=== PATIENT | male | born 1985 | race Two or more races ===

== ENCOUNTER 2017-02-12 18:26 | Inpatient (IN) | payer SELFPAY ==
[~2017-02-12] VITALS: Ht 175.3 cm; Wt 96.8 kg
[2017-02-12] MEDS ORDERED: IV NORMAL SALINE 1000ML BAG 1,000 ML IV ONE ×4 (19:00)
[2017-02-12 19:20] LABS: BASO % 0 % (0-3); EOS % 0 % (0-3); LYMPH # 1.6 x10^3/uL (1.0-4.8); LYMPH % 26 % (24-48); MEAN CORPUSCULAR HEMOGLOBIN 35 pg (25-35); MEAN CORPUSCULAR HGB CONC 35 g/dL (31-37); MEAN CORPUSCULAR VOLUME 100 fL (79-100); MONO % 5 % (0-9); NEUT % 69 % (31-73); PLATELET COUNT 168 x10^3/uL (140-400); RED BLOOD COUNT 1.25 x10^6/uL (4.30-5.70); RED CELL DISTRIBUTION WIDTH 15.3 % (11.5-14.5); WHITE BLOOD COUNT 6.3 x10^3/uL (4.0-11.0)
[2017-02-12 19:27] LABS: HEMATOCRIT 12.6 % (39.0-53.0); HEMOGLOBIN 4.4 g/dL (13.0-17.5)
[2017-02-12 19:28] LABS: BILIRUBIN,URINE SMALL (NEG); GLUCOSE,URINE NEGATIVE (NEG); NITRITE,URINE NEGATIVE (NEG); PH,URINE 5.5; PROTEIN,URINE NEGATIVE (NEG-TRACE)
[2017-02-12] MEDS ORDERED: ONDANSETRON PF 4 MG/2 ML VIAL. IV ONE (19:30)
[2017-02-12 19:33] LABS: CREATININE 1.3 mg/dL (0.7-1.3); GFR 64.8; POTASSIUM 3.7 mmol/L (3.5-5.1)
--- NOTE | 2017-02-12 19:36 | PHYS DOC ---
Past Medical History Past Medical History: No Pertinent History Past Surgical History: No Surgical History Alcohol Use: Rarely Drug Use: None Adult General Chief Complaint Chief Complaint: NAUSEA/VOMITING/DIARRHA HPI HPI 31-year-old male with no significant past medical history now presents complaining of 2 day history of nausea with vomiting and jaundice just been worsening. Patient has no abdominal pain or chest pain. He denies fevers chills sweats or shaking chills. No prior history of liver or biliary disease. Patient has never been told he had any medical problems. He does feel lightheaded and complains of nausea. Lightheadedness is worse when he tries to walk. No chest pain at any time Review of Systems Review of Systems Constitutional: Denies fever or chills [] Eyes: Denies change in visual acuity, redness, or eye pain [] HENT: Denies nasal congestion or sore throat [] Respiratory: Denies cough or shortness of breath [] Cardiovascular: No additional information not addressed in HPI [] GI: Denies abdominal pain, nausea, vomiting, bloody stools or diarrhea [] : Denies dysuria or hematuria [] Musculoskeletal: Denies back pain or joint pain [] Integument: Denies rash or skin lesions [] Neurologic: Denies headache, focal weakness or sensory changes [] Endocrine: Denies polyuria or polydipsia [] Current Medications Current Medications Current Medications Medications (Trade) Dose Ordered Sig/Yao Start Time Stop Time Status Last Admin Dose Admin Ondansetron HCl (Zofran) 4 mg 1X ONCE 02/12/17 19:30 02/12/17 19:31 DC 02/12/17 19:15 4 MG Sodium Chloride 1,000 ml @ 125 mls/hr 1X ONCE 02/12/17 19:00 02/13/17 02:59 Allergies Allergies Allergies Coded Allergies Type Severity Reaction Last Updated Verified No Known Drug Allergies 02/12/17 No Physical Exam Physical Exam Ill-appearing 31-year-old male with significant jaundice and scleral icterus dry mucous membranes supple neck alert communicative cooperative and appropriate with clear lungs regular rate and rhythm tachycardia benign abdomen with no epigastric or right upper quadrant tenderness no guarding or rebound no mass or megaly normal bowel sounds. Normal extremities. Constitutional: Well developed, well nourished, no acute distress, non-toxic appearance. [] HENT: Normocephalic, atraumatic, bilateral external ears normal, oropharynx mildly dry, no oral exudates, nose normal. [] Eyes: PERRLA, EOMI, scleral icterus, no discharge. [] Neck: Normal range of motion, no tenderness, supple, no stridor. [] Cardiovascular:Heart rate regular rhythm, no murmur [] Lungs & Thorax: Bilateral breath sounds clear to auscultation [] Abdomen: Bowel sounds normal, soft, no tenderness, no masses, no pulsatile masses. [] Skin: Warm, dry, no erythema, positive jaundice as above Back: No tenderness, no CVA tenderness. [] Extremities: No tenderness, no cyanosis, no clubbing, ROM intact, no edema. [] Neurologic: Alert and oriented X 3, normal motor function, normal sensory function, no focal deficits noted. [] Psychologic: Affect normal, judgement normal, mood normal. [] Current Patient Data Vital Signs Vital Signs Date Time Temp Pulse Resp B/P (MAP) Pulse Ox O2 Delivery O2 Flow Rate FiO2 02/12/17 18:35 98.6 125 14 152/85 (107) 100 Room Air 98.6 Lab Values Laboratory Tests Test 02/12/17 18:35 02/12/17 19:20 White Blood Count 6.3 x10^3/uL (4.0-11.0) Red Blood Count 1.25 x10^6/uL (4.30-5.70) L Hemoglobin 4.4 g/dL (13.0-17.5) *L Hematocrit 12.6 % (39.0-53.0) *L Mean Corpuscular Volume 100 fL (79-100) Mean Corpuscular Hemoglobin 35 pg (25-35) Mean Corpuscular Hemoglobin Concent 35 g/dL (31-37) Red Cell Distribution Width 15.3 % (11.5-14.5) H Platelet Count 168 x10^3/uL (140-400) Neutrophils (%) (Auto) 69 % (31-73) Lymphocytes (%) (Auto) 26 % (24-48) Monocytes (%) (Auto) 5 % (0-9) Eosinophils (%) (Auto) 0 % (0-3) Basophils (%) (Auto) 0 % (0-3) Neutrophils # (Auto) 4.3 x10^3uL (1.8-7.7) Lymphocytes # (Auto) 1.6 x10^3/uL (1.0-4.8) Monocytes # (Auto) 0.3 x10^3/uL (0.0-1.1) Eosinophils # (Auto) 0.0 x10^3/uL (0.0-0.7) Basophils # (Auto) 0.0 x10^3/uL (0.0-0.2) Sodium Level 141 mmol/L (136-145) Potassium Level 3.7 mmol/L (3.5-5.1) Chloride Level 102 mmol/L (98-107) Carbon Dioxide Level 24 mmol/L (21-32) Anion Gap 15 (6-14) H Blood Urea Nitrogen 28 mg/dL (8-26) H Creatinine 1.3 mg/dL (0.7-1.3) Estimated GFR (Cockcroft-Gault) 64.8 BUN/Creatinine Ratio 22 (6-20) H Glucose Level 191 mg/dL (70-99) H Calcium Level 9.0 mg/dL (8.5-10.1) Total Bilirubin 12.6 mg/dL (0.2-1.0) H Aspartate Amino Transferase (AST) 61 U/L (15-37) H Alanine Aminotransferase (ALT) 49 U/L (16-63) Alkaline Phosphatase 102 U/L (46-116) Total Protein 6.9 g/dL (6.4-8.2) Albumin 4.5 g/dL (3.4-5.0) Albumin/Globulin Ratio 1.9 (1.0-1.7) H Lipase 299 U/L (73-393) Urine Collection Type Unknown Urine Color [place] Urine Clarity Clear Urine pH 5.5 Urine Specific [place] 1.020 Urine Protein Negative mg/dL (NEG-TRACE) Urine Glucose (UA) Negative mg/dL (NEG) Urine Ketones (Stick) Trace mg/dL (NEG) Urine Blood Negative (NEG) Urine Nitrite Negative (NEG) Urine Bilirubin Small (NEG) Urine Urobilinogen Dipstick 4.0 mg/dL (0.2 mg/dL) Urine Leukocyte Esterase Small (NEG) Urine RBC 0 /HPF (0-2) Urine WBC 1-4 /HPF (0-4) Urine Squamous Epithelial Cells Occ /LPF Urine Bacteria Few /HPF (0-FEW) Urine Hyaline Casts Occasional /HPF Urine Mucus Mod /LPF Laboratory Tests 02/12/17 18:35 Laboratory Tests 02/12/17 18:35 EKG EKG [] Radiology/Procedures Radiology/Procedures Right Upper Quadrant with Gallstones but No Evidence of Cholecystitis or Biliary Dilatation.[] Course & Med Decision Making Course & Med Decision Making Pertinent Labs and Imaging studies reviewed. (See chart for details) Patient with severe jaundice and scleral icterus. Total bilirubin 12.6. Ultrasound gallstones but no evidence of cholecystitis or biliary dilatation. Patient is afebrile and has painless jaundice. He does have severe anemia with hemoglobin 4.4. As soon as the result was communicated to us patient was type and crossed for 2 units of PRBCs to be transfused as available. He is not Hinduism nor does he have any confucianist convictions which would preclude transfusion. Lipase is unremarkable. Case discussed with Dr. Mullins hospitalist on-call is aware of history and findings and agrees with inpatient admission and she requests [facility] bed to her service Critical care 73 minutes [] Dragon Disclaimer Dragon Disclaimer This electronic medical record was generated, in whole or in part, using a voice recognition dictation system. Departure Departure Impression: Primary Impression: Severe anemia Additional Impressions: Jaundice Hyperbilirubinemia Dehydration Gall stones Disposition: ADMITTED INPATIENT Admitting Physician: Usman Rahman Condition: CRITICAL Referrals: NO PCP (PCP) Problem Qualifiers DMITRIY TIAN MD Feb 12, 2017 19:36
[2017-02-12 19:38] LABS: ALBUMIN 4.5 g/dL (3.4-5.0); ALBUMIN/GLOBULIN RATIO 1.9 (1.0-1.7); TOTAL BILIRUBIN 12.6 mg/dL (0.2-1.0); TOTAL PROTEIN 6.9 g/dL (6.4-8.2)
[2017-02-12 19:43] LABS: RBC,URINE 0 /HPF (0-2)
[2017-02-12 19:44] LABS: BACTERIA,URINE FEW /HPF (0-FEW); SQUAMOUS EPITHELIAL CELL,UR OCC /LPF
--- NOTE | 2017-02-12 20:08 | RAD ---
ABDOMEN LTD History: Painless jaundice, nausea and vomiting for 3 days Comparison: None. Findings: Multiple sonographic images of the abdomen are submitted. No obvious abnormality of the visualized pancreas although not well visualized in some tiny due to bowel gas. Hepatic echotexture is within normal limits, no focal hepatic lesion demonstrated. There is segmental visualization of the inferior vena cava. There is demonstrable flow in the main portal vein, also demonstrable flow in hepatic veins. Right lobe of the liver measured 17.2 cm longitudinal. Right kidney measured 11.1 x 4.3 x 4.2 cm, no hydronephrosis. Gallstones fill the gallbladder lumen, no significant pericholecystic fluid or gallbladder wall thickening. Common bile duct is within normal limits up to 0.5 cm. Impression: 1. Gallstones fill the gallbladder, no significant gallbladder wall thickening or pericholecystic fluid. There is no significant biliary ductal dilatation. Electronically signed by: Micah Martinez MD (02/12/2017 8:05 PM) [facility]
[2017-02-12 21:29] VITALS: BP 137/60
[2017-02-12 21:34] VITALS: BP 138/61
[2017-02-12 21:50] VITALS: BP 137/61
[2017-02-12] MEDS ORDERED: IBUP200T58 PO (22:16)
[2017-02-12 22:34] VITALS: BP 131/63
[2017-02-12 23:00] VITALS: BP 128/60
[2017-02-12 23:34] VITALS: BP 120/60
[2017-02-13] VITALS (15 sets, daily range): BP systolic 116–157; BP diastolic 57–69
[2017-02-13 05:32] LABS: RED BLOOD COUNT 1.64 x10^6/uL (4.30-5.70); RED CELL DISTRIBUTION WIDTH 13.9 % (11.5-14.5); WHITE BLOOD COUNT 3.9 x10^3/uL (4.0-11.0)
[2017-02-13 05:44] LABS: ALBUMIN 3.6 g/dL (3.4-5.0); CALCIUM 7.9 mg/dL (8.5-10.1); CREATININE 1.1 mg/dL (0.7-1.3); DIRECT BILIRUBIN 0.8 mg/dL (0.0-0.2); GFR 78.6; HEMATOCRIT 15.6 % (39.0-53.0); HEMOGLOBIN 5.6 g/dL (13.0-17.5); POTASSIUM 3.9 mmol/L (3.5-5.1); TOTAL BILIRUBIN 9.3 mg/dL (0.2-1.0); TOTAL PROTEIN 5.7 g/dL (6.4-8.2)
[2017-02-13 09:44] LABS: BILIRUBIN,URINE SMALL (NEG); GLUCOSE,URINE NEGATIVE (NEG); NITRITE,URINE NEGATIVE (NEG); PH,URINE 6.5; PROTEIN,URINE NEGATIVE (NEG-TRACE)
[2017-02-13 10:03] LABS: % SAT IRON 96 % (15-34)
[2017-02-13 10:12] LABS: IRON,SERUM 243 ug/dL (65-175)
[2017-02-13 10:15] LABS: FOLATE 11.75 ng/ml (3.2-20.0)
[2017-02-13 10:17] LABS: FERRITIN 586 ng/mL (26-388); LACTATE DEHYDROGENASE 930 U/L (85-227)
--- NOTE | 2017-02-13 10:26 | RAD ---
Indication hemolytic anemia. Assess for splenic enlargement. Targeted ultrasound was performed. The examination was targeted to the spleen. There is splenomegaly. The spleen measures approximately 21 x 8 x 9 cm. IMPRESSION: Splenomegaly
[2017-02-13] MEDS ORDERED: IOHEXOL 240 MG/ML 50ML VIAL. PO ONE ×2 (10:45→11:30)
[2017-02-13] MEDS ORDERED: CONTRAST GIVEN MC PRN ×2 (10:45→11:30)
[2017-02-13] MEDS ORDERED: IOHEXOL 300 MG/ML 75 ML VIAL IV ONE ×2 (10:45→11:30)
--- NOTE | 2017-02-13 12:32 | CONS ---
DATE OF CONSULTATION: 02/13/2017 HEMATOLOGY ONCOLOGY CONSULTATION REPORT CONSULTATION REQUESTED BY: Dr. Servando Rahman. REASON FOR CONSULTATION: Severe anemia. HISTORY OF PRESENT ILLNESS: The patient is a 31-year-old gentleman who reports having felt lightheaded on 02/08/2017. He also noticed decreased appetite. On February 09, he started having nausea and vomiting. He reports that he was unable to keep any food down and whenever he tries to eat something, he tends to throw up. He denies any abdominal pain or chest pain. No fevers, chills or night sweats. He has also noticed that his urine has been dark since 02/06/2017 and he thought he was dehydrated and he was trying to drink more water. He was diagnosed with jaundice when he presented to the Emergency Room on 02/12/2017. He denies any prior history of jaundice. No history of liver or spleen problems. He has noticed increasing fatigue. He underwent ultrasound of the liver on 02/12/2017, which revealed gallstones. No evidence of biliary ductal dilatation. Hepatic echotexture was within normal limits. He was noted to have a hemoglobin of 4.4 on 02/12/2017 with an MCV of 100. After transfusion, his hemoglobin was 5.6. In addition, on 02/13/2017, his WBC was decreased to 3.9 and platelet count of 125. His reticulocyte count was elevated at 3.8. His total bilirubin was 9.3 with a direct bilirubin of only 0.8. PAST MEDICAL HISTORY: He denies any medical problems. PAST SURGICAL HISTORY: None. SOCIAL HISTORY: He drinks alcohol occasionally, but denies any heavy alcohol use. No smoking. FAMILY HISTORY: Positive for diabetes. REVIEW OF SYSTEMS: A 14-point review of system was performed. Pertinent positives are mentioned in the history of present illness. Rest of the system review is negative. PHYSICAL EXAMINATION: GENERAL APPEARANCE: The patient is a 31-year-old gentleman who is in no acute cardiorespiratory distress. VITAL SIGNS: Blood pressure 155/64, temperature 98.8. HEAD: Atraumatic, normocephalic. EYES: He has evidence of icterus. NECK: Supple. CHEST: Bilaterally symmetrical. No crepitations or rhonchi heard. HEART: S1, S2 normal. ABDOMEN: Soft, nontender. No hepatosplenomegaly. CENTRAL NERVOUS SYSTEM: No focal neurological deficits. LYMPHATICS: No lymphadenopathy. SKIN: No rashes. He has evidence of icterus. PSYCHOLOGIC: Mood and affect are appropriate. MUSCULOSKELETAL: No joint effusions. LABORATORY DATA: From 02/12/2017, WBC 6.3, hemoglobin 4.4, MCV 100, platelet count 168. Labs from 02/13/2017 reveals a WBC of 3.9, hemoglobin 5.6, platelet count 125. Reticulocyte count of 3.8. Total bilirubin 9.3, direct bilirubin 0.8, AST 45, ALT 42, total protein 5.7, alkaline phosphatase 8.3, albumin 3.6, calcium 7.9. Creatinine 1.1. IMPRESSION AND PLAN: 1. Severe anemia with a hemoglobin of 4.4 on 02/12/2017. In addition, he has evidence of leukopenia with a WBC of 3.9 and platelet count 125 on 02/13/2017. His reticulocyte count is elevated at 3.8 along with significant elevation of total bilirubin of 9.3 with direct bilirubin being only 0.8 suggestive of a hemolytic process. In addition, the patient reports having noticed dark urine since 02/06/2017. The nurse also noted that the urine was dark brown/tea-colored on the morning of 02/13/2017. The presence of pancytopenia and dark urine is concerning for paroxysmal nocturnal hemoglobinuria. I will check reticulocyte count, haptoglobin and LDH. I will also plan for flow cytometry to evaluate for PNH and to evaluate for CD55 and CD59 markers. I will also obtain a bone marrow biopsy to evaluate for any primary bone marrow failure. I will obtain ultrasound of the abdomen to evaluate for splenomegaly. I discussed in detail with the patient regarding the need for further above workup and he understands and agrees with the plan. 2. Nausea, which may also be nausea and vomiting. This may also be related to the same process. He also has gallstones and jaundice. I would continue to monitor. He does not have any abdominal pain. In view of significant jaundice, nausea and vomiting, I will obtain a CT scan for further evaluation. STEVEN GIL MD DR: TAMIA/yoon JOB#: [id number] / [id number] MTDD
--- NOTE | 2017-02-13 14:37 | RAD ---
Indication nausea vomiting. Jaundice. Axial images through the chest, abdomen and pelvis were obtained. Both oral and IV contrast were administered. Approximately 75 cc of Omnipaque 300 was administered intravenously. No prior CT imaging of the chest, abdomen or pelvis is available. CT chest: Findings. There is moderate adenopathy in both axilla. Adenopathy on the right is slightly greater than left. There is mild mediastinal adenopathy. There is no significant hilar adenopathy. A dominant soft tissue mass in either lung is not seen. There is minimal infiltrate in the lingula, particularly peripherally and in the right middle lobe. The etiology is not clear. Pneumonia is not excluded. There is no significant pleural fluid in either lung. The thoracic aorta is unremarkable. CT abdomen and pelvis: Findings. There is splenomegaly. There are a few minimally enlarged retrocrural lymph nodes. There is mild periaortic adenopathy. There are enlarged lymph nodes in the pelvis particularly along the iliac chain. Mildly enlarged lymph nodes are noted in both groins. The liver appears unremarkable. There is no significant intrahepatic biliary ductal dilatation. The gallbladder is largely contracted but grossly normal. No adrenal or renal pathology is seen. The pancreas appears unremarkable. No additional finding is seen in the pelvis apart from the adenopathy already referenced. IMPRESSION: Splenomegaly. This in conjunction with bilateral axillary adenopathy, periaortic and pelvic adenopathy with some associated mild mediastinal adenopathy suggests possible lymphoma. Minimal patchy infiltrates in the lingula and right middle lobe. The etiology is unclear. Pneumonia is not excluded PQRS Compliance Statement: One or more of the following individualized dose reduction techniques were utilized for this examination: 1. Automated exposure control 2. Adjustment of the mA and/or kV according to patient size 3. Use of iterative reconstruction technique
[2017-02-13 19:42] LABS: INR 1.2 (0.8-1.1); PROTHROMBIN TIME PATIENT 14.5 SEC (11.7-14.0)
[2017-02-14] VITALS (14 sets, daily range): BP systolic 111–140; BP diastolic 57–83
[2017-02-14 05:17] LABS: BASO % 0 % (0-3); EOS % 2 % (0-3); LYMPH # 0.7 x10^3/uL (1.0-4.8); LYMPH % 24 % (24-48); MEAN CORPUSCULAR HEMOGLOBIN 35 pg (25-35); MEAN CORPUSCULAR HGB CONC 37 g/dL (31-37); MEAN CORPUSCULAR VOLUME 95 fL (79-100); MONO % 6 % (0-9); NEUT % 68 % (31-73); PLATELET COUNT 124 x10^3/uL (140-400); RED BLOOD COUNT 1.81 x10^6/uL (4.30-5.70)
[2017-02-14 05:29] LABS: CALCIUM 8.1 mg/dL (8.5-10.1); GFR 87.7; POTASSIUM 3.3 mmol/L (3.5-5.1)
[2017-02-14 05:41] LABS: INR 1.2 (0.8-1.1); PROTHROMBIN TIME PATIENT 14.2 SEC (11.7-14.0)
[2017-02-14 05:45] LABS: HEMOGLOBIN 6.4 g/dL (13.0-17.5)
[2017-02-14 05:46] LABS: HEMATOCRIT 17.2 % (39.0-53.0)
[2017-02-14] MEDS ORDERED: LIDOCAINE 1% / SOD BICARB 8.4% 20 ML VIAL. IJ ONE ×2 (08:05→08:45)
[2017-02-14] MEDS ORDERED: MIDAZOLAM HCL/PF 5 MG/5 ML VIAL. ONE (08:23)
[2017-02-14] MEDS ORDERED: fentaNYL PF VIAL 250 MCG/5 ML VIAL ONE (08:24)
[2017-02-14] MEDS ORDERED: fentaNYL PF VIAL 250 MCG/5 ML VIAL IV ONE (08:45)
[2017-02-14] MEDS ORDERED: MIDAZOLAM HCL/PF 5 MG/5 ML VIAL. IV ONE (08:45)
--- NOTE | 2017-02-14 09:08 | HP ---
ADMIT DATE: 02/12/2017 CHIEF COMPLAINT: Severe anemia and jaundice. HISTORY OF PRESENT ILLNESS: The patient is a pleasant 31-year-old male who has been developing weakness and headaches and anemia. He is also jaundiced. He really did not notice he was jaundiced. He actually came to the hospital for the headache. While in the ER, he was noted to have a severe hemolytic anemia with a hemoglobin of 4 and a indirect bilirubin of greater than 10. The patient has hemolytic anemia. He has been admitted. We have consulted Dr. Richards. PAST MEDICAL HISTORY: Benign. ALLERGIES: None. FAMILY HISTORY: Hypertension. SOCIAL HISTORY: He does not drink, smoke or take drugs. MEDICATIONS: Reviewed. REVIEW OF SYSTEMS: GENERAL: No history of weight change, weakness or fevers. SKIN: He complains of jaundice. EYES: No blurred, double or loss of vision. NOSE AND THROAT: No history of nosebleeds, hoarseness or sore throat. HEART: No history of palpitations, chest pain or shortness of breath on exertion. LUNGS: Denies cough, hemoptysis, wheezing or shortness of breath. GASTROINTESTINAL: Denies changes in appetite, nausea, vomiting, diarrhea or constipation. GENITOURINARY: No history of frequency, urgency, hesitancy or nocturia. NEUROLOGIC: He complains of headache. PSYCHIATRIC: No history of panic, anxiety or depression. ENDOCRINE: No history of heat or cold intolerance, polyuria or polydipsia. EXTREMITIES: Denies muscle weakness, joint pain, pain on walking or stiffness. PHYSICAL EXAMINATION: VITAL SIGNS: Temperature afebrile, pulse 100, respirations 18, blood pressure 155/64. GENERAL: He is alert, cooperative, little concerned. HEART: Normal S1, S2. LUNGS: Clear. ABDOMEN: Soft. EXTREMITIES: No edema. SKIN: Very jaundiced. HEENT: He has scleral icterus. ENDOCRINE: No thyromegaly. LYMPHATICS: No cervical nodes. HEMATOPOIETIC: No bruising. LABORATORY DATA: White count is 6, hemoglobin 4.4, platelets 168. Electrolytes: Sodium 141, potassium 3.7, chloride 103, bicarb 24, BUN 28, creatinine 1.3, glucose 191. ____ 566, iron saturation 96, TIBC 254. Iron level 243. AST a little high at 61, ALT normal at 49, alkaline phosphatase is normal at 102. Lactate dehydrogenase is 930. Total protein low at 5.4. Albumin to globulin ratio high at 1.9. Folic acid is 11.75 and vitamins B12 is 403. ASSESSMENT AND PLAN: Probable hemolytic anemia. The patient has been admitted. We will consult Dr. Richards. Serial hemoglobin levels, we will transfuse if Dr. Richards agrees. Cardiac monitoring, PT, OT. Resume home medicines. PROGNOSIS: Guarded. ISREAL SQUIRES DO DR: DWAINE/yoon JOB#: [id number] / [id number]
--- NOTE | 2017-02-14 09:54 | PDOC ---
MODERATE SEDATION ASSESSMENT RISKS/ALTERNATIVES Risks/Alternatives Risks and alternatives of this type of sedation and procedure discussed with: RISK/ALTERNATIVES: Patient H & P ON CHART H & P H & P on chart and reviewed for co-morbid conditions and appropriate labs. H&P ON CHART: Yes STATUS PREG STATUS ASSESSED: Yes MEDS/ALLERGIES REVIEWED Meds/Allergies Reviewed Medications and Allergies including time and route of recently administered narcotics and sedatives. MEDS/ALLERGIES REVIEWED: Yes ASA RATING ASA RATING: II AIRWAY ASSESSMENT Airway Assessment Airway patency, oral function limitations, presence of caps, crowns, dentures, partials, and ability to extend neck assessed. AIRWAY ASSESSMENT: Yes MALLAMPATI SCORE MALLAMPATI SCORE: II PRE-SEDATION ASSESSMENT PRE-SEDATION ASSESSMENT: Yes CLIFF QUIGLEY MD Feb 14, 2017 09:54
--- NOTE | 2017-02-14 09:55 | PDOC ---
BRIEF OPERATIVE NOTE Pre-Op Diagnosis Anemia and splenomegaly Post-Op Diagnosis same Procedure Performed CT Bone Marrow Biopsy Surgeon Pravin Anesthesia Type: Conscious Sedation Specimens Obtained 2 x 2cc aspirates and 1 x 10g core Complications No immediate CLIFF QUIGLEY MD Feb 14, 2017 09:55
--- NOTE | 2017-02-14 09:58 | PDOC1 ---
History and Physical Date of Procedure Date of Admission Feb 12, 2017 at 19:45 History of Present Illness Reason for Visit Anemia and splenomegaly Past Medical History Past Medical History see nursing pre-op assessment Current Medications Current Medications Current Medications Sodium Chloride 1,000 ml @ 1,000 mls/hr 1X ONCE IV Last administered on 18:55; Start 02/12/17 at 19:00; Stop 02/12/17 at 19:59; Status DC Sodium Chloride 1,000 ml @ 1,000 mls/hr 1X ONCE IV Last administered on 19:03; Start 02/12/17 at 19:00; Stop 02/12/17 at 19:59; Status DC Sodium Chloride 1,000 ml @ 125 mls/hr 1X ONCE IV ; Start 02/12/17 at 19:00; Stop 02/13/17 at 02:59; Status DC Sodium Chloride 1,000 ml @ 125 mls/hr 1X ONCE IV ; Start 02/12/17 at 19:00; Stop 02/13/17 at 02:59; Status DC Ondansetron HCl (Zofran) 4 mg 1X ONCE IV Last administered on 02/12/17 19:15 ; Start 02/12/17 at 19:30; Stop 02/12/17 at 19:31; Status DC Iohexol (Omnipaque 240 Mg/ml) 30 ml 1X ONCE PO Last administered on 02/13/17 10:45; Start 02/13/17 at 10:45; Stop 02/13/17 at 10:46; Status DC Iohexol (Omnipaque 300 Mg/ml) 75 ml 1X ONCE IV Last administered on 02/13/17 10:45; Start 02/13/17 at 10:45; Stop 02/13/17 at 10:46; Status DC Info (Do NOT chart on this entry -- for MONITORING) 1 each PRN DAILY PRN MC SEE COMMENTS; Start 02/13/17 at 10:45; Stop 02/15/17 at 10:44 Iohexol (Omnipaque 240 Mg/ml) 30 ml 1X ONCE PO ; Start 02/13/17 at 11:30; Stop 02/13/17 at 11:31; Status DC Iohexol (Omnipaque 300 Mg/ml) 75 ml 1X ONCE IV ; Start 02/13/17 at 11:30; Stop 02/13/17 at 11:31; Status DC Info (Do NOT chart on this entry -- for MONITORING) 1 each PRN DAILY PRN MC SEE COMMENTS; Start 02/13/17 at 11:30; Stop 02/15/17 at 11:29 Lidocaine/Sodium Bicarbonate (Buffered Lidocaine 1%) 20 ml STK-MED ONCE IJ ; Start 02/14/17 at 08:05; Stop 02/14/17 at 08:06; Status DC Midazolam HCl (Versed) 5 mg STK-MED ONCE .ROUTE ; Start 02/14/17 at 08:23; Stop 02/14/17 at 08:24; Status DC Fentanyl Citrate (Fentanyl 5ml Vial) 250 mcg STK-MED ONCE .ROUTE ; Start at 08:24; Stop 02/14/17 at 08:25; Status DC Lidocaine/Sodium Bicarbonate (Buffered Lidocaine 1%) 20 ml 1X ONCE IJ Last administered on 02/14/17 08:50; Start 02/14/17 at 08:45; Stop 02/14/17 at 08:46 ; Status DC Midazolam HCl (Versed) 5 mg 1X ONCE IV Last administered on 02/14/17 08:50; Start 02/14/17 at 08:45; Stop 02/14/17 at 08:46; Status DC Fentanyl Citrate (Fentanyl 5ml Vial) 150 mcg 1X ONCE IV Last administered on 08:50; Start 02/14/17 at 08:45; Stop 02/14/17 at 08:46; Status DC Active Scripts Active Reported Advil (Ibuprofen) 200 Mg Tablet 200 Mg PO PRN Q6-8HRS PRN Allergies Allergies: Coded Allergies: No Known Drug Allergies (Unverified , 02/12/17) Physical Exam Vital Signs Vital Signs Date Time Temp Pulse Resp B/P (MAP) Pulse Ox O2 Delivery O2 Flow Rate FiO2 02/14/17 08:52 100 12 97 Room Air 02/14/17 08:50 2.0 02/14/17 07:00 99.0 123/65 (84) 99.0 Other see nursing pre-op assessment Assessment Assessment Anemia and splenomegaly Problems: Plan Plan CT Bone Marrow Biopsy CLIFF QUIGLEY MD Feb 14, 2017 09:58
--- NOTE | 2017-02-14 11:24 | PDOC ---
PROGRESS NOTES Chief Complaint Chief Complaint Severe anemia Leukopenia thrombocytopenia jaundice Splenomegaly lymphadenopathy History of Present Illness History of Present Illness The patient is a 31 y/o male who presented to the ED with nausea, vomiting, PRO, and Jaundice. Pt reports that these Sx have had been slowly worsening for the past week. In the ED he was also noted to have a TBili of 9.3 and indirect of 8.5, as well as, a Hgb of 4.4. The patient was admitted to the hospital. Dr. Richards ([facility]) has been consulted and is following the patient. Dr. Richards plans to undergo further testing, including CT chest/abd/pelvis, flow cytometry, splenic US, and BM biopsy. Patient seen at bedside. He is resting comfortably and in no acute distress. BM biopsy done today, which he tolerated well and has no pain. Patient currently denies any nausea, vomiting, fever or chills. He is sitting up in bed eating breakfast, tolerating well. CT Chest and CT abd/pelvis: IMPRESSION: Splenomegaly. This in conjunction with bilateral axillary adenopathy, periaortic and pelvic adenopathy with some associated mild mediastinal adenopathy suggests possible lymphoma. Minimal patchy infiltrates in the lingula and right middle lobe. The etiology is unclear. Pneumonia is not excluded Splenic US: Impression: Splenomegaly RUQ abd US: Impression: 1. Gallstones fill the gallbladder, no significant gallbladder wall thickening or pericholecystic fluid. There is no significant biliary ductal dilatation. Vitals Vitals Vital Signs Date Time Temp Pulse Resp B/P (MAP) Pulse Ox O2 Delivery O2 Flow Rate FiO2 02/14/17 08:52 100 12 97 Room Air 02/14/17 08:50 2.0 02/14/17 07:00 99.0 123/65 (84) 99.0 Physical Exam Physical Exam There is scleral icterus present General: Alert, Oriented X3, Cooperative, No acute distress Heart: Regular rate, Normal S1, Normal S2, No murmurs Lungs: Clear Abdomen: Normal bowel sounds, Soft, No tenderness Extremities: No clubbing, No cyanosis, No edema, Normal pulses Skin: No rashes, Other (jaundiced) Labs LABS Laboratory Tests Test 02/13/17 19:20 02/14/17 04:00 Prothrombin Time 14.5 SEC (11.7-14.0) 14.2 SEC (11.7-14.0) Prothromb Time International Ratio 1.2 (0.8-1.1) 1.2 (0.8-1.1) Activated Partial Thromboplast Time 21 SEC (24-38) White Blood Count 3.0 x10^3/uL (4.0-11.0) Red Blood Count 1.81 x10^6/uL (4.30-5.70) Hemoglobin 6.4 g/dL (13.0-17.5) Hematocrit 17.2 % (39.0-53.0) Mean Corpuscular Volume 95 fL (79-100) Mean Corpuscular Hemoglobin 35 pg (25-35) Mean Corpuscular Hemoglobin Concent 37 g/dL (31-37) Red Cell Distribution Width 14.0 % (11.5-14.5) Platelet Count 124 x10^3/uL (140-400) Neutrophils (%) (Auto) 68 % (31-73) Lymphocytes (%) (Auto) 24 % (24-48) Monocytes (%) (Auto) 6 % (0-9) Eosinophils (%) (Auto) 2 % (0-3) Basophils (%) (Auto) 0 % (0-3) Neutrophils # (Auto) 2.1 x10^3uL (1.8-7.7) Lymphocytes # (Auto) 0.7 x10^3/uL (1.0-4.8) Monocytes # (Auto) 0.2 x10^3/uL (0.0-1.1) Eosinophils # (Auto) 0.0 x10^3/uL (0.0-0.7) Basophils # (Auto) 0.0 x10^3/uL (0.0-0.2) Sodium Level 140 mmol/L (136-145) Potassium Level 3.3 mmol/L (3.5-5.1) Chloride Level 105 mmol/L (98-107) Carbon Dioxide Level 26 mmol/L (21-32) Anion Gap 9 (6-14) Blood Urea Nitrogen 22 mg/dL (8-26) Creatinine 1.0 mg/dL (0.7-1.3) Estimated GFR (Cockcroft-Gault) 87.7 Glucose Level 121 mg/dL (70-99) Calcium Level 8.1 mg/dL (8.5-10.1) Review of Systems Review of Systems General: + fatigue, Denies fever and chills CV: denies CP Resp: Denies SOB and wheezing abd: denies abd pain, nausea and vomiting Assessment and Plan Assessmemt and Plan Problems Medical Problems: (1) Dehydration Status: Acute (2) Gall stones Status: Acute (3) Severe anemia Status: Acute Assessment: Severe anemia Leukopenia thrombocytopenia jaundice Splenomegaly lymphadenopathy Plan: -PO potassium (K of 3.3) -CBC -CMP -recheck labs -Continue monitoring -continued following by heme/onc (Dr. Richards) -heme/onc workup per Dr. Richards -PT/OT Problems: Comment Review of Relevant I have reviewed the following items sharron (where applicable) has been applied. Labs Laboratory Tests Test 02/12/17 18:35 02/12/17 19:20 02/13/17 04:00 02/13/17 09:20 White Blood Count 6.3 x10^3/uL (4.0-11.0) 3.9 x10^3/uL (4.0-11.0) Red Blood Count 1.25 x10^6/uL (4.30-5.70) 1.64 x10^6/uL (4.30-5.70) Hemoglobin 4.4 g/dL (13.0-17.5) 5.6 g/dL (13.0-17.5) Hematocrit 12.6 % (39.0-53.0) 15.6 % (39.0-53.0) Mean Corpuscular Volume 100 fL (79-100) 95 fL (79-100) Mean Corpuscular Hemoglobin 35 pg (25-35) 34 pg (25-35) Mean Corpuscular Hemoglobin Concent 35 g/dL (31-37) 36 g/dL (31-37) Red Cell Distribution Width 15.3 % (11.5-14.5) 13.9 % (11.5-14.5) Platelet Count 168 x10^3/uL (140-400) 125 x10^3/uL (140-400) Neutrophils (%) (Auto) 69 % (31-73) Lymphocytes (%) (Auto) 26 % (24-48) Monocytes (%) (Auto) 5 % (0-9) Eosinophils (%) (Auto) 0 % (0-3) Basophils (%) (Auto) 0 % (0-3) Neutrophils # (Auto) 4.3 x10^3uL (1.8-7.7) Lymphocytes # (Auto) 1.6 x10^3/uL (1.0-4.8) Monocytes # (Auto) 0.3 x10^3/uL (0.0-1.1) Eosinophils # (Auto) 0.0 x10^3/uL (0.0-0.7) Basophils # (Auto) 0.0 x10^3/uL (0.0-0.2) Sodium Level 141 mmol/L (136-145) 142 mmol/L (136-145) Potassium Level 3.7 mmol/L (3.5-5.1) 3.9 mmol/L (3.5-5.1) Chloride Level 102 mmol/L (98-107) 107 mmol/L (98-107) Carbon Dioxide Level 24 mmol/L (21-32) 27 mmol/L (21-32) Anion Gap 15 (6-14) 8 (6-14) Blood Urea Nitrogen 28 mg/dL (8-26) 21 mg/dL (8-26) Creatinine 1.3 mg/dL (0.7-1.3) 1.1 mg/dL (0.7-1.3) Estimated GFR (Cockcroft-Gault) 64.8 78.6 BUN/Creatinine Ratio 22 (6-20) Glucose Level 191 mg/dL (70-99) 106 mg/dL (70-99) Calcium Level 9.0 mg/dL (8.5-10.1) 7.9 mg/dL (8.5-10.1) Total Bilirubin 12.6 mg/dL (0.2-1.0) 9.3 mg/dL (0.2-1.0) Aspartate Amino Transf (AST/SGOT) 61 U/L (15-37) 45 U/L (15-37) Alanine Aminotransferase (ALT/SGPT) 49 U/L (16-63) 42 U/L (16-63) Alkaline Phosphatase 102 U/L (46-116) 83 U/L (46-116) Total Protein 6.9 g/dL (6.4-8.2) 5.7 g/dL (6.4-8.2) Albumin 4.5 g/dL (3.4-5.0) 3.6 g/dL (3.4-5.0) Albumin/Globulin Ratio 1.9 (1.0-1.7) Lipase 299 U/L (73-393) Urine Collection Type Unknown Urine Color [place] Urine Clarity Clear Urine pH 5.5 Urine Specific [place] 1.020 Urine Protein Negative mg/dL (NEG-TRACE) Urine Glucose (UA) Negative mg/dL (NEG) Urine Ketones (Stick) Trace mg/dL (NEG) Urine Blood Negative (NEG) Urine Nitrite Negative (NEG) Urine Bilirubin Small (NEG) Urine Urobilinogen Dipstick 4.0 mg/dL (0.2 mg/dL) Urine Leukocyte Esterase Small (NEG) Urine RBC 0 /HPF (0-2) Urine WBC 1-4 /HPF (0-4) Urine Squamous Epithelial Cells Occ /LPF Urine Bacteria Few /HPF (0-FEW) Urine Hyaline Casts Occasional /HPF Urine Mucus Mod /LPF Direct Bilirubin 0.8 mg/dL (0.0-0.2) Reticulocyte Count (auto) 3.8 % (0.5-2.5) Iron Level 243 ug/dL (65-175) Total Iron Binding Capacity 254 ug/dL (250-450) Iron Saturation 96 % (15-34) Ferritin 586 ng/mL (26-388) Lactate Dehydrogenase 930 U/L (85-227) Vitamin B12 Level 403 pg/mL (247-911) Serum Folate 11.75 ng/ml (3.2-20.0) Test 02/13/17 09:30 02/13/17 19:20 02/14/17 04:00 Urine Collection Type Unknown Urine Color [place] Urine Clarity Clear Urine pH 6.5 Urine Specific [place] 1.015 Urine Protein Negative mg/dL (NEG-TRACE) Urine Glucose (UA) Negative mg/dL (NEG) Urine Ketones (Stick) Negative mg/dL (NEG) Urine Blood Negative (NEG) Urine Nitrite Negative (NEG) Urine Bilirubin Small (NEG) Urine Urobilinogen Dipstick 4.0 mg/dL (0.2 mg/dL) Urine Leukocyte Esterase Negative (NEG) Prothrombin Time 14.5 SEC (11.7-14.0) 14.2 SEC (11.7-14.0) Prothromb Time International Ratio 1.2 (0.8-1.1) 1.2 (0.8-1.1) Activated Partial Thromboplast Time 21 SEC (24-38) White Blood Count 3.0 x10^3/uL (4.0-11.0) Red Blood Count 1.81 x10^6/uL (4.30-5.70) Hemoglobin 6.4 g/dL (13.0-17.5) Hematocrit 17.2 % (39.0-53.0) Mean Corpuscular Volume 95 fL (79-100) Mean Corpuscular Hemoglobin 35 pg (25-35) Mean Corpuscular Hemoglobin Concent 37 g/dL (31-37) Red Cell Distribution Width 14.0 % (11.5-14.5) Platelet Count 124 x10^3/uL (140-400) Neutrophils (%) (Auto) 68 % (31-73) Lymphocytes (%) (Auto) 24 % (24-48) Monocytes (%) (Auto) 6 % (0-9) Eosinophils (%) (Auto) 2 % (0-3) Basophils (%) (Auto) 0 % (0-3) Neutrophils # (Auto) 2.1 x10^3uL (1.8-7.7) Lymphocytes # (Auto) 0.7 x10^3/uL (1.0-4.8) Monocytes # (Auto) 0.2 x10^3/uL (0.0-1.1) Eosinophils # (Auto) 0.0 x10^3/uL (0.0-0.7) Basophils # (Auto) 0.0 x10^3/uL (0.0-0.2) Sodium Level 140 mmol/L (136-145) Potassium Level 3.3 mmol/L (3.5-5.1) Chloride Level 105 mmol/L (98-107) Carbon Dioxide Level 26 mmol/L (21-32) Anion Gap 9 (6-14) Blood Urea Nitrogen 22 mg/dL (8-26) Creatinine 1.0 mg/dL (0.7-1.3) Estimated GFR (Cockcroft-Gault) 87.7 Glucose Level 121 mg/dL (70-99) Calcium Level 8.1 mg/dL (8.5-10.1) Laboratory Tests Test 02/13/17 19:20 02/14/17 04:00 Prothrombin Time 14.5 SEC (11.7-14.0) 14.2 SEC (11.7-14.0) Prothromb Time International Ratio 1.2 (0.8-1.1) 1.2 (0.8-1.1) Activated Partial Thromboplast Time 21 SEC (24-38) White Blood Count 3.0 x10^3/uL (4.0-11.0) Red Blood Count 1.81 x10^6/uL (4.30-5.70) Hemoglobin 6.4 g/dL (13.0-17.5) Hematocrit 17.2 % (39.0-53.0) Mean Corpuscular Volume 95 fL (79-100) Mean Corpuscular Hemoglobin 35 pg (25-35) Mean Corpuscular Hemoglobin Concent 37 g/dL (31-37) Red Cell Distribution Width 14.0 % (11.5-14.5) Platelet Count 124 x10^3/uL (140-400) Neutrophils (%) (Auto) 68 % (31-73) Lymphocytes (%) (Auto) 24 % (24-48) Monocytes (%) (Auto) 6 % (0-9) Eosinophils (%) (Auto) 2 % (0-3) Basophils (%) (Auto) 0 % (0-3) Neutrophils # (Auto) 2.1 x10^3uL (1.8-7.7) Lymphocytes # (Auto) 0.7 x10^3/uL (1.0-4.8) Monocytes # (Auto) 0.2 x10^3/uL (0.0-1.1) Eosinophils # (Auto) 0.0 x10^3/uL (0.0-0.7) Basophils # (Auto) 0.0 x10^3/uL (0.0-0.2) Sodium Level 140 mmol/L (136-145) Potassium Level 3.3 mmol/L (3.5-5.1) Chloride Level 105 mmol/L (98-107) Carbon Dioxide Level 26 mmol/L (21-32) Anion Gap 9 (6-14) Blood Urea Nitrogen 22 mg/dL (8-26) Creatinine 1.0 mg/dL (0.7-1.3) Estimated GFR (Cockcroft-Gault) 87.7 Glucose Level 121 mg/dL (70-99) Calcium Level 8.1 mg/dL (8.5-10.1) Medications Current Medications Sodium Chloride 1,000 ml @ 1,000 mls/hr 1X ONCE IV Last administered on 18:55; Start 02/12/17 at 19:00; Stop 02/12/17 at 19:59; Status DC Sodium Chloride 1,000 ml @ 1,000 mls/hr 1X ONCE IV Last administered on 19:03; Start 02/12/17 at 19:00; Stop 02/12/17 at 19:59; Status DC Sodium Chloride 1,000 ml @ 125 mls/hr 1X ONCE IV ; Start 02/12/17 at 19:00; Stop 02/13/17 at 02:59; Status DC Sodium Chloride 1,000 ml @ 125 mls/hr 1X ONCE IV ; Start 02/12/17 at 19:00; Stop 02/13/17 at 02:59; Status DC Ondansetron HCl (Zofran) 4 mg 1X ONCE IV Last administered on 02/12/17 19:15 ; Start 02/12/17 at 19:30; Stop 02/12/17 at 19:31; Status DC Iohexol (Omnipaque 240 Mg/ml) 30 ml 1X ONCE PO Last administered on 02/13/17 10:45; Start 02/13/17 at 10:45; Stop 02/13/17 at 10:46; Status DC Iohexol (Omnipaque 300 Mg/ml) 75 ml 1X ONCE IV Last administered on 02/13/17 10:45; Start 02/13/17 at 10:45; Stop 02/13/17 at 10:46; Status DC Info (Do NOT chart on this entry -- for MONITORING) 1 each PRN DAILY PRN MC SEE COMMENTS; Start 02/13/17 at 10:45; Stop 02/15/17 at 10:44 Iohexol (Omnipaque 240 Mg/ml) 30 ml 1X ONCE PO ; Start 02/13/17 at 11:30; Stop 02/13/17 at 11:31; Status DC Iohexol (Omnipaque 300 Mg/ml) 75 ml 1X ONCE IV ; Start 02/13/17 at 11:30; Stop 02/13/17 at 11:31; Status DC Info (Do NOT chart on this entry -- for MONITORING) 1 each PRN DAILY PRN MC SEE COMMENTS; Start 02/13/17 at 11:30; Stop 02/15/17 at 11:29 Lidocaine/Sodium Bicarbonate (Buffered Lidocaine 1%) 20 ml STK-MED ONCE IJ ; Start 02/14/17 at 08:05; Stop 02/14/17 at 08:06; Status DC Midazolam HCl (Versed) 5 mg STK-MED ONCE .ROUTE ; Start 02/14/17 at 08:23; Stop 02/14/17 at 08:24; Status DC Fentanyl Citrate (Fentanyl 5ml Vial) 250 mcg STK-MED ONCE .ROUTE ; Start at 08:24; Stop 02/14/17 at 08:25; Status DC Lidocaine/Sodium Bicarbonate (Buffered Lidocaine 1%) 20 ml 1X ONCE IJ Last administered on 02/14/17 08:50; Start 02/14/17 at 08:45; Stop 02/14/17 at 08:46 ; Status DC Midazolam HCl (Versed) 5 mg 1X ONCE IV Last administered on 02/14/17 08:50; Start 02/14/17 at 08:45; Stop 02/14/17 at 08:46; Status DC Fentanyl Citrate (Fentanyl 5ml Vial) 150 mcg 1X ONCE IV Last administered on 08:50; Start 02/14/17 at 08:45; Stop 02/14/17 at 08:46; Status DC Active Scripts Active Reported Advil (Ibuprofen) 200 Mg Tablet 200 Mg PO PRN Q6-8HRS PRN Vitals/I & O Vital Sign - Last 24 Hours 02/13/17 02/13/17 02/13/17 02/13/17 11:44 12:12 15:00 19:00 Temp 99.1 99.1 99.2 99.9 99.1 99.1 99.2 99.9 Pulse 101 100 107 104 Resp 20 18 18 18 B/P (MAP) 120/63 116/58 147/65 (92) 147/63 (91) Pulse Ox 96 98 O2 Delivery Room Air Room Air 02/13/17 02/13/17 02/14/17 02/14/17 20:00 23:00 03:25 07:00 Temp 99.2 99.2 99.0 99.2 99.2 99.0 Pulse 110 97 106 Resp 18 16 20 B/P (MAP) 131/61 (84) 126/57 (80) 123/65 (84) Pulse Ox 96 98 97 O2 Delivery Room Air Room Air Room Air Room Air 02/14/17 02/14/17 02/14/17 02/14/17 08:39 08:43 08:48 08:50 Pulse 98 102 106 Resp 18 Pulse Ox 98 98 98 98 O2 Delivery Nasal Cannula Nasal Cannula Nasal Cannula Nasal Cannula O2 Flow Rate 2.0 2.0 2.0 2.0 02/14/17 08:52 Pulse 100 Resp 12 Pulse Ox 97 O2 Delivery Room Air ISREAL SQUIRES III, DO Feb 14, 2017 11:24
--- NOTE | 2017-02-14 12:03 | RAD ---
Procedure: CT-guided bone marrow aspiration and biopsy Clinical Indication: 31-year-old with anemia and splenomegaly, and jaundice Sedation: Conscious sedation was administered for 16 minutes. The patient was monitored by a qualified independent observer throughout the time of sedation. Please refer to the medical record for exact doses of medications utilized to achieve moderate sedation. Antibiotics: None Fluoro Time: Not applicable Contrast: None Sterility: The procedure was performed in its entirety using appropriate elements of sterile technique. Consent: The procedure was explained in its entirety to the patient or the patients designated member services representative by a member of the treatment team, including a discussion of the risks, benefits and commonly accepted alternatives to the procedure, as well as the expected consequences of no therapy whatsoever. Discussion of the risks included, but was not limited to, those that are most frequent and those that are rare but possibly severe or life-threatening, as well as the possibility of unforeseen complications. Technique and Findings: Following informed consent, the patient was prepped and draped in usual sterile fashion. Preliminary CT scan of the area of interest was performed. 1% Lidocaine was used to achieve local anesthesia. Under periodic CT surveillance, an 11-gauge needle was advanced through the cortex of the posterior superior iliac spine and 2 separate 2 mL marrow aspirates were obtained and preserved on site by the conference assistant. A single 11-gauge core biopsy specimen was then obtained and preserved in formalin. The needle was then removed and hemostasis was achieved with manual compression. Complications: No immediate Impression: 1. CT-guided bone marrow aspiration and biopsy as described PQRS Compliance Statement: One or more of the following individualized dose reduction techniques were utilized for this examination: 1. Automated exposure control 2. Adjustment of the mA and/or kV according to patient size 3. Use of iterative reconstruction technique
[2017-02-14] MEDS ORDERED: POTASSIUM CHLORIDE 20 MEQ TABLET.ER. PO ONE (12:15)
[2017-02-14 12:45] LABS: ALBUMIN 3.6 g/dL (3.4-5.0); ALBUMIN/GLOBULIN RATIO 1.9 (1.0-1.7); CALCIUM 8.2 mg/dL (8.5-10.1); GFR 87.7; POTASSIUM 4.1 mmol/L (3.5-5.1); TOTAL BILIRUBIN 12.5 mg/dL (0.2-1.0); TOTAL PROTEIN 5.5 g/dL (6.4-8.2)
--- NOTE | 2017-02-14 14:15 | PDOC ---
PROGRESS NOTES Subjective Subjective c/c - f/u of anemia Objective Objective Vital Signs Date Time Temp Pulse Resp B/P (MAP) Pulse Ox O2 Delivery O2 Flow Rate FiO2 02/14/17 11:00 99.0 105 20 131/72 (91) 98 Room Air 99.0 02/14/17 08:50 2.0 Physical Exam Heart: Normal S1, Normal S2 General: Alert, Oriented X3 Lungs: Clear to auscultation Neuro: Normal speech Psych/Mental Status: Mental status NL Assessment Assessment Problems Medical Problems: (1) Dehydration Status: Acute (2) Gall stones Status: Acute (3) Severe anemia Status: Acute IMPRESSION AND PLAN: 1. Severe anemia with a hemoglobin of 4.4 on 02/12/2017. In addition, he has evidence of leukopenia with a WBC of 3.9 and platelet count 125 on 02/13/2017. His reticulocyte count is elevated at 3.8 along with significant elevation of total bilirubin of 9.3 with direct bilirubin being only 0.8 suggestive of a hemolytic process. In addition, the patient reports having noticed dark urine since 02/06/2017. The nurse also noted that the urine was dark brown/tea-colored on the morning of 02/13/2017. The presence of pancytopenia and dark urine is concerning for paroxysmal nocturnal hemoglobinuria. Reticulocyte count is 3.8, haptoglobin <10, and LDH 930, but Brittani test is negative. Flow cytometry to evaluate for PNH and to evaluate for CD55 and CD59 markers is pending. s/p bone marrow biopsy 02/14/17 to evaluate for any primary bone marrow failure. CT C/A/P on 02/13/17: Splenomegaly. This in conjunction with bilateral axillary adenopathy, periaortic and pelvic adenopathy with some associated mild mediastinal adenopathy suggests possible lymphoma. Await bx results. Plan 1 unit PRBC 02/14/17 as Hb still 6.4. 2. Nausea, which may also be nausea and vomiting. This may also be related to the same process. He also has gallstones and jaundice. I would continue to monitor. He does not have any abdominal pain. I Comment Review of Relevant I have reviewed the following items sharron (where applicable) has been applied. Labs Laboratory Tests Test 02/12/17 18:35 02/12/17 19:20 02/13/17 04:00 02/13/17 09:20 White Blood Count 6.3 x10^3/uL (4.0-11.0) 3.9 x10^3/uL (4.0-11.0) Red Blood Count 1.25 x10^6/uL (4.30-5.70) 1.64 x10^6/uL (4.30-5.70) Hemoglobin 4.4 g/dL (13.0-17.5) 5.6 g/dL (13.0-17.5) Hematocrit 12.6 % (39.0-53.0) 15.6 % (39.0-53.0) Mean Corpuscular Volume 100 fL (79-100) 95 fL (79-100) Mean Corpuscular Hemoglobin 35 pg (25-35) 34 pg (25-35) Mean Corpuscular Hemoglobin Concent 35 g/dL (31-37) 36 g/dL (31-37) Red Cell Distribution Width 15.3 % (11.5-14.5) 13.9 % (11.5-14.5) Platelet Count 168 x10^3/uL (140-400) 125 x10^3/uL (140-400) Neutrophils (%) (Auto) 69 % (31-73) Lymphocytes (%) (Auto) 26 % (24-48) Monocytes (%) (Auto) 5 % (0-9) Eosinophils (%) (Auto) 0 % (0-3) Basophils (%) (Auto) 0 % (0-3) Neutrophils # (Auto) 4.3 x10^3uL (1.8-7.7) Lymphocytes # (Auto) 1.6 x10^3/uL (1.0-4.8) Monocytes # (Auto) 0.3 x10^3/uL (0.0-1.1) Eosinophils # (Auto) 0.0 x10^3/uL (0.0-0.7) Basophils # (Auto) 0.0 x10^3/uL (0.0-0.2) Sodium Level 141 mmol/L (136-145) 142 mmol/L (136-145) Potassium Level 3.7 mmol/L (3.5-5.1) 3.9 mmol/L (3.5-5.1) Chloride Level 102 mmol/L (98-107) 107 mmol/L (98-107) Carbon Dioxide Level 24 mmol/L (21-32) 27 mmol/L (21-32) Anion Gap 15 (6-14) 8 (6-14) Blood Urea Nitrogen 28 mg/dL (8-26) 21 mg/dL (8-26) Creatinine 1.3 mg/dL (0.7-1.3) 1.1 mg/dL (0.7-1.3) Estimated GFR (Cockcroft-Gault) 64.8 78.6 BUN/Creatinine Ratio 22 (6-20) Glucose Level 191 mg/dL (70-99) 106 mg/dL (70-99) Calcium Level 9.0 mg/dL (8.5-10.1) 7.9 mg/dL (8.5-10.1) Total Bilirubin 12.6 mg/dL (0.2-1.0) 9.3 mg/dL (0.2-1.0) Aspartate Amino Transf (AST/SGOT) 61 U/L (15-37) 45 U/L (15-37) Alanine Aminotransferase (ALT/SGPT) 49 U/L (16-63) 42 U/L (16-63) Alkaline Phosphatase 102 U/L (46-116) 83 U/L (46-116) Total Protein 6.9 g/dL (6.4-8.2) 5.7 g/dL (6.4-8.2) Albumin 4.5 g/dL (3.4-5.0) 3.6 g/dL (3.4-5.0) Albumin/Globulin Ratio 1.9 (1.0-1.7) Lipase 299 U/L (73-393) Urine Collection Type Unknown Urine Color [place] Urine Clarity Clear Urine pH 5.5 Urine Specific [place] 1.020 Urine Protein Negative mg/dL (NEG-TRACE) Urine Glucose (UA) Negative mg/dL (NEG) Urine Ketones (Stick) Trace mg/dL (NEG) Urine Blood Negative (NEG) Urine Nitrite Negative (NEG) Urine Bilirubin Small (NEG) Urine Urobilinogen Dipstick 4.0 mg/dL (0.2 mg/dL) Urine Leukocyte Esterase Small (NEG) Urine RBC 0 /HPF (0-2) Urine WBC 1-4 /HPF (0-4) Urine Squamous Epithelial Cells Occ /LPF Urine Bacteria Few /HPF (0-FEW) Urine Hyaline Casts Occasional /HPF Urine Mucus Mod /LPF Direct Bilirubin 0.8 mg/dL (0.0-0.2) Reticulocyte Count (auto) 3.8 % (0.5-2.5) Haptoglobin <10 mg/dL (34-200) Iron Level 243 ug/dL (65-175) Total Iron Binding Capacity 254 ug/dL (250-450) Iron Saturation 96 % (15-34) Ferritin 586 ng/mL (26-388) Lactate Dehydrogenase 930 U/L (85-227) Vitamin B12 Level 403 pg/mL (247-911) Serum Folate 11.75 ng/ml (3.2-20.0) Test 02/13/17 09:30 02/13/17 19:20 02/14/17 04:00 02/14/17 12:25 Urine Collection Type Unknown Urine Color Rocío Urine Clarity Clear Urine pH 6.5 Urine Specific [place] 1.015 Urine Protein Negative mg/dL (NEG-TRACE) Urine Glucose (UA) Negative mg/dL (NEG) Urine Ketones (Stick) Negative mg/dL (NEG) Urine Blood Negative (NEG) Urine Nitrite Negative (NEG) Urine Bilirubin Small (NEG) Urine Urobilinogen Dipstick 4.0 mg/dL (0.2 mg/dL) Urine Leukocyte Esterase Negative (NEG) Prothrombin Time 14.5 SEC (11.7-14.0) 14.2 SEC (11.7-14.0) Prothromb Time International Ratio 1.2 (0.8-1.1) 1.2 (0.8-1.1) Activated Partial Thromboplast Time 21 SEC (24-38) White Blood Count 3.0 x10^3/uL (4.0-11.0) Red Blood Count 1.81 x10^6/uL (4.30-5.70) Hemoglobin 6.4 g/dL (13.0-17.5) Hematocrit 17.2 % (39.0-53.0) Mean Corpuscular Volume 95 fL (79-100) Mean Corpuscular Hemoglobin 35 pg (25-35) Mean Corpuscular Hemoglobin Concent 37 g/dL (31-37) Red Cell Distribution Width 14.0 % (11.5-14.5) Platelet Count 124 x10^3/uL (140-400) Neutrophils (%) (Auto) 68 % (31-73) Lymphocytes (%) (Auto) 24 % (24-48) Monocytes (%) (Auto) 6 % (0-9) Eosinophils (%) (Auto) 2 % (0-3) Basophils (%) (Auto) 0 % (0-3) Neutrophils # (Auto) 2.1 x10^3uL (1.8-7.7) Lymphocytes # (Auto) 0.7 x10^3/uL (1.0-4.8) Monocytes # (Auto) 0.2 x10^3/uL (0.0-1.1) Eosinophils # (Auto) 0.0 x10^3/uL (0.0-0.7) Basophils # (Auto) 0.0 x10^3/uL (0.0-0.2) Reticulocyte Count (auto) 4.1 % (0.5-2.5) Sodium Level 140 mmol/L (136-145) 140 mmol/L (136-145) Potassium Level 3.3 mmol/L (3.5-5.1) 4.1 mmol/L (3.5-5.1) Chloride Level 105 mmol/L (98-107) 106 mmol/L (98-107) Carbon Dioxide Level 26 mmol/L (21-32) 27 mmol/L (21-32) Anion Gap 9 (6-14) 7 (6-14) Blood Urea Nitrogen 22 mg/dL (8-26) 21 mg/dL (8-26) Creatinine 1.0 mg/dL (0.7-1.3) 1.0 mg/dL (0.7-1.3) Estimated GFR (Cockcroft-Gault) 87.7 87.7 Glucose Level 121 mg/dL (70-99) 108 mg/dL (70-99) Calcium Level 8.1 mg/dL (8.5-10.1) 8.2 mg/dL (8.5-10.1) BUN/Creatinine Ratio 21 (6-20) Total Bilirubin 12.5 mg/dL (0.2-1.0) Aspartate Amino Transf (AST/SGOT) 47 U/L (15-37) Alanine Aminotransferase (ALT/SGPT) 43 U/L (16-63) Alkaline Phosphatase 87 U/L (46-116) Total Protein 5.5 g/dL (6.4-8.2) Albumin 3.6 g/dL (3.4-5.0) Albumin/Globulin Ratio 1.9 (1.0-1.7) Laboratory Tests Test 02/13/17 19:20 02/14/17 04:00 02/14/17 12:25 Prothrombin Time 14.5 SEC (11.7-14.0) 14.2 SEC (11.7-14.0) Prothromb Time International Ratio 1.2 (0.8-1.1) 1.2 (0.8-1.1) Activated Partial Thromboplast Time 21 SEC (24-38) White Blood Count 3.0 x10^3/uL (4.0-11.0) Red Blood Count 1.81 x10^6/uL (4.30-5.70) Hemoglobin 6.4 g/dL (13.0-17.5) Hematocrit 17.2 % (39.0-53.0) Mean Corpuscular Volume 95 fL (79-100) Mean Corpuscular Hemoglobin 35 pg (25-35) Mean Corpuscular Hemoglobin Concent 37 g/dL (31-37) Red Cell Distribution Width 14.0 % (11.5-14.5) Platelet Count 124 x10^3/uL (140-400) Neutrophils (%) (Auto) 68 % (31-73) Lymphocytes (%) (Auto) 24 % (24-48) Monocytes (%) (Auto) 6 % (0-9) Eosinophils (%) (Auto) 2 % (0-3) Basophils (%) (Auto) 0 % (0-3) Neutrophils # (Auto) 2.1 x10^3uL (1.8-7.7) Lymphocytes # (Auto) 0.7 x10^3/uL (1.0-4.8) Monocytes # (Auto) 0.2 x10^3/uL (0.0-1.1) Eosinophils # (Auto) 0.0 x10^3/uL (0.0-0.7) Basophils # (Auto) 0.0 x10^3/uL (0.0-0.2) Reticulocyte Count (auto) 4.1 % (0.5-2.5) Sodium Level 140 mmol/L (136-145) 140 mmol/L (136-145) Potassium Level 3.3 mmol/L (3.5-5.1) 4.1 mmol/L (3.5-5.1) Chloride Level 105 mmol/L (98-107) 106 mmol/L (98-107) Carbon Dioxide Level 26 mmol/L (21-32) 27 mmol/L (21-32) Anion Gap 9 (6-14) 7 (6-14) Blood Urea Nitrogen 22 mg/dL (8-26) 21 mg/dL (8-26) Creatinine 1.0 mg/dL (0.7-1.3) 1.0 mg/dL (0.7-1.3) Estimated GFR (Cockcroft-Gault) 87.7 87.7 Glucose Level 121 mg/dL (70-99) 108 mg/dL (70-99) Calcium Level 8.1 mg/dL (8.5-10.1) 8.2 mg/dL (8.5-10.1) BUN/Creatinine Ratio 21 (6-20) Total Bilirubin 12.5 mg/dL (0.2-1.0) Aspartate Amino Transf (AST/SGOT) 47 U/L (15-37) Alanine Aminotransferase (ALT/SGPT) 43 U/L (16-63) Alkaline Phosphatase 87 U/L (46-116) Total Protein 5.5 g/dL (6.4-8.2) Albumin 3.6 g/dL (3.4-5.0) Albumin/Globulin Ratio 1.9 (1.0-1.7) Medications Current Medications Sodium Chloride 1,000 ml @ 1,000 mls/hr 1X ONCE IV Last administered on 18:55; Start 02/12/17 at 19:00; Stop 02/12/17 at 19:59; Status DC Sodium Chloride 1,000 ml @ 1,000 mls/hr 1X ONCE IV Last administered on t 19:03; Start 02/12/17 at 19:00; Stop 02/12/17 at 19:59; Status DC Sodium Chloride 1,000 ml @ 125 mls/hr 1X ONCE IV ; Start 02/12/17 at 19:00; Stop 02/13/17 at 02:59; Status DC Sodium Chloride 1,000 ml @ 125 mls/hr 1X ONCE IV ; Start 02/12/17 at 19:00; Stop 02/13/17 at 02:59; Status DC Ondansetron HCl (Zofran) 4 mg 1X ONCE IV Last administered on 02/12/17t 19:15 ; Start 02/12/17 at 19:30; Stop 02/12/17 at 19:31; Status DC Iohexol (Omnipaque 240 Mg/ml) 30 ml 1X ONCE PO Last administered on 02/13/17t 10:45; Start 02/13/17 at 10:45; Stop 02/13/17 at 10:46; Status DC Iohexol (Omnipaque 300 Mg/ml) 75 ml 1X ONCE IV Last administered on 02/13/17t 10:45; Start 02/13/17 at 10:45; Stop 02/13/17 at 10:46; Status DC Info (Do NOT chart on this entry -- for MONITORING) 1 each PRN DAILY PRN MC SEE COMMENTS; Start 02/13/17 at 10:45; Stop 02/14/17 at 11:29; Status DC Iohexol (Omnipaque 240 Mg/ml) 30 ml 1X ONCE PO ; Start 02/13/17 at 11:30; Stop 02/13/17 at 11:31; Status DC Iohexol (Omnipaque 300 Mg/ml) 75 ml 1X ONCE IV ; Start 02/13/17 at 11:30; Stop 02/13/17 at 11:31; Status DC Info (Do NOT chart on this entry -- for MONITORING) 1 each PRN DAILY PRN MC SEE COMMENTS; Start 02/13/17 at 11:30; Stop 02/15/17 at 11:29 Lidocaine/Sodium Bicarbonate (Buffered Lidocaine 1%) 20 ml STK-MED ONCE IJ ; Start 02/14/17 at 08:05; Stop 02/14/17 at 08:06; Status DC Midazolam HCl (Versed) 5 mg STK-MED ONCE .ROUTE ; Start 02/14/17 at 08:23; Stop 02/14/17 at 08:24; Status DC Fentanyl Citrate (Fentanyl 5ml Vial) 250 mcg STK-MED ONCE .ROUTE ; Start at 08:24; Stop 02/14/17 at 08:25; Status DC Lidocaine/Sodium Bicarbonate (Buffered Lidocaine 1%) 20 ml 1X ONCE IJ Last administered on 02/14/17 08:50; Start 02/14/17 at 08:45; Stop 02/14/17 at 08:46 ; Status DC Midazolam HCl (Versed) 5 mg 1X ONCE IV Last administered on 02/14/17 08:50; Start 02/14/17 at 08:45; Stop 02/14/17 at 08:46; Status DC Fentanyl Citrate (Fentanyl 5ml Vial) 150 mcg 1X ONCE IV Last administered on 08:50; Start 02/14/17 at 08:45; Stop 02/14/17 at 08:46; Status DC Potassium Chloride (Klor-Con) 40 meq 1X ONCE PO Last administered on 12:36; Start 02/14/17 at 12:15; Stop 02/14/17 at 12:16; Status DC Active Scripts Active Reported Advil (Ibuprofen) 200 Mg Tablet 200 Mg PO PRN Q6-8HRS PRN Vitals/I & O Vital Sign - Last 24 Hours 02/13/17 02/13/17 02/13/17 02/13/17 15:00 19:00 20:00 23:00 Temp 99.2 99.9 99.2 99.2 99.9 99.2 Pulse 107 104 110 Resp 18 18 18 B/P (MAP) 147/65 (92) 147/63 (91) 131/61 (84) Pulse Ox 96 98 96 O2 Delivery Room Air Room Air Room Air Room Air 02/14/17 02/14/17 02/14/17 02/14/17 03:25 07:00 08:39 08:43 Temp 99.2 99.0 99.2 99.0 Pulse 97 106 98 102 Resp 16 20 18 19 B/P (MAP) 126/57 (80) 123/65 (84) Pulse Ox 98 97 98 98 O2 Delivery Room Air Room Air Nasal Cannula Nasal Cannula O2 Flow Rate 2.0 2.0 02/14/17 02/14/17 02/14/17 02/14/17 08:48 08:50 08:52 11:00 Temp 99.0 99.0 Pulse 106 100 105 Resp 17 17 12 20 B/P (MAP) 131/72 (91) Pulse Ox 98 98 97 98 O2 Delivery Nasal Cannula Nasal Cannula Room Air Room Air O2 Flow Rate 2.0 2.0 STEVEN GIL MD Feb 14, 2017 14:15
[2017-02-14] MEDS ORDERED: ACETAMINOPHEN 325 MG TABLET. PO PRN (17:45)
[2017-02-15 03:43] VITALS: BP 119/60
[2017-02-15 05:34] LABS: CALCIUM 8.7 mg/dL (8.5-10.1); CREATININE 0.9 mg/dL (0.7-1.3); GFR 99.1
[2017-02-15 05:38] LABS: BASO % 0 % (0-3); EOS % 2 % (0-3); LYMPH # 0.7 x10^3/uL (1.0-4.8); LYMPH % 23 % (24-48); MEAN CORPUSCULAR HEMOGLOBIN 34 pg (25-35); MEAN CORPUSCULAR HGB CONC 36 g/dL (31-37); MEAN CORPUSCULAR VOLUME 95 fL (79-100); MONO % 7 % (0-9); NEUT % 68 % (31-73); PLATELET COUNT 108 x10^3/uL (140-400); RED BLOOD COUNT 2.05 x10^6/uL (4.30-5.70); RED CELL DISTRIBUTION WIDTH 13.8 % (11.5-14.5); RETIC COUNT 9.2 % (0.5-2.5)
[2017-02-15 05:43] LABS: ALBUMIN 3.7 g/dL (3.4-5.0); ALBUMIN/GLOBULIN RATIO 1.5 (1.0-1.7); CALCIUM 8.7 mg/dL (8.5-10.1); CREATININE 0.9 mg/dL (0.7-1.3); GFR 99.1; TOTAL BILIRUBIN 10.8 mg/dL (0.2-1.0); TOTAL PROTEIN 6.2 g/dL (6.4-8.2)
[2017-02-15 05:50] LABS: HEMATOCRIT 19.5 % (39.0-53.0)
[2017-02-15 07:13] VITALS: BP 123/57
--- NOTE | 2017-02-15 08:26 | PDOC ---
PROGRESS NOTES Subjective Subjective c/c - f/u of anemia Objective Objective Vital Signs Date Time Temp Pulse Resp B/P (MAP) Pulse Ox O2 Delivery O2 Flow Rate FiO2 02/15/17 07:13 98.7 96 18 123/57 (79) 98 Room Air 98.7 02/14/17 08:50 2.0 Physical Exam Heart: Normal S1, Normal S2 General: Alert, Oriented X3 Lungs: Clear to auscultation Neuro: Normal speech Psych/Mental Status: Mental status NL Assessment Assessment Problems Medical Problems: (1) Dehydration Status: Acute (2) Gall stones Status: Acute (3) Severe anemia Status: Acute IMPRESSION AND PLAN: 1. Severe anemia with a hemoglobin of 4.4 on 02/12/2017. In addition, he has evidence of leukopenia with a WBC of 3.9 and platelet count 125 on 02/13/2017. His reticulocyte count is elevated at 3.8 along with significant elevation of total bilirubin of 9.3 with direct bilirubin being only 0.8 suggestive of a hemolytic process. In addition, the patient reports having noticed dark urine since 02/06/2017. The nurse also noted that the urine was dark brown/tea-colored on the morning of 02/13/2017. The presence of pancytopenia and dark urine is concerning for paroxysmal nocturnal hemoglobinuria. On 02/13/17 Reticulocyte count is 3.8, haptoglobin <10, and LDH 930, but Brittani test is negative. Flow cytometry to evaluate for PNH and to evaluate for CD55 and CD59 markers is pending. s/p bone marrow biopsy 02/14/17 to evaluate for any primary bone marrow failure. CT C/A/P on 02/13/17: Splenomegaly. This in conjunction with bilateral axillary adenopathy, periaortic and pelvic adenopathy with some associated mild mediastinal adenopathy suggests possible lymphoma. Await bone marrow bx results. I d/w pathologist. We felt that LN bx will be useful for diagnosis. Ordered. s/p 1 unit PRBC 02/14/17 as Hb was 6.4 and it improved to 7.0 on 02/15/17. Ok to d/c home after LN bx as his symptoms have improved. f/u with me 02/18/17. I d/w pt and also his godmother Cecile via a conference call with pt. I d/w RN 2. Nausea, which may also be nausea and vomiting. This may also be related to the same process. He also has gallstones and jaundice. I would continue to monitor. He does not have any abdominal pain. I Comment Review of Relevant I have reviewed the following items sharron (where applicable) has been applied. Labs Laboratory Tests Test 02/13/17 09:20 02/13/17 09:30 02/13/17 19:20 02/14/17 04:00 Reticulocyte Count (auto) 3.8 % (0.5-2.5) 4.1 % (0.5-2.5) Haptoglobin <10 mg/dL (34-200) Iron Level 243 ug/dL (65-175) Total Iron Binding Capacity 254 ug/dL (250-450) Iron Saturation 96 % (15-34) Ferritin 586 ng/mL (26-388) Lactate Dehydrogenase 930 U/L (85-227) Vitamin B12 Level 403 pg/mL (247-911) Serum Folate 11.75 ng/ml (3.2-20.0) Urine Collection Type Unknown Urine Color [place] Urine Clarity Clear Urine pH 6.5 Urine Specific [place] 1.015 Urine Protein Negative mg/dL (NEG-TRACE) Urine Glucose (UA) Negative mg/dL (NEG) Urine Ketones (Stick) Negative mg/dL (NEG) Urine Blood Negative (NEG) Urine Nitrite Negative (NEG) Urine Bilirubin Small (NEG) Urine Urobilinogen Dipstick 4.0 mg/dL (0.2 mg/dL) Urine Leukocyte Esterase Negative (NEG) Prothrombin Time 14.5 SEC (11.7-14.0) 14.2 SEC (11.7-14.0) Prothromb Time International Ratio 1.2 (0.8-1.1) 1.2 (0.8-1.1) Activated Partial Thromboplast Time 21 SEC (24-38) White Blood Count 3.0 x10^3/uL (4.0-11.0) Red Blood Count 1.81 x10^6/uL (4.30-5.70) Hemoglobin 6.4 g/dL (13.0-17.5) Hematocrit 17.2 % (39.0-53.0) Mean Corpuscular Volume 95 fL (79-100) Mean Corpuscular Hemoglobin 35 pg (25-35) Mean Corpuscular Hemoglobin Concent 37 g/dL (31-37) Red Cell Distribution Width 14.0 % (11.5-14.5) Platelet Count 124 x10^3/uL (140-400) Neutrophils (%) (Auto) 68 % (31-73) Lymphocytes (%) (Auto) 24 % (24-48) Monocytes (%) (Auto) 6 % (0-9) Eosinophils (%) (Auto) 2 % (0-3) Basophils (%) (Auto) 0 % (0-3) Neutrophils # (Auto) 2.1 x10^3uL (1.8-7.7) Lymphocytes # (Auto) 0.7 x10^3/uL (1.0-4.8) Monocytes # (Auto) 0.2 x10^3/uL (0.0-1.1) Eosinophils # (Auto) 0.0 x10^3/uL (0.0-0.7) Basophils # (Auto) 0.0 x10^3/uL (0.0-0.2) Sodium Level 140 mmol/L (136-145) Potassium Level 3.3 mmol/L (3.5-5.1) Chloride Level 105 mmol/L (98-107) Carbon Dioxide Level 26 mmol/L (21-32) Anion Gap 9 (6-14) Blood Urea Nitrogen 22 mg/dL (8-26) Creatinine 1.0 mg/dL (0.7-1.3) Estimated GFR (Cockcroft-Gault) 87.7 Glucose Level 121 mg/dL (70-99) Calcium Level 8.1 mg/dL (8.5-10.1) Test 02/14/17 12:25 02/15/17 04:30 Sodium Level 140 mmol/L (136-145) 141 mmol/L (136-145) Potassium Level 4.1 mmol/L (3.5-5.1) 4.0 mmol/L (3.5-5.1) Chloride Level 106 mmol/L (98-107) 107 mmol/L (98-107) Carbon Dioxide Level 27 mmol/L (21-32) 25 mmol/L (21-32) Anion Gap 7 (6-14) 9 (6-14) Blood Urea Nitrogen 21 mg/dL (8-26) 20 mg/dL (8-26) Creatinine 1.0 mg/dL (0.7-1.3) 0.9 mg/dL (0.7-1.3) Estimated GFR (Cockcroft-Gault) 87.7 99.1 BUN/Creatinine Ratio 21 (6-20) 22 (6-20) Glucose Level 108 mg/dL (70-99) 107 mg/dL (70-99) Calcium Level 8.2 mg/dL (8.5-10.1) 8.7 mg/dL (8.5-10.1) Total Bilirubin 12.5 mg/dL (0.2-1.0) 10.8 mg/dL (0.2-1.0) Aspartate Amino Transf (AST/SGOT) 47 U/L (15-37) 46 U/L (15-37) Alanine Aminotransferase (ALT/SGPT) 43 U/L (16-63) 38 U/L (16-63) Alkaline Phosphatase 87 U/L (46-116) 82 U/L (46-116) Total Protein 5.5 g/dL (6.4-8.2) 6.2 g/dL (6.4-8.2) Albumin 3.6 g/dL (3.4-5.0) 3.7 g/dL (3.4-5.0) Albumin/Globulin Ratio 1.9 (1.0-1.7) 1.5 (1.0-1.7) White Blood Count 3.0 x10^3/uL (4.0-11.0) Red Blood Count 2.05 x10^6/uL (4.30-5.70) Hemoglobin 7.0 g/dL (13.0-17.5) Hematocrit 19.5 % (39.0-53.0) Mean Corpuscular Volume 95 fL (79-100) Mean Corpuscular Hemoglobin 34 pg (25-35) Mean Corpuscular Hemoglobin Concent 36 g/dL (31-37) Red Cell Distribution Width 13.8 % (11.5-14.5) Platelet Count 108 x10^3/uL (140-400) Neutrophils (%) (Auto) 68 % (31-73) Lymphocytes (%) (Auto) 23 % (24-48) Monocytes (%) (Auto) 7 % (0-9) Eosinophils (%) (Auto) 2 % (0-3) Basophils (%) (Auto) 0 % (0-3) Neutrophils # (Auto) 2.0 x10^3uL (1.8-7.7) Lymphocytes # (Auto) 0.7 x10^3/uL (1.0-4.8) Monocytes # (Auto) 0.2 x10^3/uL (0.0-1.1) Eosinophils # (Auto) 0.1 x10^3/uL (0.0-0.7) Basophils # (Auto) 0.0 x10^3/uL (0.0-0.2) Reticulocyte Count (auto) 9.2 % (0.5-2.5) Lactate Dehydrogenase 939 U/L (85-227) Laboratory Tests Test 02/14/17 12:25 02/15/17 04:30 Sodium Level 140 mmol/L (136-145) 141 mmol/L (136-145) Potassium Level 4.1 mmol/L (3.5-5.1) 4.0 mmol/L (3.5-5.1) Chloride Level 106 mmol/L (98-107) 107 mmol/L (98-107) Carbon Dioxide Level 27 mmol/L (21-32) 25 mmol/L (21-32) Anion Gap 7 (6-14) 9 (6-14) Blood Urea Nitrogen 21 mg/dL (8-26) 20 mg/dL (8-26) Creatinine 1.0 mg/dL (0.7-1.3) 0.9 mg/dL (0.7-1.3) Estimated GFR (Cockcroft-Gault) 87.7 99.1 BUN/Creatinine Ratio 21 (6-20) 22 (6-20) Glucose Level 108 mg/dL (70-99) 107 mg/dL (70-99) Calcium Level 8.2 mg/dL (8.5-10.1) 8.7 mg/dL (8.5-10.1) Total Bilirubin 12.5 mg/dL (0.2-1.0) 10.8 mg/dL (0.2-1.0) Aspartate Amino Transf (AST/SGOT) 47 U/L (15-37) 46 U/L (15-37) Alanine Aminotransferase (ALT/SGPT) 43 U/L (16-63) 38 U/L (16-63) Alkaline Phosphatase 87 U/L (46-116) 82 U/L (46-116) Total Protein 5.5 g/dL (6.4-8.2) 6.2 g/dL (6.4-8.2) Albumin 3.6 g/dL (3.4-5.0) 3.7 g/dL (3.4-5.0) Albumin/Globulin Ratio 1.9 (1.0-1.7) 1.5 (1.0-1.7) White Blood Count 3.0 x10^3/uL (4.0-11.0) Red Blood Count 2.05 x10^6/uL (4.30-5.70) Hemoglobin 7.0 g/dL (13.0-17.5) Hematocrit 19.5 % (39.0-53.0) Mean Corpuscular Volume 95 fL (79-100) Mean Corpuscular Hemoglobin 34 pg (25-35) Mean Corpuscular Hemoglobin Concent 36 g/dL (31-37) Red Cell Distribution Width 13.8 % (11.5-14.5) Platelet Count 108 x10^3/uL (140-400) Neutrophils (%) (Auto) 68 % (31-73) Lymphocytes (%) (Auto) 23 % (24-48) Monocytes (%) (Auto) 7 % (0-9) Eosinophils (%) (Auto) 2 % (0-3) Basophils (%) (Auto) 0 % (0-3) Neutrophils # (Auto) 2.0 x10^3uL (1.8-7.7) Lymphocytes # (Auto) 0.7 x10^3/uL (1.0-4.8) Monocytes # (Auto) 0.2 x10^3/uL (0.0-1.1) Eosinophils # (Auto) 0.1 x10^3/uL (0.0-0.7) Basophils # (Auto) 0.0 x10^3/uL (0.0-0.2) Reticulocyte Count (auto) 9.2 % (0.5-2.5) Lactate Dehydrogenase 939 U/L (85-227) Medications Current Medications Sodium Chloride 1,000 ml @ 1,000 mls/hr 1X ONCE IV Last administered on 18:55; Start 02/12/17 at 19:00; Stop 02/12/17 at 19:59; Status DC Sodium Chloride 1,000 ml @ 1,000 mls/hr 1X ONCE IV Last administered on 19:03; Start 02/12/17 at 19:00; Stop 02/12/17 at 19:59; Status DC Sodium Chloride 1,000 ml @ 125 mls/hr 1X ONCE IV ; Start 02/12/17 at 19:00; Stop 02/13/17 at 02:59; Status DC Sodium Chloride 1,000 ml @ 125 mls/hr 1X ONCE IV ; Start 02/12/17 at 19:00; Stop 02/13/17 at 02:59; Status DC Ondansetron HCl (Zofran) 4 mg 1X ONCE IV Last administered on 02/12/17 19:15 ; Start 02/12/17 at 19:30; Stop 02/12/17 at 19:31; Status DC Iohexol (Omnipaque 240 Mg/ml) 30 ml 1X ONCE PO Last administered on 02/13/17 10:45; Start 02/13/17 at 10:45; Stop 02/13/17 at 10:46; Status DC Iohexol (Omnipaque 300 Mg/ml) 75 ml 1X ONCE IV Last administered on 02/13/17 10:45; Start 02/13/17 at 10:45; Stop 02/13/17 at 10:46; Status DC Info (Do NOT chart on this entry -- for MONITORING) 1 each PRN DAILY PRN MC SEE COMMENTS; Start 02/13/17 at 10:45; Stop 02/14/17 at 11:29; Status DC Iohexol (Omnipaque 240 Mg/ml) 30 ml 1X ONCE PO ; Start 02/13/17 at 11:30; Stop 02/13/17 at 11:31; Status DC Iohexol (Omnipaque 300 Mg/ml) 75 ml 1X ONCE IV ; Start 02/13/17 at 11:30; Stop 02/13/17 at 11:31; Status DC Info (Do NOT chart on this entry -- for MONITORING) 1 each PRN DAILY PRN MC SEE COMMENTS; Start 02/13/17 at 11:30; Stop 02/15/17 at 11:29 Lidocaine/Sodium Bicarbonate (Buffered Lidocaine 1%) 20 ml STK-MED ONCE IJ ; Start 02/14/17 at 08:05; Stop 02/14/17 at 08:06; Status DC Midazolam HCl (Versed) 5 mg STK-MED ONCE .ROUTE ; Start 02/14/17 at 08:23; Stop 02/14/17 at 08:24; Status DC Fentanyl Citrate (Fentanyl 5ml Vial) 250 mcg STK-MED ONCE .ROUTE ; Start at 08:24; Stop 02/14/17 at 08:25; Status DC Lidocaine/Sodium Bicarbonate (Buffered Lidocaine 1%) 20 ml 1X ONCE IJ Last administered on 02/14/17 08:50; Start 02/14/17 at 08:45; Stop 02/14/17 at 08:46 ; Status DC Midazolam HCl (Versed) 5 mg 1X ONCE IV Last administered on 02/14/17 08:50; Start 02/14/17 at 08:45; Stop 02/14/17 at 08:46; Status DC Fentanyl Citrate (Fentanyl 5ml Vial) 150 mcg 1X ONCE IV Last administered on 08:50; Start 02/14/17 at 08:45; Stop 02/14/17 at 08:46; Status DC Potassium Chloride (Klor-Con) 40 meq 1X ONCE PO Last administered on 12:36; Start 02/14/17 at 12:15; Stop 02/14/17 at 12:16; Status DC Acetaminophen (Tylenol) 650 mg PRN Q6HRS PRN PO PAIN Last administered on 18:31; Start 02/14/17 at 17:45 Active Scripts Active Reported Advil (Ibuprofen) 200 Mg Tablet 200 Mg PO PRN Q6-8HRS PRN Vitals/I & O Vital Sign - Last 24 Hours 02/14/17 02/14/17 02/14/17 02/14/17 08:39 08:43 08:48 08:50 Pulse 98 102 106 Resp 17 Pulse Ox 98 98 98 98 O2 Delivery Nasal Cannula Nasal Cannula Nasal Cannula Nasal Cannula O2 Flow Rate 2.0 2.0 2.0 2.0 02/14/17 02/14/17 02/14/17 02/14/17 08:52 11:00 15:00 16:14 Temp 99.0 99.4 99.0 99.0 99.4 99.0 Pulse 100 105 109 101 Resp 12 20 18 18 B/P (MAP) 131/72 (91) 134/70 (91) 134/70 Pulse Ox 97 98 99 O2 Delivery Room Air Room Air Room Air 02/14/17 02/14/17 02/14/17 02/14/17 16:25 17:25 17:25 18:27 Temp 99.0 99.1 99.1 98.8 99.0 99.1 99.1 98.8 Pulse 105 102 101 106 Resp 20 18 18 18 B/P (MAP) 128/60 129/60 129/60 126/57 02/14/17 02/14/17 02/14/17 02/15/17 19:00 20:00 23:00 03:43 Temp 99.5 98.5 98.4 99.5 98.5 98.4 Pulse 105 90 95 Resp 18 16 18 B/P (MAP) 126/58 (80) 111/58 (75) 119/60 (79) Pulse Ox 98 96 97 O2 Delivery Room Air Room Air Room Air Room Air 02/15/17 07:13 Temp 98.7 98.7 Pulse 96 Resp 18 B/P (MAP) 123/57 (79) Pulse Ox 98 O2 Delivery Room Air STEVEN GIL MD Feb 15, 2017 08:26
[2017-02-15] MEDS ORDERED: LIDOCAINE 1% / SOD BICARB 8.4% 20 ML VIAL. IJ ONE ×2 (08:50→09:15)
[2017-02-15 09:00] VITALS: BP 147/81
[2017-02-15 09:27] VITALS: BP 145/74
--- NOTE | 2017-02-15 09:47 | PDOC ---
BRIEF OPERATIVE NOTE Pre-Op Diagnosis jaundice and splenomegaly Post-Op Diagnosis same Procedure Performed right axillary lymph node biopsy Surgeon Pravin Anesthesia Type: Local Specimens Obtained 4 x 18 g cores divided between rpmi and formalin Complications right axillary hematoma. following 10 minutes of manual compression this was stable. CLIFF QUIGLEY MD Feb 15, 2017 09:47
[2017-02-15 10:10] VITALS: BP 132/61
--- NOTE | 2017-02-15 10:55 | PDOC ---
PROGRESS NOTES Chief Complaint Chief Complaint Severe anemia Leukopenia thrombocytopenia jaundice Hyperbilirubinemia Splenomegaly lymphadenopathy History of Present Illness History of Present Illness The patient is a 31 y/o male who presented to the ED with nausea, vomiting, PRO, and Jaundice. Pt reports that these Sx have had been slowly worsening for the past week. In the ED he was also noted to have a TBili of 9.3 and indirect of 8.5, as well as, a Hgb of 4.4. The patient was admitted to the hospital. Dr. Richards (heme/rajesh) has been consulted and is following the patient. Per Dr. Richards's orders, the patient has received diagnostic CT chest/abd/pelvis, flow cytometry , splenic US, and BM biopsy. He also went for a R axillary lymph node biopsy which he reports that he tolerated well. No pain or swelling at the cath site. Patient seen at bedside. He is accompanied by his mother. He is resting comfortably and in no acute distress. The patient was transfused 1 unit of PRBCs per Dr. Richards's orders last night due to hgb of 6.4. His hgb as of this AM went up to 7. He tolerated the transfusion well. Today his Tbili is 10.8. Patient currently denies any nausea, vomiting, fever or chills. He is feeling well and would like to go home. Discussed with Dr. Richards and IR who state the patient can go home and follow up for diagnostic results as an outpatient. Patient agrees with this. CT Chest and CT abd/pelvis: IMPRESSION: Splenomegaly. This in conjunction with bilateral axillary adenopathy, periaortic and pelvic adenopathy with some associated mild mediastinal adenopathy suggests possible lymphoma. Minimal patchy infiltrates in the lingula and right middle lobe. The etiology is unclear. Pneumonia is not excluded Splenic US: Impression: Splenomegaly RUQ abd US: Impression: 1. Gallstones fill the gallbladder, no significant gallbladder wall thickening or pericholecystic fluid. There is no significant biliary ductal dilatation. Vitals Vitals Vital Signs Date Time Temp Pulse Resp B/P (MAP) Pulse Ox O2 Delivery O2 Flow Rate FiO2 02/15/17 10:10 98.5 102 18 132/61 (84) 96 Room Air 98.5 02/14/17 08:50 2.0 Physical Exam Physical Exam There is scleral icterus present. Bandage on R upper chest cath site. No pain or swelling. No signs of expanding hematoma. General: Alert, Oriented X3 Heart: Normal S1, Normal S2 Lungs: Clear Abdomen: Normal bowel sounds, Soft, No tenderness Extremities: No clubbing, No cyanosis, No edema, Normal pulses Skin: No rashes, Other Labs LABS Laboratory Tests Test 02/14/17 12:25 02/15/17 04:30 Sodium Level 140 mmol/L (136-145) 141 mmol/L (136-145) Potassium Level 4.1 mmol/L (3.5-5.1) 4.0 mmol/L (3.5-5.1) Chloride Level 106 mmol/L (98-107) 107 mmol/L (98-107) Carbon Dioxide Level 27 mmol/L (21-32) 25 mmol/L (21-32) Anion Gap 7 (6-14) 9 (6-14) Blood Urea Nitrogen 21 mg/dL (8-26) 20 mg/dL (8-26) Creatinine 1.0 mg/dL (0.7-1.3) 0.9 mg/dL (0.7-1.3) Estimated GFR (Cockcroft-Gault) 87.7 99.1 BUN/Creatinine Ratio 21 (6-20) 22 (6-20) Glucose Level 108 mg/dL (70-99) 107 mg/dL (70-99) Calcium Level 8.2 mg/dL (8.5-10.1) 8.7 mg/dL (8.5-10.1) Total Bilirubin 12.5 mg/dL (0.2-1.0) 10.8 mg/dL (0.2-1.0) Aspartate Amino Transf (AST/SGOT) 47 U/L (15-37) 46 U/L (15-37) Alanine Aminotransferase (ALT/SGPT) 43 U/L (16-63) 38 U/L (16-63) Alkaline Phosphatase 87 U/L (46-116) 82 U/L (46-116) Total Protein 5.5 g/dL (6.4-8.2) 6.2 g/dL (6.4-8.2) Albumin 3.6 g/dL (3.4-5.0) 3.7 g/dL (3.4-5.0) Albumin/Globulin Ratio 1.9 (1.0-1.7) 1.5 (1.0-1.7) White Blood Count 3.0 x10^3/uL (4.0-11.0) Red Blood Count 2.05 x10^6/uL (4.30-5.70) Hemoglobin 7.0 g/dL (13.0-17.5) Hematocrit 19.5 % (39.0-53.0) Mean Corpuscular Volume 95 fL (79-100) Mean Corpuscular Hemoglobin 34 pg (25-35) Mean Corpuscular Hemoglobin Concent 36 g/dL (31-37) Red Cell Distribution Width 13.8 % (11.5-14.5) Platelet Count 108 x10^3/uL (140-400) Neutrophils (%) (Auto) 68 % (31-73) Lymphocytes (%) (Auto) 23 % (24-48) Monocytes (%) (Auto) 7 % (0-9) Eosinophils (%) (Auto) 2 % (0-3) Basophils (%) (Auto) 0 % (0-3) Neutrophils # (Auto) 2.0 x10^3uL (1.8-7.7) Lymphocytes # (Auto) 0.7 x10^3/uL (1.0-4.8) Monocytes # (Auto) 0.2 x10^3/uL (0.0-1.1) Eosinophils # (Auto) 0.1 x10^3/uL (0.0-0.7) Basophils # (Auto) 0.0 x10^3/uL (0.0-0.2) Reticulocyte Count (auto) 9.2 % (0.5-2.5) Lactate Dehydrogenase 939 U/L (85-227) Review of Systems Review of Systems General: + fatigue CV: denies CP and palpitations Resp: denies SOB and wheezing skin: + jaundice eyes: + scleral icterus GI: denies nausea, vomiting and abd pain Assessment and Plan Assessmemt and Plan Problems Medical Problems: (1) Dehydration Status: Acute (2) Gall stones Status: Acute (3) Severe anemia Status: Acute Assessment: Severe anemia Leukopenia thrombocytopenia jaundice Hyperbilirubinemia Splenomegaly lymphadenopathy Plan: -Heme/onc diagnostic testing still pending -Awaiting BM biopsy and lymph node biopsy results - D/w Dr. Richards and IR who state that if the patient tolerates the lymph node biopsy well that he may be discharged to home and follow up as an outpatient - Discussed the plan with the patient who agrees and would like to go home. He agrees to follow up as an outpatient. - Probable d/c to home with follow up with Dr. Richards as an outpatient in 1 weeks time Problems: Comment Review of Relevant I have reviewed the following items sharron (where applicable) has been applied. Labs Laboratory Tests Test 02/13/17 19:20 02/14/17 04:00 02/14/17 12:25 02/15/17 04:30 Prothrombin Time 14.5 SEC (11.7-14.0) 14.2 SEC (11.7-14.0) Prothromb Time International Ratio 1.2 (0.8-1.1) 1.2 (0.8-1.1) Activated Partial Thromboplast Time 21 SEC (24-38) White Blood Count 3.0 x10^3/uL (4.0-11.0) 3.0 x10^3/uL (4.0-11.0) Red Blood Count 1.81 x10^6/uL (4.30-5.70) 2.05 x10^6/uL (4.30-5.70) Hemoglobin 6.4 g/dL (13.0-17.5) 7.0 g/dL (13.0-17.5) Hematocrit 17.2 % (39.0-53.0) 19.5 % (39.0-53.0) Mean Corpuscular Volume 95 fL (79-100) 95 fL (79-100) Mean Corpuscular Hemoglobin 35 pg (25-35) 34 pg (25-35) Mean Corpuscular Hemoglobin Concent 37 g/dL (31-37) 36 g/dL (31-37) Red Cell Distribution Width 14.0 % (11.5-14.5) 13.8 % (11.5-14.5) Platelet Count 124 x10^3/uL (140-400) 108 x10^3/uL (140-400) Neutrophils (%) (Auto) 68 % (31-73) 68 % (31-73) Lymphocytes (%) (Auto) 24 % (24-48) 23 % (24-48) Monocytes (%) (Auto) 6 % (0-9) 7 % (0-9) Eosinophils (%) (Auto) 2 % (0-3) 2 % (0-3) Basophils (%) (Auto) 0 % (0-3) 0 % (0-3) Neutrophils # (Auto) 2.1 x10^3uL (1.8-7.7) 2.0 x10^3uL (1.8-7.7) Lymphocytes # (Auto) 0.7 x10^3/uL (1.0-4.8) 0.7 x10^3/uL (1.0-4.8) Monocytes # (Auto) 0.2 x10^3/uL (0.0-1.1) 0.2 x10^3/uL (0.0-1.1) Eosinophils # (Auto) 0.0 x10^3/uL (0.0-0.7) 0.1 x10^3/uL (0.0-0.7) Basophils # (Auto) 0.0 x10^3/uL (0.0-0.2) 0.0 x10^3/uL (0.0-0.2) Reticulocyte Count (auto) 4.1 % (0.5-2.5) 9.2 % (0.5-2.5) Sodium Level 140 mmol/L (136-145) 140 mmol/L (136-145) 141 mmol/L (136-145) Potassium Level 3.3 mmol/L (3.5-5.1) 4.1 mmol/L (3.5-5.1) 4.0 mmol/L (3.5-5.1) Chloride Level 105 mmol/L (98-107) 106 mmol/L (98-107) 107 mmol/L (98-107) Carbon Dioxide Level 26 mmol/L (21-32) 27 mmol/L (21-32) 25 mmol/L (21-32) Anion Gap 9 (6-14) 7 (6-14) 9 (6-14) Blood Urea Nitrogen 22 mg/dL (8-26) 21 mg/dL (8-26) 20 mg/dL (8-26) Creatinine 1.0 mg/dL (0.7-1.3) 1.0 mg/dL (0.7-1.3) 0.9 mg/dL (0.7-1.3) Estimated GFR (Cockcroft-Gault) 87.7 87.7 99.1 Glucose Level 121 mg/dL (70-99) 108 mg/dL (70-99) 107 mg/dL (70-99) Calcium Level 8.1 mg/dL (8.5-10.1) 8.2 mg/dL (8.5-10.1) 8.7 mg/dL (8.5-10.1) BUN/Creatinine Ratio 21 (6-20) 22 (6-20) Total Bilirubin 12.5 mg/dL (0.2-1.0) 10.8 mg/dL (0.2-1.0) Aspartate Amino Transf (AST/SGOT) 47 U/L (15-37) 46 U/L (15-37) Alanine Aminotransferase (ALT/SGPT) 43 U/L (16-63) 38 U/L (16-63) Alkaline Phosphatase 87 U/L (46-116) 82 U/L (46-116) Total Protein 5.5 g/dL (6.4-8.2) 6.2 g/dL (6.4-8.2) Albumin 3.6 g/dL (3.4-5.0) 3.7 g/dL (3.4-5.0) Albumin/Globulin Ratio 1.9 (1.0-1.7) 1.5 (1.0-1.7) Lactate Dehydrogenase 939 U/L (85-227) Laboratory Tests Test 02/14/17 12:25 02/15/17 04:30 Sodium Level 140 mmol/L (136-145) 141 mmol/L (136-145) Potassium Level 4.1 mmol/L (3.5-5.1) 4.0 mmol/L (3.5-5.1) Chloride Level 106 mmol/L (98-107) 107 mmol/L (98-107) Carbon Dioxide Level 27 mmol/L (21-32) 25 mmol/L (21-32) Anion Gap 7 (6-14) 9 (6-14) Blood Urea Nitrogen 21 mg/dL (8-26) 20 mg/dL (8-26) Creatinine 1.0 mg/dL (0.7-1.3) 0.9 mg/dL (0.7-1.3) Estimated GFR (Cockcroft-Gault) 87.7 99.1 BUN/Creatinine Ratio 21 (6-20) 22 (6-20) Glucose Level 108 mg/dL (70-99) 107 mg/dL (70-99) Calcium Level 8.2 mg/dL (8.5-10.1) 8.7 mg/dL (8.5-10.1) Total Bilirubin 12.5 mg/dL (0.2-1.0) 10.8 mg/dL (0.2-1.0) Aspartate Amino Transf (AST/SGOT) 47 U/L (15-37) 46 U/L (15-37) Alanine Aminotransferase (ALT/SGPT) 43 U/L (16-63) 38 U/L (16-63) Alkaline Phosphatase 87 U/L (46-116) 82 U/L (46-116) Total Protein 5.5 g/dL (6.4-8.2) 6.2 g/dL (6.4-8.2) Albumin 3.6 g/dL (3.4-5.0) 3.7 g/dL (3.4-5.0) Albumin/Globulin Ratio 1.9 (1.0-1.7) 1.5 (1.0-1.7) White Blood Count 3.0 x10^3/uL (4.0-11.0) Red Blood Count 2.05 x10^6/uL (4.30-5.70) Hemoglobin 7.0 g/dL (13.0-17.5) Hematocrit 19.5 % (39.0-53.0) Mean Corpuscular Volume 95 fL (79-100) Mean Corpuscular Hemoglobin 34 pg (25-35) Mean Corpuscular Hemoglobin Concent 36 g/dL (31-37) Red Cell Distribution Width 13.8 % (11.5-14.5) Platelet Count 108 x10^3/uL (140-400) Neutrophils (%) (Auto) 68 % (31-73) Lymphocytes (%) (Auto) 23 % (24-48) Monocytes (%) (Auto) 7 % (0-9) Eosinophils (%) (Auto) 2 % (0-3) Basophils (%) (Auto) 0 % (0-3) Neutrophils # (Auto) 2.0 x10^3uL (1.8-7.7) Lymphocytes # (Auto) 0.7 x10^3/uL (1.0-4.8) Monocytes # (Auto) 0.2 x10^3/uL (0.0-1.1) Eosinophils # (Auto) 0.1 x10^3/uL (0.0-0.7) Basophils # (Auto) 0.0 x10^3/uL (0.0-0.2) Reticulocyte Count (auto) 9.2 % (0.5-2.5) Lactate Dehydrogenase 939 U/L (85-227) Medications Current Medications Sodium Chloride 1,000 ml @ 1,000 mls/hr 1X ONCE IV Last administered on 18:55; Start 02/12/17 at 19:00; Stop 02/12/17 at 19:59; Status DC Sodium Chloride 1,000 ml @ 1,000 mls/hr 1X ONCE IV Last administered on 19:03; Start 02/12/17 at 19:00; Stop 02/12/17 at 19:59; Status DC Sodium Chloride 1,000 ml @ 125 mls/hr 1X ONCE IV ; Start 02/12/17 at 19:00; Stop 02/13/17 at 02:59; Status DC Sodium Chloride 1,000 ml @ 125 mls/hr 1X ONCE IV ; Start 02/12/17 at 19:00; Stop 02/13/17 at 02:59; Status DC Ondansetron HCl (Zofran) 4 mg 1X ONCE IV Last administered on 02/12/17 19:15 ; Start 02/12/17 at 19:30; Stop 02/12/17 at 19:31; Status DC Iohexol (Omnipaque 240 Mg/ml) 30 ml 1X ONCE PO Last administered on 02/13/17 10:45; Start 02/13/17 at 10:45; Stop 02/13/17 at 10:46; Status DC Iohexol (Omnipaque 300 Mg/ml) 75 ml 1X ONCE IV Last administered on 02/13/17 10:45; Start 02/13/17 at 10:45; Stop 02/13/17 at 10:46; Status DC Info (Do NOT chart on this entry -- for MONITORING) 1 each PRN DAILY PRN MC SEE COMMENTS; Start 02/13/17 at 10:45; Stop 02/14/17 at 11:29; Status DC Iohexol (Omnipaque 240 Mg/ml) 30 ml 1X ONCE PO ; Start 02/13/17 at 11:30; Stop 02/13/17 at 11:31; Status DC Iohexol (Omnipaque 300 Mg/ml) 75 ml 1X ONCE IV ; Start 02/13/17 at 11:30; Stop 02/13/17 at 11:31; Status DC Info (Do NOT chart on this entry -- for MONITORING) 1 each PRN DAILY PRN MC SEE COMMENTS; Start 02/13/17 at 11:30; Stop 02/15/17 at 11:29 Lidocaine/Sodium Bicarbonate (Buffered Lidocaine 1%) 20 ml STK-MED ONCE IJ ; Start 02/14/17 at 08:05; Stop 02/14/17 at 08:06; Status DC Midazolam HCl (Versed) 5 mg STK-MED ONCE .ROUTE ; Start 02/14/17 at 08:23; Stop 02/14/17 at 08:24; Status DC Fentanyl Citrate (Fentanyl 5ml Vial) 250 mcg STK-MED ONCE .ROUTE ; Start at 08:24; Stop 02/14/17 at 08:25; Status DC Lidocaine/Sodium Bicarbonate (Buffered Lidocaine 1%) 20 ml 1X ONCE IJ Last administered on 02/14/17 08:50; Start 02/14/17 at 08:45; Stop 02/14/17 at 08:46 ; Status DC Midazolam HCl (Versed) 5 mg 1X ONCE IV Last administered on 02/14/17 08:50; Start 02/14/17 at 08:45; Stop 02/14/17 at 08:46; Status DC Fentanyl Citrate (Fentanyl 5ml Vial) 150 mcg 1X ONCE IV Last administered on 08:50; Start 02/14/17 at 08:45; Stop 02/14/17 at 08:46; Status DC Potassium Chloride (Klor-Con) 40 meq 1X ONCE PO Last administered on 12:36; Start 02/14/17 at 12:15; Stop 02/14/17 at 12:16; Status DC Acetaminophen (Tylenol) 650 mg PRN Q6HRS PRN PO PAIN Last administered on 18:31; Start 02/14/17 at 17:45 Lidocaine/Sodium Bicarbonate (Buffered Lidocaine 1%) 20 ml STK-MED ONCE IJ ; Start 02/15/17 at 08:50; Stop 02/15/17 at 08:51; Status DC Lidocaine/Sodium Bicarbonate (Buffered Lidocaine 1%) 20 ml 1X ONCE IJ Last administered on 02/15/17 09:32; Start 02/15/17 at 09:15; Stop 02/15/17 at 09:17 ; Status DC Active Scripts Active Reported Advil (Ibuprofen) 200 Mg Tablet 200 Mg PO PRN Q6-8HRS PRN Vitals/I & O Vital Sign - Last 24 Hours 02/14/17 02/14/17 02/14/17 02/14/17 11:00 15:00 16:14 16:25 Temp 99.0 99.4 99.0 99.0 99.0 99.4 99.0 99.0 Pulse 105 109 101 105 Resp 20 18 18 20 B/P (MAP) 131/72 (91) 134/70 (91) 134/70 128/60 Pulse Ox 98 99 O2 Delivery Room Air Room Air 02/14/17 02/14/17 02/14/17 02/14/17 17:25 17:25 18:27 19:00 Temp 99.1 99.1 98.8 99.5 99.1 99.1 98.8 99.5 Pulse 102 101 106 105 Resp 18 18 18 18 B/P (MAP) 129/60 129/60 126/57 126/58 (80) Pulse Ox 98 O2 Delivery Room Air 02/14/17 02/14/17 02/15/17 02/15/17 20:00 23:00 03:43 07:13 Temp 98.5 98.4 98.7 98.5 98.4 98.7 Pulse 90 95 96 Resp 16 18 18 B/P (MAP) 111/58 (75) 119/60 (79) 123/57 (79) Pulse Ox 96 97 98 O2 Delivery Room Air Room Air Room Air Room Air 02/15/17 02/15/17 02/15/17 02/15/17 08:00 09:00 09:27 10:10 Temp 98.5 98.5 Pulse 102 110 102 Resp 18 18 18 B/P (MAP) 147/81 (103) 145/74 (97) 132/61 (84) Pulse Ox 95 96 96 O2 Delivery Room Air Room Air Room Air Room Air ISREAL SQUIRES III DO Feb 15, 2017 10:55
--- NOTE | 2017-02-15 11:33 | RAD ---
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 Consent: The procedure was explained in its entirety to the patient or the patients designated advertising account representative by a member of the treatment team, including a discussion of the risks, benefits and commonly accepted alternatives to the procedure, as well as the expected consequences of no therapy whatsoever. Discussion of the risks included, but was not limited to, those that are most frequent and those that are rare but possibly severe or life-threatening, as well as the possibility of unforeseen complications. Technique and Findings: Following informed consent, the patient was prepped and draped in usual sterile fashion. Preliminary CT scan of the area of interest was performed. 1% lidocaine was used to achieve local anesthesia over the area of interest. A small dermatotomy was made. Under periodic CT surveillance, a 17-gauge needle guide was advanced to a cluster of suspicious right axillary lymph nodes and 4 x 18-gauge core biopsy specimens were obtained and divided between RPMI and formalin. The needle guide was then removed and hemostasis was achieved with manual compression. Post biopsy CT scan reveals development of a moderate axillary hematoma. Following 10 minutes of manual compression, repeat CT scan demonstrated stability of this hematoma with no interval enlargement. Complications: Right axillary hematoma, stable status post 10 minutes of manual compression Impression: 1. CT-guided right axillary lymph node biopsy as described PQRS Compliance Statement: One or more of the following individualized dose reduction techniques were utilized for this examination: 1. Automated exposure control 2. Adjustment of the mA and/or kV according to patient size 3. Use of iterative reconstruction technique
[2017-02-15] MEDS ORDERED: FLU VACC QS2017-18 (36MOS+)/PF 0.5 ML SYRINGE. VAX IM ONE (13:00)
[2017-02-17 17:09] LABS: KAPPA LAMBDA RATIO 0.36 (0.26-1.65)
[2017-02-19 08:27] LABS: ALPHA 1 0.2 g/dL (0.0-0.4); ALPHA 2 0.4 g/dL (0.4-1.0); BETA 0.5 g/dL (0.7-1.3); GAMMA 0.2 g/dL (0.4-1.8); M-SPIKE Not Observed g/dL (Not Observed); PROTEIN TOTAL 5.2 g/dL (6.0-8.5)
[2017-02-19 09:23] LABS: IMMUNOGLOBULIN A 11 mg/dL (90-386); IMMUNOGLOBULIN G 327 mg/dL (700-1600); IMMUNOGLOBULIN M 31 mg/dL (20-172)
--- NOTE | 2017-02-19 10:22 | PATHOLOGY ---
PATHOLOGY REPORT * * * * * * * * FINAL DIAGNOSIS: "Right axillary lymph node biopsy", image-guided needle biopsy: - Lymph node with hyperplasia. (See comment). (CLW:gonzalo; 02/19/2017) COMMENT: Sections show needle core biopsy fragments of lymph node with overall retained mary architecture. Approximately 30% of the tissue is vascularized fibroadipose connective tissue. The lymph node has a thin fibrous capsule and subcapsular sinus. Sinus histiocytes are noted. The lymphocytes have patchy areas of crush artifact. In the areas that are able to be evaluated, the lymphocytes are small with round nuclear contours, condensed chromatin and scant cytoplasm. A rare vague probable germinal center is noted. No markedly atypical lymphoid cells, including Danny-Lauren cells, are identified. No granulomas or other infiltrative processes are seen. To confirm the flow cytometry findings and to identify cells in a tissue architectural context, properly controlled immunohistochemical stains are performed. Block A1 PAX-5 - Stains small collections of B-cells CD3 - Highlights admixed T-cells CD10 - Highlights a rare germinal center BCL-6 - Highlights a rare germinal center BCL-2 - The rare germinal center appears nonreactive CD23 - Stains follicular dendritic cell meshwork MUM-1 - Stains only rare scattered small cells (likely plasma cells) CD30 - Essentially nonreactive Flow cytometric immunophenotypic analysis was performed at [facility]. The diagnosis is "no immunophenotypic evidence for non-Hodgkin lymphoma detected". There are 81.5% lymphocytes. Of the lymphocytes, there are 83% T-cells with a CD4/CD8 ratio of 1.5 and no aberrant T-cell antigen expression and 17% polyclonal B-cells (kappa/lambda ratio of 1.5). No immunophenotypic evidence for B-cell or T-cell non-Hodgkin lymphoma is detected in this specimen. Please see separate flow cytometry report from [facility] ([id number]). Overall, the diagnosis is lymph node with hyperplasia. There is no evidence for a lymphoproliferative process within the material submitted. Of note, this is a small portion of a larger lesion and may not be entirely quality control representative. If there is a strong clinical suspicion for a lymphoproliferative process, complete morphologic evaluation of an involved lymph node or lymphoid organ with tissue submitted for flow cytometry is recommended, if clinically indicated. Clinical and radiographic correlation is required. (CLW:gonzalo; 02/19/2017) REPORT ELECTRONICALLY SIGNED BY: Moni Naik M.D. DATE/TIME: 02/19/2017 10:21 * * * * * * * * GROSS PATHOLOGY: Received in formalin labeled "Russel Leon, right axillary lymph node," are several fragmented needle cores of garcia soft tissue ranging from 0.1 to 0.4 cm in length, which are submitted entirely in cassette A1. Also received are several fragmented needle cores of garcia soft tissue ranging from 0.1 to 0.4 cm in length, which are submitted in RPMI. These are forwarded to [facility] for marker studies by flow cytometry. (JPM; 02/15/17) INITIAL CPT CODE(S): A; 26187, 98279, 77273, 26632, 54117, 18960, 83720, 52462, 31323 Professional services performed by [facility] at [facility] [address], [place] [address] Technical services performed by [facility] at [address] [place] [address], [facility] [address], [place] [address]. SPECIMEN(S) RECEIVED: A.Right axillary lymph node biopsy CLINICAL HISTORY: Lymphadenopathy PATIENT: RUSSEL LEON /AGE: 11 1985 (Age: 31) PATIENT #: [id number] ALT CASE #: SPECIMEN COLLECTION DATE: 02/15/2017 SPECIMEN RECEIVED DATE: 02/15/2017 [facility] - [address] [place] [address] - PHONE: [phone] * * * END OF REPORT * * *
--- NOTE | 2017-02-19 10:57 | PATHOLOGY ---
PATHOLOGY REPORT * * * * * * * * FINAL DIAGNOSIS: Bone marrow aspirate, biopsy, cell clot, and peripheral blood: - Peripheral blood with pancytopenia including severe normocytic anemia, mild leukopenia and mild thrombocytopenia. - Hypercellular bone marrow with trilineage hematopoiesis, marked erythroid hyperplasia, mild dyserythropoiesis and no evidence of lymphoma or acute leukemia (see comment). - Only trace stainable iron. (CLW:pit; 02/19/2017) COMMENT: Overall the bone marrow is hypercellular for the patient's age with trilineage hematopoiesis, marked erythroid hyperplasia, mild dyserythropoiesis and no evidence if lymphoma or acute leukemia. The marked erythroid hyperplasia is likely a response to the patient's severe hemolytic anemia. The dyserythropoiesis is mild and does not meet the morphologic criteria for myelodysplasia. Of note, there is only trace stainable iron. Correlation with clinical history, additional laboratory data and cytogenetics is required. (CLW:pit; 02/19/2017) REPORT ELECTRONICALLY SIGNED BY: Moni Naik M.D. DATE/TIME: 02/19/2017 10:56 * * * * * * * * MICROSCOPIC DESCRIPTION: CBC Data (02/14/17): WBC 3,000 /uL, RBC 1.81, hemoglobin 6.4 g/dL, hematocrit 17.2%, MCV 95 fL, MCH 35 pg, MCHC 37 g/dL, RDW 14.0%, and platelet count 124,000 /uL. White blood cell differential: segs 68%, lymphs 24%, monos 6%, eos 2%. Peripheral Blood Smear: Cytomorphological examination of the Ahn's stained peripheral blood smear confirms the provided data. Red blood cells show severe normocytic anemia with mild anisocytosis. Minimal poikilocytosis is noted with rare dacryocytes (pointed RBCs, tear drop cells) noted. No significant schistocytes or microspherocytes are seen. White blood cells are mildly decreased in number. They are predominantly segmented neutrophils and are without significant dyspoiesis or significant left shift. Lymphocytes are predominantly small, round, and mature appearing with condensed chromatin and scant cytoplasm with admixed large granular lymphocytes. On scanning, no markedly atypical lymphoid cells are seen. Monocytes are mature. Platelets are mildly decreased in number and mainly normal in morphology with rare larger platelets noted. Circulating nucleated red blood cells are seen. Aspirate Smears: Cytomorphological examination of the Ahn's stained aspirate smears show hypercellular spicules present. The overall cellularity is 80 to 90%. The myeloid to erythroid ratio is approximately 1:2. Full myeloid maturation is identified and is without significant dyspoiesis. Erythroid maturation is mildly dyserythropoietic with irregular nuclear contours, basophilic stippling, binucleate forms and a rare nuclear bud. In a 500 cell differential, there are less than 1% blasts (no Astrid rods are seen), 28% more differentiated myeloids, 66% erythroid precursors, and 6% lymphocytes. Megakaryocytes are proportional in number and mainly normal in morphology. No lymphoid aggregates or markedly atypical lymphoid cells are seen. Rare plasma cells are without atypia. Iron stain of the aspirate smear shows only trace stainable iron with spicules present. No ringed sideroblasts are identified. Core Biopsy and Cell Clot: The decalcified bone marrow core biopsy is adequate. The bone marrow is hypercellular with an overall cellularity of 80-90%. The myeloid to erythroid ratio is 1:2-3. Myeloid maturation is without significant dyspoiesis. A mild eosinophilia is noted. Erythroid maturation is mildly dyserythropoietic. Megakaryocytes are normal in number and both normal and abnormal in morphology. No lymphoid aggregates or markedly atypical lymphoid cells are seen. Bony trabeculae and blood vessels are unremarkable. The cell clot has spicules present that are similar in cellularity and differential morphology as previously described. Iron stain of the cell clot (Block B1) shows only trace stainable iron with numerous spicules present. To confirm the flow cytometry findings and to identify cells in a tissue architectural context, properly controlled immunohistochemical stains are performed. Block A1: CD34 - No increased or abnormally localized blasts CD117 - No increased or abnormally localized blasts MPO - Confirms the decreased M/E ratio / erythroid hyperplasia Glycophorin A - Confirms the decreased M/E ratio / erythroid hyperplasia Block B1: CD34 - No increased blasts CD117 - No increased blasts MPO - Confirms the decreased M/E ratio / erythroid hyperplasia. Glycophorin A - Confirms the decreased M/E ratio / erythroid hyperplasia. Flow Cytometry: Flow cytometric immunophenotypic analysis was performed at [facility]. The diagnosis is "no diagnostic immunophenotypic abnormalities detected." There are 5.2% lymphocytes. Of the lymphocytes, there are 88% T-cells with a CD4/CD8 ratio of 0.7 and no aberrant T-cell antigen expression and 5% polyclonal B-cells (kappa lambda ratio of 1.0). There are 1.3% CD34 positive cells (blasts) and 0.6% precursor B cells. There are 22% CD45 negative cells that include erythroids and cell debris that are immunophenotypically unremarkable. No immunophenotypic evidence of a lymphoproliferative disorder, acute leukemia, increase in blasts, or plasma cell neoplasm is identified. Please see separate flow cytometry report from [facility] ([id number]). Cytogenetics Analysis: Cytogenetic chromosomal analysis is pending at [facility] ([id number]). (CLW:[facility]; 02/19/2017) GROSS PATHOLOGY: A. Received in formalin labeled "Russel Leon," is a single needle core of garcia bone, measuring 1.3 cm in length and 0.2 cm in diameter. The specimen is submitted entirely in cassette A1, following decalcification. B. Received in formalin labeled "Russel Leon," is blood coagulum, measuring 2.8 x 2.5 x 0.4 cm in aggregate dimensions. The specimen is submitted entirely in cassette B1. (JPM; 02/14/17) INITIAL CPT CODE(S): A; 88510, 66268, 44100, 13115, 14062, 46233 B; 82593, 29722, 78888, 90949, 23285, 19287 C; 10376, 74550 D; 34242 Professional services performed by [facility] at [place] [address], [place] [address] Technical services performed by [facility] at [address] [place] [address], [address], [place] [address]. SPECIMEN(S) RECEIVED: A.Bone marrow, biopsy B.Bone marrow, clot and/or particle prep C.Bone marrow, aspirate smears D.Peripheral smear CLINICAL HISTORY: Anemia, suspect PNH 31-year-old man with pancytopenia including severe anemia, laboratory values consistent with hemolytic anemia. PATIENT: RUSSEL LEON /AGE: 11 1985 (Age: 31) PATIENT #: [id number] ALT CASE #: SPECIMEN COLLECTION DATE: 02/14/2017 SPECIMEN RECEIVED DATE: 02/14/2017 [facility] - [address] [address] - PHONE: [phone] * * * END OF REPORT * * *
[2017-02-19 15:31] LABS: HGB A 97.4 % (94.0-98.0); HGB A2 2.6 % (0.7-3.1); HGB ELECROPHORESIS COMMENT Note: (.)
--- NOTE | 2017-02-21 16:48 | DS ---
DATE OF DISCHARGE: 02/15/2017 ADMISSION DIAGNOSES: Severe painless jaundice with hyperbilirubinemia and probable hemolytic anemia. DISCHARGE DIAGNOSIS: Persistent hemolytic anemia, suspect lymphoma versus paroxysmal nocturnal hemoglobinuria. CONSULTS: Dr. Richards. PROCEDURES: Bone marrow biopsy and lymph node biopsy. HOSPITAL COURSE: The patient is a pleasant 31-year-old male who presented with severe jaundice that was painless. He had an elevated indirect bilirubin suspicious for hemolysis. His hemoglobin was around 5. We did transfuse him. We consulted Dr. Richards. He was sent for bone marrow biopsy and lymph node biopsy. He does have a lot of lymph nodes in the mediastinum and axillary region. We suspect this might be a lymphoma, but they are awaiting the biopsy. Clinically, the patient is doing well. We want to discharge with outpatient followup. DISPOSITION: Home. ACTIVITY: As tolerated. DIET: Low sodium. MEDICATIONS: Please see the MRAD. TOTAL TIME: 34 minutes. ISREAL SQUIRES DO DR: DWAINE/yoon JOB#: [id number] / [id number]
== END 2017-02-15 14:17 | disposition home or self-care (01) | DRG 824 ==
LOC: ER 18:26 → 2 SOUTH 19:45
PROVIDERS: ADMIT Internal Medicine; ATTEND Internal Medicine
PROC: 30233N1 Transfusion of Nonautologous Red Blood Cells into Peripheral Vein, Percutaneous Approach (ICD-10-PCS; principal; 2017-02-12)
PROC: 30233N1 Transfusion of Nonautologous Red Blood Cells into Peripheral Vein, Percutaneous Approach (ICD-10-PCS; 2017-02-13)
PROC: 07DR3ZX Extraction of Iliac Bone Marrow, Percutaneous Approach, Diagnostic (ICD-10-PCS; 2017-02-14)
PROC: 079T3ZX Drainage of Bone Marrow, Percutaneous Approach, Diagnostic (ICD-10-PCS; 2017-02-14)
PROC: 30233N1 Transfusion of Nonautologous Red Blood Cells into Peripheral Vein, Percutaneous Approach (ICD-10-PCS; 2017-02-14)
PROC: 07B53ZX Excision of Right Axillary Lymphatic, Percutaneous Approach, Diagnostic (ICD-10-PCS; 2017-02-15)
DX: C85.90 Non-Hodgkin lymphoma, unspecified, unspecified site (principal); D58.9 Hereditary hemolytic anemia, unspecified; D61.818 Other pancytopenia; D69.6 Thrombocytopenia, unspecified; R17 Unspecified jaundice; R16.1 Splenomegaly, not elsewhere classified; K80.20 Calculus of gallbladder without cholecystitis without obstruction; D64.9 Anemia, unspecified; E86.0 Dehydration; R63.0 Anorexia; D72.819 Decreased white blood cell count, unspecified; R59.1 Generalized enlarged lymph nodes; R59.0 Localized enlarged lymph nodes; E80.6 Other disorders of bilirubin metabolism; Z82.49 Family history of ischemic heart disease and other diseases of the circulatory system; Z83.3 Family history of diabetes mellitus
CPT/HCPCS: 36415; 38221; 38505; 71260; 74177; 76705; 77012; 80048; 80053; 80076; 81001; 81003; 82607; 82728; 82746; 83010; 83020; 83520; 83540; 83550; 83615; 83690; 84165; 85025; 85027; 85045; 85610; 85730; 86334; 86850; 86880; 86900; 86901; 86920; 88184; 88185; 88237; 88305; 88307; 88311; 88313; 88341; 88342; 90686; 96361; 96374; 99152; C1892; G0364; J2250; J2405; J3010; J7030; P9016; Q9966; Q9967; 99285-25

== ENCOUNTER 2017-02-18 12:07 | Inpatient (IN) | payer SELFPAY ==
[~2017-02-18] VITALS: Ht 172.7 cm; Wt 95.3 kg
[2017-02-18] VITALS (13 sets, daily range): BP systolic 103–133; BP diastolic 47–63
[~2017-02-18 12:07] MED LIST: IBUP200T58 PO
[2017-02-18] MEDS ORDERED: traMADol 50 MG TABLET PO PRN ×2 (13:30)
[2017-02-18] MEDS ORDERED: ZOLPIDEM 5 MG TABLET. PO PRN (13:30)
[2017-02-18] MEDS ORDERED: ACETAMINOPHEN 325 MG TABLET. PO PRN (13:30)
[2017-02-18] MEDS ORDERED: diphenhydrAMINE HCL 25 MG CAPSULE PO PRN (13:30)
--- NOTE | 2017-02-18 13:48 | PDOC1 ---
History and Physical Date of Admission Date of Admission DATE: 02/18/17 TIME: 13:41 Identification/Chief Complaint Chief Complaint tired, headache Problems: Source Source: Chart review, Patient History of Present Illness History of Present Illness Admit 02/12 to 02/15 for Severe anemia with a hemoglobin of 4.4 w. leukopenia and elevated total bilirubin of 9.3 with direct bilirubin being only 0.8 suggestive of a hemolytic process. DC when hgb 7.0 and thought to be stable he was in f/u in Dr. Richards clinic today, Hgb again down < 5, I was called for admit pt still jaundiced, lethargic, weak and has a headache, which he attributes to not eating. s/p bone marrow and LN biopsy last admit Past Medical History Cardiovascular: No pertinent hx Pulmonary: No pertinent hx GI: No pertinent hx Heme/Onc: Anemia NOS, Other Hepatobiliary: Other Psych: No pertinent hx Rheumatologic: No pertinent hx Family History Family History: No Significant Social History Smoke: No ALCOHOL: none Drugs: None Current Medications Current Medications Current Medications Prednisone (Prednisone) 100 mg DAILY PO ; Start 02/18/17 at 13:15 Zolpidem Tartrate (Ambien) 5 mg PRN QHS PRN PO INSOMNIA; Start 02/18/17 at 13: 30 Tramadol HCl (Ultram) 50 mg PRN Q6HRS PRN PO PAIN; Start 02/18/17 at 13:30; Stop 02/18/17 at 13:30; Status DC Tramadol HCl (Ultram) 50 mg PRN Q6HRS PRN PO PAIN; Start 02/18/17 at 13:30 Docusate Sodium (Colace) 100 mg DAILY PO ; Start 02/19/17 at 09:00 Acetaminophen (Tylenol) 650 mg PRN Q6HRS PRN PO PAIN; Start 02/18/17 at 13:30 Diphenhydramine HCl (Benadryl) 25 mg PRN Q6HRS PRN PO ITCHING; Start 02/18/17 at 13:30 Active Scripts Active Reported Advil (Ibuprofen) 200 Mg Tablet 200 Mg PO PRN Q6-8HRS PRN Allergies Allergies: Coded Allergies: No Known Drug Allergies (Unverified , 02/12/17) ROS General: YES: Fatigue, Malaise, Appetite, No: Chills, Night Sweats, Other PSYCHOLOGICAL ROS: No: Anxiety, Behavioral Disorder, Concentration difficultie , Decreased libido, Depression, Disorientation, Hallucinations, Hostility, Irritablity, Memory difficulties, Mood Swings, Obsessive thoughts, Other Eyes: No Blurry vision, No Decreased vision, No Double vision, No Dry eyes, No Excessive tearing, No Eye Pain, No Itchy Eyes, No Loss of vision, No Photophobia , No Scotomata, No Uses contacts, No Uses glasses, No Other HEENT: YES: Heacaches, No: Visual Changes, Hearing change, Nasal congestion, Nasal discharge, Oral lesions, Sinus pain, Sore Throat, Epistaxis, Sneezing, Snoring, Tinnitus, Vertigo, Vocal changes, Other Respiratory: No: Cough, Hemoptysis, Orthopnea, Pleuritic Pain, Shortness of breath, SOB with excertion, Sputum Changes, Stridor, Tachypnea, Wheezing, Other Cardiovascular: No Chest Pain, No Palpitations, No Orthopnea, No Paroxysmal Noc. Dyspnea, No Edema, No Lt Headedness, No Other Gastrointestinal: Yes Nausea, No Vomiting, No Abdominal Pain, No Diarrhea, No Constipation, No Melena, No Hematochezia, No Other Genitourinary: No Dysuria, No Frequency, No Incontinence, No Hematuria, No Retention, No Discharge, No Urgency, No Pain, No Flank Pain, No Other, No , No , No , No , No , No , No Musculoskeletal: No Gait Disturbance, No Joint Pain, No Joint Stiffness, No Joint Swelling, No Muscle Pain, No Muscular Weakness, No Pain In:, No Swelling In:, No Other Neurological: No Behavorial Changes, No Bowel/Bladder ControlChng, No Confusion , No Dizziness, No Gait Disturbance, No Headaches, No Impaired Coord/balance, No Memory Loss, No Numbness/Tingling, No Seizures, No Speech Problems, No Tremors, No Visual Changes, No Weakness, No Other Skin: No Dry Skin, No Eczema, No Hair Changes, No Lumps, No Mole Changes, No Mottling, No Nail Changes, No Pruritus, No Rash, No Skin Lesion Changes, No Other, No Acne Physical Exam General: Alert, Oriented X3, Cooperative, No acute distress HEENT: EOMI, Mucous membr. moist/pink, Other (scleral icterus) Lungs: Clear to auscultation, Normal air movement Heart: S1S2, no gallops, no murmurs Abdomen: Normal bowel sounds, Soft Rectal Exam: not examined, deferred Extremities: No clubbing, No edema, Normal pulses Skin: No rashes, No significant lesion Neuro: Normal speech, Normal tone, Sensation intact Psych/Mental Status: Mood NL Vitals Vitals Vital Signs Date Time Temp Pulse Resp B/P (MAP) Pulse Ox O2 Delivery O2 Flow Rate FiO2 02/18/17 12:47 98.6 124 18 133/63 (86) 100 Room Air 98.6 VTE Prophylaxis Ordered VTE Prophylaxis Devices: No VTE Pharmacological Prophylaxi: Yes Assessment/Plan Assessment/Plan symptomatic anemia hyperbilirubinemia 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
[2017-02-18 15:16] LABS: HEMOGLOBIN 4.1 g/dL (13.0-17.5)
[2017-02-18 15:17] LABS: HEMATOCRIT 11.7 % (39.0-53.0)
[2017-02-18] MEDS: predniSONE 20 MG TABLET PO SCH (16:43)
[2017-02-19 03:10] VITALS: BP 116/69
[2017-02-19 06:40] VITALS: BP 111/63
[2017-02-19 07:56] LABS: BASO % 1 % (0-3); EOS % 0 % (0-3); HEMATOCRIT 18.1 % (39.0-53.0); HEMOGLOBIN 6.3 g/dL (13.0-17.5); LYMPH # 0.7 x10^3/uL (1.0-4.8); LYMPH % 17 % (24-48); MEAN CORPUSCULAR HEMOGLOBIN 35 pg (25-35); MEAN CORPUSCULAR HGB CONC 35 g/dL (31-37); MEAN CORPUSCULAR VOLUME 101 fL (79-100); MONO % 4 % (0-9); NEUT % 78 % (31-73); PLATELET COUNT 110 x10^3/uL (140-400); RED BLOOD COUNT 1.79 x10^6/uL (4.30-5.70); RED CELL DISTRIBUTION WIDTH 14.2 % (11.5-14.5); WHITE BLOOD COUNT 4.4 x10^3/uL (4.0-11.0)
[2017-02-19 08:03] LABS: ALBUMIN 3.9 g/dL (3.4-5.0); ALBUMIN/GLOBULIN RATIO 1.6 (1.0-1.7); CALCIUM 8.7 mg/dL (8.5-10.1); CREATININE 0.9 mg/dL (0.7-1.3); GFR 99.1; POTASSIUM 4.6 mmol/L (3.5-5.1); TOTAL BILIRUBIN 4.8 mg/dL (0.2-1.0); TOTAL PROTEIN 6.4 g/dL (6.4-8.2)
[2017-02-19] MEDS: DOCUSATE SODIUM 100 MG CAPSULE. PO SCH (09:00)
--- NOTE | 2017-02-19 09:58 | PDOC2 ---
CONSULT Date of Consult Date of Consult DATE: 02/19/17 TIME: 09:53 Past Medical History Cardiovascular: No pertinent hx Pulmonary: No pertinent hx GI: No pertinent hx Heme/Onc: Anemia NOS, Other Hepatobiliary: Other Psych: No pertinent hx Rheumatologic: No pertinent hx Family History Family History: No Significant Social History No ALCOHOL: none Drugs: None Current Medications Current Medications Current Medications Prednisone (Prednisone) 100 mg DAILY PO Last administered on 02/18/17 16:43; Start 02/18/17 at 13:15 Zolpidem Tartrate (Ambien) 5 mg PRN QHS PRN PO INSOMNIA; Start 02/18/17 at 13: 30 Tramadol HCl (Ultram) 50 mg PRN Q6HRS PRN PO PAIN; Start 02/18/17 at 13:30; Stop 02/18/17 at 13:30; Status DC Tramadol HCl (Ultram) 50 mg PRN Q6HRS PRN PO PAIN Last administered on 20:28; Start 02/18/17 at 13:30 Docusate Sodium (Colace) 100 mg DAILY PO ; Start 02/19/17 at 09:00 Acetaminophen (Tylenol) 650 mg PRN Q6HRS PRN PO PAIN; Start 02/18/17 at 13:30 Diphenhydramine HCl (Benadryl) 25 mg PRN Q6HRS PRN PO ITCHING; Start 02/18/17 at 13:30 Active Scripts Active Reported Advil (Ibuprofen) 200 Mg Tablet 200 Mg PO PRN Q6-8HRS PRN Allergies Allergies: Coded Allergies: No Known Drug Allergies (Unverified , 02/12/17) Vitals VITALS Vital Signs Date Time Temp Pulse Resp B/P (MAP) Pulse Ox O2 Delivery O2 Flow Rate FiO2 02/19/17 08:00 Room Air 02/19/17 06:40 97.9 84 18 111/63 (79) 98 97.9 Labs Labs Laboratory Tests Test 02/18/17 13:30 02/19/17 06:50 Hemoglobin 4.1 g/dL (13.0-17.5) 6.3 g/dL (13.0-17.5) Hematocrit 11.7 % (39.0-53.0) 18.1 % (39.0-53.0) Mean Corpuscular Hemoglobin Concent 35 g/dL (31-37) 35 g/dL (31-37) White Blood Count 4.4 x10^3/uL (4.0-11.0) Red Blood Count 1.79 x10^6/uL (4.30-5.70) Mean Corpuscular Volume 101 fL (79-100) Mean Corpuscular Hemoglobin 35 pg (25-35) Red Cell Distribution Width 14.2 % (11.5-14.5) Platelet Count 110 x10^3/uL (140-400) Neutrophils (%) (Auto) 78 % (31-73) Lymphocytes (%) (Auto) 17 % (24-48) Monocytes (%) (Auto) 4 % (0-9) Eosinophils (%) (Auto) 0 % (0-3) Basophils (%) (Auto) 1 % (0-3) Neutrophils # (Auto) 3.5 x10^3uL (1.8-7.7) Lymphocytes # (Auto) 0.7 x10^3/uL (1.0-4.8) Monocytes # (Auto) 0.2 x10^3/uL (0.0-1.1) Eosinophils # (Auto) 0.0 x10^3/uL (0.0-0.7) Basophils # (Auto) 0.0 x10^3/uL (0.0-0.2) Reticulocyte Count (auto) 7.9 % (0.5-2.5) Sodium Level 137 mmol/L (136-145) Potassium Level 4.6 mmol/L (3.5-5.1) Chloride Level 103 mmol/L (98-107) Carbon Dioxide Level 23 mmol/L (21-32) Anion Gap 11 (6-14) Blood Urea Nitrogen 25 mg/dL (8-26) Creatinine 0.9 mg/dL (0.7-1.3) Estimated GFR (Cockcroft-Gault) 99.1 BUN/Creatinine Ratio 28 (6-20) Glucose Level 132 mg/dL (70-99) Calcium Level 8.7 mg/dL (8.5-10.1) Total Bilirubin 4.8 mg/dL (0.2-1.0) Aspartate Amino Transf (AST/SGOT) 34 U/L (15-37) Alanine Aminotransferase (ALT/SGPT) 42 U/L (16-63) Alkaline Phosphatase 82 U/L (46-116) Lactate Dehydrogenase 973 U/L (85-227) Total Protein 6.4 g/dL (6.4-8.2) Albumin 3.9 g/dL (3.4-5.0) Albumin/Globulin Ratio 1.6 (1.0-1.7) Laboratory Tests Test 02/18/17 13:30 02/19/17 06:50 Hemoglobin 4.1 g/dL (13.0-17.5) 6.3 g/dL (13.0-17.5) Hematocrit 11.7 % (39.0-53.0) 18.1 % (39.0-53.0) Mean Corpuscular Hemoglobin Concent 35 g/dL (31-37) 35 g/dL (31-37) White Blood Count 4.4 x10^3/uL (4.0-11.0) Red Blood Count 1.79 x10^6/uL (4.30-5.70) Mean Corpuscular Volume 101 fL (79-100) Mean Corpuscular Hemoglobin 35 pg (25-35) Red Cell Distribution Width 14.2 % (11.5-14.5) Platelet Count 110 x10^3/uL (140-400) Neutrophils (%) (Auto) 78 % (31-73) Lymphocytes (%) (Auto) 17 % (24-48) Monocytes (%) (Auto) 4 % (0-9) Eosinophils (%) (Auto) 0 % (0-3) Basophils (%) (Auto) 1 % (0-3) Neutrophils # (Auto) 3.5 x10^3uL (1.8-7.7) Lymphocytes # (Auto) 0.7 x10^3/uL (1.0-4.8) Monocytes # (Auto) 0.2 x10^3/uL (0.0-1.1) Eosinophils # (Auto) 0.0 x10^3/uL (0.0-0.7) Basophils # (Auto) 0.0 x10^3/uL (0.0-0.2) Reticulocyte Count (auto) 7.9 % (0.5-2.5) Sodium Level 137 mmol/L (136-145) Potassium Level 4.6 mmol/L (3.5-5.1) Chloride Level 103 mmol/L (98-107) Carbon Dioxide Level 23 mmol/L (21-32) Anion Gap 11 (6-14) Blood Urea Nitrogen 25 mg/dL (8-26) Creatinine 0.9 mg/dL (0.7-1.3) Estimated GFR (Cockcroft-Gault) 99.1 BUN/Creatinine Ratio 28 (6-20) Glucose Level 132 mg/dL (70-99) Calcium Level 8.7 mg/dL (8.5-10.1) Total Bilirubin 4.8 mg/dL (0.2-1.0) Aspartate Amino Transf (AST/SGOT) 34 U/L (15-37) Alanine Aminotransferase (ALT/SGPT) 42 U/L (16-63) Alkaline Phosphatase 82 U/L (46-116) Lactate Dehydrogenase 973 U/L (85-227) Total Protein 6.4 g/dL (6.4-8.2) Albumin 3.9 g/dL (3.4-5.0) Albumin/Globulin Ratio 1.6 (1.0-1.7) Assessment/Plan Assessment/Plan DATE OF CONSULTATION: 02/19/2017 HEMATOLOGY ONCOLOGY CONSULTATION REPORT CONSULTATION REQUESTED BY: Dr. Phelps. REASON FOR CONSULTATION: Severe hemolytic anemia. HISTORY OF PRESENT ILLNESS: The patient is a 31-year-old gentleman who reports having felt lightheaded on 02/08/2017. He also noticed decreased appetite. On February 09, he started having nausea and vomiting. He reports that he was unable to keep any food down and whenever he tries to eat something, he tends to throw up. He denies any abdominal pain or chest pain. No fevers, chills or night sweats. He has also noticed that his urine has been dark since 02/06/2017 and he thought he was dehydrated and he was trying to drink more water. He was diagnosed with jaundice when he presented to the Emergency Room on 02/12/2017. He denies any prior history of jaundice. No history of liver or spleen problems. He has noticed increasing fatigue. He underwent ultrasound of the liver on 02/12/2017, which revealed gallstones. No evidence of biliary ductal dilatation. Hepatic echotexture was within normal limits. He was noted to have a hemoglobin of 4.4 on 02/12/2017 with an MCV of 100. After transfusion, his hemoglobin was 5.6. In addition, on 02/13/2017, his WBC was decreased to 3.9 and platelet count of 125. His reticulocyte count was elevated at 3.8. His total bilirubin was 9.3 with a direct bilirubin of only 0.8. Flow cytometry to evaluate for PNH 02/13/17 came back as negative. On 02/13/17 Reticulocyte count is 3.8, haptoglobin <10, and LDH 930, but Brittani test is negative. ~ s/p bone marrow biopsy 02/14/17 to evaluate for any primary bone marrow failure. ~Results are pending CT C/A/P on 02/13/17: Splenomegaly. This in conjunction with bilateral axillary adenopathy, periaortic and pelvic adenopathy with some associated mild mediastinal adenopathy suggests possible lymphoma. s/p axillary~LN bx 02/15/17. He received blood transfusion at [facility] and he was discharged on 02/15/2017 and his hemoglobin was 7.0. Follow-up hemoglobin on 02/18/2017 reveals that his hemoglobin has got worse at 4.8 indicating ongoing hemolysis and he was admitted again 02/18/17 and received PRBC, Hb improved to 6.3. Prednisone 100 mg daily started on 02/18/17. PAST MEDICAL HISTORY: He denies any medical problems. PAST SURGICAL HISTORY: None. SOCIAL HISTORY: He drinks alcohol occasionally, but denies any heavy alcohol use. No smoking. FAMILY HISTORY: Positive for diabetes. REVIEW OF SYSTEMS: A 14-point review of system was performed. Pertinent positives are mentioned in the history of present illness. Rest of the system review is negative. PHYSICAL EXAMINATION: GENERAL APPEARANCE: The patient is a 31-year-old gentleman who is in no acute cardiorespiratory distress. VITAL SIGNS: Blood pressure 155/64, temperature 98.8. HEAD: Atraumatic, normocephalic. EYES: He has evidence of icterus. NECK: Supple. CHEST: Bilaterally symmetrical. No crepitations or rhonchi heard. HEART: S1, S2 normal. ABDOMEN: Soft, nontender. No hepatosplenomegaly. CENTRAL NERVOUS SYSTEM: No focal neurological deficits. LYMPHATICS: No lymphadenopathy. SKIN: No rashes. He has evidence of icterus. PSYCHOLOGIC: Mood and affect are appropriate. MUSCULOSKELETAL: No joint effusions. LABORATORY DATA: From 02/12/2017, WBC 6.3, hemoglobin 4.4, MCV 100, platelet count 168. Labs from 02/13/2017 reveals a WBC of 3.9, hemoglobin 5.6, platelet count 125. Reticulocyte count of 3.8. Total bilirubin 9.3, direct bilirubin 0.8, AST 45, ALT 42, total protein 5.7, alkaline phosphatase 8.3, albumin 3.6, calcium 7.9. Creatinine 1.1. IMPRESSION AND PLAN: 1. 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 Pt presented with severe anemia with a hemoglobin of 4.4 on 02/12/2017. ~In addition, he has evidence of leukopenia with a WBC of 3.9 and platelet count 125 on 02/13/2017. His reticulocyte count is elevated at 3.8 along with significant elevation of total bilirubin of 9.3 with direct bilirubin being only 0.8 suggestive of a hemolytic process. ~In addition, the patient reports having noticed dark urine since 02/06/2017. ~The nurse also noted that the urine was dark brown/tea-colored on the morning of 02/13/2017. ~The presence of pancytopenia and dark urine is concerning for paroxysmal nocturnal hemoglobinuria but ~Flow cytometry to evaluate for PNH 02/13/17 came back as negative. On 02/13/17 Reticulocyte count is 3.8, haptoglobin <10, and LDH 930, but Brittani test is negative. ~ s/p bone marrow biopsy 02/14/17 to evaluate for any primary bone marrow failure. ~Results are pending CT C/A/P on 02/13/17: Splenomegaly. This in conjunction with bilateral axillary adenopathy, periaortic and pelvic adenopathy with some associated mild mediastinal adenopathy suggests possible lymphoma. s/p axillary~LN bx 02/15/17. He received blood transfusion at [facility] and he was discharged on 02/15/2017 and his hemoglobin was 7.0. Follow-up hemoglobin on 02/18/2017 reveals that his hemoglobin has got worse at 4.8 indicating ongoing hemolysis. Hence I admited him to [facility] in view of severe anemia and started him on prednisone 100 mg p.o. daily 02/18/17. Hb now 6.3, monitor. If he does not respond, plan rituxan. I d/w RN. I d/w pathologist, bx results pending. I d/w Dr Phelps. 2. Headache. Monitor. STEVEN GIL MD Feb 19, 2017 09:58
[2017-02-19] MEDS: predniSONE 20 MG TABLET PO SCH (10:20)
[2017-02-19 11:19] VITALS: BP 122/62
[2017-02-19 13:49] LABS: NEGATIVE OBC MONO NEG; POSITIVE OBC MONO POS
[2017-02-19 15:00] VITALS: BP 134/62
--- NOTE | 2017-02-19 16:42 | PDOC ---
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 Richards has consulted for surg LN biopsy, cont current no PRBC today, repeat labs tomorrow Vitals Vitals Vital Signs Date Time Temp Pulse Resp B/P (MAP) Pulse Ox O2 Delivery O2 Flow Rate FiO2 02/19/17 15:00 98.5 91 16 134/62 (86) 98 Room Air 98.5 Physical Exam General: Alert, Oriented X3, Cooperative, No acute distress Heart: Regular rate Lungs: Clear Abdomen: Normal bowel sounds, Soft Extremities: No clubbing, No edema, Normal pulses Skin: No rashes, No significant lesion Labs LABS Laboratory Tests Test 02/19/17 06:50 02/19/17 13:25 White Blood Count 4.4 x10^3/uL (4.0-11.0) Red Blood Count 1.79 x10^6/uL (4.30-5.70) Hemoglobin 6.3 g/dL (13.0-17.5) Hematocrit 18.1 % (39.0-53.0) Mean Corpuscular Volume 101 fL (79-100) Mean Corpuscular Hemoglobin 35 pg (25-35) Mean Corpuscular Hemoglobin Concent 35 g/dL (31-37) Red Cell Distribution Width 14.2 % (11.5-14.5) Platelet Count 110 x10^3/uL (140-400) Neutrophils (%) (Auto) 78 % (31-73) Lymphocytes (%) (Auto) 17 % (24-48) Monocytes (%) (Auto) 4 % (0-9) Eosinophils (%) (Auto) 0 % (0-3) Basophils (%) (Auto) 1 % (0-3) Neutrophils # (Auto) 3.5 x10^3uL (1.8-7.7) Lymphocytes # (Auto) 0.7 x10^3/uL (1.0-4.8) Monocytes # (Auto) 0.2 x10^3/uL (0.0-1.1) Eosinophils # (Auto) 0.0 x10^3/uL (0.0-0.7) Basophils # (Auto) 0.0 x10^3/uL (0.0-0.2) Reticulocyte Count (auto) 7.9 % (0.5-2.5) Sodium Level 137 mmol/L (136-145) Potassium Level 4.6 mmol/L (3.5-5.1) Chloride Level 103 mmol/L (98-107) Carbon Dioxide Level 23 mmol/L (21-32) Anion Gap 11 (6-14) Blood Urea Nitrogen 25 mg/dL (8-26) Creatinine 0.9 mg/dL (0.7-1.3) Estimated GFR (Cockcroft-Gault) 99.1 BUN/Creatinine Ratio 28 (6-20) Glucose Level 132 mg/dL (70-99) Calcium Level 8.7 mg/dL (8.5-10.1) Total Bilirubin 4.8 mg/dL (0.2-1.0) Aspartate Amino Transf (AST/SGOT) 34 U/L (15-37) Alanine Aminotransferase (ALT/SGPT) 42 U/L (16-63) Alkaline Phosphatase 82 U/L (46-116) Lactate Dehydrogenase 973 U/L (85-227) Total Protein 6.4 g/dL (6.4-8.2) Albumin 3.9 g/dL (3.4-5.0) Albumin/Globulin Ratio 1.6 (1.0-1.7) Heterophil Agglutinins Negative (NEGATIVE) Review of Systems Review of Systems no n.v.d' Assessment and Plan Assessmemt and Plan cont Problems: Comment Review of Relevant I have reviewed the following items sharron (where applicable) has been applied. Labs Laboratory Tests Test 02/18/17 13:30 02/19/17 06:50 02/19/17 13:25 Hemoglobin 4.1 g/dL (13.0-17.5) 6.3 g/dL (13.0-17.5) Hematocrit 11.7 % (39.0-53.0) 18.1 % (39.0-53.0) Mean Corpuscular Hemoglobin Concent 35 g/dL (31-37) 35 g/dL (31-37) White Blood Count 4.4 x10^3/uL (4.0-11.0) Red Blood Count 1.79 x10^6/uL (4.30-5.70) Mean Corpuscular Volume 101 fL (79-100) Mean Corpuscular Hemoglobin 35 pg (25-35) Red Cell Distribution Width 14.2 % (11.5-14.5) Platelet Count 110 x10^3/uL (140-400) Neutrophils (%) (Auto) 78 % (31-73) Lymphocytes (%) (Auto) 17 % (24-48) Monocytes (%) (Auto) 4 % (0-9) Eosinophils (%) (Auto) 0 % (0-3) Basophils (%) (Auto) 1 % (0-3) Neutrophils # (Auto) 3.5 x10^3uL (1.8-7.7) Lymphocytes # (Auto) 0.7 x10^3/uL (1.0-4.8) Monocytes # (Auto) 0.2 x10^3/uL (0.0-1.1) Eosinophils # (Auto) 0.0 x10^3/uL (0.0-0.7) Basophils # (Auto) 0.0 x10^3/uL (0.0-0.2) Reticulocyte Count (auto) 7.9 % (0.5-2.5) Sodium Level 137 mmol/L (136-145) Potassium Level 4.6 mmol/L (3.5-5.1) Chloride Level 103 mmol/L (98-107) Carbon Dioxide Level 23 mmol/L (21-32) Anion Gap 11 (6-14) Blood Urea Nitrogen 25 mg/dL (8-26) Creatinine 0.9 mg/dL (0.7-1.3) Estimated GFR (Cockcroft-Gault) 99.1 BUN/Creatinine Ratio 28 (6-20) Glucose Level 132 mg/dL (70-99) Calcium Level 8.7 mg/dL (8.5-10.1) Total Bilirubin 4.8 mg/dL (0.2-1.0) Aspartate Amino Transf (AST/SGOT) 34 U/L (15-37) Alanine Aminotransferase (ALT/SGPT) 42 U/L (16-63) Alkaline Phosphatase 82 U/L (46-116) Lactate Dehydrogenase 973 U/L (85-227) Total Protein 6.4 g/dL (6.4-8.2) Albumin 3.9 g/dL (3.4-5.0) Albumin/Globulin Ratio 1.6 (1.0-1.7) Heterophil Agglutinins Negative (NEGATIVE) Laboratory Tests Test 02/19/17 06:50 02/19/17 13:25 White Blood Count 4.4 x10^3/uL (4.0-11.0) Red Blood Count 1.79 x10^6/uL (4.30-5.70) Hemoglobin 6.3 g/dL (13.0-17.5) Hematocrit 18.1 % (39.0-53.0) Mean Corpuscular Volume 101 fL (79-100) Mean Corpuscular Hemoglobin 35 pg (25-35) Mean Corpuscular Hemoglobin Concent 35 g/dL (31-37) Red Cell Distribution Width 14.2 % (11.5-14.5) Platelet Count 110 x10^3/uL (140-400) Neutrophils (%) (Auto) 78 % (31-73) Lymphocytes (%) (Auto) 17 % (24-48) Monocytes (%) (Auto) 4 % (0-9) Eosinophils (%) (Auto) 0 % (0-3) Basophils (%) (Auto) 1 % (0-3) Neutrophils # (Auto) 3.5 x10^3uL (1.8-7.7) Lymphocytes # (Auto) 0.7 x10^3/uL (1.0-4.8) Monocytes # (Auto) 0.2 x10^3/uL (0.0-1.1) Eosinophils # (Auto) 0.0 x10^3/uL (0.0-0.7) Basophils # (Auto) 0.0 x10^3/uL (0.0-0.2) Reticulocyte Count (auto) 7.9 % (0.5-2.5) Sodium Level 137 mmol/L (136-145) Potassium Level 4.6 mmol/L (3.5-5.1) Chloride Level 103 mmol/L (98-107) Carbon Dioxide Level 23 mmol/L (21-32) Anion Gap 11 (6-14) Blood Urea Nitrogen 25 mg/dL (8-26) Creatinine 0.9 mg/dL (0.7-1.3) Estimated GFR (Cockcroft-Gault) 99.1 BUN/Creatinine Ratio 28 (6-20) Glucose Level 132 mg/dL (70-99) Calcium Level 8.7 mg/dL (8.5-10.1) Total Bilirubin 4.8 mg/dL (0.2-1.0) Aspartate Amino Transf (AST/SGOT) 34 U/L (15-37) Alanine Aminotransferase (ALT/SGPT) 42 U/L (16-63) Alkaline Phosphatase 82 U/L (46-116) Lactate Dehydrogenase 973 U/L (85-227) Total Protein 6.4 g/dL (6.4-8.2) Albumin 3.9 g/dL (3.4-5.0) Albumin/Globulin Ratio 1.6 (1.0-1.7) Heterophil Agglutinins Negative (NEGATIVE) Medications Current Medications Prednisone (Prednisone) 100 mg DAILY PO Last administered on 02/19/17 10:20; Start 02/18/17 at 13:15 Zolpidem Tartrate (Ambien) 5 mg PRN QHS PRN PO INSOMNIA; Start 02/18/17 at 13: 30 Tramadol HCl (Ultram) 50 mg PRN Q6HRS PRN PO PAIN; Start 02/18/17 at 13:30; Stop 02/18/17 at 13:30; Status DC Tramadol HCl (Ultram) 50 mg PRN Q6HRS PRN PO PAIN Last administered on 20:28; Start 02/18/17 at 13:30 Docusate Sodium (Colace) 100 mg DAILY PO ; Start 02/19/17 at 09:00 Acetaminophen (Tylenol) 650 mg PRN Q6HRS PRN PO PAIN; Start 02/18/17 at 13:30 Diphenhydramine HCl (Benadryl) 25 mg PRN Q6HRS PRN PO ITCHING; Start 02/18/17 at 13:30 Active Scripts Active Reported Advil (Ibuprofen) 200 Mg Tablet 200 Mg PO PRN Q6-8HRS PRN Vitals/I & O Vital Sign - Last 24 Hours 02/18/17 02/18/17 02/18/17 02/18/17 16:57 17:15 18:15 19:15 Temp 98.5 98.6 99.9 98.4 98.5 98.6 99.9 98.4 Pulse 120 114 106 109 Resp 16 20 18 20 B/P (MAP) 114/53 108/49 103/47 112/55 02/18/17 02/18/17 02/18/17 02/18/17 19:15 19:27 20:00 20:18 Temp 98.4 98.4 98.4 98.4 98.4 98.4 Pulse 109 109 109 Resp 20 24 20 B/P (MAP) 112/55 112/55 (74) 112/55 Pulse Ox 98 O2 Delivery Room Air Room Air 02/18/17 02/18/17 02/18/17 02/18/17 20:21 20:28 20:43 21:28 Temp 98.1 98.2 98.1 98.2 Pulse 109 98 Resp 18 18 18 B/P (MAP) 112/55 110/57 Pulse Ox 97 98 O2 Delivery Room Air Room Air 02/18/17 02/18/17 02/18/17 02/19/17 21:43 22:43 23:09 03:10 Temp 98.6 98.8 98.8 98.0 98.6 98.8 98.8 98.0 Pulse 100 101 101 89 Resp 18 18 20 20 B/P (MAP) 116/60 120/55 120/55 (76) 116/69 (85) Pulse Ox 96 96 O2 Delivery Room Air Room Air 02/19/17 02/19/17 02/19/17 02/19/17 06:40 08:00 11:19 15:00 Temp 97.9 98.1 98.5 97.9 98.1 98.5 Pulse 84 94 91 Resp 18 20 16 B/P (MAP) 111/63 (79) 122/62 (82) 134/62 (86) Pulse Ox 98 97 98 O2 Delivery Room Air Room Air Room Air Room Air Intake and Output 02/19/17 02/19/17 02/20/17 15:00 23:00 07:00 Intake Total 200 ml Balance 200 ml SALOMON CAAL MD Feb 19, 2017 16:42
[2017-02-19 19:31] VITALS: BP 142/62
[2017-02-19 22:42] VITALS: BP 131/66
[2017-02-20 00:10] LABS: HEP A IGM ABDY Negative (Negative)
[2017-02-20 02:39] VITALS: BP 115/55
[2017-02-20 06:44] LABS: BASO % 0 % (0-3); EOS % 0 % (0-3); LYMPH # 0.8 x10^3/uL (1.0-4.8); LYMPH % 17 % (24-48); MEAN CORPUSCULAR HEMOGLOBIN 35 pg (25-35); MEAN CORPUSCULAR HGB CONC 35 g/dL (31-37); MEAN CORPUSCULAR VOLUME 100 fL (79-100); MONO % 8 % (0-9); NEUT % 75 % (31-73); PLATELET COUNT 126 x10^3/uL (140-400); RED BLOOD COUNT 1.74 x10^6/uL (4.30-5.70); RED CELL DISTRIBUTION WIDTH 15.4 % (11.5-14.5); WHITE BLOOD COUNT 4.9 x10^3/uL (4.0-11.0)
[2017-02-20 06:55] LABS: HEMATOCRIT 17.4 % (39.0-53.0); HEMOGLOBIN 6.1 g/dL (13.0-17.5)
[2017-02-20 06:57] LABS: ALBUMIN 3.7 g/dL (3.4-5.0); ALBUMIN/GLOBULIN RATIO 1.6 (1.0-1.7); CALCIUM 8.7 mg/dL (8.5-10.1); GFR 87.7; POTASSIUM 4.5 mmol/L (3.5-5.1); TOTAL BILIRUBIN 3.4 mg/dL (0.2-1.0)
[2017-02-20 07:00] VITALS: BP 111/65
[2017-02-20 07:05] LABS: INR 1.2 (0.8-1.1); PROTHROMBIN TIME PATIENT 14.5 SEC (11.7-14.0)
[2017-02-20] MEDS: DOCUSATE SODIUM 100 MG CAPSULE. PO SCH (08:54)
[2017-02-20] MEDS: predniSONE 20 MG TABLET PO SCH (08:55)
--- NOTE | 2017-02-20 09:15 | PDOC ---
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 ROS - no PRO Objective Objective Vital Signs Date Time Temp Pulse Resp B/P (MAP) Pulse Ox O2 Delivery O2 Flow Rate FiO2 02/20/17 07:00 98.0 93 16 111/65 (80) 99 Room Air 98.0 Physical Exam Heart: Normal S1, Normal S2 General: Alert, Oriented X3 Lungs: Clear to auscultation Neuro: Normal speech Psych/Mental Status: Mental status NL Assessment Assessment IMPRESSION AND PLAN: 1. 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 Pt presented with severe anemia with a hemoglobin of 4.4 on 02/12/2017. ~In addition, he has evidence of leukopenia with a WBC of 3.9 and platelet count 125 on 02/13/2017. His reticulocyte count is elevated at 3.8 along with significant elevation of total bilirubin of 9.3 with direct bilirubin being only 0.8 suggestive of a hemolytic process. ~In addition, the patient reports having noticed dark urine since 02/06/2017. ~The nurse also noted that the urine was dark brown/tea-colored on the morning of 02/13/2017. ~The presence of pancytopenia and dark urine is concerning for paroxysmal nocturnal hemoglobinuria but ~Flow cytometry to evaluate for PNH 02/13/17 came back as negative. On 02/13/17 Reticulocyte count is 3.8, haptoglobin <10, and LDH 930, but Brittani test is negative. s/p bone marrow biopsy 02/14/17 is negative for any primary bone marrow disorders. CT C/A/P on 02/13/17: Splenomegaly. This in conjunction with bilateral axillary adenopathy, periaortic and pelvic adenopathy with some associated mild mediastinal adenopathy suggests possible lymphoma. s/p axillary LN bx 02/15/17, neg. He received blood transfusion at [facility] and he was discharged on 02/15/2017 and his hemoglobin was 7.0. Follow-up hemoglobin on 02/18/2017 reveals that his hemoglobin has got worse at 4.8 indicating ongoing hemolysis. Hence I admited him to [facility] in view of severe anemia and started him on prednisone 100 mg p.o. daily 02/18/17. Hb now 6.1, monitor. No need to transfuse. Bilirubin and retic better. If he does not respond, plan rituxan. I d/w D5r Josh. I d/w pathologist, recommended excisional bx. I d/w Dr Phelps. 2. Lymphadenopathy - consult surgery for excisional bx.. Consult ID. Comment Review of Relevant I have reviewed the following items sharron (where applicable) has been applied. Labs Laboratory Tests Test 02/18/17 13:30 02/19/17 06:50 02/19/17 13:25 02/20/17 06:15 Hemoglobin 4.1 g/dL (13.0-17.5) 6.3 g/dL (13.0-17.5) 6.1 g/dL (13.0-17.5) Hematocrit 11.7 % (39.0-53.0) 18.1 % (39.0-53.0) 17.4 % (39.0-53.0) Mean Corpuscular Hemoglobin Concent 35 g/dL (31-37) 35 g/dL (31-37) 35 g/dL (31-37) White Blood Count 4.4 x10^3/uL (4.0-11.0) 4.9 x10^3/uL (4.0-11.0) Red Blood Count 1.79 x10^6/uL (4.30-5.70) 1.74 x10^6/uL (4.30-5.70) Mean Corpuscular Volume 101 fL (79-100) 100 fL (79-100) Mean Corpuscular Hemoglobin 35 pg (25-35) 35 pg (25-35) Red Cell Distribution Width 14.2 % (11.5-14.5) 15.4 % (11.5-14.5) Platelet Count 110 x10^3/uL (140-400) 126 x10^3/uL (140-400) Neutrophils (%) (Auto) 78 % (31-73) 75 % (31-73) Lymphocytes (%) (Auto) 17 % (24-48) 17 % (24-48) Monocytes (%) (Auto) 4 % (0-9) 8 % (0-9) Eosinophils (%) (Auto) 0 % (0-3) 0 % (0-3) Basophils (%) (Auto) 1 % (0-3) 0 % (0-3) Neutrophils # (Auto) 3.5 x10^3uL (1.8-7.7) 3.7 x10^3uL (1.8-7.7) Lymphocytes # (Auto) 0.7 x10^3/uL (1.0-4.8) 0.8 x10^3/uL (1.0-4.8) Monocytes # (Auto) 0.2 x10^3/uL (0.0-1.1) 0.4 x10^3/uL (0.0-1.1) Eosinophils # (Auto) 0.0 x10^3/uL (0.0-0.7) 0.0 x10^3/uL (0.0-0.7) Basophils # (Auto) 0.0 x10^3/uL (0.0-0.2) 0.0 x10^3/uL (0.0-0.2) Reticulocyte Count (auto) 7.9 % (0.5-2.5) 7.0 % (0.5-2.5) Sodium Level 137 mmol/L (136-145) 140 mmol/L (136-145) Potassium Level 4.6 mmol/L (3.5-5.1) 4.5 mmol/L (3.5-5.1) Chloride Level 103 mmol/L (98-107) 106 mmol/L (98-107) Carbon Dioxide Level 23 mmol/L (21-32) 25 mmol/L (21-32) Anion Gap 11 (6-14) 9 (6-14) Blood Urea Nitrogen 25 mg/dL (8-26) 25 mg/dL (8-26) Creatinine 0.9 mg/dL (0.7-1.3) 1.0 mg/dL (0.7-1.3) Estimated GFR (Cockcroft-Gault) 99.1 87.7 BUN/Creatinine Ratio 28 (6-20) 25 (6-20) Glucose Level 132 mg/dL (70-99) 144 mg/dL (70-99) Calcium Level 8.7 mg/dL (8.5-10.1) 8.7 mg/dL (8.5-10.1) Total Bilirubin 4.8 mg/dL (0.2-1.0) 3.4 mg/dL (0.2-1.0) Aspartate Amino Transf (AST/SGOT) 34 U/L (15-37) 22 U/L (15-37) Alanine Aminotransferase (ALT/SGPT) 42 U/L (16-63) 35 U/L (16-63) Alkaline Phosphatase 82 U/L (46-116) 82 U/L (46-116) Lactate Dehydrogenase 973 U/L (85-227) 766 U/L (85-227) Total Protein 6.4 g/dL (6.4-8.2) 6.0 g/dL (6.4-8.2) Albumin 3.9 g/dL (3.4-5.0) 3.7 g/dL (3.4-5.0) Albumin/Globulin Ratio 1.6 (1.0-1.7) 1.6 (1.0-1.7) Hepatitis A IgM Antibody Negative (Negative) Hepatitis B Surface Antigen Negative (Negative) Hepatitis B Core IgM Antibody Negative (Negative) Hepatitis C Antibody <0.1 s/co ratio Heterophil Agglutinins Negative (NEGATIVE) Prothrombin Time 14.5 SEC (11.7-14.0) Prothromb Time International Ratio 1.2 (0.8-1.1) Laboratory Tests Test 02/19/17 13:25 02/20/17 06:15 Hepatitis A IgM Antibody Negative (Negative) Hepatitis B Surface Antigen Negative (Negative) Hepatitis B Core IgM Antibody Negative (Negative) Hepatitis C Antibody <0.1 s/co ratio Heterophil Agglutinins Negative (NEGATIVE) White Blood Count 4.9 x10^3/uL (4.0-11.0) Red Blood Count 1.74 x10^6/uL (4.30-5.70) Hemoglobin 6.1 g/dL (13.0-17.5) Hematocrit 17.4 % (39.0-53.0) Mean Corpuscular Volume 100 fL (79-100) Mean Corpuscular Hemoglobin 35 pg (25-35) Mean Corpuscular Hemoglobin Concent 35 g/dL (31-37) Red Cell Distribution Width 15.4 % (11.5-14.5) Platelet Count 126 x10^3/uL (140-400) Neutrophils (%) (Auto) 75 % (31-73) Lymphocytes (%) (Auto) 17 % (24-48) Monocytes (%) (Auto) 8 % (0-9) Eosinophils (%) (Auto) 0 % (0-3) Basophils (%) (Auto) 0 % (0-3) Neutrophils # (Auto) 3.7 x10^3uL (1.8-7.7) Lymphocytes # (Auto) 0.8 x10^3/uL (1.0-4.8) Monocytes # (Auto) 0.4 x10^3/uL (0.0-1.1) Eosinophils # (Auto) 0.0 x10^3/uL (0.0-0.7) Basophils # (Auto) 0.0 x10^3/uL (0.0-0.2) Reticulocyte Count (auto) 7.0 % (0.5-2.5) Prothrombin Time 14.5 SEC (11.7-14.0) Prothromb Time International Ratio 1.2 (0.8-1.1) Sodium Level 140 mmol/L (136-145) Potassium Level 4.5 mmol/L (3.5-5.1) Chloride Level 106 mmol/L (98-107) Carbon Dioxide Level 25 mmol/L (21-32) Anion Gap 9 (6-14) Blood Urea Nitrogen 25 mg/dL (8-26) Creatinine 1.0 mg/dL (0.7-1.3) Estimated GFR (Cockcroft-Gault) 87.7 BUN/Creatinine Ratio 25 (6-20) Glucose Level 144 mg/dL (70-99) Calcium Level 8.7 mg/dL (8.5-10.1) Total Bilirubin 3.4 mg/dL (0.2-1.0) Aspartate Amino Transf (AST/SGOT) 22 U/L (15-37) Alanine Aminotransferase (ALT/SGPT) 35 U/L (16-63) Alkaline Phosphatase 82 U/L (46-116) Lactate Dehydrogenase 766 U/L (85-227) Total Protein 6.0 g/dL (6.4-8.2) Albumin 3.7 g/dL (3.4-5.0) Albumin/Globulin Ratio 1.6 (1.0-1.7) Medications Current Medications Prednisone (Prednisone) 100 mg DAILY PO Last administered on 02/20/17 08:55; Start 02/18/17 at 13:15 Zolpidem Tartrate (Ambien) 5 mg PRN QHS PRN PO INSOMNIA; Start 02/18/17 at 13: 30 Tramadol HCl (Ultram) 50 mg PRN Q6HRS PRN PO PAIN; Start 02/18/17 at 13:30; Stop 02/18/17 at 13:30; Status DC Tramadol HCl (Ultram) 50 mg PRN Q6HRS PRN PO PAIN Last administered on 20:28; Start 02/18/17 at 13:30 Docusate Sodium (Colace) 100 mg DAILY PO ; Start 02/19/17 at 09:00 Acetaminophen (Tylenol) 650 mg PRN Q6HRS PRN PO PAIN; Start 02/18/17 at 13:30 Diphenhydramine HCl (Benadryl) 25 mg PRN Q6HRS PRN PO ITCHING; Start 02/18/17 at 13:30 Active Scripts Active Reported Advil (Ibuprofen) 200 Mg Tablet 200 Mg PO PRN Q6-8HRS PRN Vitals/I & O Vital Sign - Last 24 Hours 02/19/17 02/19/17 02/19/17 02/19/17 11:19 15:00 19:31 20:00 Temp 98.1 98.5 99.1 98.1 98.5 99.1 Pulse 94 91 98 Resp 20 16 16 B/P (MAP) 122/62 (82) 134/62 (86) 142/62 (88) Pulse Ox 97 98 96 O2 Delivery Room Air Room Air Room Air Room Air 02/19/17 02/20/17 02/20/17 22:42 02:39 07:00 Temp 98.9 98.1 98.0 98.9 98.1 98.0 Pulse 110 99 93 Resp 16 16 16 B/P (MAP) 131/66 (87) 115/55 (75) 111/65 (80) Pulse Ox 97 95 99 O2 Delivery Room Air Room Air Room Air STEVEN GIL MD Feb 20, 2017 09:15
--- NOTE | 2017-02-20 09:17 | PDOC ---
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 Richards discussed, hold PRBC for now, above 6 is OK, young prev. healthy male surg LN biopsy pending cont current Vitals Vitals Vital Signs Date Time Temp Pulse Resp B/P (MAP) Pulse Ox O2 Delivery O2 Flow Rate FiO2 02/20/17 07:00 98.0 93 16 111/65 (80) 99 Room Air 98.0 Physical Exam General: Alert, Oriented X3 Heart: Normal S1, Normal S2 Lungs: Clear Abdomen: Normal bowel sounds, Soft Extremities: No clubbing, No edema, Normal pulses Skin: No rashes, No significant lesion Labs LABS Laboratory Tests Test 02/19/17 13:25 02/20/17 06:15 Hepatitis A IgM Antibody Negative (Negative) Hepatitis B Surface Antigen Negative (Negative) Hepatitis B Core IgM Antibody Negative (Negative) Hepatitis C Antibody <0.1 s/co ratio Heterophil Agglutinins Negative (NEGATIVE) White Blood Count 4.9 x10^3/uL (4.0-11.0) Red Blood Count 1.74 x10^6/uL (4.30-5.70) Hemoglobin 6.1 g/dL (13.0-17.5) Hematocrit 17.4 % (39.0-53.0) Mean Corpuscular Volume 100 fL (79-100) Mean Corpuscular Hemoglobin 35 pg (25-35) Mean Corpuscular Hemoglobin Concent 35 g/dL (31-37) Red Cell Distribution Width 15.4 % (11.5-14.5) Platelet Count 126 x10^3/uL (140-400) Neutrophils (%) (Auto) 75 % (31-73) Lymphocytes (%) (Auto) 17 % (24-48) Monocytes (%) (Auto) 8 % (0-9) Eosinophils (%) (Auto) 0 % (0-3) Basophils (%) (Auto) 0 % (0-3) Neutrophils # (Auto) 3.7 x10^3uL (1.8-7.7) Lymphocytes # (Auto) 0.8 x10^3/uL (1.0-4.8) Monocytes # (Auto) 0.4 x10^3/uL (0.0-1.1) Eosinophils # (Auto) 0.0 x10^3/uL (0.0-0.7) Basophils # (Auto) 0.0 x10^3/uL (0.0-0.2) Reticulocyte Count (auto) 7.0 % (0.5-2.5) Prothrombin Time 14.5 SEC (11.7-14.0) Prothromb Time International Ratio 1.2 (0.8-1.1) Sodium Level 140 mmol/L (136-145) Potassium Level 4.5 mmol/L (3.5-5.1) Chloride Level 106 mmol/L (98-107) Carbon Dioxide Level 25 mmol/L (21-32) Anion Gap 9 (6-14) Blood Urea Nitrogen 25 mg/dL (8-26) Creatinine 1.0 mg/dL (0.7-1.3) Estimated GFR (Cockcroft-Gault) 87.7 BUN/Creatinine Ratio 25 (6-20) Glucose Level 144 mg/dL (70-99) Calcium Level 8.7 mg/dL (8.5-10.1) Total Bilirubin 3.4 mg/dL (0.2-1.0) Aspartate Amino Transf (AST/SGOT) 22 U/L (15-37) Alanine Aminotransferase (ALT/SGPT) 35 U/L (16-63) Alkaline Phosphatase 82 U/L (46-116) Lactate Dehydrogenase 766 U/L (85-227) Total Protein 6.0 g/dL (6.4-8.2) Albumin 3.7 g/dL (3.4-5.0) Albumin/Globulin Ratio 1.6 (1.0-1.7) Review of Systems Review of Systems no n.v/d feels better Assessment and Plan Assessmemt and Plan need LN biopsy, recheck labs in AM if hgb starts to improve, may be able to DC Problems: Comment Review of Relevant I have reviewed the following items sharron (where applicable) has been applied. Labs Laboratory Tests Test 02/18/17 13:30 02/19/17 06:50 02/19/17 13:25 02/20/17 06:15 Hemoglobin 4.1 g/dL (13.0-17.5) 6.3 g/dL (13.0-17.5) 6.1 g/dL (13.0-17.5) Hematocrit 11.7 % (39.0-53.0) 18.1 % (39.0-53.0) 17.4 % (39.0-53.0) Mean Corpuscular Hemoglobin Concent 35 g/dL (31-37) 35 g/dL (31-37) 35 g/dL (31-37) White Blood Count 4.4 x10^3/uL (4.0-11.0) 4.9 x10^3/uL (4.0-11.0) Red Blood Count 1.79 x10^6/uL (4.30-5.70) 1.74 x10^6/uL (4.30-5.70) Mean Corpuscular Volume 101 fL (79-100) 100 fL (79-100) Mean Corpuscular Hemoglobin 35 pg (25-35) 35 pg (25-35) Red Cell Distribution Width 14.2 % (11.5-14.5) 15.4 % (11.5-14.5) Platelet Count 110 x10^3/uL (140-400) 126 x10^3/uL (140-400) Neutrophils (%) (Auto) 78 % (31-73) 75 % (31-73) Lymphocytes (%) (Auto) 17 % (24-48) 17 % (24-48) Monocytes (%) (Auto) 4 % (0-9) 8 % (0-9) Eosinophils (%) (Auto) 0 % (0-3) 0 % (0-3) Basophils (%) (Auto) 1 % (0-3) 0 % (0-3) Neutrophils # (Auto) 3.5 x10^3uL (1.8-7.7) 3.7 x10^3uL (1.8-7.7) Lymphocytes # (Auto) 0.7 x10^3/uL (1.0-4.8) 0.8 x10^3/uL (1.0-4.8) Monocytes # (Auto) 0.2 x10^3/uL (0.0-1.1) 0.4 x10^3/uL (0.0-1.1) Eosinophils # (Auto) 0.0 x10^3/uL (0.0-0.7) 0.0 x10^3/uL (0.0-0.7) Basophils # (Auto) 0.0 x10^3/uL (0.0-0.2) 0.0 x10^3/uL (0.0-0.2) Reticulocyte Count (auto) 7.9 % (0.5-2.5) 7.0 % (0.5-2.5) Sodium Level 137 mmol/L (136-145) 140 mmol/L (136-145) Potassium Level 4.6 mmol/L (3.5-5.1) 4.5 mmol/L (3.5-5.1) Chloride Level 103 mmol/L (98-107) 106 mmol/L (98-107) Carbon Dioxide Level 23 mmol/L (21-32) 25 mmol/L (21-32) Anion Gap 11 (6-14) 9 (6-14) Blood Urea Nitrogen 25 mg/dL (8-26) 25 mg/dL (8-26) Creatinine 0.9 mg/dL (0.7-1.3) 1.0 mg/dL (0.7-1.3) Estimated GFR (Cockcroft-Gault) 99.1 87.7 BUN/Creatinine Ratio 28 (6-20) 25 (6-20) Glucose Level 132 mg/dL (70-99) 144 mg/dL (70-99) Calcium Level 8.7 mg/dL (8.5-10.1) 8.7 mg/dL (8.5-10.1) Total Bilirubin 4.8 mg/dL (0.2-1.0) 3.4 mg/dL (0.2-1.0) Aspartate Amino Transf (AST/SGOT) 34 U/L (15-37) 22 U/L (15-37) Alanine Aminotransferase (ALT/SGPT) 42 U/L (16-63) 35 U/L (16-63) Alkaline Phosphatase 82 U/L (46-116) 82 U/L (46-116) Lactate Dehydrogenase 973 U/L (85-227) 766 U/L (85-227) Total Protein 6.4 g/dL (6.4-8.2) 6.0 g/dL (6.4-8.2) Albumin 3.9 g/dL (3.4-5.0) 3.7 g/dL (3.4-5.0) Albumin/Globulin Ratio 1.6 (1.0-1.7) 1.6 (1.0-1.7) Hepatitis A IgM Antibody Negative (Negative) Hepatitis B Surface Antigen Negative (Negative) Hepatitis B Core IgM Antibody Negative (Negative) Hepatitis C Antibody <0.1 s/co ratio Heterophil Agglutinins Negative (NEGATIVE) Prothrombin Time 14.5 SEC (11.7-14.0) Prothromb Time International Ratio 1.2 (0.8-1.1) Laboratory Tests Test 02/19/17 13:25 02/20/17 06:15 Hepatitis A IgM Antibody Negative (Negative) Hepatitis B Surface Antigen Negative (Negative) Hepatitis B Core IgM Antibody Negative (Negative) Hepatitis C Antibody <0.1 s/co ratio Heterophil Agglutinins Negative (NEGATIVE) White Blood Count 4.9 x10^3/uL (4.0-11.0) Red Blood Count 1.74 x10^6/uL (4.30-5.70) Hemoglobin 6.1 g/dL (13.0-17.5) Hematocrit 17.4 % (39.0-53.0) Mean Corpuscular Volume 100 fL (79-100) Mean Corpuscular Hemoglobin 35 pg (25-35) Mean Corpuscular Hemoglobin Concent 35 g/dL (31-37) Red Cell Distribution Width 15.4 % (11.5-14.5) Platelet Count 126 x10^3/uL (140-400) Neutrophils (%) (Auto) 75 % (31-73) Lymphocytes (%) (Auto) 17 % (24-48) Monocytes (%) (Auto) 8 % (0-9) Eosinophils (%) (Auto) 0 % (0-3) Basophils (%) (Auto) 0 % (0-3) Neutrophils # (Auto) 3.7 x10^3uL (1.8-7.7) Lymphocytes # (Auto) 0.8 x10^3/uL (1.0-4.8) Monocytes # (Auto) 0.4 x10^3/uL (0.0-1.1) Eosinophils # (Auto) 0.0 x10^3/uL (0.0-0.7) Basophils # (Auto) 0.0 x10^3/uL (0.0-0.2) Reticulocyte Count (auto) 7.0 % (0.5-2.5) Prothrombin Time 14.5 SEC (11.7-14.0) Prothromb Time International Ratio 1.2 (0.8-1.1) Sodium Level 140 mmol/L (136-145) Potassium Level 4.5 mmol/L (3.5-5.1) Chloride Level 106 mmol/L (98-107) Carbon Dioxide Level 25 mmol/L (21-32) Anion Gap 9 (6-14) Blood Urea Nitrogen 25 mg/dL (8-26) Creatinine 1.0 mg/dL (0.7-1.3) Estimated GFR (Cockcroft-Gault) 87.7 BUN/Creatinine Ratio 25 (6-20) Glucose Level 144 mg/dL (70-99) Calcium Level 8.7 mg/dL (8.5-10.1) Total Bilirubin 3.4 mg/dL (0.2-1.0) Aspartate Amino Transf (AST/SGOT) 22 U/L (15-37) Alanine Aminotransferase (ALT/SGPT) 35 U/L (16-63) Alkaline Phosphatase 82 U/L (46-116) Lactate Dehydrogenase 766 U/L (85-227) Total Protein 6.0 g/dL (6.4-8.2) Albumin 3.7 g/dL (3.4-5.0) Albumin/Globulin Ratio 1.6 (1.0-1.7) Medications Current Medications Prednisone (Prednisone) 100 mg DAILY PO Last administered on 02/20/17t 08:55; Start 02/18/17 at 13:15 Zolpidem Tartrate (Ambien) 5 mg PRN QHS PRN PO INSOMNIA; Start 02/18/17 at 13: 30 Tramadol HCl (Ultram) 50 mg PRN Q6HRS PRN PO PAIN; Start 02/18/17 at 13:30; Stop 02/18/17 at 13:30; Status DC Tramadol HCl (Ultram) 50 mg PRN Q6HRS PRN PO PAIN Last administered on t 20:28; Start 02/18/17 at 13:30 Docusate Sodium (Colace) 100 mg DAILY PO ; Start 02/19/17 at 09:00 Acetaminophen (Tylenol) 650 mg PRN Q6HRS PRN PO PAIN; Start 02/18/17 at 13:30 Diphenhydramine HCl (Benadryl) 25 mg PRN Q6HRS PRN PO ITCHING; Start 02/18/17 at 13:30 Active Scripts Active Reported Advil (Ibuprofen) 200 Mg Tablet 200 Mg PO PRN Q6-8HRS PRN Vitals/I & O Vital Sign - Last 24 Hours 02/19/17 02/19/17 02/19/17 02/19/17 11:19 15:00 19:31 20:00 Temp 98.1 98.5 99.1 98.1 98.5 99.1 Pulse 94 91 98 Resp 20 16 16 B/P (MAP) 122/62 (82) 134/62 (86) 142/62 (88) Pulse Ox 97 98 96 O2 Delivery Room Air Room Air Room Air Room Air 02/19/17 02/20/17 02/20/17 22:42 02:39 07:00 Temp 98.9 98.1 98.0 98.9 98.1 98.0 Pulse 110 99 93 Resp 16 16 16 B/P (MAP) 131/66 (87) 115/55 (75) 111/65 (80) Pulse Ox 97 95 99 O2 Delivery Room Air Room Air Room Air SALOMON CAAL MD Feb 20, 2017 09:17
[2017-02-20] MEDS ORDERED: ONDANSETRON PF 4 MG/2 ML VIAL. IV PRN (09:30)
[2017-02-20 10:44] VITALS: BP 112/60
--- NOTE | 2017-02-20 10:54 | PDOC2 ---
CONSULT Date of Consult Date of Consult DATE: 02/20/17 TIME: 10:52 History of Present Illness Reason for Visit: The patient is a 31 year old male who was admitted for evaluation of anemia. He was found to have splenomegaly and lymphadenopathy. A request was made for a surgical excisional lymph node biopsy as a prior core needle biopsy has not been diagnostic. Past Medical History Cardiovascular: No pertinent hx Pulmonary: No pertinent hx GI: No pertinent hx Heme/Onc: Anemia NOS, Other Hepatobiliary: Other Psych: No pertinent hx Rheumatologic: No pertinent hx Family History Family History: No Significant Social History No ALCOHOL: none Drugs: None Current Medications Current Medications Current Medications Prednisone (Prednisone) 100 mg DAILY PO Last administered on 02/20/17t 08:55; Start 02/18/17 at 13:15 Zolpidem Tartrate (Ambien) 5 mg PRN QHS PRN PO INSOMNIA; Start 02/18/17 at 13: 30 Tramadol HCl (Ultram) 50 mg PRN Q6HRS PRN PO PAIN; Start 02/18/17 at 13:30; Stop 02/18/17 at 13:30; Status DC Tramadol HCl (Ultram) 50 mg PRN Q6HRS PRN PO PAIN Last administered on t 20:28; Start 02/18/17 at 13:30 Docusate Sodium (Colace) 100 mg DAILY PO ; Start 02/19/17 at 09:00 Acetaminophen (Tylenol) 650 mg PRN Q6HRS PRN PO PAIN; Start 02/18/17 at 13:30 Diphenhydramine HCl (Benadryl) 25 mg PRN Q6HRS PRN PO ITCHING; Start 02/18/17 at 13:30 Folic Acid (Folic Acid) 1 mg DAILY PO ; Start 02/20/17 at 09:15 Ondansetron HCl (Zofran) 4 mg PRN Q8HRS PRN IV NAUSEA/VOMITING; Start 02/20/17 at 09:30 Active Scripts Active Reported Advil (Ibuprofen) 200 Mg Tablet 200 Mg PO PRN Q6-8HRS PRN Allergies Allergies: Coded Allergies: No Known Drug Allergies (Unverified , 02/12/17) Physical Exam General: Alert, Oriented X3, Cooperative HEENT: Atraumatic Lungs: Clear to auscultation Heart: Regular rate, Normal S1 Abdomen: Normal bowel sounds, Soft Extremities: No clubbing, No cyanosis Skin: No rashes, No breakdown Neuro: Normal gait, Normal speech Psych/Mental Status: Mental status NL MUSCULOSKELETAL: No joint tenderness, No deformity Vitals VITALS Vital Signs Date Time Temp Pulse Resp B/P (MAP) Pulse Ox O2 Delivery O2 Flow Rate FiO2 02/20/17 07:00 98.0 93 16 111/65 (80) 99 Room Air 98.0 Labs Labs Laboratory Tests Test 02/18/17 13:30 02/19/17 06:50 02/19/17 13:25 02/20/17 06:15 Hemoglobin 4.1 g/dL (13.0-17.5) 6.3 g/dL (13.0-17.5) 6.1 g/dL (13.0-17.5) Hematocrit 11.7 % (39.0-53.0) 18.1 % (39.0-53.0) 17.4 % (39.0-53.0) Mean Corpuscular Hemoglobin Concent 35 g/dL (31-37) 35 g/dL (31-37) 35 g/dL (31-37) White Blood Count 4.4 x10^3/uL (4.0-11.0) 4.9 x10^3/uL (4.0-11.0) Red Blood Count 1.79 x10^6/uL (4.30-5.70) 1.74 x10^6/uL (4.30-5.70) Mean Corpuscular Volume 101 fL (79-100) 100 fL (79-100) Mean Corpuscular Hemoglobin 35 pg (25-35) 35 pg (25-35) Red Cell Distribution Width 14.2 % (11.5-14.5) 15.4 % (11.5-14.5) Platelet Count 110 x10^3/uL (140-400) 126 x10^3/uL (140-400) Neutrophils (%) (Auto) 78 % (31-73) 75 % (31-73) Lymphocytes (%) (Auto) 17 % (24-48) 17 % (24-48) Monocytes (%) (Auto) 4 % (0-9) 8 % (0-9) Eosinophils (%) (Auto) 0 % (0-3) 0 % (0-3) Basophils (%) (Auto) 1 % (0-3) 0 % (0-3) Neutrophils # (Auto) 3.5 x10^3uL (1.8-7.7) 3.7 x10^3uL (1.8-7.7) Lymphocytes # (Auto) 0.7 x10^3/uL (1.0-4.8) 0.8 x10^3/uL (1.0-4.8) Monocytes # (Auto) 0.2 x10^3/uL (0.0-1.1) 0.4 x10^3/uL (0.0-1.1) Eosinophils # (Auto) 0.0 x10^3/uL (0.0-0.7) 0.0 x10^3/uL (0.0-0.7) Basophils # (Auto) 0.0 x10^3/uL (0.0-0.2) 0.0 x10^3/uL (0.0-0.2) Reticulocyte Count (auto) 7.9 % (0.5-2.5) 7.0 % (0.5-2.5) Sodium Level 137 mmol/L (136-145) 140 mmol/L (136-145) Potassium Level 4.6 mmol/L (3.5-5.1) 4.5 mmol/L (3.5-5.1) Chloride Level 103 mmol/L (98-107) 106 mmol/L (98-107) Carbon Dioxide Level 23 mmol/L (21-32) 25 mmol/L (21-32) Anion Gap 11 (6-14) 9 (6-14) Blood Urea Nitrogen 25 mg/dL (8-26) 25 mg/dL (8-26) Creatinine 0.9 mg/dL (0.7-1.3) 1.0 mg/dL (0.7-1.3) Estimated GFR (Cockcroft-Gault) 99.1 87.7 BUN/Creatinine Ratio 28 (6-20) 25 (6-20) Glucose Level 132 mg/dL (70-99) 144 mg/dL (70-99) Calcium Level 8.7 mg/dL (8.5-10.1) 8.7 mg/dL (8.5-10.1) Total Bilirubin 4.8 mg/dL (0.2-1.0) 3.4 mg/dL (0.2-1.0) Aspartate Amino Transf (AST/SGOT) 34 U/L (15-37) 22 U/L (15-37) Alanine Aminotransferase (ALT/SGPT) 42 U/L (16-63) 35 U/L (16-63) Alkaline Phosphatase 82 U/L (46-116) 82 U/L (46-116) Lactate Dehydrogenase 973 U/L (85-227) 766 U/L (85-227) Total Protein 6.4 g/dL (6.4-8.2) 6.0 g/dL (6.4-8.2) Albumin 3.9 g/dL (3.4-5.0) 3.7 g/dL (3.4-5.0) Albumin/Globulin Ratio 1.6 (1.0-1.7) 1.6 (1.0-1.7) Hepatitis A IgM Antibody Negative (Negative) Hepatitis B Surface Antigen Negative (Negative) Hepatitis B Core IgM Antibody Negative (Negative) Hepatitis C Antibody <0.1 s/co ratio Heterophil Agglutinins Negative (NEGATIVE) Prothrombin Time 14.5 SEC (11.7-14.0) Prothromb Time International Ratio 1.2 (0.8-1.1) Laboratory Tests Test 02/19/17 13:25 02/20/17 06:15 Hepatitis A IgM Antibody Negative (Negative) Hepatitis B Surface Antigen Negative (Negative) Hepatitis B Core IgM Antibody Negative (Negative) Hepatitis C Antibody <0.1 s/co ratio Heterophil Agglutinins Negative (NEGATIVE) White Blood Count 4.9 x10^3/uL (4.0-11.0) Red Blood Count 1.74 x10^6/uL (4.30-5.70) Hemoglobin 6.1 g/dL (13.0-17.5) Hematocrit 17.4 % (39.0-53.0) Mean Corpuscular Volume 100 fL (79-100) Mean Corpuscular Hemoglobin 35 pg (25-35) Mean Corpuscular Hemoglobin Concent 35 g/dL (31-37) Red Cell Distribution Width 15.4 % (11.5-14.5) Platelet Count 126 x10^3/uL (140-400) Neutrophils (%) (Auto) 75 % (31-73) Lymphocytes (%) (Auto) 17 % (24-48) Monocytes (%) (Auto) 8 % (0-9) Eosinophils (%) (Auto) 0 % (0-3) Basophils (%) (Auto) 0 % (0-3) Neutrophils # (Auto) 3.7 x10^3uL (1.8-7.7) Lymphocytes # (Auto) 0.8 x10^3/uL (1.0-4.8) Monocytes # (Auto) 0.4 x10^3/uL (0.0-1.1) Eosinophils # (Auto) 0.0 x10^3/uL (0.0-0.7) Basophils # (Auto) 0.0 x10^3/uL (0.0-0.2) Reticulocyte Count (auto) 7.0 % (0.5-2.5) Prothrombin Time 14.5 SEC (11.7-14.0) Prothromb Time International Ratio 1.2 (0.8-1.1) Sodium Level 140 mmol/L (136-145) Potassium Level 4.5 mmol/L (3.5-5.1) Chloride Level 106 mmol/L (98-107) Carbon Dioxide Level 25 mmol/L (21-32) Anion Gap 9 (6-14) Blood Urea Nitrogen 25 mg/dL (8-26) Creatinine 1.0 mg/dL (0.7-1.3) Estimated GFR (Cockcroft-Gault) 87.7 BUN/Creatinine Ratio 25 (6-20) Glucose Level 144 mg/dL (70-99) Calcium Level 8.7 mg/dL (8.5-10.1) Total Bilirubin 3.4 mg/dL (0.2-1.0) Aspartate Amino Transf (AST/SGOT) 22 U/L (15-37) Alanine Aminotransferase (ALT/SGPT) 35 U/L (16-63) Alkaline Phosphatase 82 U/L (46-116) Lactate Dehydrogenase 766 U/L (85-227) Total Protein 6.0 g/dL (6.4-8.2) Albumin 3.7 g/dL (3.4-5.0) Albumin/Globulin Ratio 1.6 (1.0-1.7) Assessment/Plan Assessment/Plan Lymphadenopathy, anemia; plan for surgical excisional right axillary lymph node biopsy; I reviewed the details and risks of the surgery with the patient. He understands and would like to proceed. LOUIS MAYORGA MD Feb 20, 2017 10:54
[2017-02-20] MEDS: FOLIC ACID 1 MG TABLET. PO SCH (12:42)
[2017-02-20 14:46] VITALS: BP 120/62
[2017-02-20 19:51] VITALS: BP 130/67
[2017-02-20 20:55] LABS: RED BLOOD COUNT 1.8 x10^6/uL (4.30-5.70); RED CELL DISTRIBUTION WIDTH 16.3 % (11.5-14.5); WHITE BLOOD COUNT 5.5 x10^3/uL (4.0-11.0)
[2017-02-20 20:59] LABS: HEMATOCRIT 18.8 % (39.0-53.0); HEMOGLOBIN 6.4 g/dL (13.0-17.5)
[2017-02-21] VITALS (11 sets, daily range): BP systolic 99–126; BP diastolic 53–75
[2017-02-21 00:10] LABS: EBNA IGG <18.0 U/mL (0.0-17.9)
[2017-02-21] MEDS ORDERED: BUPIVACAINE-EPI 0.5%-1:200000 50 ML VIAL. ONE (06:12)
[2017-02-21] MEDS ORDERED: LIDOCAINE 1%/EPI 1:100,000 20 ML VIAL. ONE (06:12)
[2017-02-21] MEDS ORDERED: PROPOFOL 20 ML IV ONE (06:28)
[2017-02-21] MEDS ORDERED: LIDOCAINE 2% PF Vial for OR 5 ML VIAL. ONE (06:28)
[2017-02-21] MEDS ORDERED: ONDANSETRON PF 4 MG/2 ML VIAL. IV PRN (07:00)
[2017-02-21] MEDS ORDERED: LIDOCAINE 1% PF 2 ML VIAL. ID PRN (07:00)
[2017-02-21] MEDS ORDERED: HYDROmorphone 2 MG/ML VIAL IV PRN (07:00)
[2017-02-21] MEDS ORDERED: MORPHINE SULFATE 2 MG/ML DISP.SYRIN. IV PRN (07:00)
[2017-02-21] MEDS ORDERED: PROCHLORPERAZINE 10 MG/2 ML VIAL. IV PRN (07:00)
[2017-02-21] MEDS ORDERED: IV RINGERS,LACTATED 1000ML 1,000 ML IV SCH (07:00)
[2017-02-21] MEDS ORDERED: fentaNYL PF VIAL 100 MCG/2 ML VIAL IV PRN ×2 (07:00)
[2017-02-21 07:15] LABS: ALBUMIN 3.5 g/dL (3.4-5.0); ALBUMIN/GLOBULIN RATIO 1.8 (1.0-1.7); CALCIUM 8.2 mg/dL (8.5-10.1); GFR 87.7; POTASSIUM 3.9 mmol/L (3.5-5.1); TOTAL BILIRUBIN 3.3 mg/dL (0.2-1.0); TOTAL PROTEIN 5.5 g/dL (6.4-8.2)
[2017-02-21 07:18] LABS: BASO % 0 % (0-3); EOS % 0 % (0-3); LYMPH % 21 % (24-48); MEAN CORPUSCULAR HEMOGLOBIN 36 pg (25-35); MEAN CORPUSCULAR HGB CONC 34 g/dL (31-37); MEAN CORPUSCULAR VOLUME 103 fL (79-100); MONO % 8 % (0-9); NEUT % 71 % (31-73); PLATELET COUNT 127 x10^3/uL (140-400); RED BLOOD COUNT 1.75 x10^6/uL (4.30-5.70); RED CELL DISTRIBUTION WIDTH 16.5 % (11.5-14.5); WHITE BLOOD COUNT 4.8 x10^3/uL (4.0-11.0)
[2017-02-21 07:31] LABS: HEMOGLOBIN 6.2 g/dL (13.0-17.5)
[2017-02-21] MEDS ORDERED: fentaNYL PF VIAL 250 MCG/5 ML VIAL ONE (07:35)
[2017-02-21] MEDS ORDERED: ONDANSETRON PF 4 MG/2 ML VIAL. ONE (07:56)
[2017-02-21] MEDS ORDERED: DEXAMETHASONE SOD PHOS 20 MG/5 ML VIAL. ONE (07:56)
--- NOTE | 2017-02-21 08:29 | PDOC4 ---
Operative Note Operative Note Operative Note: Preoperative Diagnosis: Adenopathy Postoperative Diagnosis: Same Procedure: Right axillary lymph node biopsy Surgeon: Josh Anesthesia: Gen. EBL: 10 mL Specimen: Right axillary lymph node to pathology Drains: None Complications: None Indication: The patient is a 31-year-old male who was admitted due to anemia. His evaluation has shown some widespread areas of lymphadenopathy which include the bilateral axilla. A request is made for a surgical excisional lymph node biopsy. I discussed the procedure with the patient including the risks. The risks include bleeding, infection, pain, potential need for additional surgery or procedure. He understands and would like to proceed. Description: The patient was taken to the operating room and placed supine on the operating table. Gen. anesthesia was performed. The right axilla was prepped with ChloraPrep and draped in a standard surgical manner. An incision was made in the skin lines of the right axilla with a scalpel. Cautery dissection was carried to subcutaneous tissue. The deeper axillary contents were palpated and no significantly enlarged lymph nodes were identified. We then proceeded with dissection of some of the axillary tissue. A guest relations representative lymph node was identified grossly. This was mobilized from the surrounding tissues using cautery. One area of vasculature was ligated with 2-0 Vicryl. The lymph node was then fully excised and sent off to pathology for evaluation. Hemostasis appeared good and no other gross abnormalities were seen. The subcutaneous tissue was approximated with 3-0 Vicryl. The skin was then closed with a 4-0 Monocryl suture. Incision was infiltrated with half percent Marcaine with epinephrine. Steri-Strips and a sterile dressing were applied. The patient tolerated the procedure well and was sent to the recovery room in stable condition. At the end of the case all counts were correct. LOUIS MAYORGA MD Feb 21, 2017 08:29
[2017-02-21] MEDS ORDERED: SEVOFLURANE 61 TO 120 MINUTES. IH ONE (08:31)
[2017-02-21] MEDS ORDERED: SEVOFLURANE 16 TO 30 MINUTES. IH ONE (08:31)
[2017-02-21] MEDS ORDERED: oxyCODONE/APAP 5/325 1 TAB TABLET PO PRN ×2 (09:00)
[2017-02-21] MEDS: predniSONE 20 MG TABLET PO SCH (10:08)
[2017-02-21] MEDS: FOLIC ACID 1 MG TABLET. PO SCH (10:09)
[2017-02-21] MEDS: DOCUSATE SODIUM 100 MG CAPSULE. PO SCH (10:09)
[2017-02-21 11:22] LABS: HIV-1 RNA BY PCR <20 copies/mL (.)
--- NOTE | 2017-02-21 12:48 | PDOC ---
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 Richards to follow surg LN biopsy this AM cont current Vitals Vitals Vital Signs Date Time Temp Pulse Resp B/P (MAP) Pulse Ox O2 Delivery O2 Flow Rate FiO2 02/21/17 12:30 98.4 92 18 106/60 (75) 97 Room Air 98.4 02/21/17 08:50 10 Physical Exam General: Alert, Oriented X3, Cooperative Heart: Regular rate, Normal S1 Lungs: Clear Abdomen: Normal bowel sounds, Soft Extremities: No clubbing, No cyanosis Skin: No rashes, No breakdown Labs LABS Laboratory Tests Test 02/20/17 20:45 02/21/17 05:30 White Blood Count 5.5 x10^3/uL (4.0-11.0) 4.8 x10^3/uL (4.0-11.0) Red Blood Count 1.80 x10^6/uL (4.30-5.70) 1.75 x10^6/uL (4.30-5.70) Hemoglobin 6.4 g/dL (13.0-17.5) 6.2 g/dL (13.0-17.5) Hematocrit 18.8 % (39.0-53.0) 18.0 % (39.0-53.0) Mean Corpuscular Volume 104 fL (79-100) 103 fL (79-100) Mean Corpuscular Hemoglobin 35 pg (25-35) 36 pg (25-35) Mean Corpuscular Hemoglobin Concent 34 g/dL (31-37) 34 g/dL (31-37) Red Cell Distribution Width 16.3 % (11.5-14.5) 16.5 % (11.5-14.5) Platelet Count 137 x10^3/uL (140-400) 127 x10^3/uL (140-400) Neutrophils (%) (Auto) 71 % (31-73) Lymphocytes (%) (Auto) 21 % (24-48) Monocytes (%) (Auto) 8 % (0-9) Eosinophils (%) (Auto) 0 % (0-3) Basophils (%) (Auto) 0 % (0-3) Neutrophils # (Auto) 3.4 x10^3uL (1.8-7.7) Lymphocytes # (Auto) 1.0 x10^3/uL (1.0-4.8) Monocytes # (Auto) 0.4 x10^3/uL (0.0-1.1) Eosinophils # (Auto) 0.0 x10^3/uL (0.0-0.7) Basophils # (Auto) 0.0 x10^3/uL (0.0-0.2) Reticulocyte Count (auto) 6.7 % (0.5-2.5) Sodium Level 142 mmol/L (136-145) Potassium Level 3.9 mmol/L (3.5-5.1) Chloride Level 107 mmol/L (98-107) Carbon Dioxide Level 28 mmol/L (21-32) Anion Gap 7 (6-14) Blood Urea Nitrogen 23 mg/dL (8-26) Creatinine 1.0 mg/dL (0.7-1.3) Estimated GFR (Cockcroft-Gault) 87.7 BUN/Creatinine Ratio 23 (6-20) Glucose Level 114 mg/dL (70-99) Calcium Level 8.2 mg/dL (8.5-10.1) Total Bilirubin 3.3 mg/dL (0.2-1.0) Aspartate Amino Transf (AST/SGOT) 19 U/L (15-37) Alanine Aminotransferase (ALT/SGPT) 34 U/L (16-63) Alkaline Phosphatase 76 U/L (46-116) Lactate Dehydrogenase 705 U/L (85-227) Total Protein 5.5 g/dL (6.4-8.2) Albumin 3.5 g/dL (3.4-5.0) Albumin/Globulin Ratio 1.8 (1.0-1.7) Review of Systems Review of Systems no n.vd.' Comment Review of Relevant I have reviewed the following items sharron (where applicable) has been applied. Labs Laboratory Tests Test 02/19/17 13:25 02/20/17 06:15 02/20/17 20:45 02/21/17 05:30 Last-[facility] Virus Capsid Ag IgG Ab <18.0 U/mL (0.0-17.9) Last-[facility] Virus Capsid Ag IgM Ab <36.0 U/mL (0.0-35.9) [facility] Early Antigen IgG Ab <9.0 U/mL (0.0-8.9) Last-[facility] Nuc Assoc Ag IgG Index <18.0 U/mL (0.0-17.9) Last-[facility] Virus Interpretation Comment (.) Hepatitis A IgM Antibody Negative (Negative) Hepatitis B Surface Antigen Negative (Negative) Hepatitis B Core IgM Antibody Negative (Negative) Hepatitis C Antibody <0.1 s/co ratio Heterophil Agglutinins Negative (NEGATIVE) HIV-1 RNA (PCR) copies/ml <20 copies/mL (.) HIV-1 RNA (PCR) log10 Value (.) White Blood Count 4.9 x10^3/uL (4.0-11.0) 5.5 x10^3/uL (4.0-11.0) 4.8 x10^3/uL (4.0-11.0) Red Blood Count 1.74 x10^6/uL (4.30-5.70) 1.80 x10^6/uL (4.30-5.70) 1.75 x10^6/uL (4.30-5.70) Hemoglobin 6.1 g/dL (13.0-17.5) 6.4 g/dL (13.0-17.5) 6.2 g/dL (13.0-17.5) Hematocrit 17.4 % (39.0-53.0) 18.8 % (39.0-53.0) 18.0 % (39.0-53.0) Mean Corpuscular Volume 100 fL (79-100) 104 fL (79-100) 103 fL (79-100) Mean Corpuscular Hemoglobin 35 pg (25-35) 35 pg (25-35) 36 pg (25-35) Mean Corpuscular Hemoglobin Concent 35 g/dL (31-37) 34 g/dL (31-37) 34 g/dL (31-37) Red Cell Distribution Width 15.4 % (11.5-14.5) 16.3 % (11.5-14.5) 16.5 % (11.5-14.5) Platelet Count 126 x10^3/uL (140-400) 137 x10^3/uL (140-400) 127 x10^3/uL (140-400) Neutrophils (%) (Auto) 75 % (31-73) 71 % (31-73) Lymphocytes (%) (Auto) 17 % (24-48) 21 % (24-48) Monocytes (%) (Auto) 8 % (0-9) 8 % (0-9) Eosinophils (%) (Auto) 0 % (0-3) 0 % (0-3) Basophils (%) (Auto) 0 % (0-3) 0 % (0-3) Neutrophils # (Auto) 3.7 x10^3uL (1.8-7.7) 3.4 x10^3uL (1.8-7.7) Lymphocytes # (Auto) 0.8 x10^3/uL (1.0-4.8) 1.0 x10^3/uL (1.0-4.8) Monocytes # (Auto) 0.4 x10^3/uL (0.0-1.1) 0.4 x10^3/uL (0.0-1.1) Eosinophils # (Auto) 0.0 x10^3/uL (0.0-0.7) 0.0 x10^3/uL (0.0-0.7) Basophils # (Auto) 0.0 x10^3/uL (0.0-0.2) 0.0 x10^3/uL (0.0-0.2) Reticulocyte Count (auto) 7.0 % (0.5-2.5) 6.7 % (0.5-2.5) Prothrombin Time 14.5 SEC (11.7-14.0) Prothromb Time International Ratio 1.2 (0.8-1.1) Sodium Level 140 mmol/L (136-145) 142 mmol/L (136-145) Potassium Level 4.5 mmol/L (3.5-5.1) 3.9 mmol/L (3.5-5.1) Chloride Level 106 mmol/L (98-107) 107 mmol/L (98-107) Carbon Dioxide Level 25 mmol/L (21-32) 28 mmol/L (21-32) Anion Gap 9 (6-14) 7 (6-14) Blood Urea Nitrogen 25 mg/dL (8-26) 23 mg/dL (8-26) Creatinine 1.0 mg/dL (0.7-1.3) 1.0 mg/dL (0.7-1.3) Estimated GFR (Cockcroft-Gault) 87.7 87.7 BUN/Creatinine Ratio 25 (6-20) 23 (6-20) Glucose Level 144 mg/dL (70-99) 114 mg/dL (70-99) Calcium Level 8.7 mg/dL (8.5-10.1) 8.2 mg/dL (8.5-10.1) Total Bilirubin 3.4 mg/dL (0.2-1.0) 3.3 mg/dL (0.2-1.0) Aspartate Amino Transf (AST/SGOT) 22 U/L (15-37) 19 U/L (15-37) Alanine Aminotransferase (ALT/SGPT) 35 U/L (16-63) 34 U/L (16-63) Alkaline Phosphatase 82 U/L (46-116) 76 U/L (46-116) Lactate Dehydrogenase 766 U/L (85-227) 705 U/L (85-227) Total Protein 6.0 g/dL (6.4-8.2) 5.5 g/dL (6.4-8.2) Albumin 3.7 g/dL (3.4-5.0) 3.5 g/dL (3.4-5.0) Albumin/Globulin Ratio 1.6 (1.0-1.7) 1.8 (1.0-1.7) Laboratory Tests Test 02/20/17 20:45 02/21/17 05:30 White Blood Count 5.5 x10^3/uL (4.0-11.0) 4.8 x10^3/uL (4.0-11.0) Red Blood Count 1.80 x10^6/uL (4.30-5.70) 1.75 x10^6/uL (4.30-5.70) Hemoglobin 6.4 g/dL (13.0-17.5) 6.2 g/dL (13.0-17.5) Hematocrit 18.8 % (39.0-53.0) 18.0 % (39.0-53.0) Mean Corpuscular Volume 104 fL (79-100) 103 fL (79-100) Mean Corpuscular Hemoglobin 35 pg (25-35) 36 pg (25-35) Mean Corpuscular Hemoglobin Concent 34 g/dL (31-37) 34 g/dL (31-37) Red Cell Distribution Width 16.3 % (11.5-14.5) 16.5 % (11.5-14.5) Platelet Count 137 x10^3/uL (140-400) 127 x10^3/uL (140-400) Neutrophils (%) (Auto) 71 % (31-73) Lymphocytes (%) (Auto) 21 % (24-48) Monocytes (%) (Auto) 8 % (0-9) Eosinophils (%) (Auto) 0 % (0-3) Basophils (%) (Auto) 0 % (0-3) Neutrophils # (Auto) 3.4 x10^3uL (1.8-7.7) Lymphocytes # (Auto) 1.0 x10^3/uL (1.0-4.8) Monocytes # (Auto) 0.4 x10^3/uL (0.0-1.1) Eosinophils # (Auto) 0.0 x10^3/uL (0.0-0.7) Basophils # (Auto) 0.0 x10^3/uL (0.0-0.2) Reticulocyte Count (auto) 6.7 % (0.5-2.5) Sodium Level 142 mmol/L (136-145) Potassium Level 3.9 mmol/L (3.5-5.1) Chloride Level 107 mmol/L (98-107) Carbon Dioxide Level 28 mmol/L (21-32) Anion Gap 7 (6-14) Blood Urea Nitrogen 23 mg/dL (8-26) Creatinine 1.0 mg/dL (0.7-1.3) Estimated GFR (Cockcroft-Gault) 87.7 BUN/Creatinine Ratio 23 (6-20) Glucose Level 114 mg/dL (70-99) Calcium Level 8.2 mg/dL (8.5-10.1) Total Bilirubin 3.3 mg/dL (0.2-1.0) Aspartate Amino Transf (AST/SGOT) 19 U/L (15-37) Alanine Aminotransferase (ALT/SGPT) 34 U/L (16-63) Alkaline Phosphatase 76 U/L (46-116) Lactate Dehydrogenase 705 U/L (85-227) Total Protein 5.5 g/dL (6.4-8.2) Albumin 3.5 g/dL (3.4-5.0) Albumin/Globulin Ratio 1.8 (1.0-1.7) Medications Current Medications Prednisone (Prednisone) 100 mg DAILY PO Last administered on 02/21/17 10:08; Start 02/18/17 at 13:15 Zolpidem Tartrate (Ambien) 5 mg PRN QHS PRN PO INSOMNIA; Start 02/18/17 at 13: 30 Tramadol HCl (Ultram) 50 mg PRN Q6HRS PRN PO PAIN; Start 02/18/17 at 13:30; Stop 02/18/17 at 13:30; Status DC Tramadol HCl (Ultram) 50 mg PRN Q6HRS PRN PO PAIN Last administered on 20:28; Start 02/18/17 at 13:30 Docusate Sodium (Colace) 100 mg DAILY PO Last administered on 02/21/17 10:09; Start 02/19/17 at 09:00 Acetaminophen (Tylenol) 650 mg PRN Q6HRS PRN PO PAIN; Start 02/18/17 at 13:30 Diphenhydramine HCl (Benadryl) 25 mg PRN Q6HRS PRN PO ITCHING; Start 02/18/17 at 13:30 Folic Acid (Folic Acid) 1 mg DAILY PO Last administered on 02/21/17 10:09; Start 02/20/17 at 09:15 Ondansetron HCl (Zofran) 4 mg PRN Q8HRS PRN IV NAUSEA/VOMITING; Start 02/20/17 at 09:30 Ondansetron HCl (Zofran) 4 mg PRN Q6HRS PRN IV NAUSEA/VOMITING; Start 02/21/17 at 07:00; Stop 02/21/17 at 18:00 Fentanyl Citrate (Fentanyl 2ml Vial) 25 mcg PRN Q5MIN PRN IV MILD PAIN; Start 02/21/17 at 07:00; Stop 02/21/17 at 18:00 Fentanyl Citrate (Fentanyl 2ml Vial) 50 mcg PRN Q5MIN PRN IV MODERATE PAIN; Start 02/21/17 at 07:00; Stop 02/21/17 at 18:00 Morphine Sulfate 1 mg PRN Q10MIN PRN IV SEVERE PAIN; Start 02/21/17 at 07:00; Stop 02/21/17 at 18:00 Ringer's Solution 1,000 ml @ 30 mls/hr Q24H IV Last administered on 02/21/17t 07:13; Start 02/21/17 at 07:00; Stop 02/21/17 at 18:59 Lidocaine HCl (Xylocaine-Mpf 1% Vial) 2 ml PRN 1X PRN ID PRIOR TO IV START; Start 02/21/17 at 07:00; Stop 02/21/17 at 18:00 Hydromorphone HCl (Dilaudid) 0.5 mg PRN Q10MIN PRN IV SEV PAIN, Second choice; Start 02/21/17 at 07:00; Stop 02/21/17 at 18:00 Prochlorperazine Edisylate (Compazine) 5 mg PACU PRN PRN IV NAUSEA, MRX1; Start 02/21/17 at 07:00; Stop 02/21/17 at 18:00 Propofol 20 ml @ As Directed STK-MED ONCE IV ; Start 02/21/17 at 06:28; Stop at 06:29; Status DC Lidocaine HCl (Lidocaine Pf 2% Vial) 5 ml STK-MED ONCE .ROUTE ; Start 02/21/17 at 06:28; Stop 02/21/17 at 06:29; Status DC Bupivacaine HCl/ Epinephrine Bitart (Marcaine-Epi 0.5%-[id number]) 50 ml STK-MED ONCE .ROUTE Last administered on 02/21/17t 08:18; Start 02/21/17 at 06:12; Stop 02/21/17 at 07:12; Status DC Lidocaine/ Epinephrine (Xylocaine 1%-Epi 1:100,000) 20 ml STK-MED ONCE .ROUTE ; Start 02/21/17 at 06:12; Stop 02/21/17 at 07:12; Status DC Cefazolin Sodium/ Dextrose 50 ml @ As Directed STK-MED ONCE IV ; Start 02/21/17 at 07:22; Stop 02/21/17 at 07:23; Status DC Fentanyl Citrate (Fentanyl 5ml Vial) 250 mcg STK-MED ONCE .ROUTE ; Start at 07:35; Stop 02/21/17 at 07:36; Status DC Dexamethasone Sodium Phosphate (Decadron) 20 mg STK-MED ONCE .ROUTE ; Start at 07:56; Stop 02/21/17 at 07:57; Status DC Ondansetron HCl (Zofran) 4 mg STK-MED ONCE .ROUTE ; Start 02/21/17 at 07:56; Stop 02/21/17 at 07:57; Status DC Sevoflurane (Ultane) 15 ml STK-MED ONCE IH ; Start 02/21/17 at 08:31; Stop 02/21 at 08:32; Status DC Sevoflurane (Ultane) 60 ml STK-MED ONCE IH ; Start 02/21/17 at 08:31; Stop 02/21 at 08:32; Status DC Oxycodone/ Acetaminophen (Percocet 5/325) 1 tab PRN Q4HRS PRN PO PAIN; Start at 09:00 Oxycodone/ Acetaminophen (Percocet 5/325) 2 tab PRN Q4HRS PRN PO PAIN; Start at 09:00 Folic Acid (Folic Acid) 1 mg DAILY PO ; Start 02/22/17 at 09:00; Status UNV Active Scripts Active Reported Advil (Ibuprofen) 200 Mg Tablet 200 Mg PO PRN Q6-8HRS PRN Vitals/I & O Vital Sign - Last 24 Hours 02/20/17 02/20/17 02/20/17 02/21/17 14:46 19:51 20:00 00:00 Temp 98.6 98.9 98.8 98.6 98.9 98.8 Pulse 93 103 102 Resp 18 18 18 B/P (MAP) 120/62 (81) 130/67 (88) 126/63 (84) Pulse Ox 98 98 97 O2 Delivery Room Air Room Air Room Air Room Air 02/21/17 02/21/17 02/21/17 02/21/17 03:51 07:08 08:50 08:50 Temp 98.1 97.8 98.8 98.1 97.8 98.8 Pulse 97 89 92 Resp 18 18 16 B/P (MAP) 115/75 (88) 114/58 144/73 Pulse Ox 98 97 100 O2 Delivery Room Air Room Air Simple Mask Mask O2 Flow Rate 10 10 02/21/17 02/21/17 02/21/17 02/21/17 09:05 09:20 09:35 10:40 Temp 98.8 98.8 98.8 98.9 98.8 98.8 98.8 98.9 Pulse 90 90 88 83 Resp 17 B/P (MAP) 129/65 137/62 132/66 108/55 (72) Pulse Ox 100 95 98 97 O2 Delivery Room Air Room Air Room Air Room Air 02/21/17 02/21/17 02/21/17 02/21/17 10:55 11:15 12:00 12:30 Temp 98.6 98.4 98.4 98.4 98.6 98.4 98.4 98.4 Pulse 85 85 94 92 Resp 18 B/P (MAP) 107/55 (72) 99/54 (69) 102/53 (69) 106/60 (75) Pulse Ox 97 98 97 97 O2 Delivery Room Air Room Air Room Air Room Air Intake and Output 02/21/17 02/21/17 02/22/17 15:00 23:00 07:00 Intake Total 900 ml Output Total 10 ml Balance 890 ml SALOMON CAAL MD Feb 21, 2017 12:48
--- NOTE | 2017-02-21 15:42 | PDOC ---
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 ROS - no headache Objective Objective Vital Signs Date Time Temp Pulse Resp B/P (MAP) Pulse Ox O2 Delivery O2 Flow Rate FiO2 02/21/17 14:30 97.9 83 18 109/56 (73) 97 Room Air 97.9 02/21/17 08:50 10 Intake and Output 02/22/17 07:00 Intake Total 900 ml Output Total 10 ml Balance 890 ml Intake Oral 300 ml IV Total 600 ml Estimated Blood Loss 10 ml Physical Exam Heart: Normal S1, Normal S2 General: Alert, Oriented X3 Lungs: Clear to auscultation Neuro: Normal speech Psych/Mental Status: Mental status NL Assessment Assessment IMPRESSION AND PLAN: 1. 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 Pt presented with severe anemia with a hemoglobin of 4.4 on 02/12/2017. ~In addition, he has evidence of leukopenia with a WBC of 3.9 and platelet count 125 on 02/13/2017. His reticulocyte count is elevated at 3.8 along with significant elevation of total bilirubin of 9.3 with direct bilirubin being only 0.8 suggestive of a hemolytic process. ~In addition, the patient reports having noticed dark urine since 02/06/2017. ~The nurse also noted that the urine was dark brown/tea-colored on the morning of 02/13/2017. ~The presence of pancytopenia and dark urine is concerning for paroxysmal nocturnal hemoglobinuria but ~Flow cytometry to evaluate for PNH 02/13/17 came back as negative. On 02/13/17 Reticulocyte count is 3.8, haptoglobin <10, and LDH 930, but Brittani test is negative. s/p bone marrow biopsy 02/14/17 is negative for any primary bone marrow disorders. CT C/A/P on 02/13/17: Splenomegaly. This in conjunction with bilateral axillary adenopathy, periaortic and pelvic adenopathy with some associated mild mediastinal adenopathy suggests possible lymphoma. s/p axillary LN bx 02/15/17, neg. He received blood transfusion at [facility] and he was discharged on 02/15/2017 and his hemoglobin was 7.0. Follow-up hemoglobin on 02/18/2017 reveals that his hemoglobin has got worse at 4.8 indicating ongoing hemolysis. Hence I admited him to [facility] in view of severe anemia and started him on prednisone 100 mg p.o. daily 02/18/17. Hb now 6.2, monitor. No need to transfuse. Bilirubin and retic better. Check labs again tomorrow. If worse plan rituxan. I d/w Dr Moreno. I d/w pathologist, s/p excisional bx rt axillary LN 02/21/17. 2. Lymphadenopathy - s/p excisional bx rt axillary LN 02/21/17. Comment Review of Relevant I have reviewed the following items sharron (where applicable) has been applied. Labs Laboratory Tests Test 02/20/17 06:15 02/20/17 20:45 02/21/17 05:30 White Blood Count 4.9 x10^3/uL (4.0-11.0) 5.5 x10^3/uL (4.0-11.0) 4.8 x10^3/uL (4.0-11.0) Red Blood Count 1.74 x10^6/uL (4.30-5.70) 1.80 x10^6/uL (4.30-5.70) 1.75 x10^6/uL (4.30-5.70) Hemoglobin 6.1 g/dL (13.0-17.5) 6.4 g/dL (13.0-17.5) 6.2 g/dL (13.0-17.5) Hematocrit 17.4 % (39.0-53.0) 18.8 % (39.0-53.0) 18.0 % (39.0-53.0) Mean Corpuscular Volume 100 fL (79-100) 104 fL (79-100) 103 fL (79-100) Mean Corpuscular Hemoglobin 35 pg (25-35) 35 pg (25-35) 36 pg (25-35) Mean Corpuscular Hemoglobin Concent 35 g/dL (31-37) 34 g/dL (31-37) 34 g/dL (31-37) Red Cell Distribution Width 15.4 % (11.5-14.5) 16.3 % (11.5-14.5) 16.5 % (11.5-14.5) Platelet Count 126 x10^3/uL (140-400) 137 x10^3/uL (140-400) 127 x10^3/uL (140-400) Neutrophils (%) (Auto) 75 % (31-73) 71 % (31-73) Lymphocytes (%) (Auto) 17 % (24-48) 21 % (24-48) Monocytes (%) (Auto) 8 % (0-9) 8 % (0-9) Eosinophils (%) (Auto) 0 % (0-3) 0 % (0-3) Basophils (%) (Auto) 0 % (0-3) 0 % (0-3) Neutrophils # (Auto) 3.7 x10^3uL (1.8-7.7) 3.4 x10^3uL (1.8-7.7) Lymphocytes # (Auto) 0.8 x10^3/uL (1.0-4.8) 1.0 x10^3/uL (1.0-4.8) Monocytes # (Auto) 0.4 x10^3/uL (0.0-1.1) 0.4 x10^3/uL (0.0-1.1) Eosinophils # (Auto) 0.0 x10^3/uL (0.0-0.7) 0.0 x10^3/uL (0.0-0.7) Basophils # (Auto) 0.0 x10^3/uL (0.0-0.2) 0.0 x10^3/uL (0.0-0.2) Reticulocyte Count (auto) 7.0 % (0.5-2.5) 6.7 % (0.5-2.5) Prothrombin Time 14.5 SEC (11.7-14.0) Prothromb Time International Ratio 1.2 (0.8-1.1) Sodium Level 140 mmol/L (136-145) 142 mmol/L (136-145) Potassium Level 4.5 mmol/L (3.5-5.1) 3.9 mmol/L (3.5-5.1) Chloride Level 106 mmol/L (98-107) 107 mmol/L (98-107) Carbon Dioxide Level 25 mmol/L (21-32) 28 mmol/L (21-32) Anion Gap 9 (6-14) 7 (6-14) Blood Urea Nitrogen 25 mg/dL (8-26) 23 mg/dL (8-26) Creatinine 1.0 mg/dL (0.7-1.3) 1.0 mg/dL (0.7-1.3) Estimated GFR (Cockcroft-Gault) 87.7 87.7 BUN/Creatinine Ratio 25 (6-20) 23 (6-20) Glucose Level 144 mg/dL (70-99) 114 mg/dL (70-99) Calcium Level 8.7 mg/dL (8.5-10.1) 8.2 mg/dL (8.5-10.1) Total Bilirubin 3.4 mg/dL (0.2-1.0) 3.3 mg/dL (0.2-1.0) Aspartate Amino Transf (AST/SGOT) 22 U/L (15-37) 19 U/L (15-37) Alanine Aminotransferase (ALT/SGPT) 35 U/L (16-63) 34 U/L (16-63) Alkaline Phosphatase 82 U/L (46-116) 76 U/L (46-116) Lactate Dehydrogenase 766 U/L (85-227) 705 U/L (85-227) Total Protein 6.0 g/dL (6.4-8.2) 5.5 g/dL (6.4-8.2) Albumin 3.7 g/dL (3.4-5.0) 3.5 g/dL (3.4-5.0) Albumin/Globulin Ratio 1.6 (1.0-1.7) 1.8 (1.0-1.7) Laboratory Tests Test 02/20/17 20:45 02/21/17 05:30 White Blood Count 5.5 x10^3/uL (4.0-11.0) 4.8 x10^3/uL (4.0-11.0) Red Blood Count 1.80 x10^6/uL (4.30-5.70) 1.75 x10^6/uL (4.30-5.70) Hemoglobin 6.4 g/dL (13.0-17.5) 6.2 g/dL (13.0-17.5) Hematocrit 18.8 % (39.0-53.0) 18.0 % (39.0-53.0) Mean Corpuscular Volume 104 fL (79-100) 103 fL (79-100) Mean Corpuscular Hemoglobin 35 pg (25-35) 36 pg (25-35) Mean Corpuscular Hemoglobin Concent 34 g/dL (31-37) 34 g/dL (31-37) Red Cell Distribution Width 16.3 % (11.5-14.5) 16.5 % (11.5-14.5) Platelet Count 137 x10^3/uL (140-400) 127 x10^3/uL (140-400) Neutrophils (%) (Auto) 71 % (31-73) Lymphocytes (%) (Auto) 21 % (24-48) Monocytes (%) (Auto) 8 % (0-9) Eosinophils (%) (Auto) 0 % (0-3) Basophils (%) (Auto) 0 % (0-3) Neutrophils # (Auto) 3.4 x10^3uL (1.8-7.7) Lymphocytes # (Auto) 1.0 x10^3/uL (1.0-4.8) Monocytes # (Auto) 0.4 x10^3/uL (0.0-1.1) Eosinophils # (Auto) 0.0 x10^3/uL (0.0-0.7) Basophils # (Auto) 0.0 x10^3/uL (0.0-0.2) Reticulocyte Count (auto) 6.7 % (0.5-2.5) Sodium Level 142 mmol/L (136-145) Potassium Level 3.9 mmol/L (3.5-5.1) Chloride Level 107 mmol/L (98-107) Carbon Dioxide Level 28 mmol/L (21-32) Anion Gap 7 (6-14) Blood Urea Nitrogen 23 mg/dL (8-26) Creatinine 1.0 mg/dL (0.7-1.3) Estimated GFR (Cockcroft-Gault) 87.7 BUN/Creatinine Ratio 23 (6-20) Glucose Level 114 mg/dL (70-99) Calcium Level 8.2 mg/dL (8.5-10.1) Total Bilirubin 3.3 mg/dL (0.2-1.0) Aspartate Amino Transf (AST/SGOT) 19 U/L (15-37) Alanine Aminotransferase (ALT/SGPT) 34 U/L (16-63) Alkaline Phosphatase 76 U/L (46-116) Lactate Dehydrogenase 705 U/L (85-227) Total Protein 5.5 g/dL (6.4-8.2) Albumin 3.5 g/dL (3.4-5.0) Albumin/Globulin Ratio 1.8 (1.0-1.7) Medications Current Medications Prednisone (Prednisone) 100 mg DAILY PO Last administered on 02/21/17 10:08; Start 02/18/17 at 13:15 Zolpidem Tartrate (Ambien) 5 mg PRN QHS PRN PO INSOMNIA; Start 02/18/17 at 13: 30 Tramadol HCl (Ultram) 50 mg PRN Q6HRS PRN PO PAIN; Start 02/18/17 at 13:30; Stop 02/18/17 at 13:30; Status DC Tramadol HCl (Ultram) 50 mg PRN Q6HRS PRN PO PAIN Last administered on 20:28; Start 02/18/17 at 13:30 Docusate Sodium (Colace) 100 mg DAILY PO Last administered on 02/21/17 10:09; Start 02/19/17 at 09:00 Acetaminophen (Tylenol) 650 mg PRN Q6HRS PRN PO MILD PAIN; Start 02/18/17 at 13 :30 Diphenhydramine HCl (Benadryl) 25 mg PRN Q6HRS PRN PO ITCHING; Start 02/18/17 at 13:30 Folic Acid (Folic Acid) 1 mg DAILY PO Last administered on 02/21/17 10:09; Start 02/20/17 at 09:15 Ondansetron HCl (Zofran) 4 mg PRN Q8HRS PRN IV NAUSEA/VOMITING; Start 02/20/17 at 09:30 Ondansetron HCl (Zofran) 4 mg PRN Q6HRS PRN IV NAUSEA/VOMITING; Start 02/21/17 at 07:00; Stop 02/21/17 at 18:00 Fentanyl Citrate (Fentanyl 2ml Vial) 25 mcg PRN Q5MIN PRN IV MILD PAIN; Start 02/21/17 at 07:00; Stop 02/21/17 at 18:00 Fentanyl Citrate (Fentanyl 2ml Vial) 50 mcg PRN Q5MIN PRN IV MODERATE PAIN; Start 02/21/17 at 07:00; Stop 02/21/17 at 18:00 Morphine Sulfate 1 mg PRN Q10MIN PRN IV SEVERE PAIN; Start 02/21/17 at 07:00; Stop 02/21/17 at 18:00 Ringer's Solution 1,000 ml @ 30 mls/hr Q24H IV Last administered on 02/21/17 07:13; Start 02/21/17 at 07:00; Stop 02/21/17 at 18:59 Lidocaine HCl (Xylocaine-Mpf 1% Vial) 2 ml PRN 1X PRN ID PRIOR TO IV START; Start 02/21/17 at 07:00; Stop 02/21/17 at 18:00 Hydromorphone HCl (Dilaudid) 0.5 mg PRN Q10MIN PRN IV SEV PAIN, Second choice; Start 02/21/17 at 07:00; Stop 02/21/17 at 18:00 Prochlorperazine Edisylate (Compazine) 5 mg PACU PRN PRN IV NAUSEA, MRX1; Start 02/21/17 at 07:00; Stop 02/21/17 at 18:00 Propofol 20 ml @ As Directed STK-MED ONCE IV ; Start 02/21/17 at 06:28; Stop at 06:29; Status DC Lidocaine HCl (Lidocaine Pf 2% Vial) 5 ml STK-MED ONCE .ROUTE ; Start 02/21/17 at 06:28; Stop 02/21/17 at 06:29; Status DC Bupivacaine HCl/ Epinephrine Bitart (Marcaine-Epi 0.5%-[id number]) 50 ml STK-MED ONCE .ROUTE Last administered on 02/21/17 08:18; Start 02/21/17 at 06:12; Stop 02/21/17 at 07:12; Status DC Lidocaine/ Epinephrine (Xylocaine 1%-Epi 1:100,000) 20 ml STK-MED ONCE .ROUTE ; Start 02/21/17 at 06:12; Stop 02/21/17 at 07:12; Status DC Cefazolin Sodium/ Dextrose 50 ml @ As Directed STK-MED ONCE IV ; Start 02/21/17 at 07:22; Stop 02/21/17 at 07:23; Status DC Fentanyl Citrate (Fentanyl 5ml Vial) 250 mcg STK-MED ONCE .ROUTE ; Start at 07:35; Stop 02/21/17 at 07:36; Status DC Dexamethasone Sodium Phosphate (Decadron) 20 mg STK-MED ONCE .ROUTE ; Start at 07:56; Stop 02/21/17 at 07:57; Status DC Ondansetron HCl (Zofran) 4 mg STK-MED ONCE .ROUTE ; Start 02/21/17 at 07:56; Stop 02/21/17 at 07:57; Status DC Sevoflurane (Ultane) 15 ml STK-MED ONCE IH ; Start 02/21/17 at 08:31; Stop 02/21 at 08:32; Status DC Sevoflurane (Ultane) 60 ml STK-MED ONCE IH ; Start 02/21/17 at 08:31; Stop 02/21 at 08:32; Status DC Oxycodone/ Acetaminophen (Percocet 5/325) 1 tab PRN Q4HRS PRN PO MODERATE PAIN ; Start 02/21/17 at 09:00 Oxycodone/ Acetaminophen (Percocet 5/325) 2 tab PRN Q4HRS PRN PO SEVERE PAIN; Start 02/21/17 at 09:00 Folic Acid (Folic Acid) 1 mg DAILY PO ; Start 02/22/17 at 09:00; Status UNV Active Scripts Active Reported Advil (Ibuprofen) 200 Mg Tablet 200 Mg PO PRN Q6-8HRS PRN Vitals/I & O Vital Sign - Last 24 Hours 02/20/17 02/20/17 02/21/17 02/21/17 19:51 20:00 00:00 03:51 Temp 98.9 98.8 98.1 98.9 98.8 98.1 Pulse 103 102 97 Resp 18 18 18 B/P (MAP) 130/67 (88) 126/63 (84) 115/75 (88) Pulse Ox 98 97 98 O2 Delivery Room Air Room Air Room Air Room Air 02/21/17 02/21/17 02/21/17 02/21/17 07:08 08:50 08:50 09:05 Temp 97.8 98.8 98.8 97.8 98.8 98.8 Pulse 89 92 90 Resp 18 16 18 B/P (MAP) 114/58 144/73 129/65 Pulse Ox 97 100 100 O2 Delivery Room Air Simple Mask Mask Room Air O2 Flow Rate 10 10 02/21/17 02/21/17 02/21/17 02/21/17 09:20 09:35 10:40 10:55 Temp 98.8 98.8 98.9 98.6 98.8 98.8 98.9 98.6 Pulse 90 88 83 85 Resp 18 19 B/P (MAP) 137/62 132/66 108/55 (72) 107/55 (72) Pulse Ox 95 98 97 97 O2 Delivery Room Air Room Air Room Air Room Air 02/21/17 02/21/17 02/21/17 02/21/17 11:15 12:00 12:30 13:30 Temp 98.4 98.4 98.4 98.5 98.4 98.4 98.4 98.5 Pulse 85 94 92 87 Resp 18 19 B/P (MAP) 99/54 (69) 102/53 (69) 106/60 (75) 117/64 (81) Pulse Ox 98 97 97 97 O2 Delivery Room Air Room Air Room Air Room Air 02/21/17 14:30 Temp 97.9 97.9 Pulse 83 Resp 18 B/P (MAP) 109/56 (73) Pulse Ox 97 O2 Delivery Room Air Intake and Output 02/21/17 02/21/17 02/22/17 15:00 23:00 07:00 Intake Total 900 ml Output Total 10 ml Balance 890 ml STEVEN GIL MD Feb 21, 2017 15:42
[2017-02-22 03:27] VITALS: BP 113/57
[2017-02-22 04:48] LABS: BASO % 0 % (0-3); EOS % 0 % (0-3); LYMPH # 0.9 x10^3/uL (1.0-4.8); LYMPH % 19 % (24-48); MEAN CORPUSCULAR HEMOGLOBIN 36 pg (25-35); MEAN CORPUSCULAR HGB CONC 34 g/dL (31-37); MEAN CORPUSCULAR VOLUME 105 fL (79-100); MONO % 9 % (0-9); NEUT % 72 % (31-73); PLATELET COUNT 129 x10^3/uL (140-400); RED BLOOD COUNT 1.77 x10^6/uL (4.30-5.70); RED CELL DISTRIBUTION WIDTH 17.8 % (11.5-14.5); WHITE BLOOD COUNT 4.9 x10^3/uL (4.0-11.0)
[2017-02-22 05:10] LABS: ALBUMIN 3.5 g/dL (3.4-5.0); ALBUMIN/GLOBULIN RATIO 1.9 (1.0-1.7); CALCIUM 8.5 mg/dL (8.5-10.1); CREATININE 1.1 mg/dL (0.7-1.3); GFR 78.6; POTASSIUM 4.5 mmol/L (3.5-5.1); TOTAL BILIRUBIN 3.8 mg/dL (0.2-1.0); TOTAL PROTEIN 5.3 g/dL (6.4-8.2)
[2017-02-22 05:22] LABS: HEMATOCRIT 18.7 % (39.0-53.0); HEMOGLOBIN 6.3 g/dL (13.0-17.5)
[2017-02-22 07:00] VITALS: BP 114/60
[2017-02-22] MEDS ORDERED: FOLIC ACID 1 MG TABLET. PO SCH (09:00)
[2017-02-22] MEDS: predniSONE 20 MG TABLET PO SCH (09:31)
[2017-02-22] MEDS: DOCUSATE SODIUM 100 MG CAPSULE. PO SCH (09:31)
[2017-02-22] MEDS: FOLIC ACID 1 MG TABLET. PO SCH (09:31)
--- NOTE | 2017-02-22 09:43 | PDOC ---
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, 100 mg prednisone PO daily hgb down today, but bili better History of Present Illness History of Present Illness Pt at baseline DW Dr Richards Will dc See dictation Vitals Vitals Vital Signs Date Time Temp Pulse Resp B/P (MAP) Pulse Ox O2 Delivery O2 Flow Rate FiO2 02/22/17 07:00 98.2 88 20 114/60 (78) 97 Room Air 98.2 02/21/17 08:50 10 Physical Exam General: Alert, Oriented X3 Heart: Normal S1, Normal S2 Lungs: Clear Abdomen: Normal bowel sounds, Soft Extremities: No clubbing, No cyanosis Skin: No rashes, No breakdown Labs LABS Laboratory Tests Test 02/22/17 04:21 White Blood Count 4.9 x10^3/uL (4.0-11.0) Red Blood Count 1.77 x10^6/uL (4.30-5.70) Hemoglobin 6.3 g/dL (13.0-17.5) Hematocrit 18.7 % (39.0-53.0) Mean Corpuscular Volume 105 fL (79-100) Mean Corpuscular Hemoglobin 36 pg (25-35) Mean Corpuscular Hemoglobin Concent 34 g/dL (31-37) Red Cell Distribution Width 17.8 % (11.5-14.5) Platelet Count 129 x10^3/uL (140-400) Neutrophils (%) (Auto) 72 % (31-73) Lymphocytes (%) (Auto) 19 % (24-48) Monocytes (%) (Auto) 9 % (0-9) Eosinophils (%) (Auto) 0 % (0-3) Basophils (%) (Auto) 0 % (0-3) Neutrophils # (Auto) 3.5 x10^3uL (1.8-7.7) Lymphocytes # (Auto) 0.9 x10^3/uL (1.0-4.8) Monocytes # (Auto) 0.5 x10^3/uL (0.0-1.1) Eosinophils # (Auto) 0.0 x10^3/uL (0.0-0.7) Basophils # (Auto) 0.0 x10^3/uL (0.0-0.2) Reticulocyte Count (auto) 7.5 % (0.5-2.5) Sodium Level 142 mmol/L (136-145) Potassium Level 4.5 mmol/L (3.5-5.1) Chloride Level 107 mmol/L (98-107) Carbon Dioxide Level 26 mmol/L (21-32) Anion Gap 9 (6-14) Blood Urea Nitrogen 24 mg/dL (8-26) Creatinine 1.1 mg/dL (0.7-1.3) Estimated GFR (Cockcroft-Gault) 78.6 BUN/Creatinine Ratio 22 (6-20) Glucose Level 199 mg/dL (70-99) Calcium Level 8.5 mg/dL (8.5-10.1) Total Bilirubin 3.8 mg/dL (0.2-1.0) Aspartate Amino Transf (AST/SGOT) 19 U/L (15-37) Alanine Aminotransferase (ALT/SGPT) 32 U/L (16-63) Alkaline Phosphatase 85 U/L (46-116) Lactate Dehydrogenase 776 U/L (85-227) Total Protein 5.3 g/dL (6.4-8.2) Albumin 3.5 g/dL (3.4-5.0) Albumin/Globulin Ratio 1.9 (1.0-1.7) Assessment and Plan Assessmemt and Plan Coumbs neg hemolytic anemia, lymphadenopathy dc on prednisone Problems: Comment Review of Relevant I have reviewed the following items sharron (where applicable) has been applied. Labs Laboratory Tests Test 02/20/17 20:45 02/21/17 05:30 02/22/17 04:21 White Blood Count 5.5 x10^3/uL (4.0-11.0) 4.8 x10^3/uL (4.0-11.0) 4.9 x10^3/uL (4.0-11.0) Red Blood Count 1.80 x10^6/uL (4.30-5.70) 1.75 x10^6/uL (4.30-5.70) 1.77 x10^6/uL (4.30-5.70) Hemoglobin 6.4 g/dL (13.0-17.5) 6.2 g/dL (13.0-17.5) 6.3 g/dL (13.0-17.5) Hematocrit 18.8 % (39.0-53.0) 18.0 % (39.0-53.0) 18.7 % (39.0-53.0) Mean Corpuscular Volume 104 fL (79-100) 103 fL (79-100) 105 fL (79-100) Mean Corpuscular Hemoglobin 35 pg (25-35) 36 pg (25-35) 36 pg (25-35) Mean Corpuscular Hemoglobin Concent 34 g/dL (31-37) 34 g/dL (31-37) 34 g/dL (31-37) Red Cell Distribution Width 16.3 % (11.5-14.5) 16.5 % (11.5-14.5) 17.8 % (11.5-14.5) Platelet Count 137 x10^3/uL (140-400) 127 x10^3/uL (140-400) 129 x10^3/uL (140-400) Neutrophils (%) (Auto) 71 % (31-73) 72 % (31-73) Lymphocytes (%) (Auto) 21 % (24-48) 19 % (24-48) Monocytes (%) (Auto) 8 % (0-9) 9 % (0-9) Eosinophils (%) (Auto) 0 % (0-3) 0 % (0-3) Basophils (%) (Auto) 0 % (0-3) 0 % (0-3) Neutrophils # (Auto) 3.4 x10^3uL (1.8-7.7) 3.5 x10^3uL (1.8-7.7) Lymphocytes # (Auto) 1.0 x10^3/uL (1.0-4.8) 0.9 x10^3/uL (1.0-4.8) Monocytes # (Auto) 0.4 x10^3/uL (0.0-1.1) 0.5 x10^3/uL (0.0-1.1) Eosinophils # (Auto) 0.0 x10^3/uL (0.0-0.7) 0.0 x10^3/uL (0.0-0.7) Basophils # (Auto) 0.0 x10^3/uL (0.0-0.2) 0.0 x10^3/uL (0.0-0.2) Reticulocyte Count (auto) 6.7 % (0.5-2.5) 7.5 % (0.5-2.5) Sodium Level 142 mmol/L (136-145) 142 mmol/L (136-145) Potassium Level 3.9 mmol/L (3.5-5.1) 4.5 mmol/L (3.5-5.1) Chloride Level 107 mmol/L (98-107) 107 mmol/L (98-107) Carbon Dioxide Level 28 mmol/L (21-32) 26 mmol/L (21-32) Anion Gap 7 (6-14) 9 (6-14) Blood Urea Nitrogen 23 mg/dL (8-26) 24 mg/dL (8-26) Creatinine 1.0 mg/dL (0.7-1.3) 1.1 mg/dL (0.7-1.3) Estimated GFR (Cockcroft-Gault) 87.7 78.6 BUN/Creatinine Ratio 23 (6-20) 22 (6-20) Glucose Level 114 mg/dL (70-99) 199 mg/dL (70-99) Calcium Level 8.2 mg/dL (8.5-10.1) 8.5 mg/dL (8.5-10.1) Total Bilirubin 3.3 mg/dL (0.2-1.0) 3.8 mg/dL (0.2-1.0) Aspartate Amino Transf (AST/SGOT) 19 U/L (15-37) 19 U/L (15-37) Alanine Aminotransferase (ALT/SGPT) 34 U/L (16-63) 32 U/L (16-63) Alkaline Phosphatase 76 U/L (46-116) 85 U/L (46-116) Lactate Dehydrogenase 705 U/L (85-227) 776 U/L (85-227) Total Protein 5.5 g/dL (6.4-8.2) 5.3 g/dL (6.4-8.2) Albumin 3.5 g/dL (3.4-5.0) 3.5 g/dL (3.4-5.0) Albumin/Globulin Ratio 1.8 (1.0-1.7) 1.9 (1.0-1.7) Laboratory Tests Test 02/22/17 04:21 White Blood Count 4.9 x10^3/uL (4.0-11.0) Red Blood Count 1.77 x10^6/uL (4.30-5.70) Hemoglobin 6.3 g/dL (13.0-17.5) Hematocrit 18.7 % (39.0-53.0) Mean Corpuscular Volume 105 fL (79-100) Mean Corpuscular Hemoglobin 36 pg (25-35) Mean Corpuscular Hemoglobin Concent 34 g/dL (31-37) Red Cell Distribution Width 17.8 % (11.5-14.5) Platelet Count 129 x10^3/uL (140-400) Neutrophils (%) (Auto) 72 % (31-73) Lymphocytes (%) (Auto) 19 % (24-48) Monocytes (%) (Auto) 9 % (0-9) Eosinophils (%) (Auto) 0 % (0-3) Basophils (%) (Auto) 0 % (0-3) Neutrophils # (Auto) 3.5 x10^3uL (1.8-7.7) Lymphocytes # (Auto) 0.9 x10^3/uL (1.0-4.8) Monocytes # (Auto) 0.5 x10^3/uL (0.0-1.1) Eosinophils # (Auto) 0.0 x10^3/uL (0.0-0.7) Basophils # (Auto) 0.0 x10^3/uL (0.0-0.2) Reticulocyte Count (auto) 7.5 % (0.5-2.5) Sodium Level 142 mmol/L (136-145) Potassium Level 4.5 mmol/L (3.5-5.1) Chloride Level 107 mmol/L (98-107) Carbon Dioxide Level 26 mmol/L (21-32) Anion Gap 9 (6-14) Blood Urea Nitrogen 24 mg/dL (8-26) Creatinine 1.1 mg/dL (0.7-1.3) Estimated GFR (Cockcroft-Gault) 78.6 BUN/Creatinine Ratio 22 (6-20) Glucose Level 199 mg/dL (70-99) Calcium Level 8.5 mg/dL (8.5-10.1) Total Bilirubin 3.8 mg/dL (0.2-1.0) Aspartate Amino Transf (AST/SGOT) 19 U/L (15-37) Alanine Aminotransferase (ALT/SGPT) 32 U/L (16-63) Alkaline Phosphatase 85 U/L (46-116) Lactate Dehydrogenase 776 U/L (85-227) Total Protein 5.3 g/dL (6.4-8.2) Albumin 3.5 g/dL (3.4-5.0) Albumin/Globulin Ratio 1.9 (1.0-1.7) Medications Current Medications Prednisone (Prednisone) 100 mg DAILY PO Last administered on 02/22/17 09:31; Start 02/18/17 at 13:15 Zolpidem Tartrate (Ambien) 5 mg PRN QHS PRN PO INSOMNIA; Start 02/18/17 at 13: 30 Tramadol HCl (Ultram) 50 mg PRN Q6HRS PRN PO PAIN; Start 02/18/17 at 13:30; Stop 02/18/17 at 13:30; Status DC Tramadol HCl (Ultram) 50 mg PRN Q6HRS PRN PO PAIN Last administered on 20:28; Start 02/18/17 at 13:30 Docusate Sodium (Colace) 100 mg DAILY PO Last administered on 02/22/17 09:31; Start 02/19/17 at 09:00 Acetaminophen (Tylenol) 650 mg PRN Q6HRS PRN PO MILD PAIN; Start 02/18/17 at 13 :30 Diphenhydramine HCl (Benadryl) 25 mg PRN Q6HRS PRN PO ITCHING; Start 02/18/17 at 13:30 Folic Acid (Folic Acid) 1 mg DAILY PO Last administered on 02/22/17 09:31; Start 02/20/17 at 09:15 Ondansetron HCl (Zofran) 4 mg PRN Q8HRS PRN IV NAUSEA/VOMITING; Start 02/20/17 at 09:30 Ondansetron HCl (Zofran) 4 mg PRN Q6HRS PRN IV NAUSEA/VOMITING; Start 02/21/17 at 07:00; Stop 02/21/17 at 18:00; Status DC Fentanyl Citrate (Fentanyl 2ml Vial) 25 mcg PRN Q5MIN PRN IV MILD PAIN; Start 02/21/17 at 07:00; Stop 02/21/17 at 18:00; Status DC Fentanyl Citrate (Fentanyl 2ml Vial) 50 mcg PRN Q5MIN PRN IV MODERATE PAIN; Start 02/21/17 at 07:00; Stop 02/21/17 at 18:00; Status DC Morphine Sulfate 1 mg PRN Q10MIN PRN IV SEVERE PAIN; Start 02/21/17 at 07:00; Stop 02/21/17 at 18:00; Status DC Ringer's Solution 1,000 ml @ 30 mls/hr Q24H IV Last administered on 02/21/17 07:13; Start 02/21/17 at 07:00; Stop 02/21/17 at 18:59; Status DC Lidocaine HCl (Xylocaine-Mpf 1% Vial) 2 ml PRN 1X PRN ID PRIOR TO IV START; Start 02/21/17 at 07:00; Stop 02/21/17 at 18:00; Status DC Hydromorphone HCl (Dilaudid) 0.5 mg PRN Q10MIN PRN IV SEV PAIN, Second choice; Start 02/21/17 at 07:00; Stop 02/21/17 at 18:00; Status DC Prochlorperazine Edisylate (Compazine) 5 mg PACU PRN PRN IV NAUSEA, MRX1; Start 02/21/17 at 07:00; Stop 02/21/17 at 18:00; Status DC Propofol 20 ml @ As Directed STK-MED ONCE IV ; Start 02/21/17 at 06:28; Stop at 06:29; Status DC Lidocaine HCl (Lidocaine Pf 2% Vial) 5 ml STK-MED ONCE .ROUTE ; Start 02/21/17 at 06:28; Stop 02/21/17 at 06:29; Status DC Bupivacaine HCl/ Epinephrine Bitart (Marcaine-Epi 0.5%-1:[id number]) 50 ml STK-MED ONCE .ROUTE Last administered on 02/21/17 08:18; Start 02/21/17 at 06:12; Stop 02/21/17 at 07:12; Status DC Lidocaine/ Epinephrine (Xylocaine 1%-Epi 1:100,000) 20 ml STK-MED ONCE .ROUTE ; Start 02/21/17 at 06:12; Stop 02/21/17 at 07:12; Status DC Cefazolin Sodium/ Dextrose 50 ml @ As Directed STK-MED ONCE IV ; Start 02/21/17 at 07:22; Stop 02/21/17 at 07:23; Status DC Fentanyl Citrate (Fentanyl 5ml Vial) 250 mcg STK-MED ONCE .ROUTE ; Start at 07:35; Stop 02/21/17 at 07:36; Status DC Dexamethasone Sodium Phosphate (Decadron) 20 mg STK-MED ONCE .ROUTE ; Start at 07:56; Stop 02/21/17 at 07:57; Status DC Ondansetron HCl (Zofran) 4 mg STK-MED ONCE .ROUTE ; Start 02/21/17 at 07:56; Stop 02/21/17 at 07:57; Status DC Sevoflurane (Ultane) 15 ml STK-MED ONCE IH ; Start 02/21/17 at 08:31; Stop 02/21 at 08:32; Status DC Sevoflurane (Ultane) 60 ml STK-MED ONCE IH ; Start 02/21/17 at 08:31; Stop 02/21 at 08:32; Status DC Oxycodone/ Acetaminophen (Percocet 5/325) 1 tab PRN Q4HRS PRN PO MODERATE PAIN ; Start 02/21/17 at 09:00 Oxycodone/ Acetaminophen (Percocet 5/325) 2 tab PRN Q4HRS PRN PO SEVERE PAIN; Start 02/21/17 at 09:00 Folic Acid (Folic Acid) 1 mg DAILY PO ; Start 02/22/17 at 09:00; Status UNV Active Scripts Active Reported Advil (Ibuprofen) 200 Mg Tablet 200 Mg PO PRN Q6-8HRS PRN Vitals/I & O Vital Sign - Last 24 Hours 02/21/17 02/21/17 02/21/17 02/21/17 10:40 10:55 11:15 12:00 Temp 98.9 98.6 98.4 98.4 98.9 98.6 98.4 98.4 Pulse 83 85 85 94 Resp 17 19 18 18 B/P (MAP) 108/55 (72) 107/55 (72) 99/54 (69) 102/53 (69) Pulse Ox 97 97 98 97 O2 Delivery Room Air Room Air Room Air Room Air 02/21/17 02/21/17 02/21/17 02/21/17 12:30 13:30 14:30 19:31 Temp 98.4 98.5 97.9 98.2 98.4 98.5 97.9 98.2 Pulse 92 87 83 96 Resp 18 19 18 18 B/P (MAP) 106/60 (75) 117/64 (81) 109/56 (73) 119/61 (80) Pulse Ox 97 97 97 99 O2 Delivery Room Air Room Air Room Air Room Air 02/21/17 02/21/17 02/22/17 02/22/17 20:00 23:06 03:27 07:00 Temp 99.1 98.1 98.2 99.1 98.1 98.2 Pulse 104 96 88 Resp 17 20 20 B/P (MAP) 120/55 (76) 113/57 (75) 114/60 (78) Pulse Ox 97 97 97 O2 Delivery Room Air Room Air Room Air Room Air Intake and Output 02/22/17 02/22/17 02/23/17 15:00 23:00 07:00 Intake Total 360 ml Output Total 600 ml Balance -240 ml ISREAL SQUIRES III DO Feb 22, 2017 09:43
[2017-02-22 11:00] VITALS: BP 118/83
--- NOTE | 2017-02-22 12:06 | PDOC ---
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 ROS - no dyspnea Objective Objective Vital Signs Date Time Temp Pulse Resp B/P (MAP) Pulse Ox O2 Delivery O2 Flow Rate FiO2 02/22/17 11:00 98.2 89 22 118/83 (95) 98 98.2 02/22/17 08:00 Room Air 02/21/17 08:50 10 Intake and Output 02/23/17 07:00 Intake Total 360 ml Output Total 600 ml Balance -240 ml Intake Oral 360 ml Output Urine Total 600 ml Physical Exam Heart: Normal S1, Normal S2 General: Alert, Oriented X3 Lungs: Clear to auscultation Neuro: Normal speech Psych/Mental Status: Mental status NL Assessment Assessment IMPRESSION AND PLAN: 1. 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 Pt presented with severe anemia with a hemoglobin of 4.4 on 02/12/2017. ~In addition, he has evidence of leukopenia with a WBC of 3.9 and platelet count 125 on 02/13/2017. His reticulocyte count is elevated at 3.8 along with significant elevation of total bilirubin of 9.3 with direct bilirubin being only 0.8 suggestive of a hemolytic process. ~In addition, the patient reports having noticed dark urine since 02/06/2017. ~The nurse also noted that the urine was dark brown/tea-colored on the morning of 02/13/2017. ~The presence of pancytopenia and dark urine is concerning for paroxysmal nocturnal hemoglobinuria but ~Flow cytometry to evaluate for PNH 02/13/17 came back as negative. On 02/13/17 Reticulocyte count is 3.8, haptoglobin <10, and LDH 930, but Brittani test is negative. s/p bone marrow biopsy 02/14/17 is negative for any primary bone marrow disorders. CT C/A/P on 02/13/17: Splenomegaly. This in conjunction with bilateral axillary adenopathy, periaortic and pelvic adenopathy with some associated mild mediastinal adenopathy suggests possible lymphoma. s/p axillary LN bx 02/15/17, neg. He received blood transfusion at [facility] and he was discharged on 02/15/2017 and his hemoglobin was 7.0. Follow-up hemoglobin on 02/18/2017 reveals that his hemoglobin has got worse at 4.8 indicating ongoing hemolysis. Hence I admitted him to [facility] in view of severe anemia and started him on prednisone 100 mg p.o. daily 02/18/17. Hb now 6.3 02/22/17, monitor. No need to transfuse. Bilirubin and retic stable. Check labs again 03/15/17 outpt. If worse plan rituxan. I d/w Dr Moreno. I d/w pathologist, s/p excisional bx rt axillary LN 02/21/17. I d/w RN I d/w DR Flores. Continue prednisone 100 mg daily. Agree with discharge plans and f/u with me 02/25/17. 2. Lymphadenopathy - s/p excisional bx rt axillary LN 02/21/17. Comment Review of Relevant I have reviewed the following items sharron (where applicable) has been applied. Labs Laboratory Tests Test 02/20/17 20:45 02/21/17 05:30 02/22/17 04:21 White Blood Count 5.5 x10^3/uL (4.0-11.0) 4.8 x10^3/uL (4.0-11.0) 4.9 x10^3/uL (4.0-11.0) Red Blood Count 1.80 x10^6/uL (4.30-5.70) 1.75 x10^6/uL (4.30-5.70) 1.77 x10^6/uL (4.30-5.70) Hemoglobin 6.4 g/dL (13.0-17.5) 6.2 g/dL (13.0-17.5) 6.3 g/dL (13.0-17.5) Hematocrit 18.8 % (39.0-53.0) 18.0 % (39.0-53.0) 18.7 % (39.0-53.0) Mean Corpuscular Volume 104 fL (79-100) 103 fL (79-100) 105 fL (79-100) Mean Corpuscular Hemoglobin 35 pg (25-35) 36 pg (25-35) 36 pg (25-35) Mean Corpuscular Hemoglobin Concent 34 g/dL (31-37) 34 g/dL (31-37) 34 g/dL (31-37) Red Cell Distribution Width 16.3 % (11.5-14.5) 16.5 % (11.5-14.5) 17.8 % (11.5-14.5) Platelet Count 137 x10^3/uL (140-400) 127 x10^3/uL (140-400) 129 x10^3/uL (140-400) Neutrophils (%) (Auto) 71 % (31-73) 72 % (31-73) Lymphocytes (%) (Auto) 21 % (24-48) 19 % (24-48) Monocytes (%) (Auto) 8 % (0-9) 9 % (0-9) Eosinophils (%) (Auto) 0 % (0-3) 0 % (0-3) Basophils (%) (Auto) 0 % (0-3) 0 % (0-3) Neutrophils # (Auto) 3.4 x10^3uL (1.8-7.7) 3.5 x10^3uL (1.8-7.7) Lymphocytes # (Auto) 1.0 x10^3/uL (1.0-4.8) 0.9 x10^3/uL (1.0-4.8) Monocytes # (Auto) 0.4 x10^3/uL (0.0-1.1) 0.5 x10^3/uL (0.0-1.1) Eosinophils # (Auto) 0.0 x10^3/uL (0.0-0.7) 0.0 x10^3/uL (0.0-0.7) Basophils # (Auto) 0.0 x10^3/uL (0.0-0.2) 0.0 x10^3/uL (0.0-0.2) Reticulocyte Count (auto) 6.7 % (0.5-2.5) 7.5 % (0.5-2.5) Sodium Level 142 mmol/L (136-145) 142 mmol/L (136-145) Potassium Level 3.9 mmol/L (3.5-5.1) 4.5 mmol/L (3.5-5.1) Chloride Level 107 mmol/L (98-107) 107 mmol/L (98-107) Carbon Dioxide Level 28 mmol/L (21-32) 26 mmol/L (21-32) Anion Gap 7 (6-14) 9 (6-14) Blood Urea Nitrogen 23 mg/dL (8-26) 24 mg/dL (8-26) Creatinine 1.0 mg/dL (0.7-1.3) 1.1 mg/dL (0.7-1.3) Estimated GFR (Cockcroft-Gault) 87.7 78.6 BUN/Creatinine Ratio 23 (6-20) 22 (6-20) Glucose Level 114 mg/dL (70-99) 199 mg/dL (70-99) Calcium Level 8.2 mg/dL (8.5-10.1) 8.5 mg/dL (8.5-10.1) Total Bilirubin 3.3 mg/dL (0.2-1.0) 3.8 mg/dL (0.2-1.0) Aspartate Amino Transf (AST/SGOT) 19 U/L (15-37) 19 U/L (15-37) Alanine Aminotransferase (ALT/SGPT) 34 U/L (16-63) 32 U/L (16-63) Alkaline Phosphatase 76 U/L (46-116) 85 U/L (46-116) Lactate Dehydrogenase 705 U/L (85-227) 776 U/L (85-227) Total Protein 5.5 g/dL (6.4-8.2) 5.3 g/dL (6.4-8.2) Albumin 3.5 g/dL (3.4-5.0) 3.5 g/dL (3.4-5.0) Albumin/Globulin Ratio 1.8 (1.0-1.7) 1.9 (1.0-1.7) Laboratory Tests Test 02/22/17 04:21 White Blood Count 4.9 x10^3/uL (4.0-11.0) Red Blood Count 1.77 x10^6/uL (4.30-5.70) Hemoglobin 6.3 g/dL (13.0-17.5) Hematocrit 18.7 % (39.0-53.0) Mean Corpuscular Volume 105 fL (79-100) Mean Corpuscular Hemoglobin 36 pg (25-35) Mean Corpuscular Hemoglobin Concent 34 g/dL (31-37) Red Cell Distribution Width 17.8 % (11.5-14.5) Platelet Count 129 x10^3/uL (140-400) Neutrophils (%) (Auto) 72 % (31-73) Lymphocytes (%) (Auto) 19 % (24-48) Monocytes (%) (Auto) 9 % (0-9) Eosinophils (%) (Auto) 0 % (0-3) Basophils (%) (Auto) 0 % (0-3) Neutrophils # (Auto) 3.5 x10^3uL (1.8-7.7) Lymphocytes # (Auto) 0.9 x10^3/uL (1.0-4.8) Monocytes # (Auto) 0.5 x10^3/uL (0.0-1.1) Eosinophils # (Auto) 0.0 x10^3/uL (0.0-0.7) Basophils # (Auto) 0.0 x10^3/uL (0.0-0.2) Reticulocyte Count (auto) 7.5 % (0.5-2.5) Sodium Level 142 mmol/L (136-145) Potassium Level 4.5 mmol/L (3.5-5.1) Chloride Level 107 mmol/L (98-107) Carbon Dioxide Level 26 mmol/L (21-32) Anion Gap 9 (6-14) Blood Urea Nitrogen 24 mg/dL (8-26) Creatinine 1.1 mg/dL (0.7-1.3) Estimated GFR (Cockcroft-Gault) 78.6 BUN/Creatinine Ratio 22 (6-20) Glucose Level 199 mg/dL (70-99) Calcium Level 8.5 mg/dL (8.5-10.1) Total Bilirubin 3.8 mg/dL (0.2-1.0) Aspartate Amino Transf (AST/SGOT) 19 U/L (15-37) Alanine Aminotransferase (ALT/SGPT) 32 U/L (16-63) Alkaline Phosphatase 85 U/L (46-116) Lactate Dehydrogenase 776 U/L (85-227) Total Protein 5.3 g/dL (6.4-8.2) Albumin 3.5 g/dL (3.4-5.0) Albumin/Globulin Ratio 1.9 (1.0-1.7) Medications Current Medications Prednisone (Prednisone) 100 mg DAILY PO Last administered on 9/29/17at 09:31; Start 02/18/17 at 13:15; Stop 02/22/17 at 11:45; Status DC Zolpidem Tartrate (Ambien) 5 mg PRN QHS PRN PO INSOMNIA; Start 02/18/17 at 13: 30; Stop 02/22/17 at 11:45; Status DC Tramadol HCl (Ultram) 50 mg PRN Q6HRS PRN PO PAIN; Start 02/18/17 at 13:30; Stop 02/18/17 at 13:30; Status DC Tramadol HCl (Ultram) 50 mg PRN Q6HRS PRN PO PAIN Last administered on 20:28; Start 02/18/17 at 13:30; Stop 02/22/17 at 11:45; Status DC Docusate Sodium (Colace) 100 mg DAILY PO Last administered on 02/22/17 09:31; Start 02/19/17 at 09:00; Stop 02/22/17 at 11:45; Status DC Acetaminophen (Tylenol) 650 mg PRN Q6HRS PRN PO MILD PAIN; Start 02/18/17 at 13 :30; Stop 02/22/17 at 11:45; Status DC Diphenhydramine HCl (Benadryl) 25 mg PRN Q6HRS PRN PO ITCHING; Start 02/18/17 at 13:30; Stop 02/22/17 at 11:45; Status DC Folic Acid (Folic Acid) 1 mg DAILY PO Last administered on 02/22/17 09:31; Start 02/20/17 at 09:15; Stop 02/22/17 at 11:45; Status DC Ondansetron HCl (Zofran) 4 mg PRN Q8HRS PRN IV NAUSEA/VOMITING; Start 02/20/17 at 09:30; Stop 02/22/17 at 11:45; Status DC Ondansetron HCl (Zofran) 4 mg PRN Q6HRS PRN IV NAUSEA/VOMITING; Start 02/21/17 at 07:00; Stop 02/21/17 at 18:00; Status DC Fentanyl Citrate (Fentanyl 2ml Vial) 25 mcg PRN Q5MIN PRN IV MILD PAIN; Start 02/21/17 at 07:00; Stop 02/21/17 at 18:00; Status DC Fentanyl Citrate (Fentanyl 2ml Vial) 50 mcg PRN Q5MIN PRN IV MODERATE PAIN; Start 02/21/17 at 07:00; Stop 02/21/17 at 18:00; Status DC Morphine Sulfate 1 mg PRN Q10MIN PRN IV SEVERE PAIN; Start 02/21/17 at 07:00; Stop 02/21/17 at 18:00; Status DC Ringer's Solution 1,000 ml @ 30 mls/hr Q24H IV Last administered on 02/21/17 07:13; Start 02/21/17 at 07:00; Stop 02/21/17 at 18:59; Status DC Lidocaine HCl (Xylocaine-Mpf 1% Vial) 2 ml PRN 1X PRN ID PRIOR TO IV START; Start 02/21/17 at 07:00; Stop 02/21/17 at 18:00; Status DC Hydromorphone HCl (Dilaudid) 0.5 mg PRN Q10MIN PRN IV SEV PAIN, Second choice; Start 02/21/17 at 07:00; Stop 02/21/17 at 18:00; Status DC Prochlorperazine Edisylate (Compazine) 5 mg PACU PRN PRN IV NAUSEA, MRX1; Start 02/21/17 at 07:00; Stop 02/21/17 at 18:00; Status DC Propofol 20 ml @ As Directed STK-MED ONCE IV ; Start 02/21/17 at 06:28; Stop at 06:29; Status DC Lidocaine HCl (Lidocaine Pf 2% Vial) 5 ml STK-MED ONCE .ROUTE ; Start 02/21/17 at 06:28; Stop 02/21/17 at 06:29; Status DC Bupivacaine HCl/ Epinephrine Bitart (Marcaine-Epi 0.5%-[id number]) 50 ml STK-MED ONCE .ROUTE Last administered on 02/21/17 08:18; Start 02/21/17 at 06:12; Stop 02/21/17 at 07:12; Status DC Lidocaine/ Epinephrine (Xylocaine 1%-Epi 1:100,000) 20 ml STK-MED ONCE .ROUTE ; Start 02/21/17 at 06:12; Stop 02/21/17 at 07:12; Status DC Cefazolin Sodium/ Dextrose 50 ml @ As Directed STK-MED ONCE IV ; Start 02/21/17 at 07:22; Stop 02/21/17 at 07:23; Status DC Fentanyl Citrate (Fentanyl 5ml Vial) 250 mcg STK-MED ONCE .ROUTE ; Start at 07:35; Stop 02/21/17 at 07:36; Status DC Dexamethasone Sodium Phosphate (Decadron) 20 mg STK-MED ONCE .ROUTE ; Start at 07:56; Stop 02/21/17 at 07:57; Status DC Ondansetron HCl (Zofran) 4 mg STK-MED ONCE .ROUTE ; Start 02/21/17 at 07:56; Stop 02/21/17 at 07:57; Status DC Sevoflurane (Ultane) 15 ml STK-MED ONCE IH ; Start 02/21/17 at 08:31; Stop 02/21 at 08:32; Status DC Sevoflurane (Ultane) 60 ml STK-MED ONCE IH ; Start 02/21/17 at 08:31; Stop 02/21 at 08:32; Status DC Oxycodone/ Acetaminophen (Percocet 5/325) 1 tab PRN Q4HRS PRN PO MODERATE PAIN ; Start 02/21/17 at 09:00; Stop 02/22/17 at 11:45; Status DC Oxycodone/ Acetaminophen (Percocet 5/325) 2 tab PRN Q4HRS PRN PO SEVERE PAIN; Start 02/21/17 at 09:00; Stop 02/22/17 at 11:45; Status DC Folic Acid (Folic Acid) 1 mg DAILY PO ; Start 02/22/17 at 09:00; Status UNV Active Scripts Active No Active Prescriptions or Reported Medications Vitals/I & O Vital Sign - Last 24 Hours 02/21/17 02/21/17 02/21/17 02/21/17 12:30 13:30 14:30 19:31 Temp 98.4 98.5 97.9 98.2 98.4 98.5 97.9 98.2 Pulse 92 87 83 96 Resp 18 19 18 18 B/P (MAP) 106/60 (75) 117/64 (81) 109/56 (73) 119/61 (80) Pulse Ox 97 97 97 99 O2 Delivery Room Air Room Air Room Air Room Air 02/21/17 02/21/17 02/22/17 02/22/17 20:00 23:06 03:27 07:00 Temp 99.1 98.1 98.2 99.1 98.1 98.2 Pulse 104 96 88 Resp 17 20 20 B/P (MAP) 120/55 (76) 113/57 (75) 114/60 (78) Pulse Ox 97 97 97 O2 Delivery Room Air Room Air Room Air Room Air 02/22/17 02/22/17 08:00 11:00 Temp 98.2 98.2 Pulse 89 Resp 22 B/P (MAP) 118/83 (95) Pulse Ox 98 O2 Delivery Room Air Intake and Output 02/22/17 02/22/17 02/23/17 15:00 23:00 07:00 Intake Total 360 ml Output Total 600 ml Balance -240 ml STEVEN GIL MD Feb 22, 2017 12:06
[2017-02-22 13:13] LABS: NEGATIVE OBC MYCO NEG; POSITIVE OBC MYCO POS
[2017-02-22 21:09] LABS: HIV ANTIBODY Non Reactive (Non Reactive)
--- NOTE | 2017-02-23 04:28 | CONS ---
DATE OF CONSULTATION: 02/22/2017 REQUESTING PHYSICIAN: Dr. Richards. REASON FOR CONSULTATION: Lymphadenopathy and hemolytic anemia of unclear etiology, rule out infectious etiology. HISTORY OF PRESENT ILLNESS: This is a 31-year-old gentleman. A week ago, he was seen here with headache and then was found to have hemolytic anemia. The patient had fine needle aspiration biopsy done, which was negative, and now he is again admitted and he had a lymph node dissection done yesterday. The patient has received transfusions. There is no answer yet. The patient denies any nausea, vomiting or diarrhea. Denies any chest pain, shortness of breath, abdominal pain, urinary symptoms or bowel symptoms. The patient denies any fevers, chills or night sweats. The patient denies also weight loss. PAST MEDICAL HISTORY: Before this was unremarkable. SOCIAL HISTORY: Negative for smoking. No drug use. Very occasional alcohol use. The patient lives with the mother. The patient does have exposure to niece's and nephew's dogs and cats. The patient does not do any outdoor activity like hunting or swimming. Only [id number] visit was when he was very young. He had gone to [facility], for 1 week. Has never been homeless or in senior care. ROS : as above, all other neg Meds : reviewed. PHYSICAL EXAMINATION: GENERAL: Alert and oriented gentleman, not in distress. VITAL SIGNS: Stable. Temperature max is 99.1. HEENT: NAD. NECK: Supple, no JVP. The patient has small lymph nodes in the axillary, submandibular area as well as in the inguinal area present. LUNGS: Clear. HEART: S1 and S2 regular. ABDOMEN: Benign. EXTREMITIES: No edema or cyanosis. SKIN: Unremarkable. NEUROLOGIC: The patient is neurologically intact. LABORATORY DATA: White count is 4.9, hemoglobin 6.3. Platelets are 129,000. Retic count is 7.5. BUN and creatinine are normal. His glucose is 199. LDH is 776. Total bili is 3.8. Urinalysis unremarkable. He had immunoglobulins done. He had HIV1 PCR done. He did not have HIV screen to include HIV2. EBV negative. Hepatitis negative. Heterophile agglutinins negative. A CT of the abdomen and pelvis done a few days ago, which showed splenomegaly, bilateral axillary adenopathy, periaortic and pelvic adenopathy and mediastinal adenopathy, minimal patchy infiltrate at that time. The patient also had bone marrow biopsy done. IMPRESSION: 1. Hemolytic anemia. 2. Lymphadenopathy everywhere. There is no fever or night sweats or weight loss to go along with infectious etiology, but still since there is no answer, we will do mycoplasma, Legionella, Brucella, Bartonella and HIV screen to include HIV2, and we will follow the biopsy results. Also called the lab and included on the lymph node biopsy to do AFB and fungal stain. Specimen has not been sent to the microbiology. Thank you very much, Dr. Richards, for giving me the opportunity to participate in this patient's care. OTTONIEL HOLM MD DR: MYLA/yoon JOB#: [id number] / [id number] TYLER
--- NOTE | 2017-02-25 10:22 | PATHOLOGY ---
PATHOLOGY REPORT * * * * * * * * FINAL DIAGNOSIS: Lymph node, right axilla, biopsy: - Lymphoid tissue with partial fatty replacement and reactive changes. - No granulomata seen. - No evidence of acid-fast bacilli on Javier stain. - No evidence of fungal organisms on PAS fungal stain. (Please see comment) (SKM:[email or web address]; 02/25/2017) COMMENT: A small portion of this lymph node was sent for flow cytometry studies. No evidence of a lymphoproliferative disorder was seen on the flow cytometry studies. Please see that separate report. Note that the Javier stain and the PAS fungal stain were performed on both blocks A1 and A2. (SKM:[email or web address]; 02/25/2017) REPORT ELECTRONICALLY SIGNED BY: Debbi Dwyer M.D. DATE/TIME: 02/25/2017 10:21 * * * * * * * * GROSS PATHOLOGY: Part A is received fresh and it is labeled "right axillary lymph node biopsy", and it consists of a 2.0 x 1.5 x 1.2 cm aggregate of pink-yellow fibroadipose tissue. Dissection of the specimen reveals a single, partially fatty replaced lymph node which measures 1.0 cm in greatest dimension. A small portion of the lymphoid tissue is finely minced and placed in RPMI. This will be submitted for flow cytometry studies. The remainder of the lymphoid tissue is all submitted in blocks A1-A2. Per infectious disease doctor's request, special stains will be performed for AFB and fungal organisms. (SKM:[email or web address]; 02/22/2017) INITIAL CPT CODE(S): A; 53304, 02061, 88445, 36227, 70976 Professional services performed by [facility] at [address] [address] Technical services performed by [facility] at [address] [place] [address], [facility] [address] [address]. SPECIMEN(S) RECEIVED: A.Right axillary lymph node biopsy CLINICAL HISTORY: Lymphadenopathy, anemia PATIENT: SARAY SABILLON KRISTI/AGE: 11 1985 (Age: 31) PATIENT #: [id number] ALT CASE #: SPECIMEN COLLECTION DATE: 02/21/2017 SPECIMEN RECEIVED DATE: 02/21/2017 [facility] - [address] [place] [address] - PHONE: [phone] * * * END OF REPORT * * *
[2017-02-26 13:21] LABS: B HENSELAE IGG Negative titer (Neg:<1:320); B QUINTANA IGG Negative titer (Neg:<1:320); B QUINTANA IGM Negative titer (Neg:<1:100); BAR HENSELAE IGM Negative titer (Neg:<1:100)
--- NOTE | 2017-03-14 12:27 | DS ---
DATE OF DISCHARGE: 02/22/2017 ADMISSION DIAGNOSIS: Brittani negative autoimmune hemolytic anemia. 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 CONSULTS: Dr. Richards, Dr. Javed Moreno and Dr. Gabriel Velez. PROCEDURES: None. HOSPITAL COURSE: The patient is a pleasant middle-aged male who basically presented very jaundiced. His hemoglobin was 4, he was very weak. We transfused the patient. We consulted Dr. Richards. It was felt that he has Brittani negative hemolytic anemia. We did do a lymph node biopsy, which was surprisingly benign. The patient did well, we discharged home. DISPOSITION: Home. ACTIVITY: As tolerated. DIET: Low sodium. MEDICATIONS: Please see the MRAD. TOTAL TIME: 36 minutes. ISREAL SQUIRES DO DR: DWAINE/yoon JOB#: [id number] / [id number]
--- NOTE | 2017-03-14 12:45 | DS ---
DATE OF DISCHARGE: 02/22/2017 DATE OF ADMISSION: 02/18/2017 DATE OF DISCHARGE: 02/22/2017 ADMISSION DIAGNOSES: Jaundice and anemia. DISCHARGE DIAGNOSES: Brittani-negative hemolytic anemia, status post right axillary lymph node biopsy. HOSPITAL COURSE: The patient is a pleasant 31-year-old male who presented with anemia and severe jaundice. He was admitted. I consulted Dr. Richards. He was taken for biopsy for concern he could have lymphoma, but apparently the biopsy was negative. He does have Brittani-negative hemolytic anemia. He is doing well. We plan to discharge. DISPOSITION: Home. ACTIVITY: As tolerated. DIET: Low sodium. MEDICATIONS: Please see the MRAD. TOTAL TIME ON DISCHARGE: 38 minutes. ISREAL SQUIRES DO DR: DWAINE/yoon JOB#: [id number] / [id number]
[2017-04-26] MEDS ORDERED: METF850T2 PO (10:01)
[2017-04-26] MEDS ORDERED: GLIP2.5T4 PO (10:01)
[2017-04-26] MEDS ORDERED: PRED5TAB PO (10:01)
== END 2017-02-22 11:30 | disposition home or self-care (01) | DRG 803 ==
LOC: 6 SOUTH 12:19
PROVIDERS: ADMIT Internal Medicine; ATTEND Internal Medicine
PROC: 30233N1 Transfusion of Nonautologous Red Blood Cells into Peripheral Vein, Percutaneous Approach (ICD-10-PCS; principal; 2017-02-18)
PROC: 07B50ZX Excision of Right Axillary Lymphatic, Open Approach, Diagnostic (ICD-10-PCS; 2017-02-21)
DX: D59.1 Other autoimmune hemolytic anemias (principal); D61.818 Other pancytopenia; R16.1 Splenomegaly, not elsewhere classified; R17 Unspecified jaundice; R59.1 Generalized enlarged lymph nodes; K80.20 Calculus of gallbladder without cholecystitis without obstruction; E80.6 Other disorders of bilirubin metabolism; R63.0 Anorexia; Z83.3 Family history of diabetes mellitus; D64.9 Anemia, unspecified
CPT/HCPCS: 36415; 80053; 80074; 83615; 85014; 85018; 85025; 85027; 85045; 85610; 86308; 86611; 86644; 86645; 86663; 86664; 86701; 86702; 86703; 86738; 86850; 86900; 86901; 86920; 87449; 87535; 87536; 88184; 88185; 88305; 88312; C1769; J0690; J1100; J2405; J2704; J3010; J3490; J7120; J7512; P9016; J2001

== ENCOUNTER 2017-03-28 10:29 | Inpatient (IN) | payer SELFPAY ==
[~2017-03-28] VITALS: Ht 167.6 cm; Wt 96.9 kg
[2017-03-28] MEDS ORDERED: VANCOMYCIN 1GM IVPB FOR OMNI 250 ML IV ONE (11:00)
[2017-03-28] MEDS ORDERED: DIPHTH,PERTUSS(ACELL),TET TOX 0.5 ML DISP.SYRIN. VAX IM ONE (11:00)
[2017-03-28] MEDS ORDERED: IV NORMAL SALINE 1000ML BAG 1,000 ML IV ONE (11:00)
[2017-03-28 11:27] LABS: BASO % 0 % (0-3); EOS % 0 % (0-3); HEMATOCRIT 38.1 % (39.0-53.0); HEMOGLOBIN 13.1 g/dL (13.0-17.5); LYMPH # 0.6 x10^3/uL (1.0-4.8); LYMPH % 5 % (24-48); MEAN CORPUSCULAR HEMOGLOBIN 32 pg (25-35); MEAN CORPUSCULAR HGB CONC 34 g/dL (31-37); MEAN CORPUSCULAR VOLUME 93 fL (79-100); MONO % 3 % (0-9); NEUT % 91 % (31-73); PLATELET COUNT 183 x10^3/uL (140-400); RED BLOOD COUNT 4.09 x10^6/uL (4.30-5.70); RED CELL DISTRIBUTION WIDTH 15.4 % (11.5-14.5); WHITE BLOOD COUNT 11.4 x10^3/uL (4.0-11.0)
[2017-03-28 11:39] LABS: CALCIUM 9.4 mg/dL (8.5-10.1); CREATININE 1.3 mg/dL (0.7-1.3); GFR 64.8; POTASSIUM 4.2 mmol/L (3.5-5.1)
[2017-03-28 11:45] LABS: ALBUMIN 3.6 g/dL (3.4-5.0); ALBUMIN/GLOBULIN RATIO 1.1 (1.0-1.7); TOTAL BILIRUBIN 1.3 mg/dL (0.2-1.0)
--- NOTE | 2017-03-28 11:46 | RAD ---
Right axillary ultrasound, 03/28/2017: History: Axillary abscess with drainage The area of clinical concern in the right axilla was carefully scanned. There is subcutaneous edema. There is a bilobed, hypoechoic process in the soft tissues deep to the draining wound. The appearance is compatible with complex fluid such as an abscess. It measures 15 x 7 x 5 mm.
--- NOTE | 2017-03-28 11:52 | PHYS DOC ---
Past Medical History Past Medical History: No Pertinent History Past Surgical History: Other Additional Past Surgical Histo: lymph node biopsy Alcohol Use: Rarely Drug Use: None Adult General Chief Complaint Chief Complaint: ABSCESS HPI HPI Patient is a 31 year old male presents to the emergency department stating that he was seen here last month and had some leftover biopsies done on his right axilla. He presents packs today with complaint of drainage and swelling and tenderness to the area. Patient is diaphoretic and tachycardic at this time. Patient denies any fever, chills. He denies taking any medications for pain and denies any recent use of antibiotics. Patient is unsure when his last tetanus immunization occurred. Review of Systems Review of Systems Constitutional: Denies fever or chills [] Eyes: Denies change in visual acuity, redness, or eye pain [] HENT: Denies nasal congestion or sore throat [] Respiratory: Denies cough or shortness of breath [] Cardiovascular: No additional information not addressed in HPI [] GI: Denies abdominal pain, nausea, vomiting, bloody stools or diarrhea [] : Denies dysuria or hematuria [] Musculoskeletal: Denies back pain or joint pain [] Integument: Denies rash or skin lesions. Abscess and drainage from the right axilla Neurologic: Denies headache, focal weakness or sensory changes [] Endocrine: Denies polyuria or polydipsia [] Current Medications Current Medications Current Medications Medications (Trade) Dose Ordered Sig/Yao Start Time Stop Time Status Last Admin Dose Admin Diphtheria/ Tetanus/Acell Pertussis (Boostrix) 0.5 ml ONCE ONCE 03/28/17 11:00 03/28/17 11:01 DC 03/28/17 11:43 0.5 ML Sodium Chloride 1,000 ml @ 1,000 mls/hr 1X ONCE 03/28/17 11:00 03/28/17 11:59 03/28/17 11:40 1,000 MLS/HR Vancomycin HCl 250 ml @ 250 mls/hr 1X ONCE 03/28/17 11:00 03/28/17 11:59 Allergies Allergies Allergies Coded Allergies Type Severity Reaction Last Updated Verified No Known Drug Allergies 02/21/17 No Physical Exam Physical Exam Constitutional: Well developed, well nourished, no acute distress, non-toxic appearance. [] HENT: Normocephalic, atraumatic, bilateral external ears normal, oropharynx moist, no oral exudates, nose normal. [] Eyes: PERRLA, EOMI, conjunctiva normal, no discharge. [] Neck: Normal range of motion, no tenderness, supple, no stridor. [] Cardiovascular:Heart rate regular rhythm, no murmur [] Lungs & Thorax: Bilateral breath sounds clear to auscultation [] Skin: Warm, dry, no erythema, no rash. Patient with large area noted under the right axilla that has yellow to serious sanguinous drainage, tenderness noted, warmth noted. Extremities: No tenderness, no cyanosis, no clubbing, ROM intact, no edema. [] Neurologic: Alert and oriented X 3, normal motor function, normal sensory function, no focal deficits noted. [] Psychologic: Affect normal, judgement normal, mood normal. [] Current Patient Data Vital Signs Vital Signs Date Time Temp Pulse Resp B/P (MAP) Pulse Ox O2 Delivery O2 Flow Rate FiO2 03/28/17 10:35 99.0 130 24 144/88 (106) 96 Room Air 99.0 EKG EKG [] Radiology/Procedures Radiology/Procedures [][facility] [address] [place] [address] IMAGING REPORT Signed PATIENT: SARAY SABILLON ACCOUNT: [id number] : 1985 LOCATION: [address] [place] [address] AGE: 31 SEX: M EXAM STATUS: ADM IN ORD. PHYSICIAN: PONCHO WARD APRN REASON: right axilla abscess with drainage, pain and tenderness PROCEDURE: EXTREM NONVASCULAR LTD RIGHT Right axillary ultrasound, 03/28/2017: History: Axillary abscess with drainage The area of clinical concern in the right axilla was carefully scanned. There is subcutaneous edema. There is a bilobed, hypoechoic process in the soft tissues deep to the draining wound. The appearance is compatible with complex fluid such as an abscess. It measures 15 x 7 x 5 mm. DICTATED and SIGNED BY: LEONILA DAILEY MD DATE: 03/28/17 1139 CC: PONCHO WARD APRN; OXANA CAAL MD; NO PCP ~ Course & Med Decision Making Course & Med Decision Making Pertinent Labs and Imaging studies reviewed. (See chart for details) She was updated with a tetanus immunization. He was provided with IV fluids and vancomycin. Labs are pending at this time. Ultrasound pending as well. Spoke with Dr. caal in regards to admission. He agrees with the admission process and vancomycin at this time. Patient will be admitted to Dr. caal. Patient is unsure standing that he is being admitted for IV antibiotics and further follow- up. [] Dragon Disclaimer Dragon Disclaimer This electronic medical record was generated, in whole or in part, using a voice recognition dictation system. Departure Departure Impression: Primary Impression: Cellulitis and abscess of unspecified site Disposition: ADMITTED INPATIENT Admitting Physician: Oxana Caal Condition: STABLE Referrals: NO PCP (PCP) Scripts No Active Prescriptions or Reported Meds PONCHO WARD APRN Mar 28, 2017 11:52
[2017-03-28 11:56] LABS: NUCLEATED RBC 1
[2017-03-28 11:59] LABS: ANISOCYTOSIS SLIGHT; PLT ESTIMATE ADEQUATE (ADEQUATE); TOXIC GRANULATION MOD
[2017-03-28 13:40] VITALS: BP 129/82
[2017-03-28] MEDS ORDERED: INSULIN DETEMIR 300 UNITS/3 ML INSULN.PEN. SQ ONE (14:00)
[2017-03-28] MEDS ORDERED: DEXTROSE 50% 25 GM / 50ML DISP.SYRIN. IV PRN (14:00)
[2017-03-28] MEDS: predniSONE 10 MG TABLET PO SCH (15:15)
--- NOTE | 2017-03-28 15:26 | PDOC1 ---
History and Physical Date of Admission Date of Admission DATE: 03/28/17 TIME: 15:19 Identification/Chief Complaint Chief Complaint right armpit pain Problems: Source Source: Chart review, Patient History of Present Illness History of Present Illness Mr. Leon, is a 31 year old male admit for pain and exudative drainage from right axillae. He had a LN biopsy done on his right axilla< 1 month ago. Pain for a few days, and today, new complaint of drainage and swelling and tenderness to the area. Patient is diaphoretic and tachycardic at this time. he didn't go to work yesterday, and tried today and could not make it. on 40 mg prednisone for anemia, following with Dr. Richards Past Medical History Cardiovascular: No pertinent hx Pulmonary: No pertinent hx GI: No pertinent hx Heme/Onc: Anemia NOS, Other (hemolytic autoimmune) Hepatobiliary: Other Psych: No pertinent hx Rheumatologic: No pertinent hx Past Surgical History Past Surgical History: Other (LN biopsy) Family History Family History: No Significant Social History Smoke: No ALCOHOL: none Drugs: None Current Problem List Problem List Problems Medical Problems: (1) Cellulitis and abscess of unspecified site Status: Acute Problems: Current Medications Current Medications Current Medications Sodium Chloride 1,000 ml @ 1,000 mls/hr 1X ONCE IV Last administered on 11:40; Start 03/28/17 at 11:00; Stop 03/28/17 at 11:59; Status DC Vancomycin HCl 250 ml @ 250 mls/hr 1X ONCE IV Last administered on 03/28/17 12:30; Start 03/28/17 at 11:00; Stop 03/28/17 at 11:59; Status DC Diphtheria/ Tetanus/Acell Pertussis (Boostrix) 0.5 ml ONCE ONCE VAX IM Last administered on 03/28/17 11:43; Start 03/28/17 at 11:00; Stop 03/28/17 at 11:01 ; Status DC Insulin Aspart (NovoLOG) 0-9 UNITS TIDWMEALS SQ ; Start 03/28/17 at 17:00 Dextrose (Dextrose 50%-Water Syringe) 12.5 gm PRN Q15MIN PRN IV SEE COMMENTS; Start 03/28/17 at 14:00 Insulin Detemir (Levemir) 10 units 1X ONCE SQ Last administered on 03/28/17t 14:34; Start 03/28/17 at 14:00; Stop 03/28/17 at 14:01; Status DC Prednisone (Prednisone) 30 mg DAILY PO ; Start 03/28/17 at 15:15 Active Scripts Active No Active Prescriptions or Reported Medications Allergies Allergies: Coded Allergies: No Known Drug Allergies (Unverified , 02/21/17) ROS General: YES: Chills, No: Night Sweats, Fatigue, Malaise, Appetite, Other PSYCHOLOGICAL ROS: YES: Sleep disturbances, No: Anxiety, Behavioral Disorder, Concentration difficultie, Decreased libido , Depression, Disorientation, Hallucinations, Hostility, Irritablity, Memory difficulties, Mood Swings, Obsessive thoughts, Other Eyes: No Blurry vision, No Decreased vision, No Double vision, No Dry eyes, No Excessive tearing, No Eye Pain, No Itchy Eyes, No Loss of vision, No Photophobia , No Scotomata, No Uses contacts, No Uses glasses, No Other HEENT: No: Heacaches, Visual Changes, Hearing change, Nasal congestion, Nasal discharge, Oral lesions, Sinus pain, Sore Throat, Epistaxis, Sneezing, Snoring, Tinnitus, Vertigo, Vocal changes, Other ENDOCRINE: No: Breast Changes, Galactorrhea, Hair Pattern Changes, Hot Flashes , Malaise/lethargy, Mood Swings, Palpitations, Polydipsia/polyuria, Skin Changes , Temperature Intolerance, Unexpected Weight Changes, Other Respiratory: No: Cough, Hemoptysis, Orthopnea, Pleuritic Pain, Shortness of breath, SOB with excertion, Sputum Changes, Stridor, Tachypnea, Wheezing, Other Gastrointestinal: No Nausea, No Vomiting, No Abdominal Pain, No Diarrhea, No Constipation, No Melena, No Hematochezia, No Other Genitourinary: No Dysuria, No Frequency, No Incontinence, No Hematuria, No Retention, No Discharge, No Urgency, No Pain, No Flank Pain, No Other, No , No , No , No , No , No , No Neurological: No Behavorial Changes, No Bowel/Bladder ControlChng, No Confusion , No Dizziness, No Gait Disturbance, No Headaches, No Impaired Coord/balance, No Memory Loss, No Numbness/Tingling, No Seizures, No Speech Problems, No Tremors, No Visual Changes, No Weakness, No Other Skin: Yes Mole Changes, Yes Rash, Yes Skin Lesion Changes, Yes Other, No Dry Skin, No Eczema, No Hair Changes, No Lumps, No Mottling, No Nail Changes, No Pruritus, No Acne Physical Exam General: Alert, Oriented X3, Cooperative, No acute distress, Other (pain better ) HEENT: EOMI Lungs: Clear to auscultation Heart: S1S2, no gallops, no murmurs Abdomen: Normal bowel sounds, Soft, No tenderness Rectal Exam: not examined Extremities: No clubbing, No cyanosis, No edema Skin: Other (12 cm area erythema, central induration with open drainage along prior line of incision) Neuro: Normal speech, Normal tone, Sensation intact, Other Psych/Mental Status: Mental status NL, Mood NL Vitals Vitals Vital Signs Date Time Temp Pulse Resp B/P (MAP) Pulse Ox O2 Delivery O2 Flow Rate FiO2 03/28/17 13:00 108 20 131/79 (96) 96 Room Air 03/28/17 10:35 99.0 99.0 Labs Labs Laboratory Tests Test 03/28/17 11:20 03/28/17 13:51 White Blood Count 11.4 x10^3/uL (4.0-11.0) Red Blood Count 4.09 x10^6/uL (4.30-5.70) Hemoglobin 13.1 g/dL (13.0-17.5) Hematocrit 38.1 % (39.0-53.0) Mean Corpuscular Volume 93 fL (79-100) Mean Corpuscular Hemoglobin 32 pg (25-35) Mean Corpuscular Hemoglobin Concent 34 g/dL (31-37) Red Cell Distribution Width 15.4 % (11.5-14.5) Platelet Count 183 x10^3/uL (140-400) Neutrophils (%) (Auto) 91 % (31-73) Lymphocytes (%) (Auto) 5 % (24-48) Monocytes (%) (Auto) 3 % (0-9) Eosinophils (%) (Auto) 0 % (0-3) Basophils (%) (Auto) 0 % (0-3) Neutrophils # (Auto) 10.4 x10^3uL (1.8-7.7) Lymphocytes # (Auto) 0.6 x10^3/uL (1.0-4.8) Monocytes # (Auto) 0.4 x10^3/uL (0.0-1.1) Eosinophils # (Auto) 0.0 x10^3/uL (0.0-0.7) Basophils # (Auto) 0.0 x10^3/uL (0.0-0.2) Segmented Neutrophils % 52 % (35-66) Band Neutrophils % 40 % (0-9) Lymphocytes % 6 % (24-48) Monocytes % 2 % (0-10) Nucleated Red Blood Cells 1 Toxic Granulation Mod Platelet Estimate Adequate (ADEQUATE) Anisocytosis Slight Sodium Level 130 mmol/L (136-145) Potassium Level 4.2 mmol/L (3.5-5.1) Chloride Level 92 mmol/L (98-107) Carbon Dioxide Level 26 mmol/L (21-32) Anion Gap 12 (6-14) Blood Urea Nitrogen 22 mg/dL (8-26) Creatinine 1.3 mg/dL (0.7-1.3) Estimated GFR (Cockcroft-Gault) 64.8 BUN/Creatinine Ratio 17 (6-20) Glucose Level 487 mg/dL (70-99) Lactic Acid Level 1.9 mmol/L (0.4-2.0) Calcium Level 9.4 mg/dL (8.5-10.1) Total Bilirubin 1.3 mg/dL (0.2-1.0) Aspartate Amino Transf (AST/SGOT) 11 U/L (15-37) Alanine Aminotransferase (ALT/SGPT) 28 U/L (16-63) Alkaline Phosphatase 129 U/L (46-116) Total Protein 7.0 g/dL (6.4-8.2) Albumin 3.6 g/dL (3.4-5.0) Albumin/Globulin Ratio 1.1 (1.0-1.7) Glucose (Fingerstick) 362 mg/dL (70-99) Laboratory Tests Test 03/28/17 11:20 03/28/17 13:51 White Blood Count 11.4 x10^3/uL (4.0-11.0) Red Blood Count 4.09 x10^6/uL (4.30-5.70) Hemoglobin 13.1 g/dL (13.0-17.5) Hematocrit 38.1 % (39.0-53.0) Mean Corpuscular Volume 93 fL (79-100) Mean Corpuscular Hemoglobin 32 pg (25-35) Mean Corpuscular Hemoglobin Concent 34 g/dL (31-37) Red Cell Distribution Width 15.4 % (11.5-14.5) Platelet Count 183 x10^3/uL (140-400) Neutrophils (%) (Auto) 91 % (31-73) Lymphocytes (%) (Auto) 5 % (24-48) Monocytes (%) (Auto) 3 % (0-9) Eosinophils (%) (Auto) 0 % (0-3) Basophils (%) (Auto) 0 % (0-3) Neutrophils # (Auto) 10.4 x10^3uL (1.8-7.7) Lymphocytes # (Auto) 0.6 x10^3/uL (1.0-4.8) Monocytes # (Auto) 0.4 x10^3/uL (0.0-1.1) Eosinophils # (Auto) 0.0 x10^3/uL (0.0-0.7) Basophils # (Auto) 0.0 x10^3/uL (0.0-0.2) Segmented Neutrophils % 52 % (35-66) Band Neutrophils % 40 % (0-9) Lymphocytes % 6 % (24-48) Monocytes % 2 % (0-10) Nucleated Red Blood Cells 1 Toxic Granulation Mod Platelet Estimate Adequate (ADEQUATE) Anisocytosis Slight Sodium Level 130 mmol/L (136-145) Potassium Level 4.2 mmol/L (3.5-5.1) Chloride Level 92 mmol/L (98-107) Carbon Dioxide Level 26 mmol/L (21-32) Anion Gap 12 (6-14) Blood Urea Nitrogen 22 mg/dL (8-26) Creatinine 1.3 mg/dL (0.7-1.3) Estimated GFR (Cockcroft-Gault) 64.8 BUN/Creatinine Ratio 17 (6-20) Glucose Level 487 mg/dL (70-99) Lactic Acid Level 1.9 mmol/L (0.4-2.0) Calcium Level 9.4 mg/dL (8.5-10.1) Total Bilirubin 1.3 mg/dL (0.2-1.0) Aspartate Amino Transf (AST/SGOT) 11 U/L (15-37) Alanine Aminotransferase (ALT/SGPT) 28 U/L (16-63) Alkaline Phosphatase 129 U/L (46-116) Total Protein 7.0 g/dL (6.4-8.2) Albumin 3.6 g/dL (3.4-5.0) Albumin/Globulin Ratio 1.1 (1.0-1.7) Glucose (Fingerstick) 362 mg/dL (70-99) VTE Prophylaxis Ordered VTE Prophylaxis Devices: No VTE Pharmacological Prophylaxi: Yes Assessment/Plan Assessment/Plan cellulitis and abcess abcess right axillae at sight of prior lymph node biopsy, surg > 1 MO AGO biopsy was for autoimmune hemolytic anemia, on Prednisone 40 mg daily for he hemolytic anemia, immune suppressed as such , DM2, very poor control since prednisone started, blood sugars were not that high with stress dose steroids in the hospital before obesity, BMI 35 hyponatremia admit SALOMON CAAL MD Mar 28, 2017 15:26
--- NOTE | 2017-03-28 16:54 | PDOC2 ---
CONSULT Date of Consult Date of Consult DATE: 03/28/17 TIME: 16:50 History of Present Illness Reason for Visit: The patient is a 31 year old male who had a prior right lymph node biopsy. Recently he developed increase pain and swelling of the area which prompted him reporting to the hospital. He states that earlier today it "busted" and began draining a large amount of pus. Past Medical History Cardiovascular: No pertinent hx Pulmonary: No pertinent hx GI: No pertinent hx Heme/Onc: Anemia NOS, Other (hemolytic autoimmune) Hepatobiliary: Other Psych: No pertinent hx Rheumatologic: No pertinent hx Past Surgical History Past Surgical History: Other (LN biopsy) Family History Family History: No Significant Social History No ALCOHOL: none Drugs: None Current Problem List Problem List Problems Medical Problems: (1) Cellulitis and abscess of unspecified site Status: Acute Current Medications Current Medications Current Medications Sodium Chloride 1,000 ml @ 1,000 mls/hr 1X ONCE IV Last administered on 11:40; Start 03/28/17 at 11:00; Stop 03/28/17 at 11:59; Status DC Vancomycin HCl 250 ml @ 250 mls/hr 1X ONCE IV Last administered on 03/28/17 12:30; Start 03/28/17 at 11:00; Stop 03/28/17 at 11:59; Status DC Diphtheria/ Tetanus/Acell Pertussis (Boostrix) 0.5 ml ONCE ONCE VAX IM Last administered on 03/28/17 11:43; Start 03/28/17 at 11:00; Stop 03/28/17 at 11:01 ; Status DC Insulin Aspart (NovoLOG) 0-9 UNITS TIDWMEALS SQ ; Start 03/28/17 at 17:00 Dextrose (Dextrose 50%-Water Syringe) 12.5 gm PRN Q15MIN PRN IV SEE COMMENTS; Start 03/28/17 at 14:00 Insulin Detemir (Levemir) 10 units 1X ONCE SQ Last administered on 03/28/17 14:34; Start 03/28/17 at 14:00; Stop 03/28/17 at 14:01; Status DC Prednisone (Prednisone) 30 mg DAILY PO ; Start 03/28/17 at 15:15 Heparin Sodium (Porcine) (Heparin Sq) 5,000 unit BID SQ ; Start 03/28/17 at 21: 00 Active Scripts Active No Active Prescriptions or Reported Medications Allergies Allergies: Coded Allergies: No Known Drug Allergies (Unverified , 02/21/17) ROS PSYCHOLOGICAL ROS: No: Anxiety, Behavioral Disorder, Concentration difficultie , Decreased libido, Depression, Disorientation, Hallucinations, Hostility, Irritablity, Memory difficulties, Mood Swings, Obsessive thoughts, Physical abuse, Sexual abuse, Sleep disturbances, Suicidal ideation, Other Eyes: No Blurry vision, No Decreased vision, No Double vision, No Dry eyes, No Excessive tearing, No Eye Pain, No Itchy Eyes, No Loss of vision, No Photophobia , No Scotomata, No Uses contacts, No Uses glasses, No Other HEENT: No: Heacaches, Visual Changes, Hearing change, Nasal congestion, Nasal discharge, Oral lesions, Sinus pain, Sore Throat, Epistaxis, Sneezing, Snoring, Tinnitus, Vertigo, Vocal changes, Other ALLERGY AND IMMUNOLOGY: No: Hives, Insect Bite Sensitivity, Itchy/Watery Eyes, Nasal Congestion, Post Nasal Drip, Seasonal Allergies, Other Hematological and Lymphatic: No: Bleeding Problems, Blood Clots, Blood Transfusions, Brusing, Night Sweats, Pallor, Swollen Lymph Nodes, Other ENDOCRINE: No: Breast Changes, Galactorrhea, Hair Pattern Changes, Hot Flashes , Malaise/lethargy, Mood Swings, Palpitations, Polydipsia/polyuria, Skin Changes , Temperature Intolerance, Unexpected Weight Changes, Other Cardiovascular: No Chest Pain, No Palpitations, No Orthopnea, No Paroxysmal Noc. Dyspnea, No Edema, No Lt Headedness, No Other Gastrointestinal: No Nausea, No Vomiting, No Abdominal Pain, No Diarrhea, No Constipation, No Melena, No Hematochezia, No Other Genitourinary: No Dysuria, No Frequency, No Incontinence, No Hematuria, No Retention, No Discharge, No Urgency, No Pain, No Flank Pain, No Other, No , No , No , No , No , No , No Musculoskeletal: Yes Other (R axillary drainage, erythema) Neurological: No Behavorial Changes, No Bowel/Bladder ControlChng, No Confusion , No Dizziness, No Gait Disturbance, No Headaches, No Impaired Coord/balance, No Memory Loss, No Numbness/Tingling, No Seizures, No Speech Problems, No Tremors, No Visual Changes, No Weakness, No Other Skin: No Dry Skin, No Eczema, No Hair Changes, No Lumps, No Mole Changes, No Mottling, No Nail Changes, No Pruritus, No Rash, No Skin Lesion Changes, No Other, No Acne Physical Exam General: Alert, Oriented X3 HEENT: Atraumatic Lungs: Clear to auscultation Abdomen: Normal bowel sounds, No tenderness Extremities: Other (R axilla with small amount of drainage, surrounding erythema) Neuro: Normal speech, Strength at 5/5 X4 ext Psych/Mental Status: Mental status NL Vitals VITALS Vital Signs Date Time Temp Pulse Resp B/P (MAP) Pulse Ox O2 Delivery O2 Flow Rate FiO2 03/28/17 13:00 108 20 131/79 (96) 96 Room Air 03/28/17 10:35 99.0 99.0 Labs Labs Laboratory Tests Test 03/28/17 11:20 03/28/17 13:51 03/28/17 16:32 White Blood Count 11.4 x10^3/uL (4.0-11.0) Red Blood Count 4.09 x10^6/uL (4.30-5.70) Hemoglobin 13.1 g/dL (13.0-17.5) Hematocrit 38.1 % (39.0-53.0) Mean Corpuscular Volume 93 fL (79-100) Mean Corpuscular Hemoglobin 32 pg (25-35) Mean Corpuscular Hemoglobin Concent 34 g/dL (31-37) Red Cell Distribution Width 15.4 % (11.5-14.5) Platelet Count 183 x10^3/uL (140-400) Neutrophils (%) (Auto) 91 % (31-73) Lymphocytes (%) (Auto) 5 % (24-48) Monocytes (%) (Auto) 3 % (0-9) Eosinophils (%) (Auto) 0 % (0-3) Basophils (%) (Auto) 0 % (0-3) Neutrophils # (Auto) 10.4 x10^3uL (1.8-7.7) Lymphocytes # (Auto) 0.6 x10^3/uL (1.0-4.8) Monocytes # (Auto) 0.4 x10^3/uL (0.0-1.1) Eosinophils # (Auto) 0.0 x10^3/uL (0.0-0.7) Basophils # (Auto) 0.0 x10^3/uL (0.0-0.2) Segmented Neutrophils % 52 % (35-66) Band Neutrophils % 40 % (0-9) Lymphocytes % 6 % (24-48) Monocytes % 2 % (0-10) Nucleated Red Blood Cells 1 Toxic Granulation Mod Platelet Estimate Adequate (ADEQUATE) Anisocytosis Slight Sodium Level 130 mmol/L (136-145) Potassium Level 4.2 mmol/L (3.5-5.1) Chloride Level 92 mmol/L (98-107) Carbon Dioxide Level 26 mmol/L (21-32) Anion Gap 12 (6-14) Blood Urea Nitrogen 22 mg/dL (8-26) Creatinine 1.3 mg/dL (0.7-1.3) Estimated GFR (Cockcroft-Gault) 64.8 BUN/Creatinine Ratio 17 (6-20) Glucose Level 487 mg/dL (70-99) Lactic Acid Level 1.9 mmol/L (0.4-2.0) Calcium Level 9.4 mg/dL (8.5-10.1) Total Bilirubin 1.3 mg/dL (0.2-1.0) Aspartate Amino Transf (AST/SGOT) 11 U/L (15-37) Alanine Aminotransferase (ALT/SGPT) 28 U/L (16-63) Alkaline Phosphatase 129 U/L (46-116) Total Protein 7.0 g/dL (6.4-8.2) Albumin 3.6 g/dL (3.4-5.0) Albumin/Globulin Ratio 1.1 (1.0-1.7) Glucose (Fingerstick) 362 mg/dL (70-99) 291 mg/dL (70-99) Laboratory Tests Test 03/28/17 11:20 03/28/17 13:51 03/28/17 16:32 White Blood Count 11.4 x10^3/uL (4.0-11.0) Red Blood Count 4.09 x10^6/uL (4.30-5.70) Hemoglobin 13.1 g/dL (13.0-17.5) Hematocrit 38.1 % (39.0-53.0) Mean Corpuscular Volume 93 fL (79-100) Mean Corpuscular Hemoglobin 32 pg (25-35) Mean Corpuscular Hemoglobin Concent 34 g/dL (31-37) Red Cell Distribution Width 15.4 % (11.5-14.5) Platelet Count 183 x10^3/uL (140-400) Neutrophils (%) (Auto) 91 % (31-73) Lymphocytes (%) (Auto) 5 % (24-48) Monocytes (%) (Auto) 3 % (0-9) Eosinophils (%) (Auto) 0 % (0-3) Basophils (%) (Auto) 0 % (0-3) Neutrophils # (Auto) 10.4 x10^3uL (1.8-7.7) Lymphocytes # (Auto) 0.6 x10^3/uL (1.0-4.8) Monocytes # (Auto) 0.4 x10^3/uL (0.0-1.1) Eosinophils # (Auto) 0.0 x10^3/uL (0.0-0.7) Basophils # (Auto) 0.0 x10^3/uL (0.0-0.2) Segmented Neutrophils % 52 % (35-66) Band Neutrophils % 40 % (0-9) Lymphocytes % 6 % (24-48) Monocytes % 2 % (0-10) Nucleated Red Blood Cells 1 Toxic Granulation Mod Platelet Estimate Adequate (ADEQUATE) Anisocytosis Slight Sodium Level 130 mmol/L (136-145) Potassium Level 4.2 mmol/L (3.5-5.1) Chloride Level 92 mmol/L (98-107) Carbon Dioxide Level 26 mmol/L (21-32) Anion Gap 12 (6-14) Blood Urea Nitrogen 22 mg/dL (8-26) Creatinine 1.3 mg/dL (0.7-1.3) Estimated GFR (Cockcroft-Gault) 64.8 BUN/Creatinine Ratio 17 (6-20) Glucose Level 487 mg/dL (70-99) Lactic Acid Level 1.9 mmol/L (0.4-2.0) Calcium Level 9.4 mg/dL (8.5-10.1) Total Bilirubin 1.3 mg/dL (0.2-1.0) Aspartate Amino Transf (AST/SGOT) 11 U/L (15-37) Alanine Aminotransferase (ALT/SGPT) 28 U/L (16-63) Alkaline Phosphatase 129 U/L (46-116) Total Protein 7.0 g/dL (6.4-8.2) Albumin 3.6 g/dL (3.4-5.0) Albumin/Globulin Ratio 1.1 (1.0-1.7) Glucose (Fingerstick) 362 mg/dL (70-99) 291 mg/dL (70-99) Assessment/Plan Assessment/Plan R axillary wound infection S/P lymph node biopsy; recommend drainage, the area has spontaneously drained today and appears decompressed currently with minimal residual fluid; recommend IV abx, will watch for the next day or two to see if spontaneous drainage adequate; if not may need formal I and D in the OR; will follow LOUIS MAYORGA MD Mar 28, 2017 16:54
--- NOTE | 2017-03-28 16:58 | PDOC2 ---
CONSULT Date of Consult Date of Consult DATE: 03/28/17 TIME: 16:47 Past Medical History Cardiovascular: No pertinent hx Pulmonary: No pertinent hx GI: No pertinent hx Heme/Onc: Anemia NOS, Other (hemolytic autoimmune) Hepatobiliary: Other Psych: No pertinent hx Rheumatologic: No pertinent hx Past Surgical History Past Surgical History: Other (LN biopsy) Family History Family History: No Significant Social History No ALCOHOL: none Drugs: None Current Problem List Problem List Problems Medical Problems: (1) Cellulitis and abscess of unspecified site Status: Acute Current Medications Current Medications Current Medications Sodium Chloride 1,000 ml @ 1,000 mls/hr 1X ONCE IV Last administered on 11:40; Start 03/28/17 at 11:00; Stop 03/28/17 at 11:59; Status DC Vancomycin HCl 250 ml @ 250 mls/hr 1X ONCE IV Last administered on 03/28/17 12:30; Start 03/28/17 at 11:00; Stop 03/28/17 at 11:59; Status DC Diphtheria/ Tetanus/Acell Pertussis (Boostrix) 0.5 ml ONCE ONCE VAX IM Last administered on 03/28/17 11:43; Start 03/28/17 at 11:00; Stop 03/28/17 at 11:01 ; Status DC Insulin Aspart (NovoLOG) 0-9 UNITS TIDWMEALS SQ ; Start 03/28/17 at 17:00 Dextrose (Dextrose 50%-Water Syringe) 12.5 gm PRN Q15MIN PRN IV SEE COMMENTS; Start 03/28/17 at 14:00 Insulin Detemir (Levemir) 10 units 1X ONCE SQ Last administered on 03/28/17 14:34; Start 03/28/17 at 14:00; Stop 03/28/17 at 14:01; Status DC Prednisone (Prednisone) 30 mg DAILY PO ; Start 03/28/17 at 15:15 Heparin Sodium (Porcine) (Heparin Sq) 5,000 unit BID SQ ; Start 03/28/17 at 21: 00 Active Scripts Active No Active Prescriptions or Reported Medications Allergies Allergies: Coded Allergies: No Known Drug Allergies (Unverified , 02/21/17) Vitals VITALS Vital Signs Date Time Temp Pulse Resp B/P (MAP) Pulse Ox O2 Delivery O2 Flow Rate FiO2 03/28/17 13:00 108 20 131/79 (96) 96 Room Air 03/28/17 10:35 99.0 99.0 Labs Labs Laboratory Tests Test 03/28/17 11:20 03/28/17 13:51 03/28/17 16:32 White Blood Count 11.4 x10^3/uL (4.0-11.0) Red Blood Count 4.09 x10^6/uL (4.30-5.70) Hemoglobin 13.1 g/dL (13.0-17.5) Hematocrit 38.1 % (39.0-53.0) Mean Corpuscular Volume 93 fL (79-100) Mean Corpuscular Hemoglobin 32 pg (25-35) Mean Corpuscular Hemoglobin Concent 34 g/dL (31-37) Red Cell Distribution Width 15.4 % (11.5-14.5) Platelet Count 183 x10^3/uL (140-400) Neutrophils (%) (Auto) 91 % (31-73) Lymphocytes (%) (Auto) 5 % (24-48) Monocytes (%) (Auto) 3 % (0-9) Eosinophils (%) (Auto) 0 % (0-3) Basophils (%) (Auto) 0 % (0-3) Neutrophils # (Auto) 10.4 x10^3uL (1.8-7.7) Lymphocytes # (Auto) 0.6 x10^3/uL (1.0-4.8) Monocytes # (Auto) 0.4 x10^3/uL (0.0-1.1) Eosinophils # (Auto) 0.0 x10^3/uL (0.0-0.7) Basophils # (Auto) 0.0 x10^3/uL (0.0-0.2) Segmented Neutrophils % 52 % (35-66) Band Neutrophils % 40 % (0-9) Lymphocytes % 6 % (24-48) Monocytes % 2 % (0-10) Nucleated Red Blood Cells 1 Toxic Granulation Mod Platelet Estimate Adequate (ADEQUATE) Anisocytosis Slight Sodium Level 130 mmol/L (136-145) Potassium Level 4.2 mmol/L (3.5-5.1) Chloride Level 92 mmol/L (98-107) Carbon Dioxide Level 26 mmol/L (21-32) Anion Gap 12 (6-14) Blood Urea Nitrogen 22 mg/dL (8-26) Creatinine 1.3 mg/dL (0.7-1.3) Estimated GFR (Cockcroft-Gault) 64.8 BUN/Creatinine Ratio 17 (6-20) Glucose Level 487 mg/dL (70-99) Lactic Acid Level 1.9 mmol/L (0.4-2.0) Calcium Level 9.4 mg/dL (8.5-10.1) Total Bilirubin 1.3 mg/dL (0.2-1.0) Aspartate Amino Transf (AST/SGOT) 11 U/L (15-37) Alanine Aminotransferase (ALT/SGPT) 28 U/L (16-63) Alkaline Phosphatase 129 U/L (46-116) Total Protein 7.0 g/dL (6.4-8.2) Albumin 3.6 g/dL (3.4-5.0) Albumin/Globulin Ratio 1.1 (1.0-1.7) Glucose (Fingerstick) 362 mg/dL (70-99) 291 mg/dL (70-99) Laboratory Tests Test 03/28/17 11:20 03/28/17 13:51 03/28/17 16:32 White Blood Count 11.4 x10^3/uL (4.0-11.0) Red Blood Count 4.09 x10^6/uL (4.30-5.70) Hemoglobin 13.1 g/dL (13.0-17.5) Hematocrit 38.1 % (39.0-53.0) Mean Corpuscular Volume 93 fL (79-100) Mean Corpuscular Hemoglobin 32 pg (25-35) Mean Corpuscular Hemoglobin Concent 34 g/dL (31-37) Red Cell Distribution Width 15.4 % (11.5-14.5) Platelet Count 183 x10^3/uL (140-400) Neutrophils (%) (Auto) 91 % (31-73) Lymphocytes (%) (Auto) 5 % (24-48) Monocytes (%) (Auto) 3 % (0-9) Eosinophils (%) (Auto) 0 % (0-3) Basophils (%) (Auto) 0 % (0-3) Neutrophils # (Auto) 10.4 x10^3uL (1.8-7.7) Lymphocytes # (Auto) 0.6 x10^3/uL (1.0-4.8) Monocytes # (Auto) 0.4 x10^3/uL (0.0-1.1) Eosinophils # (Auto) 0.0 x10^3/uL (0.0-0.7) Basophils # (Auto) 0.0 x10^3/uL (0.0-0.2) Segmented Neutrophils % 52 % (35-66) Band Neutrophils % 40 % (0-9) Lymphocytes % 6 % (24-48) Monocytes % 2 % (0-10) Nucleated Red Blood Cells 1 Toxic Granulation Mod Platelet Estimate Adequate (ADEQUATE) Anisocytosis Slight Sodium Level 130 mmol/L (136-145) Potassium Level 4.2 mmol/L (3.5-5.1) Chloride Level 92 mmol/L (98-107) Carbon Dioxide Level 26 mmol/L (21-32) Anion Gap 12 (6-14) Blood Urea Nitrogen 22 mg/dL (8-26) Creatinine 1.3 mg/dL (0.7-1.3) Estimated GFR (Cockcroft-Gault) 64.8 BUN/Creatinine Ratio 17 (6-20) Glucose Level 487 mg/dL (70-99) Lactic Acid Level 1.9 mmol/L (0.4-2.0) Calcium Level 9.4 mg/dL (8.5-10.1) Total Bilirubin 1.3 mg/dL (0.2-1.0) Aspartate Amino Transf (AST/SGOT) 11 U/L (15-37) Alanine Aminotransferase (ALT/SGPT) 28 U/L (16-63) Alkaline Phosphatase 129 U/L (46-116) Total Protein 7.0 g/dL (6.4-8.2) Albumin 3.6 g/dL (3.4-5.0) Albumin/Globulin Ratio 1.1 (1.0-1.7) Glucose (Fingerstick) 362 mg/dL (70-99) 291 mg/dL (70-99) Assessment/Plan Assessment/Plan DATE OF CONSULTATION: 03/28/2017 HEMATOLOGY ONCOLOGY CONSULTATION REPORT CONSULTATION REQUESTED BY: Dr. 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 HISTORY OF PRESENT ILLNESS: The patient is a 31-year-old gentleman who reports having felt lightheaded on 02/08/2017. He also noticed decreased appetite. On February 09, he started having nausea and vomiting. He reports that he was unable to keep any food down and whenever he tries to eat something, he tends to throw up. He denies any abdominal pain or chest pain. No fevers, chills or night sweats. He has also noticed that his urine has been dark since 02/06/2017 and he thought he was dehydrated and he was trying to drink more water. He was diagnosed with jaundice when he presented to the Emergency Room on 02/12/2017. He denies any prior history of jaundice. No history of liver or spleen problems. He has noticed increasing fatigue. He underwent ultrasound of the liver on 02/12/2017, which revealed gallstones. No evidence of biliary ductal dilatation. Hepatic echotexture was within normal limits. He was noted to have a hemoglobin of 4.4 on 02/12/2017 with an MCV of 100. After transfusion, his hemoglobin was 5.6. In addition, on 02/13/2017, his WBC was decreased to 3.9 and platelet count of 125. His reticulocyte count was elevated at 3.8. His total bilirubin was 9.3 with a direct bilirubin of only 0.8. Flow cytometry to evaluate for PNH 02/13/17 came back as negative. On 02/13/17 Reticulocyte count is 3.8, haptoglobin <10, and LDH 930, but Brittani test is negative. ~ s/p bone marrow biopsy 02/14/17 to evaluate for any primary bone marrow failure. ~Results are neg CT C/A/P on 02/13/17: Splenomegaly. This in conjunction with bilateral axillary adenopathy, periaortic and pelvic adenopathy with some associated mild mediastinal adenopathy suggests possible lymphoma. s/p axillary LN bx 02/15/17. Neg for lymphoma. He received blood transfusion at [facility] and he was discharged on 02/15/2017 and his hemoglobin was 7.0. Follow-up hemoglobin on 02/18/2017 reveals that his hemoglobin has got worse at 4.8 indicating ongoing hemolysis. Hence I admitted him to [facility] in view of severe anemia and started him on prednisone 100 mg p.o. daily 02/18/17. Hb improved to 12.7 on 02/3117. I will decreased prednisone to 40 mg a day from 03/26/2017. He is now admitted for rt axillary abscess on 03/28/17. PAST MEDICAL HISTORY: He denies any medical problems. PAST SURGICAL HISTORY: None. SOCIAL HISTORY: He drinks alcohol occasionally, but denies any heavy alcohol use. No smoking. FAMILY HISTORY: Positive for diabetes. REVIEW OF SYSTEMS: A 14-point review of system was performed. Pertinent positives are mentioned in the history of present illness. Rest of the system review is negative. PHYSICAL EXAMINATION: GENERAL APPEARANCE: The patient is a 31-year-old gentleman who is in no acute cardiorespiratory distress. VITAL SIGNS: reviewed. HEAD: Atraumatic, normocephalic. EYES: He has no evidence of icterus. NECK: Supple. CHEST: Bilaterally symmetrical. No crepitations or rhonchi heard. HEART: S1, S2 normal. ABDOMEN: Soft, nontender. No hepatosplenomegaly. CENTRAL NERVOUS SYSTEM: No focal neurological deficits. LYMPHATICS: No lymphadenopathy. SKIN: No rashes. He has no evidence of icterus. PSYCHOLOGIC: Mood and affect are appropriate. MUSCULOSKELETAL: No joint effusions. LABORATORY DATA: Hb 13.1 IMPRESSION AND PLAN: 1. 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 Pt presented with severe anemia with a hemoglobin of 4.4 on 02/12/2017. ~In addition, he has evidence of leukopenia with a WBC of 3.9 and platelet count 125 on 02/13/2017. His reticulocyte count is elevated at 3.8 along with significant elevation of total bilirubin of 9.3 with direct bilirubin being only 0.8 suggestive of a hemolytic process. ~In addition, the patient reports having noticed dark urine since 02/06/2017. ~The nurse also noted that the urine was dark brown/tea-colored on the morning of 02/13/2017. ~The presence of pancytopenia and dark urine is concerning for paroxysmal nocturnal hemoglobinuria but ~Flow cytometry to evaluate for PNH 02/13/17 came back as negative. On 02/13/17 Reticulocyte count is 3.8, haptoglobin <10, and LDH 930, but Brittani test is negative. s/p bone marrow biopsy 02/14/17 is negative for any primary bone marrow disorders. CT C/A/P on 02/13/17: Splenomegaly. This in conjunction with bilateral axillary adenopathy, periaortic and pelvic adenopathy with some associated mild mediastinal adenopathy suggests possible lymphoma. s/p axillary LN bx 02/15/17 and excisional bx 02/21/17, neg. He received blood transfusion at [facility] and he was discharged on 02/15/2017 and his hemoglobin was 7.0. Follow-up hemoglobin on 02/18/2017 reveals that his hemoglobin has got worse at 4.8 indicating ongoing hemolysis. Hence I admitted him to [facility] in view of severe anemia and started him on prednisone 100 mg p.o. daily 02/18/17. Hb improved to 6.3 on 02/22/17 Hb improved to 8.1 and LDH 589 on 02/25/17 Hb improved to 9.8 on 03/01/17. ~I will decrease prednisone to 80 mg a day from 03/02/2017. ~Shoe Laster was used to help explain to the patient. Hb improved to 11.7 on 03/08/17. ~I decreased prednisone to 60 mg a day from . ~However the patient did not reduce the dose. Hb improved to 12.7 on 03/18/17. ~I decreased~prednisone to 60 mg a day from . Hb improved to 12.7 on 03/26/17. ~I decreased prednisone to 40 mg a day from . Hb improved to 13.1 on 03/28/17. ~I decreased prednisone to 30 mg a day from 03/28 in view of abscess and high blood sugars.. Monitor cbc I d/w DR Phelps 2. Lymphadenopathy - s/p excisional bx rt axillary LN 02/21/17, neg. I will plan for a follow-up CAT scan in April 2017. 3. Cellulitis/Abscess right axillae at site of prior lymph node biopsy, Consult surgery. 4. DM2, very poor control since prednisone started, Management per DR Phelps. STEVEN GIL MD Mar 28, 2017 16:58
[2017-03-28] MEDS: INSULIN ASPART 300 UNITS/3 ML INSULN.PEN SQ SCH (17:13)
[2017-03-28] MEDS ORDERED: PRED20TA PO (17:56)
[2017-03-28] MEDS ORDERED: FOLI1TAB16 PO (17:56)
[2017-03-28 19:00] VITALS: BP 131/81
[2017-03-28] MEDS: HEPARIN PF for SUB-Q USE 5,000 UNIT/0.5 ML VIAL. SQ SCH (20:21)
[2017-03-28 23:04] VITALS: BP 120/75
[2017-03-29 03:00] VITALS: BP 118/69
[2017-03-29 05:06] LABS: BASO % 0 % (0-3); EOS % 0 % (0-3); HEMATOCRIT 32.3 % (39.0-53.0); HEMOGLOBIN 11.3 g/dL (13.0-17.5); LYMPH # 1.3 x10^3/uL (1.0-4.8); LYMPH % 20 % (24-48); MEAN CORPUSCULAR HEMOGLOBIN 32 pg (25-35); MEAN CORPUSCULAR HGB CONC 35 g/dL (31-37); MEAN CORPUSCULAR VOLUME 93 fL (79-100); MONO % 6 % (0-9); NEUT % 74 % (31-73); PLATELET COUNT 158 x10^3/uL (140-400); RED BLOOD COUNT 3.49 x10^6/uL (4.30-5.70); RED CELL DISTRIBUTION WIDTH 15.3 % (11.5-14.5); WHITE BLOOD COUNT 6.6 x10^3/uL (4.0-11.0)
[2017-03-29 05:22] LABS: ALBUMIN 2.8 g/dL (3.4-5.0); ALBUMIN/GLOBULIN RATIO 0.9 (1.0-1.7); CALCIUM 8.9 mg/dL (8.5-10.1); CREATININE 0.8 mg/dL (0.7-1.3); GFR 113.5; TOTAL BILIRUBIN 0.9 mg/dL (0.2-1.0)
[2017-03-29 07:00] VITALS: BP 113/69
--- NOTE | 2017-03-29 07:47 | EKG ---
[facility] [address] [place] [id number] Test Date: 2017-03-29 Test Time: 07:43:34 Pat Name: SARAY SABILLON Department: Room: 420 1 Gender: M Manager Air: BRENDA : 1985 Requested By: RIDDHI GARCIA Order Number: [id number] Reading MD: David Curry MD Measurements Intervals [place] Rate: 86 P: 54 MA: 158 QRS: 26 QRSD: 74 T: 31 QT: 344 QTc: 414 Interpretive Statements SINUS RHYTHM POSSIBLE PERICARDITIS Electronically Signed On 03-30-2017 13:53:58 CDT by David Curry MD
[2017-03-29] MEDS: INSULIN ASPART 300 UNITS/3 ML INSULN.PEN SQ SCH ×3 (08:59→17:09)
[2017-03-29] MEDS: predniSONE 10 MG TABLET PO SCH (08:59)
[2017-03-29] MEDS: HEPARIN PF for SUB-Q USE 5,000 UNIT/0.5 ML VIAL. SQ SCH ×2 (09:00→21:24)
--- NOTE | 2017-03-29 09:06 | PDOC ---
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 ROS - no fever Objective Objective Vital Signs Date Time Temp Pulse Resp B/P (MAP) Pulse Ox O2 Delivery O2 Flow Rate FiO2 03/29/17 07:00 98.7 85 18 113/69 (84) 98 Room Air 98.7 Assessment Assessment Problems Medical Problems: (1) Cellulitis and abscess of unspecified site Status: Acute IMPRESSION AND PLAN: 1. 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 Hb worse at 11.3 on 03/29/17. cont prednisone 30 mg daily. f/u with me next week. Ok to discharge when ok with surgery. Monitor cbc I d/w DR Phelps 2. Lymphadenopathy - s/p excisional bx rt axillary LN 02/21/17, neg. I will plan for a follow-up CAT scan in April 2017. 3. Cellulitis/Abscess right axillae at site of prior lymph node biopsy, Consult surgery. 4. DM2, very poor control since prednisone started, Management per DR Phelps. Comment Review of Relevant I have reviewed the following items sharron (where applicable) has been applied. Labs Laboratory Tests Test 03/28/17 11:20 03/28/17 13:51 03/28/17 16:32 03/28/17 20:27 White Blood Count 11.4 x10^3/uL (4.0-11.0) Red Blood Count 4.09 x10^6/uL (4.30-5.70) Hemoglobin 13.1 g/dL (13.0-17.5) Hematocrit 38.1 % (39.0-53.0) Mean Corpuscular Volume 93 fL (79-100) Mean Corpuscular Hemoglobin 32 pg (25-35) Mean Corpuscular Hemoglobin Concent 34 g/dL (31-37) Red Cell Distribution Width 15.4 % (11.5-14.5) Platelet Count 183 x10^3/uL (140-400) Neutrophils (%) (Auto) 91 % (31-73) Lymphocytes (%) (Auto) 5 % (24-48) Monocytes (%) (Auto) 3 % (0-9) Eosinophils (%) (Auto) 0 % (0-3) Basophils (%) (Auto) 0 % (0-3) Neutrophils # (Auto) 10.4 x10^3uL (1.8-7.7) Lymphocytes # (Auto) 0.6 x10^3/uL (1.0-4.8) Monocytes # (Auto) 0.4 x10^3/uL (0.0-1.1) Eosinophils # (Auto) 0.0 x10^3/uL (0.0-0.7) Basophils # (Auto) 0.0 x10^3/uL (0.0-0.2) Segmented Neutrophils % 52 % (35-66) Band Neutrophils % 40 % (0-9) Lymphocytes % 6 % (24-48) Monocytes % 2 % (0-10) Nucleated Red Blood Cells 1 Toxic Granulation Mod Platelet Estimate Adequate (ADEQUATE) Anisocytosis Slight Sodium Level 130 mmol/L (136-145) Potassium Level 4.2 mmol/L (3.5-5.1) Chloride Level 92 mmol/L (98-107) Carbon Dioxide Level 26 mmol/L (21-32) Anion Gap 12 (6-14) Blood Urea Nitrogen 22 mg/dL (8-26) Creatinine 1.3 mg/dL (0.7-1.3) Estimated GFR (Cockcroft-Gault) 64.8 BUN/Creatinine Ratio 17 (6-20) Glucose Level 487 mg/dL (70-99) Lactic Acid Level 1.9 mmol/L (0.4-2.0) Calcium Level 9.4 mg/dL (8.5-10.1) Total Bilirubin 1.3 mg/dL (0.2-1.0) Aspartate Amino Transf (AST/SGOT) 11 U/L (15-37) Alanine Aminotransferase (ALT/SGPT) 28 U/L (16-63) Alkaline Phosphatase 129 U/L (46-116) Total Protein 7.0 g/dL (6.4-8.2) Albumin 3.6 g/dL (3.4-5.0) Albumin/Globulin Ratio 1.1 (1.0-1.7) Glucose (Fingerstick) 362 mg/dL (70-99) 291 mg/dL (70-99) 277 mg/dL (70-99) Test 03/29/17 04:05 03/29/17 07:14 White Blood Count 6.6 x10^3/uL (4.0-11.0) Red Blood Count 3.49 x10^6/uL (4.30-5.70) Hemoglobin 11.3 g/dL (13.0-17.5) Hematocrit 32.3 % (39.0-53.0) Mean Corpuscular Volume 93 fL (79-100) Mean Corpuscular Hemoglobin 32 pg (25-35) Mean Corpuscular Hemoglobin Concent 35 g/dL (31-37) Red Cell Distribution Width 15.3 % (11.5-14.5) Platelet Count 158 x10^3/uL (140-400) Neutrophils (%) (Auto) 74 % (31-73) Lymphocytes (%) (Auto) 20 % (24-48) Monocytes (%) (Auto) 6 % (0-9) Eosinophils (%) (Auto) 0 % (0-3) Basophils (%) (Auto) 0 % (0-3) Neutrophils # (Auto) 4.8 x10^3uL (1.8-7.7) Lymphocytes # (Auto) 1.3 x10^3/uL (1.0-4.8) Monocytes # (Auto) 0.4 x10^3/uL (0.0-1.1) Eosinophils # (Auto) 0.0 x10^3/uL (0.0-0.7) Basophils # (Auto) 0.0 x10^3/uL (0.0-0.2) Sodium Level 137 mmol/L (136-145) Potassium Level 4.0 mmol/L (3.5-5.1) Chloride Level 101 mmol/L (98-107) Carbon Dioxide Level 30 mmol/L (21-32) Anion Gap 6 (6-14) Blood Urea Nitrogen 20 mg/dL (8-26) Creatinine 0.8 mg/dL (0.7-1.3) Estimated GFR (Cockcroft-Gault) 113.5 BUN/Creatinine Ratio 25 (6-20) Glucose Level 171 mg/dL (70-99) Calcium Level 8.9 mg/dL (8.5-10.1) Total Bilirubin 0.9 mg/dL (0.2-1.0) Aspartate Amino Transf (AST/SGOT) 11 U/L (15-37) Alanine Aminotransferase (ALT/SGPT) 25 U/L (16-63) Alkaline Phosphatase 102 U/L (46-116) Lactate Dehydrogenase 268 U/L (85-227) Total Protein 6.0 g/dL (6.4-8.2) Albumin 2.8 g/dL (3.4-5.0) Albumin/Globulin Ratio 0.9 (1.0-1.7) Glucose (Fingerstick) 188 mg/dL (70-99) Laboratory Tests Test 03/28/17 11:20 03/28/17 13:51 03/28/17 16:32 03/28/17 20:27 White Blood Count 11.4 x10^3/uL (4.0-11.0) Red Blood Count 4.09 x10^6/uL (4.30-5.70) Hemoglobin 13.1 g/dL (13.0-17.5) Hematocrit 38.1 % (39.0-53.0) Mean Corpuscular Volume 93 fL (79-100) Mean Corpuscular Hemoglobin 32 pg (25-35) Mean Corpuscular Hemoglobin Concent 34 g/dL (31-37) Red Cell Distribution Width 15.4 % (11.5-14.5) Platelet Count 183 x10^3/uL (140-400) Neutrophils (%) (Auto) 91 % (31-73) Lymphocytes (%) (Auto) 5 % (24-48) Monocytes (%) (Auto) 3 % (0-9) Eosinophils (%) (Auto) 0 % (0-3) Basophils (%) (Auto) 0 % (0-3) Neutrophils # (Auto) 10.4 x10^3uL (1.8-7.7) Lymphocytes # (Auto) 0.6 x10^3/uL (1.0-4.8) Monocytes # (Auto) 0.4 x10^3/uL (0.0-1.1) Eosinophils # (Auto) 0.0 x10^3/uL (0.0-0.7) Basophils # (Auto) 0.0 x10^3/uL (0.0-0.2) Segmented Neutrophils % 52 % (35-66) Band Neutrophils % 40 % (0-9) Lymphocytes % 6 % (24-48) Monocytes % 2 % (0-10) Nucleated Red Blood Cells 1 Toxic Granulation Mod Platelet Estimate Adequate (ADEQUATE) Anisocytosis Slight Sodium Level 130 mmol/L (136-145) Potassium Level 4.2 mmol/L (3.5-5.1) Chloride Level 92 mmol/L (98-107) Carbon Dioxide Level 26 mmol/L (21-32) Anion Gap 12 (6-14) Blood Urea Nitrogen 22 mg/dL (8-26) Creatinine 1.3 mg/dL (0.7-1.3) Estimated GFR (Cockcroft-Gault) 64.8 BUN/Creatinine Ratio 17 (6-20) Glucose Level 487 mg/dL (70-99) Lactic Acid Level 1.9 mmol/L (0.4-2.0) Calcium Level 9.4 mg/dL (8.5-10.1) Total Bilirubin 1.3 mg/dL (0.2-1.0) Aspartate Amino Transf (AST/SGOT) 11 U/L (15-37) Alanine Aminotransferase (ALT/SGPT) 28 U/L (16-63) Alkaline Phosphatase 129 U/L (46-116) Total Protein 7.0 g/dL (6.4-8.2) Albumin 3.6 g/dL (3.4-5.0) Albumin/Globulin Ratio 1.1 (1.0-1.7) Glucose (Fingerstick) 362 mg/dL (70-99) 291 mg/dL (70-99) 277 mg/dL (70-99) Test 03/29/17 04:05 03/29/17 07:14 White Blood Count 6.6 x10^3/uL (4.0-11.0) Red Blood Count 3.49 x10^6/uL (4.30-5.70) Hemoglobin 11.3 g/dL (13.0-17.5) Hematocrit 32.3 % (39.0-53.0) Mean Corpuscular Volume 93 fL (79-100) Mean Corpuscular Hemoglobin 32 pg (25-35) Mean Corpuscular Hemoglobin Concent 35 g/dL (31-37) Red Cell Distribution Width 15.3 % (11.5-14.5) Platelet Count 158 x10^3/uL (140-400) Neutrophils (%) (Auto) 74 % (31-73) Lymphocytes (%) (Auto) 20 % (24-48) Monocytes (%) (Auto) 6 % (0-9) Eosinophils (%) (Auto) 0 % (0-3) Basophils (%) (Auto) 0 % (0-3) Neutrophils # (Auto) 4.8 x10^3uL (1.8-7.7) Lymphocytes # (Auto) 1.3 x10^3/uL (1.0-4.8) Monocytes # (Auto) 0.4 x10^3/uL (0.0-1.1) Eosinophils # (Auto) 0.0 x10^3/uL (0.0-0.7) Basophils # (Auto) 0.0 x10^3/uL (0.0-0.2) Sodium Level 137 mmol/L (136-145) Potassium Level 4.0 mmol/L (3.5-5.1) Chloride Level 101 mmol/L (98-107) Carbon Dioxide Level 30 mmol/L (21-32) Anion Gap 6 (6-14) Blood Urea Nitrogen 20 mg/dL (8-26) Creatinine 0.8 mg/dL (0.7-1.3) Estimated GFR (Cockcroft-Gault) 113.5 BUN/Creatinine Ratio 25 (6-20) Glucose Level 171 mg/dL (70-99) Calcium Level 8.9 mg/dL (8.5-10.1) Total Bilirubin 0.9 mg/dL (0.2-1.0) Aspartate Amino Transf (AST/SGOT) 11 U/L (15-37) Alanine Aminotransferase (ALT/SGPT) 25 U/L (16-63) Alkaline Phosphatase 102 U/L (46-116) Lactate Dehydrogenase 268 U/L (85-227) Total Protein 6.0 g/dL (6.4-8.2) Albumin 2.8 g/dL (3.4-5.0) Albumin/Globulin Ratio 0.9 (1.0-1.7) Glucose (Fingerstick) 188 mg/dL (70-99) Microbiology 03/28/17 Gram Stain - Final, Complete Medications Current Medications Sodium Chloride 1,000 ml @ 1,000 mls/hr 1X ONCE IV Last administered on t 11:40; Start 03/28/17 at 11:00; Stop 03/28/17 at 11:59; Status DC Vancomycin HCl 250 ml @ 250 mls/hr 1X ONCE IV Last administered on 03/28/17 12:30; Start 03/28/17 at 11:00; Stop 03/28/17 at 11:59; Status DC Diphtheria/ Tetanus/Acell Pertussis (Boostrix) 0.5 ml ONCE ONCE VAX IM Last administered on 03/28/17 11:43; Start 03/28/17 at 11:00; Stop 03/28/17 at 11:01 ; Status DC Insulin Aspart (NovoLOG) 0-9 UNITS TIDWMEALS SQ Last administered on 03/29/17 08:59; Start 03/28/17 at 17:00 Dextrose (Dextrose 50%-Water Syringe) 12.5 gm PRN Q15MIN PRN IV SEE COMMENTS; Start 03/28/17 at 14:00 Insulin Detemir (Levemir) 10 units 1X ONCE SQ Last administered on 03/28/17 14:34; Start 03/28/17 at 14:00; Stop 03/28/17 at 14:01; Status DC Prednisone (Prednisone) 30 mg DAILY PO Last administered on 03/29/17 08:59; Start 03/28/17 at 15:15 Heparin Sodium (Porcine) (Heparin Sq) 5,000 unit BID SQ Last administered on 09:00; Start 03/28/17 at 21:00 Active Scripts Active Reported Prednisone 20 Mg Tablet 40 Mg PO DAILY Folic Acid 1 Mg Tablet 1 Tab PO DAILY Vitals/I & O Vital Sign - Last 24 Hours 03/28/17 03/28/17 03/28/17 03/28/17 10:35 11:00 12:00 13:00 Temp 99.0 99.0 Pulse 130 124 110 108 Resp 24 28 20 20 B/P (MAP) 144/88 (106) 142/94 (110) 139/76 (97) 131/79 (96) Pulse Ox 96 95 95 96 O2 Delivery Room Air Room Air Room Air Room Air 03/28/17 03/28/17 03/28/17 03/28/17 13:40 19:00 20:20 23:04 Temp 98.8 98.0 98.2 98.8 98.0 98.2 Pulse 105 93 83 Resp 18 18 18 B/P (MAP) 129/82 (98) 131/81 (98) 120/75 (90) Pulse Ox 95 99 98 O2 Delivery Room Air Room Air Room Air Room Air 03/29/17 03/29/17 03:00 07:00 Temp 97.6 98.7 97.6 98.7 Pulse 85 85 Resp 18 18 B/P (MAP) 118/69 (85) 113/69 (84) Pulse Ox 98 98 O2 Delivery Room Air Room Air STEVEN GIL MD Mar 29, 2017 09:06
--- NOTE | 2017-03-29 10:06 | PDOC ---
PROGRESS NOTES Chief Complaint Chief Complaint cellulitis and abcess abcess right axillae at sight of prior lymph node biopsy, surg > 1 MO AGO biopsy was for autoimmune hemolytic anemia, hemolytic anemia, immune suppressed on prednisone DM2, very poor control since prednisone started, blood sugars were not that high with stress dose steroids in the hospital before obesity, BMI 35 hyponatremia History of Present Illness History of Present Illness feels better no pain Vitals Vitals Vital Signs Date Time Temp Pulse Resp B/P (MAP) Pulse Ox O2 Delivery O2 Flow Rate FiO2 03/29/17 07:00 98.7 85 18 113/69 (84) 98 Room Air 98.7 Physical Exam General: Alert, Oriented X3, No acute distress Heart: Regular rate, No murmurs Lungs: Clear Abdomen: Normal bowel sounds, No tenderness Extremities: Other (R axilla with small amount of drainage, surrounding erythema) Skin: Other (12 cm area erythema, central induration with open drainage along prior line of incision) Labs LABS Laboratory Tests Test 03/28/17 11:20 03/28/17 13:51 03/28/17 16:32 03/28/17 20:27 White Blood Count 11.4 x10^3/uL (4.0-11.0) Red Blood Count 4.09 x10^6/uL (4.30-5.70) Hemoglobin 13.1 g/dL (13.0-17.5) Hematocrit 38.1 % (39.0-53.0) Mean Corpuscular Volume 93 fL (79-100) Mean Corpuscular Hemoglobin 32 pg (25-35) Mean Corpuscular Hemoglobin Concent 34 g/dL (31-37) Red Cell Distribution Width 15.4 % (11.5-14.5) Platelet Count 183 x10^3/uL (140-400) Neutrophils (%) (Auto) 91 % (31-73) Lymphocytes (%) (Auto) 5 % (24-48) Monocytes (%) (Auto) 3 % (0-9) Eosinophils (%) (Auto) 0 % (0-3) Basophils (%) (Auto) 0 % (0-3) Neutrophils # (Auto) 10.4 x10^3uL (1.8-7.7) Lymphocytes # (Auto) 0.6 x10^3/uL (1.0-4.8) Monocytes # (Auto) 0.4 x10^3/uL (0.0-1.1) Eosinophils # (Auto) 0.0 x10^3/uL (0.0-0.7) Basophils # (Auto) 0.0 x10^3/uL (0.0-0.2) Segmented Neutrophils % 52 % (35-66) Band Neutrophils % 40 % (0-9) Lymphocytes % 6 % (24-48) Monocytes % 2 % (0-10) Nucleated Red Blood Cells 1 Toxic Granulation Mod Platelet Estimate Adequate (ADEQUATE) Anisocytosis Slight Sodium Level 130 mmol/L (136-145) Potassium Level 4.2 mmol/L (3.5-5.1) Chloride Level 92 mmol/L (98-107) Carbon Dioxide Level 26 mmol/L (21-32) Anion Gap 12 (6-14) Blood Urea Nitrogen 22 mg/dL (8-26) Creatinine 1.3 mg/dL (0.7-1.3) Estimated GFR (Cockcroft-Gault) 64.8 BUN/Creatinine Ratio 17 (6-20) Glucose Level 487 mg/dL (70-99) Lactic Acid Level 1.9 mmol/L (0.4-2.0) Calcium Level 9.4 mg/dL (8.5-10.1) Total Bilirubin 1.3 mg/dL (0.2-1.0) Aspartate Amino Transf (AST/SGOT) 11 U/L (15-37) Alanine Aminotransferase (ALT/SGPT) 28 U/L (16-63) Alkaline Phosphatase 129 U/L (46-116) Total Protein 7.0 g/dL (6.4-8.2) Albumin 3.6 g/dL (3.4-5.0) Albumin/Globulin Ratio 1.1 (1.0-1.7) Glucose (Fingerstick) 362 mg/dL (70-99) 291 mg/dL (70-99) 277 mg/dL (70-99) Test 03/29/17 04:05 03/29/17 07:14 White Blood Count 6.6 x10^3/uL (4.0-11.0) Red Blood Count 3.49 x10^6/uL (4.30-5.70) Hemoglobin 11.3 g/dL (13.0-17.5) Hematocrit 32.3 % (39.0-53.0) Mean Corpuscular Volume 93 fL (79-100) Mean Corpuscular Hemoglobin 32 pg (25-35) Mean Corpuscular Hemoglobin Concent 35 g/dL (31-37) Red Cell Distribution Width 15.3 % (11.5-14.5) Platelet Count 158 x10^3/uL (140-400) Neutrophils (%) (Auto) 74 % (31-73) Lymphocytes (%) (Auto) 20 % (24-48) Monocytes (%) (Auto) 6 % (0-9) Eosinophils (%) (Auto) 0 % (0-3) Basophils (%) (Auto) 0 % (0-3) Neutrophils # (Auto) 4.8 x10^3uL (1.8-7.7) Lymphocytes # (Auto) 1.3 x10^3/uL (1.0-4.8) Monocytes # (Auto) 0.4 x10^3/uL (0.0-1.1) Eosinophils # (Auto) 0.0 x10^3/uL (0.0-0.7) Basophils # (Auto) 0.0 x10^3/uL (0.0-0.2) Sodium Level 137 mmol/L (136-145) Potassium Level 4.0 mmol/L (3.5-5.1) Chloride Level 101 mmol/L (98-107) Carbon Dioxide Level 30 mmol/L (21-32) Anion Gap 6 (6-14) Blood Urea Nitrogen 20 mg/dL (8-26) Creatinine 0.8 mg/dL (0.7-1.3) Estimated GFR (Cockcroft-Gault) 113.5 BUN/Creatinine Ratio 25 (6-20) Glucose Level 171 mg/dL (70-99) Calcium Level 8.9 mg/dL (8.5-10.1) Total Bilirubin 0.9 mg/dL (0.2-1.0) Aspartate Amino Transf (AST/SGOT) 11 U/L (15-37) Alanine Aminotransferase (ALT/SGPT) 25 U/L (16-63) Alkaline Phosphatase 102 U/L (46-116) Lactate Dehydrogenase 268 U/L (85-227) Total Protein 6.0 g/dL (6.4-8.2) Albumin 2.8 g/dL (3.4-5.0) Albumin/Globulin Ratio 0.9 (1.0-1.7) Glucose (Fingerstick) 188 mg/dL (70-99) Assessment and Plan Assessmemt and Plan Problems Medical Problems: (1) Cellulitis and abscess of unspecified site Status: Acute Problems: Comment Review of Relevant I have reviewed the following items sharron (where applicable) has been applied. Labs Laboratory Tests Test 03/28/17 11:20 03/28/17 13:51 03/28/17 16:32 03/28/17 20:27 White Blood Count 11.4 x10^3/uL (4.0-11.0) Red Blood Count 4.09 x10^6/uL (4.30-5.70) Hemoglobin 13.1 g/dL (13.0-17.5) Hematocrit 38.1 % (39.0-53.0) Mean Corpuscular Volume 93 fL (79-100) Mean Corpuscular Hemoglobin 32 pg (25-35) Mean Corpuscular Hemoglobin Concent 34 g/dL (31-37) Red Cell Distribution Width 15.4 % (11.5-14.5) Platelet Count 183 x10^3/uL (140-400) Neutrophils (%) (Auto) 91 % (31-73) Lymphocytes (%) (Auto) 5 % (24-48) Monocytes (%) (Auto) 3 % (0-9) Eosinophils (%) (Auto) 0 % (0-3) Basophils (%) (Auto) 0 % (0-3) Neutrophils # (Auto) 10.4 x10^3uL (1.8-7.7) Lymphocytes # (Auto) 0.6 x10^3/uL (1.0-4.8) Monocytes # (Auto) 0.4 x10^3/uL (0.0-1.1) Eosinophils # (Auto) 0.0 x10^3/uL (0.0-0.7) Basophils # (Auto) 0.0 x10^3/uL (0.0-0.2) Segmented Neutrophils % 52 % (35-66) Band Neutrophils % 40 % (0-9) Lymphocytes % 6 % (24-48) Monocytes % 2 % (0-10) Nucleated Red Blood Cells 1 Toxic Granulation Mod Platelet Estimate Adequate (ADEQUATE) Anisocytosis Slight Sodium Level 130 mmol/L (136-145) Potassium Level 4.2 mmol/L (3.5-5.1) Chloride Level 92 mmol/L (98-107) Carbon Dioxide Level 26 mmol/L (21-32) Anion Gap 12 (6-14) Blood Urea Nitrogen 22 mg/dL (8-26) Creatinine 1.3 mg/dL (0.7-1.3) Estimated GFR (Cockcroft-Gault) 64.8 BUN/Creatinine Ratio 17 (6-20) Glucose Level 487 mg/dL (70-99) Lactic Acid Level 1.9 mmol/L (0.4-2.0) Calcium Level 9.4 mg/dL (8.5-10.1) Total Bilirubin 1.3 mg/dL (0.2-1.0) Aspartate Amino Transf (AST/SGOT) 11 U/L (15-37) Alanine Aminotransferase (ALT/SGPT) 28 U/L (16-63) Alkaline Phosphatase 129 U/L (46-116) Total Protein 7.0 g/dL (6.4-8.2) Albumin 3.6 g/dL (3.4-5.0) Albumin/Globulin Ratio 1.1 (1.0-1.7) Glucose (Fingerstick) 362 mg/dL (70-99) 291 mg/dL (70-99) 277 mg/dL (70-99) Test 03/29/17 04:05 03/29/17 07:14 White Blood Count 6.6 x10^3/uL (4.0-11.0) Red Blood Count 3.49 x10^6/uL (4.30-5.70) Hemoglobin 11.3 g/dL (13.0-17.5) Hematocrit 32.3 % (39.0-53.0) Mean Corpuscular Volume 93 fL (79-100) Mean Corpuscular Hemoglobin 32 pg (25-35) Mean Corpuscular Hemoglobin Concent 35 g/dL (31-37) Red Cell Distribution Width 15.3 % (11.5-14.5) Platelet Count 158 x10^3/uL (140-400) Neutrophils (%) (Auto) 74 % (31-73) Lymphocytes (%) (Auto) 20 % (24-48) Monocytes (%) (Auto) 6 % (0-9) Eosinophils (%) (Auto) 0 % (0-3) Basophils (%) (Auto) 0 % (0-3) Neutrophils # (Auto) 4.8 x10^3uL (1.8-7.7) Lymphocytes # (Auto) 1.3 x10^3/uL (1.0-4.8) Monocytes # (Auto) 0.4 x10^3/uL (0.0-1.1) Eosinophils # (Auto) 0.0 x10^3/uL (0.0-0.7) Basophils # (Auto) 0.0 x10^3/uL (0.0-0.2) Sodium Level 137 mmol/L (136-145) Potassium Level 4.0 mmol/L (3.5-5.1) Chloride Level 101 mmol/L (98-107) Carbon Dioxide Level 30 mmol/L (21-32) Anion Gap 6 (6-14) Blood Urea Nitrogen 20 mg/dL (8-26) Creatinine 0.8 mg/dL (0.7-1.3) Estimated GFR (Cockcroft-Gault) 113.5 BUN/Creatinine Ratio 25 (6-20) Glucose Level 171 mg/dL (70-99) Calcium Level 8.9 mg/dL (8.5-10.1) Total Bilirubin 0.9 mg/dL (0.2-1.0) Aspartate Amino Transf (AST/SGOT) 11 U/L (15-37) Alanine Aminotransferase (ALT/SGPT) 25 U/L (16-63) Alkaline Phosphatase 102 U/L (46-116) Lactate Dehydrogenase 268 U/L (85-227) Total Protein 6.0 g/dL (6.4-8.2) Albumin 2.8 g/dL (3.4-5.0) Albumin/Globulin Ratio 0.9 (1.0-1.7) Glucose (Fingerstick) 188 mg/dL (70-99) Laboratory Tests Test 03/28/17 11:20 03/28/17 13:51 03/28/17 16:32 03/28/17 20:27 White Blood Count 11.4 x10^3/uL (4.0-11.0) Red Blood Count 4.09 x10^6/uL (4.30-5.70) Hemoglobin 13.1 g/dL (13.0-17.5) Hematocrit 38.1 % (39.0-53.0) Mean Corpuscular Volume 93 fL (79-100) Mean Corpuscular Hemoglobin 32 pg (25-35) Mean Corpuscular Hemoglobin Concent 34 g/dL (31-37) Red Cell Distribution Width 15.4 % (11.5-14.5) Platelet Count 183 x10^3/uL (140-400) Neutrophils (%) (Auto) 91 % (31-73) Lymphocytes (%) (Auto) 5 % (24-48) Monocytes (%) (Auto) 3 % (0-9) Eosinophils (%) (Auto) 0 % (0-3) Basophils (%) (Auto) 0 % (0-3) Neutrophils # (Auto) 10.4 x10^3uL (1.8-7.7) Lymphocytes # (Auto) 0.6 x10^3/uL (1.0-4.8) Monocytes # (Auto) 0.4 x10^3/uL (0.0-1.1) Eosinophils # (Auto) 0.0 x10^3/uL (0.0-0.7) Basophils # (Auto) 0.0 x10^3/uL (0.0-0.2) Segmented Neutrophils % 52 % (35-66) Band Neutrophils % 40 % (0-9) Lymphocytes % 6 % (24-48) Monocytes % 2 % (0-10) Nucleated Red Blood Cells 1 Toxic Granulation Mod Platelet Estimate Adequate (ADEQUATE) Anisocytosis Slight Sodium Level 130 mmol/L (136-145) Potassium Level 4.2 mmol/L (3.5-5.1) Chloride Level 92 mmol/L (98-107) Carbon Dioxide Level 26 mmol/L (21-32) Anion Gap 12 (6-14) Blood Urea Nitrogen 22 mg/dL (8-26) Creatinine 1.3 mg/dL (0.7-1.3) Estimated GFR (Cockcroft-Gault) 64.8 BUN/Creatinine Ratio 17 (6-20) Glucose Level 487 mg/dL (70-99) Lactic Acid Level 1.9 mmol/L (0.4-2.0) Calcium Level 9.4 mg/dL (8.5-10.1) Total Bilirubin 1.3 mg/dL (0.2-1.0) Aspartate Amino Transf (AST/SGOT) 11 U/L (15-37) Alanine Aminotransferase (ALT/SGPT) 28 U/L (16-63) Alkaline Phosphatase 129 U/L (46-116) Total Protein 7.0 g/dL (6.4-8.2) Albumin 3.6 g/dL (3.4-5.0) Albumin/Globulin Ratio 1.1 (1.0-1.7) Glucose (Fingerstick) 362 mg/dL (70-99) 291 mg/dL (70-99) 277 mg/dL (70-99) Test 03/29/17 04:05 03/29/17 07:14 White Blood Count 6.6 x10^3/uL (4.0-11.0) Red Blood Count 3.49 x10^6/uL (4.30-5.70) Hemoglobin 11.3 g/dL (13.0-17.5) Hematocrit 32.3 % (39.0-53.0) Mean Corpuscular Volume 93 fL (79-100) Mean Corpuscular Hemoglobin 32 pg (25-35) Mean Corpuscular Hemoglobin Concent 35 g/dL (31-37) Red Cell Distribution Width 15.3 % (11.5-14.5) Platelet Count 158 x10^3/uL (140-400) Neutrophils (%) (Auto) 74 % (31-73) Lymphocytes (%) (Auto) 20 % (24-48) Monocytes (%) (Auto) 6 % (0-9) Eosinophils (%) (Auto) 0 % (0-3) Basophils (%) (Auto) 0 % (0-3) Neutrophils # (Auto) 4.8 x10^3uL (1.8-7.7) Lymphocytes # (Auto) 1.3 x10^3/uL (1.0-4.8) Monocytes # (Auto) 0.4 x10^3/uL (0.0-1.1) Eosinophils # (Auto) 0.0 x10^3/uL (0.0-0.7) Basophils # (Auto) 0.0 x10^3/uL (0.0-0.2) Sodium Level 137 mmol/L (136-145) Potassium Level 4.0 mmol/L (3.5-5.1) Chloride Level 101 mmol/L (98-107) Carbon Dioxide Level 30 mmol/L (21-32) Anion Gap 6 (6-14) Blood Urea Nitrogen 20 mg/dL (8-26) Creatinine 0.8 mg/dL (0.7-1.3) Estimated GFR (Cockcroft-Gault) 113.5 BUN/Creatinine Ratio 25 (6-20) Glucose Level 171 mg/dL (70-99) Calcium Level 8.9 mg/dL (8.5-10.1) Total Bilirubin 0.9 mg/dL (0.2-1.0) Aspartate Amino Transf (AST/SGOT) 11 U/L (15-37) Alanine Aminotransferase (ALT/SGPT) 25 U/L (16-63) Alkaline Phosphatase 102 U/L (46-116) Lactate Dehydrogenase 268 U/L (85-227) Total Protein 6.0 g/dL (6.4-8.2) Albumin 2.8 g/dL (3.4-5.0) Albumin/Globulin Ratio 0.9 (1.0-1.7) Glucose (Fingerstick) 188 mg/dL (70-99) Microbiology 03/28/17 Gram Stain - Final, Complete Medications Current Medications Sodium Chloride 1,000 ml @ 1,000 mls/hr 1X ONCE IV Last administered on 11:40; Start 03/28/17 at 11:00; Stop 03/28/17 at 11:59; Status DC Vancomycin HCl 250 ml @ 250 mls/hr 1X ONCE IV Last administered on 03/28/17 12:30; Start 03/28/17 at 11:00; Stop 03/28/17 at 11:59; Status DC Diphtheria/ Tetanus/Acell Pertussis (Boostrix) 0.5 ml ONCE ONCE VAX IM Last administered on 03/28/17 11:43; Start 03/28/17 at 11:00; Stop 03/28/17 at 11:01 ; Status DC Insulin Aspart (NovoLOG) 0-9 UNITS TIDWMEALS SQ Last administered on 03/29/17 08:59; Start 03/28/17 at 17:00 Dextrose (Dextrose 50%-Water Syringe) 12.5 gm PRN Q15MIN PRN IV SEE COMMENTS; Start 03/28/17 at 14:00 Insulin Detemir (Levemir) 10 units 1X ONCE SQ Last administered on 03/28/17 14:34; Start 03/28/17 at 14:00; Stop 03/28/17 at 14:01; Status DC Prednisone (Prednisone) 30 mg DAILY PO Last administered on 03/29/17 08:59; Start 03/28/17 at 15:15 Heparin Sodium (Porcine) (Heparin Sq) 5,000 unit BID SQ Last administered on 09:00; Start 03/28/17 at 21:00 Active Scripts Active Reported Prednisone 20 Mg Tablet 40 Mg PO DAILY Folic Acid 1 Mg Tablet 1 Tab PO DAILY Vitals/I & O Vital Sign - Last 24 Hours 03/28/17 03/28/17 03/28/17 03/28/17 10:35 11:00 12:00 13:00 Temp 99.0 99.0 Pulse 130 124 110 108 Resp 24 28 20 20 B/P (MAP) 144/88 (106) 142/94 (110) 139/76 (97) 131/79 (96) Pulse Ox 96 95 95 96 O2 Delivery Room Air Room Air Room Air Room Air 03/28/17 03/28/17 03/28/17 03/28/17 13:40 19:00 20:20 23:04 Temp 98.8 98.0 98.2 98.8 98.0 98.2 Pulse 105 93 83 Resp 18 18 18 B/P (MAP) 129/82 (98) 131/81 (98) 120/75 (90) Pulse Ox 95 99 98 O2 Delivery Room Air Room Air Room Air Room Air 03/29/17 03/29/17 03:00 07:00 Temp 97.6 98.7 97.6 98.7 Pulse 85 85 Resp 18 18 B/P (MAP) 118/69 (85) 113/69 (84) Pulse Ox 98 98 O2 Delivery Room Air Room Air SALOMON CAAL MD Mar 29, 2017 10:06
[2017-03-29 11:00] VITALS: BP 116/68
--- NOTE | 2017-03-29 11:46 | PDOC ---
SURGICAL PROGRESS NOTE Subjective Ab Moreno no new complaints asking about going home Vital Signs Vital Signs Date Time Temp Pulse Resp B/P (MAP) Pulse Ox O2 Delivery O2 Flow Rate FiO2 03/29/17 11:00 98.1 92 18 116/68 (84) 96 Room Air 98.1 PATIENT HAS A CHEN: No Extremities: Other (right axilla with purulent drainage, minimal induration) Labs Laboratory Tests Test 03/28/17 11:20 03/28/17 13:51 03/28/17 16:32 03/28/17 20:27 White Blood Count 11.4 x10^3/uL (4.0-11.0) Red Blood Count 4.09 x10^6/uL (4.30-5.70) Hemoglobin 13.1 g/dL (13.0-17.5) Hematocrit 38.1 % (39.0-53.0) Mean Corpuscular Volume 93 fL (79-100) Mean Corpuscular Hemoglobin 32 pg (25-35) Mean Corpuscular Hemoglobin Concent 34 g/dL (31-37) Red Cell Distribution Width 15.4 % (11.5-14.5) Platelet Count 183 x10^3/uL (140-400) Neutrophils (%) (Auto) 91 % (31-73) Lymphocytes (%) (Auto) 5 % (24-48) Monocytes (%) (Auto) 3 % (0-9) Eosinophils (%) (Auto) 0 % (0-3) Basophils (%) (Auto) 0 % (0-3) Neutrophils # (Auto) 10.4 x10^3uL (1.8-7.7) Lymphocytes # (Auto) 0.6 x10^3/uL (1.0-4.8) Monocytes # (Auto) 0.4 x10^3/uL (0.0-1.1) Eosinophils # (Auto) 0.0 x10^3/uL (0.0-0.7) Basophils # (Auto) 0.0 x10^3/uL (0.0-0.2) Segmented Neutrophils % 52 % (35-66) Band Neutrophils % 40 % (0-9) Lymphocytes % 6 % (24-48) Monocytes % 2 % (0-10) Nucleated Red Blood Cells 1 Toxic Granulation Mod Platelet Estimate Adequate (ADEQUATE) Anisocytosis Slight Sodium Level 130 mmol/L (136-145) Potassium Level 4.2 mmol/L (3.5-5.1) Chloride Level 92 mmol/L (98-107) Carbon Dioxide Level 26 mmol/L (21-32) Anion Gap 12 (6-14) Blood Urea Nitrogen 22 mg/dL (8-26) Creatinine 1.3 mg/dL (0.7-1.3) Estimated GFR (Cockcroft-Gault) 64.8 BUN/Creatinine Ratio 17 (6-20) Glucose Level 487 mg/dL (70-99) Lactic Acid Level 1.9 mmol/L (0.4-2.0) Calcium Level 9.4 mg/dL (8.5-10.1) Total Bilirubin 1.3 mg/dL (0.2-1.0) Aspartate Amino Transf (AST/SGOT) 11 U/L (15-37) Alanine Aminotransferase (ALT/SGPT) 28 U/L (16-63) Alkaline Phosphatase 129 U/L (46-116) Total Protein 7.0 g/dL (6.4-8.2) Albumin 3.6 g/dL (3.4-5.0) Albumin/Globulin Ratio 1.1 (1.0-1.7) Glucose (Fingerstick) 362 mg/dL (70-99) 291 mg/dL (70-99) 277 mg/dL (70-99) Test 03/29/17 04:05 03/29/17 07:14 03/29/17 11:23 White Blood Count 6.6 x10^3/uL (4.0-11.0) Red Blood Count 3.49 x10^6/uL (4.30-5.70) Hemoglobin 11.3 g/dL (13.0-17.5) Hematocrit 32.3 % (39.0-53.0) Mean Corpuscular Volume 93 fL (79-100) Mean Corpuscular Hemoglobin 32 pg (25-35) Mean Corpuscular Hemoglobin Concent 35 g/dL (31-37) Red Cell Distribution Width 15.3 % (11.5-14.5) Platelet Count 158 x10^3/uL (140-400) Neutrophils (%) (Auto) 74 % (31-73) Lymphocytes (%) (Auto) 20 % (24-48) Monocytes (%) (Auto) 6 % (0-9) Eosinophils (%) (Auto) 0 % (0-3) Basophils (%) (Auto) 0 % (0-3) Neutrophils # (Auto) 4.8 x10^3uL (1.8-7.7) Lymphocytes # (Auto) 1.3 x10^3/uL (1.0-4.8) Monocytes # (Auto) 0.4 x10^3/uL (0.0-1.1) Eosinophils # (Auto) 0.0 x10^3/uL (0.0-0.7) Basophils # (Auto) 0.0 x10^3/uL (0.0-0.2) Reticulocyte Count (auto) 2.7 % (0.5-2.5) Sodium Level 137 mmol/L (136-145) Potassium Level 4.0 mmol/L (3.5-5.1) Chloride Level 101 mmol/L (98-107) Carbon Dioxide Level 30 mmol/L (21-32) Anion Gap 6 (6-14) Blood Urea Nitrogen 20 mg/dL (8-26) Creatinine 0.8 mg/dL (0.7-1.3) Estimated GFR (Cockcroft-Gault) 113.5 BUN/Creatinine Ratio 25 (6-20) Glucose Level 171 mg/dL (70-99) Calcium Level 8.9 mg/dL (8.5-10.1) Total Bilirubin 0.9 mg/dL (0.2-1.0) Aspartate Amino Transf (AST/SGOT) 11 U/L (15-37) Alanine Aminotransferase (ALT/SGPT) 25 U/L (16-63) Alkaline Phosphatase 102 U/L (46-116) Lactate Dehydrogenase 268 U/L (85-227) Total Protein 6.0 g/dL (6.4-8.2) Albumin 2.8 g/dL (3.4-5.0) Albumin/Globulin Ratio 0.9 (1.0-1.7) Glucose (Fingerstick) 188 mg/dL (70-99) 271 mg/dL (70-99) Laboratory Tests Test 03/28/17 13:51 03/28/17 16:32 03/28/17 20:27 03/29/17 04:05 Glucose (Fingerstick) 362 mg/dL (70-99) 291 mg/dL (70-99) 277 mg/dL (70-99) White Blood Count 6.6 x10^3/uL (4.0-11.0) Red Blood Count 3.49 x10^6/uL (4.30-5.70) Hemoglobin 11.3 g/dL (13.0-17.5) Hematocrit 32.3 % (39.0-53.0) Mean Corpuscular Volume 93 fL (79-100) Mean Corpuscular Hemoglobin 32 pg (25-35) Mean Corpuscular Hemoglobin Concent 35 g/dL (31-37) Red Cell Distribution Width 15.3 % (11.5-14.5) Platelet Count 158 x10^3/uL (140-400) Neutrophils (%) (Auto) 74 % (31-73) Lymphocytes (%) (Auto) 20 % (24-48) Monocytes (%) (Auto) 6 % (0-9) Eosinophils (%) (Auto) 0 % (0-3) Basophils (%) (Auto) 0 % (0-3) Neutrophils # (Auto) 4.8 x10^3uL (1.8-7.7) Lymphocytes # (Auto) 1.3 x10^3/uL (1.0-4.8) Monocytes # (Auto) 0.4 x10^3/uL (0.0-1.1) Eosinophils # (Auto) 0.0 x10^3/uL (0.0-0.7) Basophils # (Auto) 0.0 x10^3/uL (0.0-0.2) Reticulocyte Count (auto) 2.7 % (0.5-2.5) Sodium Level 137 mmol/L (136-145) Potassium Level 4.0 mmol/L (3.5-5.1) Chloride Level 101 mmol/L (98-107) Carbon Dioxide Level 30 mmol/L (21-32) Anion Gap 6 (6-14) Blood Urea Nitrogen 20 mg/dL (8-26) Creatinine 0.8 mg/dL (0.7-1.3) Estimated GFR (Cockcroft-Gault) 113.5 BUN/Creatinine Ratio 25 (6-20) Glucose Level 171 mg/dL (70-99) Calcium Level 8.9 mg/dL (8.5-10.1) Total Bilirubin 0.9 mg/dL (0.2-1.0) Aspartate Amino Transf (AST/SGOT) 11 U/L (15-37) Alanine Aminotransferase (ALT/SGPT) 25 U/L (16-63) Alkaline Phosphatase 102 U/L (46-116) Lactate Dehydrogenase 268 U/L (85-227) Total Protein 6.0 g/dL (6.4-8.2) Albumin 2.8 g/dL (3.4-5.0) Albumin/Globulin Ratio 0.9 (1.0-1.7) Test 03/29/17 07:14 03/29/17 11:23 Glucose (Fingerstick) 188 mg/dL (70-99) 271 mg/dL (70-99) Problem List Problems Medical Problems: (1) Cellulitis and abscess of unspecified site Status: Acute Assessment/Plan right axillary abscess with spontaneous drainage no new surg recs home when able to be on PO Abx Problems: DEISY HE MD Mar 29, 2017 11:46
[2017-03-29 15:00] VITALS: BP 117/73
[2017-03-29 19:00] VITALS: BP 123/70
--- NOTE | 2017-03-29 19:27 | EKG ---
[facility] [address] [place] [address] Test Date: 2017-03-29 Test Time: 19:23:33 Pat Name: SARAY SABILLON Department: Room: 420 1 Gender: M Aco Coordinator: TIA : 1985 Requested By: JET ANTOINE Order Number: [id number] Reading MD: David Curry MD Measurements Intervals Branch Rate: 85 P: 49 GA: 142 QRS: 12 QRSD: 80 T: 21 QT: 342 QTc: 412 Interpretive Statements SINUS RHYTHM ST & T ABNORMALITY, CONSIDER RECENT INFERIOR MYOCARDIAL OR PERICARDIAL DAMAGE Electronically Signed On 03-30-2017 14:10:22 CDT by David Curry MD
[2017-03-29 20:05] LABS: CKMB MASS < 0.5 ng/mL (0.0-3.6); CREATINE KINASE 19 U/L (39-308)
--- NOTE | 2017-03-29 21:51 | CONS ---
DATE OF CONSULTATION: 03/29/2017 REQUESTING PHYSICIAN: Dr. Phelps. REASON FOR CONSULTATION: Right axillary abscess. HISTORY OF PRESENT ILLNESS: This is a 31-year-old gentleman who had right axillary biopsy done about a month or so ago and now, he started with swelling, pain and drainage of francis purulent stuff. The patient had ultrasound done, which showed abscess. The patient was going to go for the, I believe I and D, although he started draining before then. The patient denies any fevers, chills, nausea, vomiting, diarrhea. Gram stain is positive with Gram-positive cocci. The patient is receiving vancomycin. The patient is feeling fine. Denies any nausea, vomiting, diarrhea, chest pain, shortness of breath, abdominal pain, urinary symptoms or bowel symptoms. PAST MEDICAL HISTORY: Positive for anemia, hemolytic autoimmune anemia and lymphadenopathy. Lymph node was negative for any infection, although the cultures were not done, but the fungal and AFB stains were negative and I had done other workup for infection that was negative. SOCIAL HISTORY: Negative for smoking, alcohol, illicit drug use. ALLERGIES: No known drug allergies. CURRENT MEDICATIONS: The patient is on vancomycin. REVIEW OF SYSTEMS: As per HPI, all other systems reviewed are negative. PHYSICAL EXAMINATION: GENERAL: Alert, oriented gentleman, not in distress. VITAL SIGNS: Stable, afebrile. HEENT: NAD. NECK: Supple, no JVP, no lymphadenopathy. LUNGS: Clear. HEART: S1, S2 regular. ABDOMEN: Benign. EXTREMITIES: No edema, cyanosis. SKIN: Right axillary area has open wound with francis purulence coming out with surrounding erythema and induration present. NEUROLOGIC: The patient is neurologically intact. LABORATORY DATA: White count is normal. BUN and creatinine is normal. Gram stain is Gram-positive cocci, culture is pending. IMPRESSION: 1. Right axillary abscess, status post lymph node biopsy, most likely is going to be Staphylococcus aureus, identification and susceptibilities are pending. 2. Hemolytic anemia. 3. Lymphadenopathy. RECOMMENDATIONS: Continue vancomycin, soon to be able to change to oral as part of the susceptibilities, either is going to be Keflex or Zyvox, then the patient can be discharged Thank you very much, Dr. Phelps for giving me the opportunity to participate in this patient's care. OTTONIEL HOLM MD DR: MYLA/yono JOB#: [id number] / [id number]
[2017-03-29 23:00] VITALS: BP 127/86
[2017-03-30 03:00] VITALS: BP 107/71
[2017-03-30 07:00] VITALS: BP 104/71
[2017-03-30] MEDS: INSULIN ASPART 300 UNITS/3 ML INSULN.PEN SQ SCH ×3 (08:00→17:21)
[2017-03-30] MEDS: predniSONE 10 MG TABLET PO SCH (09:25)
[2017-03-30] MEDS: HEPARIN PF for SUB-Q USE 5,000 UNIT/0.5 ML VIAL. SQ SCH ×3 (09:30→22:57)
[2017-03-30] MEDS ORDERED: MORPHINE SULFATE 4 MG/ML DISP.SYRIN. IV PRN (10:00)
[2017-03-30] MEDS ORDERED: VANCOMYCIN PER PHARMACY MC PRN (10:00)
[2017-03-30] MEDS ORDERED: ACETAMINOPHEN 325 MG TABLET. PO PRN (10:00)
[2017-03-30] MEDS ORDERED: DOCUSATE SODIUM 100 MG CAPSULE. PO PRN (10:00)
[2017-03-30] MEDS ORDERED: VANCOMYCIN 2 GM in IV DEXTROSE 5% 500 ML IV SCH (10:00)
[2017-03-30] MEDS ORDERED: hydrALAZINE 20 MG/ML VIAL. IVP PRN (10:00)
[2017-03-30] MEDS ORDERED: traMADol 50 MG TABLET PO PRN (10:00)
[2017-03-30] MEDS ORDERED: ONDANSETRON PF 4 MG/2 ML VIAL. IV PRN (10:00)
[2017-03-30] MEDS ORDERED: VANCOMYCIN 2 GM in IV DEXTROSE 5% 500 ML IV ONE (10:30)
[2017-03-30 11:00] VITALS: BP 116/70
--- NOTE | 2017-03-30 12:30 | PDOC ---
Infectious Disease Note Subjective Subjective Hoping to go home soon Denies pain ROS ROS GEN: Denies fevers, chills, sweats CV: Denies chest pain RESP: Denies shortness of air, cough GI: Denies n/v/d Vital Sign Vital Signs Vital Signs Date Time Temp Pulse Resp B/P (MAP) Pulse Ox O2 Delivery O2 Flow Rate FiO2 03/30/17 11:00 98.7 79 14 116/70 (85) 97 Room Air 98.7 Physical Exam PHYSICAL EXAM GENERAL: propped up in bed, eating LUNGS: Clear HEART: S1S2, no gallop, no murmur ABD: Soft, NT EXT: No edema, no cyanosis PRODUCTION SUPPLY EQUIPMENT TENDER: Alert, oriented x 3, no focal neurologic deficit SKIN: No rash. Right axillary wound clean, Less induration and redness, no drainage/odor IV: ok Labs Lab Laboratory Tests Test 03/29/17 16:34 03/29/17 18:50 03/29/17 21:28 03/30/17 07:20 Glucose (Fingerstick) 283 mg/dL (70-99) 225 mg/dL (70-99) 145 mg/dL (70-99) Creatine Kinase 19 U/L (39-308) Creatine Kinase MB (Mass) < 0.5 ng/mL (0.0-3.6) Creatine Kinase MB Relative Index % (0-4) Troponin I Quantitative < 0.017 ng/mL (0.000-0.055) Test 03/30/17 11:29 Glucose (Fingerstick) 247 mg/dL (70-99) Micro AEROBIC RES 1 Final Staphylococcus aureus AEROBIC RES 2 Final Comment Coagulase negative Staphylococcus species. Heavy growth Antibiotic RSLT#1 RSLT#2 Ciprofloxacin S Clindamycin R Erythromycin R Gentamicin S Levofloxacin S Linezolid S Moxifloxacin S Oxacillin S Penicillin R Quinupristin/Dalfopristin S Rifampin S Tetracycline S Trimethoprim/Sulfa S Vancomycin S Objective Assessment 1. Right axillary abscess, status post lymph node biopsy, MSSA & CoNS 03/28 2. Hemolytic anemia. 3. Lymphadenopathy On prednisone ? cause for Hyperglycemia Plan Plan of Care D/c vancomycin, change to po Keflex for 10 days Ok to d/c home from ID standpoint D/w family Attending Co-Sign Attending Co-Sign The patient was seen and interviewed as well as examined at the bedside. The chart was reviewed. The case was discussed. Agree with the plan of care. YOLI FINN APRN Mar 30, 2017 12:30 JAVAN MCDERMOTT MD Mar 30, 2017 14:47
--- NOTE | 2017-03-30 13:33 | PDOC ---
PROGRESS NOTES Subjective Subjective doing ok, improving Objective Objective Vital Signs Date Time Temp Pulse Resp B/P (MAP) Pulse Ox O2 Delivery O2 Flow Rate FiO2 03/30/17 11:00 98.7 79 14 116/70 (85) 97 Room Air 98.7 Physical Exam Physical Exam axillary wound open, draining Assessment Assessment Problems Medical Problems: (1) Cellulitis and abscess of unspecified site Status: Acute Plan Plan of Care Improving with drainage/abx; would probably prefer bone drier operator wound packing (plain gauze), as opposed to moist packing (aquacel); want to facilitate drainage Comment Review of Relevant I have reviewed the following items sharron (where applicable) has been applied. Labs Laboratory Tests Test 03/28/17 13:51 03/28/17 16:32 03/28/17 20:27 03/29/17 04:05 Glucose (Fingerstick) 362 mg/dL (70-99) 291 mg/dL (70-99) 277 mg/dL (70-99) White Blood Count 6.6 x10^3/uL (4.0-11.0) Red Blood Count 3.49 x10^6/uL (4.30-5.70) Hemoglobin 11.3 g/dL (13.0-17.5) Hematocrit 32.3 % (39.0-53.0) Mean Corpuscular Volume 93 fL (79-100) Mean Corpuscular Hemoglobin 32 pg (25-35) Mean Corpuscular Hemoglobin Concent 35 g/dL (31-37) Red Cell Distribution Width 15.3 % (11.5-14.5) Platelet Count 158 x10^3/uL (140-400) Neutrophils (%) (Auto) 74 % (31-73) Lymphocytes (%) (Auto) 20 % (24-48) Monocytes (%) (Auto) 6 % (0-9) Eosinophils (%) (Auto) 0 % (0-3) Basophils (%) (Auto) 0 % (0-3) Neutrophils # (Auto) 4.8 x10^3uL (1.8-7.7) Lymphocytes # (Auto) 1.3 x10^3/uL (1.0-4.8) Monocytes # (Auto) 0.4 x10^3/uL (0.0-1.1) Eosinophils # (Auto) 0.0 x10^3/uL (0.0-0.7) Basophils # (Auto) 0.0 x10^3/uL (0.0-0.2) Reticulocyte Count (auto) 2.7 % (0.5-2.5) Sodium Level 137 mmol/L (136-145) Potassium Level 4.0 mmol/L (3.5-5.1) Chloride Level 101 mmol/L (98-107) Carbon Dioxide Level 30 mmol/L (21-32) Anion Gap 6 (6-14) Blood Urea Nitrogen 20 mg/dL (8-26) Creatinine 0.8 mg/dL (0.7-1.3) Estimated GFR (Cockcroft-Gault) 113.5 BUN/Creatinine Ratio 25 (6-20) Glucose Level 171 mg/dL (70-99) Hemoglobin A1c 7.5 % (4.8-5.6) Calcium Level 8.9 mg/dL (8.5-10.1) Total Bilirubin 0.9 mg/dL (0.2-1.0) Aspartate Amino Transf (AST/SGOT) 11 U/L (15-37) Alanine Aminotransferase (ALT/SGPT) 25 U/L (16-63) Alkaline Phosphatase 102 U/L (46-116) Lactate Dehydrogenase 268 U/L (85-227) Total Protein 6.0 g/dL (6.4-8.2) Albumin 2.8 g/dL (3.4-5.0) Albumin/Globulin Ratio 0.9 (1.0-1.7) Test 03/29/17 07:14 03/29/17 11:23 03/29/17 16:34 03/29/17 18:50 Glucose (Fingerstick) 188 mg/dL (70-99) 271 mg/dL (70-99) 283 mg/dL (70-99) Creatine Kinase 19 U/L (39-308) Creatine Kinase MB (Mass) < 0.5 ng/mL (0.0-3.6) Creatine Kinase MB Relative Index % (0-4) Troponin I Quantitative < 0.017 ng/mL (0.000-0.055) Test 03/29/17 21:28 03/30/17 07:20 03/30/17 11:29 Glucose (Fingerstick) 225 mg/dL (70-99) 145 mg/dL (70-99) 247 mg/dL (70-99) Laboratory Tests Test 03/29/17 16:34 03/29/17 18:50 03/29/17 21:28 03/30/17 07:20 Glucose (Fingerstick) 283 mg/dL (70-99) 225 mg/dL (70-99) 145 mg/dL (70-99) Creatine Kinase 19 U/L (39-308) Creatine Kinase MB (Mass) < 0.5 ng/mL (0.0-3.6) Creatine Kinase MB Relative Index % (0-4) Troponin I Quantitative < 0.017 ng/mL (0.000-0.055) Test 03/30/17 11:29 Glucose (Fingerstick) 247 mg/dL (70-99) Microbiology 03/28/17 Blood Culture - Preliminary, Resulted NO GROWTH AFTER 2 DAYS 03/28/17 Gram Stain - Final, Complete Medications Current Medications Sodium Chloride 1,000 ml @ 1,000 mls/hr 1X ONCE IV Last administered on 11:40; Start 03/28/17 at 11:00; Stop 03/28/17 at 11:59; Status DC Vancomycin HCl 250 ml @ 250 mls/hr 1X ONCE IV Last administered on 03/28/17 12:30; Start 03/28/17 at 11:00; Stop 03/28/17 at 11:59; Status DC Diphtheria/ Tetanus/Acell Pertussis (Boostrix) 0.5 ml ONCE ONCE VAX IM Last administered on 03/28/17 11:43; Start 03/28/17 at 11:00; Stop 03/28/17 at 11:01 ; Status DC Insulin Aspart (NovoLOG) 0-9 UNITS TIDWMEALS SQ Last administered on 03/29/17 17:09; Start 03/28/17 at 17:00 Dextrose (Dextrose 50%-Water Syringe) 12.5 gm PRN Q15MIN PRN IV SEE COMMENTS; Start 03/28/17 at 14:00 Insulin Detemir (Levemir) 10 units 1X ONCE SQ Last administered on 03/28/17 14:34; Start 03/28/17 at 14:00; Stop 03/28/17 at 14:01; Status DC Prednisone (Prednisone) 30 mg DAILY PO Last administered on 03/30/17 09:25; Start 03/28/17 at 15:15 Heparin Sodium (Porcine) (Heparin Sq) 5,000 unit BID SQ Last administered on 09:30; Start 03/28/17 at 21:00; Stop 03/30/17 at 13:31; Status DC Folic Acid (Folic Acid) 1 mg DAILY PO ; Start 03/30/17 at 11:00 Acetaminophen (Tylenol) 650 mg PRN Q6HRS PRN PO FEVER; Start 03/30/17 at 10:00 Ondansetron HCl (Zofran) 4 mg PRN Q6HRS PRN IV NAUSEA/VOMITING; Start 03/30/17 at 10:00 Morphine Sulfate 2 mg PRN Q2HR PRN IV PAIN; Start 03/30/17 at 10:00 Tramadol HCl (Ultram) 50 mg PRN Q6HRS PRN PO PAIN; Start 03/30/17 at 10:00 Hydralazine HCl (Apresoline Inj) 10 mg PRN Q4HRS PRN IVP ELEVATED BP, SEE COMMENTS; Start 03/30/17 at 10:00 Docusate Sodium (Colace) 100 mg PRN DAILY PRN PO CONSTIPATION; Start 03/30/17 at 10:00 Vancomycin HCl 2 gm/Dextrose 500 ml @ 250 mls/hr Q12H IV ; Start 03/30/17 at 10 :00; Status UNV Vancomycin HCl (Vanco Per Pharmacy) 1 each PRN DAILY PRN MC SEE COMMENTS; Start 03/30/17 at 10:00 Vancomycin HCl 2 gm/Dextrose 500 ml @ 250 mls/hr 1X ONCE IV ; Start 03/30/17 at 10:30; Stop 03/30/17 at 12:29; Status DC Heparin Sodium (Porcine) (Heparin Sq) 5,000 unit TID SQ ; Start 03/30/17 at 14: 00; Status UNV Metformin HCl (Glucophage) 500 mg BIDWMEALS PO ; Start 03/30/17 at 17:00; Status UNV Active Scripts Active Reported Prednisone 20 Mg Tablet 40 Mg PO DAILY Folic Acid 1 Mg Tablet 1 Tab PO DAILY Vitals/I & O Vital Sign - Last 24 Hours 03/29/17 03/29/17 03/29/17 03/29/17 15:00 19:00 20:00 23:00 Temp 98.5 97.9 97.9 98.5 97.9 97.9 Pulse 90 87 98 Resp 18 18 18 B/P (MAP) 117/73 (88) 123/70 (87) 127/86 (100) Pulse Ox 97 95 97 O2 Delivery Room Air Room Air Room Air Room Air 03/30/17 03/30/17 03/30/17 03/30/17 03:00 07:00 08:00 11:00 Temp 95.5 97.4 98.7 95.5 97.4 98.7 Pulse 64 79 79 Resp 18 14 14 B/P (MAP) 107/71 (83) 104/71 (82) 116/70 (85) Pulse Ox 98 98 97 O2 Delivery Room Air Room Air Room Air Room Air LOUIS MAYORGA MD Mar 30, 2017 13:33
--- NOTE | 2017-03-30 13:34 | PDOC ---
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 DM2, very poor control since prednisone started, blood sugars were not that high with stress dose steroids in the hospital before obesity, BMI 35 hyponatremia plan: fu with onco, id, sx cont local wound care with dressing packing and drainage fu wound cx, currently + MSSA and coagulase neg staph add vanco for now cont home meds, on prednisone 30mg daily add metformin for now, SSI dvt ppx History of Present Illness History of Present Illness ROS: no fever, chills, sob or chest pain right axillary abscess post i and d on 03/29 no pain cx pending hyperglycemia Vitals Vitals Vital Signs Date Time Temp Pulse Resp B/P (MAP) Pulse Ox O2 Delivery O2 Flow Rate FiO2 03/30/17 11:00 98.7 79 14 116/70 (85) 97 Room Air 98.7 Physical Exam General: Alert, Oriented X3, No acute distress Heart: Regular rate, Normal S1, Normal S2, No murmurs Lungs: Clear Abdomen: Normal bowel sounds, No tenderness Extremities: No clubbing, No cyanosis, Other (right axilla with purulent drainage, minimal induration) Skin: Other (12 cm area erythema, central induration with open drainage along prior line of incision) Labs LABS Laboratory Tests Test 03/29/17 16:34 03/29/17 18:50 03/29/17 21:28 03/30/17 07:20 Glucose (Fingerstick) 283 mg/dL (70-99) 225 mg/dL (70-99) 145 mg/dL (70-99) Creatine Kinase 19 U/L (39-308) Creatine Kinase MB (Mass) < 0.5 ng/mL (0.0-3.6) Creatine Kinase MB Relative Index % (0-4) Troponin I Quantitative < 0.017 ng/mL (0.000-0.055) Test 03/30/17 11:29 Glucose (Fingerstick) 247 mg/dL (70-99) Assessment and Plan Assessmemt and Plan Problems Medical Problems: (1) Cellulitis and abscess of unspecified site Status: Acute Problems: Comment Review of Relevant I have reviewed the following items sharron (where applicable) has been applied. Labs Laboratory Tests Test 03/28/17 13:51 03/28/17 16:32 03/28/17 20:27 03/29/17 04:05 Glucose (Fingerstick) 362 mg/dL (70-99) 291 mg/dL (70-99) 277 mg/dL (70-99) White Blood Count 6.6 x10^3/uL (4.0-11.0) Red Blood Count 3.49 x10^6/uL (4.30-5.70) Hemoglobin 11.3 g/dL (13.0-17.5) Hematocrit 32.3 % (39.0-53.0) Mean Corpuscular Volume 93 fL (79-100) Mean Corpuscular Hemoglobin 32 pg (25-35) Mean Corpuscular Hemoglobin Concent 35 g/dL (31-37) Red Cell Distribution Width 15.3 % (11.5-14.5) Platelet Count 158 x10^3/uL (140-400) Neutrophils (%) (Auto) 74 % (31-73) Lymphocytes (%) (Auto) 20 % (24-48) Monocytes (%) (Auto) 6 % (0-9) Eosinophils (%) (Auto) 0 % (0-3) Basophils (%) (Auto) 0 % (0-3) Neutrophils # (Auto) 4.8 x10^3uL (1.8-7.7) Lymphocytes # (Auto) 1.3 x10^3/uL (1.0-4.8) Monocytes # (Auto) 0.4 x10^3/uL (0.0-1.1) Eosinophils # (Auto) 0.0 x10^3/uL (0.0-0.7) Basophils # (Auto) 0.0 x10^3/uL (0.0-0.2) Reticulocyte Count (auto) 2.7 % (0.5-2.5) Sodium Level 137 mmol/L (136-145) Potassium Level 4.0 mmol/L (3.5-5.1) Chloride Level 101 mmol/L (98-107) Carbon Dioxide Level 30 mmol/L (21-32) Anion Gap 6 (6-14) Blood Urea Nitrogen 20 mg/dL (8-26) Creatinine 0.8 mg/dL (0.7-1.3) Estimated GFR (Cockcroft-Gault) 113.5 BUN/Creatinine Ratio 25 (6-20) Glucose Level 171 mg/dL (70-99) Hemoglobin A1c 7.5 % (4.8-5.6) Calcium Level 8.9 mg/dL (8.5-10.1) Total Bilirubin 0.9 mg/dL (0.2-1.0) Aspartate Amino Transf (AST/SGOT) 11 U/L (15-37) Alanine Aminotransferase (ALT/SGPT) 25 U/L (16-63) Alkaline Phosphatase 102 U/L (46-116) Lactate Dehydrogenase 268 U/L (85-227) Total Protein 6.0 g/dL (6.4-8.2) Albumin 2.8 g/dL (3.4-5.0) Albumin/Globulin Ratio 0.9 (1.0-1.7) Test 03/29/17 07:14 03/29/17 11:23 03/29/17 16:34 03/29/17 18:50 Glucose (Fingerstick) 188 mg/dL (70-99) 271 mg/dL (70-99) 283 mg/dL (70-99) Creatine Kinase 19 U/L (39-308) Creatine Kinase MB (Mass) < 0.5 ng/mL (0.0-3.6) Creatine Kinase MB Relative Index % (0-4) Troponin I Quantitative < 0.017 ng/mL (0.000-0.055) Test 03/29/17 21:28 03/30/17 07:20 03/30/17 11:29 Glucose (Fingerstick) 225 mg/dL (70-99) 145 mg/dL (70-99) 247 mg/dL (70-99) Laboratory Tests Test 03/29/17 16:34 03/29/17 18:50 03/29/17 21:28 03/30/17 07:20 Glucose (Fingerstick) 283 mg/dL (70-99) 225 mg/dL (70-99) 145 mg/dL (70-99) Creatine Kinase 19 U/L (39-308) Creatine Kinase MB (Mass) < 0.5 ng/mL (0.0-3.6) Creatine Kinase MB Relative Index % (0-4) Troponin I Quantitative < 0.017 ng/mL (0.000-0.055) Test 03/30/17 11:29 Glucose (Fingerstick) 247 mg/dL (70-99) Microbiology 03/28/17 Blood Culture - Preliminary, Resulted NO GROWTH AFTER 2 DAYS 03/28/17 Gram Stain - Final, Complete Medications Current Medications Sodium Chloride 1,000 ml @ 1,000 mls/hr 1X ONCE IV Last administered on 11:40; Start 03/28/17 at 11:00; Stop 03/28/17 at 11:59; Status DC Vancomycin HCl 250 ml @ 250 mls/hr 1X ONCE IV Last administered on 03/28/17 12:30; Start 03/28/17 at 11:00; Stop 03/28/17 at 11:59; Status DC Diphtheria/ Tetanus/Acell Pertussis (Boostrix) 0.5 ml ONCE ONCE VAX IM Last administered on 03/28/17 11:43; Start 03/28/17 at 11:00; Stop 03/28/17 at 11:01 ; Status DC Insulin Aspart (NovoLOG) 0-9 UNITS TIDWMEALS SQ Last administered on 03/29/17 17:09; Start 03/28/17 at 17:00 Dextrose (Dextrose 50%-Water Syringe) 12.5 gm PRN Q15MIN PRN IV SEE COMMENTS; Start 03/28/17 at 14:00 Insulin Detemir (Levemir) 10 units 1X ONCE SQ Last administered on 03/28/17 14:34; Start 03/28/17 at 14:00; Stop 03/28/17 at 14:01; Status DC Prednisone (Prednisone) 30 mg DAILY PO Last administered on 03/30/17 09:25; Start 03/28/17 at 15:15 Heparin Sodium (Porcine) (Heparin Sq) 5,000 unit BID SQ Last administered on 09:30; Start 03/28/17 at 21:00 Folic Acid (Folic Acid) 1 mg DAILY PO ; Start 03/30/17 at 11:00 Acetaminophen (Tylenol) 650 mg PRN Q6HRS PRN PO FEVER; Start 03/30/17 at 10:00 Ondansetron HCl (Zofran) 4 mg PRN Q6HRS PRN IV NAUSEA/VOMITING; Start 03/30/17 at 10:00 Morphine Sulfate 2 mg PRN Q2HR PRN IV PAIN; Start 03/30/17 at 10:00 Tramadol HCl (Ultram) 50 mg PRN Q6HRS PRN PO PAIN; Start 03/30/17 at 10:00 Hydralazine HCl (Apresoline Inj) 10 mg PRN Q4HRS PRN IVP ELEVATED BP, SEE COMMENTS; Start 03/30/17 at 10:00 Docusate Sodium (Colace) 100 mg PRN DAILY PRN PO CONSTIPATION; Start 03/30/17 at 10:00 Vancomycin HCl 2 gm/Dextrose 500 ml @ 250 mls/hr Q12H IV ; Start 03/30/17 at 10 :00; Status UNV Vancomycin HCl (Vanco Per Pharmacy) 1 each PRN DAILY PRN MC SEE COMMENTS; Start 03/30/17 at 10:00 Vancomycin HCl 2 gm/Dextrose 500 ml @ 250 mls/hr 1X ONCE IV ; Start 03/30/17 at 10:30; Stop 03/30/17 at 12:29; Status DC Active Scripts Active Reported Prednisone 20 Mg Tablet 40 Mg PO DAILY Folic Acid 1 Mg Tablet 1 Tab PO DAILY Vitals/I & O Vital Sign - Last 24 Hours 03/29/17 03/29/17 03/29/17 03/29/17 15:00 19:00 20:00 23:00 Temp 98.5 97.9 97.9 98.5 97.9 97.9 Pulse 90 87 98 Resp 18 18 18 B/P (MAP) 117/73 (88) 123/70 (87) 127/86 (100) Pulse Ox 97 95 97 O2 Delivery Room Air Room Air Room Air Room Air 03/30/17 03/30/17 03/30/17 03/30/17 03:00 07:00 08:00 11:00 Temp 95.5 97.4 98.7 95.5 97.4 98.7 Pulse 64 79 79 Resp 18 14 14 B/P (MAP) 107/71 (83) 104/71 (82) 116/70 (85) Pulse Ox 98 98 97 O2 Delivery Room Air Room Air Room Air Room Air JET ANTOINE MD Mar 30, 2017 13:34
[2017-03-30] MEDS: FOLIC ACID 1 MG TABLET. PO SCH (13:44)
[2017-03-30 15:00] VITALS: BP 125/76
[2017-03-30] MEDS: metFORMIN 500 MG TABLET PO SCH (17:12)
[2017-03-30] MEDS: CEPHALEXIN 250 MG CAPSULE. PO SCH ×2 (17:12→22:50)
[2017-03-30 20:16] VITALS: BP 120/80
[2017-03-30 23:11] VITALS: BP 115/77
[2017-03-31 03:54] VITALS: BP 101/56
[2017-03-31 05:38] LABS: BASO % 0 % (0-3); EOS % 1 % (0-3); HEMATOCRIT 33.1 % (39.0-53.0); HEMOGLOBIN 11.5 g/dL (13.0-17.5); LYMPH # 1.4 x10^3/uL (1.0-4.8); LYMPH % 26 % (24-48); MEAN CORPUSCULAR HEMOGLOBIN 32 pg (25-35); MEAN CORPUSCULAR HGB CONC 35 g/dL (31-37); MEAN CORPUSCULAR VOLUME 92 fL (79-100); MONO % 6 % (0-9); NEUT % 67 % (31-73); PLATELET COUNT 187 x10^3/uL (140-400); RED BLOOD COUNT 3.61 x10^6/uL (4.30-5.70); RED CELL DISTRIBUTION WIDTH 16.2 % (11.5-14.5); WHITE BLOOD COUNT 5.3 x10^3/uL (4.0-11.0)
[2017-03-31 06:10] LABS: CALCIUM 8.9 mg/dL (8.5-10.1); CREATININE 0.9 mg/dL (0.7-1.3); GFR 99.1; POTASSIUM 3.6 mmol/L (3.5-5.1)
[2017-03-31 07:00] VITALS: BP 115/64
[2017-03-31] MEDS: CEPHALEXIN 250 MG CAPSULE. PO SCH (08:41)
[2017-03-31] MEDS: FOLIC ACID 1 MG TABLET. PO SCH (08:41)
[2017-03-31] MEDS: metFORMIN 500 MG TABLET PO SCH (08:41)
[2017-03-31] MEDS: predniSONE 10 MG TABLET PO SCH (08:41)
[2017-03-31] MEDS: INSULIN ASPART 300 UNITS/3 ML INSULN.PEN SQ SCH ×2 (08:46→12:42)
[2017-03-31] MEDS: HEPARIN PF for SUB-Q USE 5,000 UNIT/0.5 ML VIAL. SQ SCH (08:47)
[2017-03-31] MEDS ORDERED: METF500T PO (10:37)
[2017-03-31] MEDS ORDERED: CEPH-264 PO (10:37)
[2017-03-31] MEDS ORDERED: PRED-220 PO (10:37)
--- NOTE | 2017-03-31 10:44 | PDOC3 ---
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 DM2, started on metformin here obesity, BMI 35 hyponatremia, improved, Problems Medical Problems: (1) Cellulitis and abscess of unspecified site Status: Acute Brief Hospital Course Allergies Allergies Coded Allergies Type Severity Reaction Last Updated Verified No Known Drug Allergies 02/21/17 No Vital Signs Vital Signs Date Time Temp Pulse Resp B/P (MAP) Pulse Ox O2 Delivery O2 Flow Rate FiO2 03/31/17 07:00 97.7 69 18 115/64 (81) 96 Room Air 97.7 Lab Results Laboratory Tests Test 03/29/17 11:23 03/29/17 16:34 03/29/17 18:50 03/29/17 21:28 Glucose (Fingerstick) 271 mg/dL (70-99) 283 mg/dL (70-99) 225 mg/dL (70-99) Creatine Kinase 19 U/L (39-308) Creatine Kinase MB (Mass) < 0.5 ng/mL (0.0-3.6) Creatine Kinase MB Relative Index % (0-4) Troponin I Quantitative < 0.017 ng/mL (0.000-0.055) Test 03/30/17 07:20 03/30/17 11:29 03/30/17 16:36 03/30/17 22:11 Glucose (Fingerstick) 145 mg/dL (70-99) 247 mg/dL (70-99) 338 mg/dL (70-99) 251 mg/dL (70-99) Test 03/31/17 05:05 03/31/17 07:38 White Blood Count 5.3 x10^3/uL (4.0-11.0) Red Blood Count 3.61 x10^6/uL (4.30-5.70) Hemoglobin 11.5 g/dL (13.0-17.5) Hematocrit 33.1 % (39.0-53.0) Mean Corpuscular Volume 92 fL (79-100) Mean Corpuscular Hemoglobin 32 pg (25-35) Mean Corpuscular Hemoglobin Concent 35 g/dL (31-37) Red Cell Distribution Width 16.2 % (11.5-14.5) Platelet Count 187 x10^3/uL (140-400) Neutrophils (%) (Auto) 67 % (31-73) Lymphocytes (%) (Auto) 26 % (24-48) Monocytes (%) (Auto) 6 % (0-9) Eosinophils (%) (Auto) 1 % (0-3) Basophils (%) (Auto) 0 % (0-3) Neutrophils # (Auto) 3.5 x10^3uL (1.8-7.7) Lymphocytes # (Auto) 1.4 x10^3/uL (1.0-4.8) Monocytes # (Auto) 0.3 x10^3/uL (0.0-1.1) Eosinophils # (Auto) 0.0 x10^3/uL (0.0-0.7) Basophils # (Auto) 0.0 x10^3/uL (0.0-0.2) Sodium Level 137 mmol/L (136-145) Potassium Level 3.6 mmol/L (3.5-5.1) Chloride Level 103 mmol/L (98-107) Carbon Dioxide Level 28 mmol/L (21-32) Anion Gap 6 (6-14) Blood Urea Nitrogen 26 mg/dL (8-26) Creatinine 0.9 mg/dL (0.7-1.3) Estimated GFR (Cockcroft-Gault) 99.1 Glucose Level 269 mg/dL (70-99) Calcium Level 8.9 mg/dL (8.5-10.1) Glucose (Fingerstick) 211 mg/dL (70-99) Laboratory Tests Test 03/30/17 11:29 03/30/17 16:36 03/30/17 22:11 03/31/17 05:05 Glucose (Fingerstick) 247 mg/dL (70-99) 338 mg/dL (70-99) 251 mg/dL (70-99) White Blood Count 5.3 x10^3/uL (4.0-11.0) Red Blood Count 3.61 x10^6/uL (4.30-5.70) Hemoglobin 11.5 g/dL (13.0-17.5) Hematocrit 33.1 % (39.0-53.0) Mean Corpuscular Volume 92 fL (79-100) Mean Corpuscular Hemoglobin 32 pg (25-35) Mean Corpuscular Hemoglobin Concent 35 g/dL (31-37) Red Cell Distribution Width 16.2 % (11.5-14.5) Platelet Count 187 x10^3/uL (140-400) Neutrophils (%) (Auto) 67 % (31-73) Lymphocytes (%) (Auto) 26 % (24-48) Monocytes (%) (Auto) 6 % (0-9) Eosinophils (%) (Auto) 1 % (0-3) Basophils (%) (Auto) 0 % (0-3) Neutrophils # (Auto) 3.5 x10^3uL (1.8-7.7) Lymphocytes # (Auto) 1.4 x10^3/uL (1.0-4.8) Monocytes # (Auto) 0.3 x10^3/uL (0.0-1.1) Eosinophils # (Auto) 0.0 x10^3/uL (0.0-0.7) Basophils # (Auto) 0.0 x10^3/uL (0.0-0.2) Sodium Level 137 mmol/L (136-145) Potassium Level 3.6 mmol/L (3.5-5.1) Chloride Level 103 mmol/L (98-107) Carbon Dioxide Level 28 mmol/L (21-32) Anion Gap 6 (6-14) Blood Urea Nitrogen 26 mg/dL (8-26) Creatinine 0.9 mg/dL (0.7-1.3) Estimated GFR (Cockcroft-Gault) 99.1 Glucose Level 269 mg/dL (70-99) Calcium Level 8.9 mg/dL (8.5-10.1) Test 03/31/17 07:38 Glucose (Fingerstick) 211 mg/dL (70-99) Brief Hospital Course Mr. Leon is a 31 old male, with hemolytic anemia, on prednisone, had cellulitis and abcess right axillae where a Lymph node biopsy was done a month prior fu with onco, cont local wound care with dressing packing and drainage keflex for 10 days from yesterday per ID directions , on prednisone 30mg daily add metformin for this month, Dr. Richards could check blood sugar labs with anemia f/u Discharge Information Condition at Discharge: Improved Follow Up: Weeks Disposition/Orders: D/C to Home Scheduled Folic Acid (Folic Acid), 1 TAB PO DAILY, (Reported) Prednisone (Prednisone), 40 MG PO DAILY, (Reported) Patient Instructions Patient Instructions > 30 min face to face SALOMON CAAL MD Mar 31, 2017 10:44
[2017-03-31 11:00] VITALS: BP 115/64
--- NOTE | 2017-03-31 12:03 | PDOC ---
SURGICAL PROGRESS NOTE Subjective Patient doing well states that the pain under his right axilla is improved Vital Signs Vital Signs Date Time Temp Pulse Resp B/P (MAP) Pulse Ox O2 Delivery O2 Flow Rate FiO2 03/31/17 11:00 98.0 84 18 115/64 (81) 96 98.0 03/31/17 08:00 Room Air PATIENT HAS A CHEN: No Skin: Other (right axillary wound decreased erythema nontender ) Labs Laboratory Tests Test 03/29/17 16:34 03/29/17 18:50 03/29/17 21:28 03/30/17 07:20 Glucose (Fingerstick) 283 mg/dL (70-99) 225 mg/dL (70-99) 145 mg/dL (70-99) Creatine Kinase 19 U/L (39-308) Creatine Kinase MB (Mass) < 0.5 ng/mL (0.0-3.6) Creatine Kinase MB Relative Index % (0-4) Troponin I Quantitative < 0.017 ng/mL (0.000-0.055) Test 03/30/17 11:29 03/30/17 16:36 03/30/17 22:11 03/31/17 05:05 Glucose (Fingerstick) 247 mg/dL (70-99) 338 mg/dL (70-99) 251 mg/dL (70-99) White Blood Count 5.3 x10^3/uL (4.0-11.0) Red Blood Count 3.61 x10^6/uL (4.30-5.70) Hemoglobin 11.5 g/dL (13.0-17.5) Hematocrit 33.1 % (39.0-53.0) Mean Corpuscular Volume 92 fL (79-100) Mean Corpuscular Hemoglobin 32 pg (25-35) Mean Corpuscular Hemoglobin Concent 35 g/dL (31-37) Red Cell Distribution Width 16.2 % (11.5-14.5) Platelet Count 187 x10^3/uL (140-400) Neutrophils (%) (Auto) 67 % (31-73) Lymphocytes (%) (Auto) 26 % (24-48) Monocytes (%) (Auto) 6 % (0-9) Eosinophils (%) (Auto) 1 % (0-3) Basophils (%) (Auto) 0 % (0-3) Neutrophils # (Auto) 3.5 x10^3uL (1.8-7.7) Lymphocytes # (Auto) 1.4 x10^3/uL (1.0-4.8) Monocytes # (Auto) 0.3 x10^3/uL (0.0-1.1) Eosinophils # (Auto) 0.0 x10^3/uL (0.0-0.7) Basophils # (Auto) 0.0 x10^3/uL (0.0-0.2) Sodium Level 137 mmol/L (136-145) Potassium Level 3.6 mmol/L (3.5-5.1) Chloride Level 103 mmol/L (98-107) Carbon Dioxide Level 28 mmol/L (21-32) Anion Gap 6 (6-14) Blood Urea Nitrogen 26 mg/dL (8-26) Creatinine 0.9 mg/dL (0.7-1.3) Estimated GFR (Cockcroft-Gault) 99.1 Glucose Level 269 mg/dL (70-99) Calcium Level 8.9 mg/dL (8.5-10.1) Test 03/31/17 07:38 03/31/17 11:18 Glucose (Fingerstick) 211 mg/dL (70-99) 309 mg/dL (70-99) Laboratory Tests Test 03/30/17 16:36 03/30/17 22:11 03/31/17 05:05 03/31/17 07:38 Glucose (Fingerstick) 338 mg/dL (70-99) 251 mg/dL (70-99) 211 mg/dL (70-99) White Blood Count 5.3 x10^3/uL (4.0-11.0) Red Blood Count 3.61 x10^6/uL (4.30-5.70) Hemoglobin 11.5 g/dL (13.0-17.5) Hematocrit 33.1 % (39.0-53.0) Mean Corpuscular Volume 92 fL (79-100) Mean Corpuscular Hemoglobin 32 pg (25-35) Mean Corpuscular Hemoglobin Concent 35 g/dL (31-37) Red Cell Distribution Width 16.2 % (11.5-14.5) Platelet Count 187 x10^3/uL (140-400) Neutrophils (%) (Auto) 67 % (31-73) Lymphocytes (%) (Auto) 26 % (24-48) Monocytes (%) (Auto) 6 % (0-9) Eosinophils (%) (Auto) 1 % (0-3) Basophils (%) (Auto) 0 % (0-3) Neutrophils # (Auto) 3.5 x10^3uL (1.8-7.7) Lymphocytes # (Auto) 1.4 x10^3/uL (1.0-4.8) Monocytes # (Auto) 0.3 x10^3/uL (0.0-1.1) Eosinophils # (Auto) 0.0 x10^3/uL (0.0-0.7) Basophils # (Auto) 0.0 x10^3/uL (0.0-0.2) Sodium Level 137 mmol/L (136-145) Potassium Level 3.6 mmol/L (3.5-5.1) Chloride Level 103 mmol/L (98-107) Carbon Dioxide Level 28 mmol/L (21-32) Anion Gap 6 (6-14) Blood Urea Nitrogen 26 mg/dL (8-26) Creatinine 0.9 mg/dL (0.7-1.3) Estimated GFR (Cockcroft-Gault) 99.1 Glucose Level 269 mg/dL (70-99) Calcium Level 8.9 mg/dL (8.5-10.1) Test 03/31/17 11:18 Glucose (Fingerstick) 309 mg/dL (70-99) Problem List Problems Medical Problems: (1) Cellulitis and abscess of unspecified site Status: Acute Assessment/Plan Status post I&D of right axillary abscess improving continue local wound care Problems: TISH CHUN MD Mar 31, 2017 12:03
== END 2017-03-31 12:55 | disposition home or self-care (01) | DRG 863 ==
LOC: ER 10:29 → 4 NORTH 11:07
PROVIDERS: ADMIT Internal Medicine; ATTEND Internal Medicine
PROC: 0X940ZZ Drainage of Right Axilla, Open Approach (ICD-10-PCS; principal; 2017-03-29)
DX: T81.4XXA Infection following a procedure, initial encounter (principal); D61.818 Other pancytopenia; E11.65 Type 2 diabetes mellitus with hyperglycemia; E87.1 Hypo-osmolality and hyponatremia; D59.1 Other autoimmune hemolytic anemias; L02.411 Cutaneous abscess of right axilla; L03.111 Cellulitis of right axilla; E66.9 Obesity, unspecified; Z68.35 Body mass index [BMI] 35.0-35.9, adult; Z83.3 Family history of diabetes mellitus; D72.819 Decreased white blood cell count, unspecified; R59.1 Generalized enlarged lymph nodes
CPT/HCPCS: 36415; 76882; 80048; 80053; 82553; 82962; 83036; 83605; 83615; 84484; 85007; 85025; 85045; 87040; 87070; 87186; 87205; 90471; 90715; 93005; 96361; 96374; J1815; J3370; J7030; J7512; 99285-25

== ENCOUNTER 2017-04-23 11:14 | Inpatient (IN) | payer SELFPAY ==
[2017-04-23] VITALS (9 sets, daily range): BP systolic 115–141; BP diastolic 59–79
[~2017-04-23] VITALS: Ht 167.6 cm; Wt 89.5 kg
[~2017-04-23 11:14] MED LIST changes: +CEPH-264 PO; +FOLI1TAB16 PO; +METF500T PO; +PRED-220 PO; +PRED20TA PO
--- NOTE | 2017-04-23 12:31 | PHYS DOC ---
Past Medical History Past Medical History: Anemia Past Surgical History: Other Additional Past Surgical Histo: lymph node biopsy Alcohol Use: Rarely Drug Use: None Adult General Chief Complaint Chief Complaint: NAUSEA/VOMITING/DIARRHA HPI HPI Patient is a 32 year old male who presents with nausea vomiting. He states this started on Saturday he's been drinking a lot water and urinating a lot. He denies any abdominal pain. He states he feels a lump in his throat when he tries to drink or eat anything. He's been on metformin, folic acid and prednisone because he has a history of anemia and is being seen by . He denies any abdominal pain, chest pain, fevers or chills. Review of Systems Review of Systems Constitutional: Denies fever or chills [] Eyes: Denies change in visual acuity, redness, or eye pain [] HENT: Denies nasal congestion or sore throat [] Respiratory: Denies cough or shortness of breath [] Cardiovascular: No additional information not addressed in HPI [] GI: Denies abdominal pain, bloody stools or diarrhea, positive for nausea, vomiting, : Denies dysuria or hematuria [] Musculoskeletal: Denies back pain or joint pain [] Integument: Denies rash or skin lesions [] Neurologic: Denies headache, focal weakness or sensory changes [] Endocrine: Positive for polyuria or polydipsia [] All other systems were reviewed and found to be within normal limits, except as documented in this note. Current Medications Current Medications Current Medications Medications (Trade) Dose Ordered Sig/Yao Start Time Stop Time Status Last Admin Dose Admin Acetaminophen (Tylenol) 500 mg PRN Q6HRS PRN 04/23/17 15:15 UNV Dextrose/Sodium Chloride 1,000 ml @ 125 mls/hr Q8H PRN 04/23/17 15:15 UNV Insulin Human Regular 150 ml @ 0 mls/hr CONT PRN PRN 04/23/17 14:00 04/23/17 14:46 10.4 MLS/HR Ondansetron HCl (Zofran) 4 mg PRN Q6HRS PRN 04/23/17 15:30 04/24/17 15:29 UNV Sodium Chloride 1,000 ml @ 150 mls/hr Q6H40M 04/23/17 15:15 UNV Allergies Allergies Allergies Coded Allergies Type Severity Reaction Last Updated Verified No Known Drug Allergies 02/21/17 No Physical Exam Physical Exam Constitutional: Well developed, well nourished, no acute distress, non-toxic appearance. [] HENT: Normocephalic, atraumatic, bilateral external ears normal, oropharynx moist, no oral exudates, nose normal. [] Eyes: PERRLA, EOMI, conjunctiva normal, no discharge. [] Neck: Normal range of motion, no tenderness, supple, no stridor. [] Cardiovascular:Heart rate regular rhythm, tachycardic, no murmur [] Lungs & Thorax: Bilateral breath sounds clear to auscultation [] Abdomen: Bowel sounds normal, soft, no tenderness, no masses, no pulsatile masses. [] Skin: Warm, dry, no erythema, no rash. [] Back: No tenderness, no CVA tenderness. [] Extremities: No tenderness, no cyanosis, no clubbing, ROM intact, no edema. [] Neurologic: Alert and oriented X 3, normal motor function, normal sensory function, no focal deficits noted. [] Psychologic: Affect normal, judgement normal, mood normal. [] Current Patient Data Vital Signs Vital Signs Date Time Temp Pulse Resp B/P (MAP) Pulse Ox O2 Delivery O2 Flow Rate FiO2 04/23/17 14:18 100 18 141/83 (102) 97 Room Air 04/23/17 11:59 97.7 97.7 Lab Values Laboratory Tests Test 04/23/17 12:17 04/23/17 13:14 04/23/17 13:57 04/23/17 14:42 White Blood Count 9.8 x10^3/uL (4.0-11.0) Red Blood Count 5.69 x10^6/uL (4.30-5.70) Hemoglobin 17.0 g/dL (13.0-17.5) Hematocrit 52.0 % (39.0-53.0) Mean Corpuscular Volume 92 fL (79-100) Mean Corpuscular Hemoglobin 30 pg (25-35) Mean Corpuscular Hemoglobin Concent 33 g/dL (31-37) Red Cell Distribution Width 16.0 % (11.5-14.5) H Platelet Count 244 x10^3/uL (140-400) Neutrophils (%) (Auto) 82 % (31-73) H Lymphocytes (%) (Auto) 12 % (24-48) L Monocytes (%) (Auto) 5 % (0-9) Eosinophils (%) (Auto) 0 % (0-3) Basophils (%) (Auto) 0 % (0-3) Neutrophils # (Auto) 8.1 x10^3uL (1.8-7.7) H Lymphocytes # (Auto) 1.2 x10^3/uL (1.0-4.8) Monocytes # (Auto) 0.5 x10^3/uL (0.0-1.1) Eosinophils # (Auto) 0.0 x10^3/uL (0.0-0.7) Basophils # (Auto) 0.0 x10^3/uL (0.0-0.2) Sodium Level 121 mmol/L (136-145) L Potassium Level 4.3 mmol/L (3.5-5.1) Chloride Level 77 mmol/L (98-107) L Carbon Dioxide Level 11 mmol/L (21-32) *L Anion Gap 33 (6-14) H Blood Urea Nitrogen 33 mg/dL (8-26) H Creatinine 1.7 mg/dL (0.7-1.3) H Estimated GFR (Cockcroft-Gault) 47.2 Glucose Level 869 mg/dL (70-99) *H Calcium Level 9.5 mg/dL (8.5-10.1) Phosphorus Level 4.5 mg/dL (2.6-4.7) Magnesium Level 2.0 mg/dL (1.8-2.4) Total Bilirubin 1.4 mg/dL (0.2-1.0) H Direct Bilirubin 0.3 mg/dL (0.0-0.2) H Aspartate Amino Transferase (AST) 14 U/L (15-37) L Alanine Aminotransferase (ALT) 36 U/L (16-63) Alkaline Phosphatase 133 U/L (46-116) H Creatine Kinase 29 U/L (39-308) L Creatine Kinase MB (Mass) < 0.5 ng/mL (0.0-3.6) Creatine Kinase MB Relative Index % (0-4) Total Protein 7.3 g/dL (6.4-8.2) Albumin 4.7 g/dL (3.4-5.0) Urine Collection Type Unknown Urine Color Yellow Urine Clarity Clear Urine pH 5.5 Urine Specific Leigh >=1.030 Urine Protein Negative mg/dL (NEG-TRACE) Urine Glucose (UA) >=1000 mg/dL (NEG) Urine Ketones (Stick) >=80 mg/dL (NEG) Urine Blood Small (NEG) Urine Nitrite Negative (NEG) Urine Bilirubin Negative (NEG) Urine Urobilinogen Dipstick 0.2 mg/dL (0.2 mg/dL) Urine Leukocyte Esterase Negative (NEG) Urine RBC 1-2 /HPF (0-2) Urine WBC Occ /HPF (0-4) Urine Squamous Epithelial Cells Occ /LPF Urine Bacteria Few /HPF (0-FEW) Urine Mucus Slight /LPF O2 Saturation 97 % (92-99) Arterial Blood pH 7.26 (7.35-7.45) L Arterial Blood pCO2 at Patient Temp 16 mmHg (35-46) *L Arterial Blood pO2 at Patient Temp 111 mmHg (85-108) H Arterial Blood HCO3 7 mmol/L (21-28) L Arterial Blood Base Excess -17 mmol/L (-3-3) L FiO2 21 Glucose (Fingerstick) 579 mg/dL (70-99) *H Laboratory Tests 04/23/17 12:17 Laboratory Tests 04/23/17 12:17 EKG EKG [] Radiology/Procedures Radiology/Procedures [facility] [address] [place] [address] IMAGING REPORT Signed PATIENT: SARAY SABILLON ACCOUNT: [id number] : 1985 LOCATION: ER AGE: 32 SEX: M EXAM STATUS: REG ER ORD. PHYSICIAN: FAY MOSES MD REASON: dka PROCEDURE: CHEST AP ONLY Portable chest, 04/23/2017: History: Diabetes, weakness The heart size and pulmonary vascularity are normal. The lungs are clear. There is no evidence of pleural fluid. IMPRESSION: No acute cardiopulmonary abnormality is detected. DICTATED and SIGNED BY: LEONILA DAILEY MD DATE: 04/23/17 9224 CC: FAY MOSES MD; NO PCP ~ Impressions: DKA Course & Med Decision Making Course & Med Decision Making Pertinent Labs and Imaging studies reviewed. (See chart for details) Patient's labs consistent with DKA. He was started on the DKA protocol.. ABG chest x-ray is pending at this time. He is being admitted to the hospitalist and going to the ICU. In and his heart rate has improved after IV fluids. He is received a total of 3 L in the emergency department. ABG came back with pH is 7.25, PCO2 of 16, PO2 of 110, bicarbonate 7.1 Critical Care: Critical Care Time: 65 minutes Treatments/Evaluations: Close monitoring and treatment of unstable vital signs, cardiorespiratory, and neurologic status, while maintaining tight balance of fluid, respiratory, and cardiac interventions. Dragon Disclaimer Dragon Disclaimer This electronic medical record was generated, in whole or in part, using a voice recognition dictation system. Departure Departure Impression: Primary Impression: DKA (diabetic ketoacidoses) Disposition: 09 ADMITTED INPATIENT Admitting Physician: Teresa Henriquez Condition: CRITICAL Referrals: NO PCP (PCP) FAY MOSES MD Apr 23, 2017 12:31
[2017-04-23 12:44] LABS: BASO % 0 % (0-3); EOS % 0 % (0-3); LYMPH # 1.2 x10^3/uL (1.0-4.8); LYMPH % 12 % (24-48); MEAN CORPUSCULAR HEMOGLOBIN 30 pg (25-35); MEAN CORPUSCULAR HGB CONC 33 g/dL (31-37); MEAN CORPUSCULAR VOLUME 92 fL (79-100); MONO % 5 % (0-9); NEUT % 82 % (31-73); PLATELET COUNT 244 x10^3/uL (140-400); RED BLOOD COUNT 5.69 x10^6/uL (4.30-5.70); WHITE BLOOD COUNT 9.8 x10^3/uL (4.0-11.0)
[2017-04-23] MEDS ORDERED: IV NORMAL SALINE 1000ML BAG 1,000 ML IV ONE ×3 (13:00→23:45)
[2017-04-23] MEDS ORDERED: ONDANSETRON PF 4 MG/2 ML VIAL. IV ONE (13:00)
[2017-04-23 13:10] LABS: ALBUMIN 4.7 g/dL (3.4-5.0); CALCIUM 9.5 mg/dL (8.5-10.1); CREATININE 1.7 mg/dL (0.7-1.3); DIRECT BILIRUBIN 0.3 mg/dL (0.0-0.2); GFR 47.2; MAGNESIUM 2.4 mg/dL (1.8-2.4); POTASSIUM 4.3 mmol/L (3.5-5.1); TOTAL BILIRUBIN 1.4 mg/dL (0.2-1.0); TOTAL PROTEIN 7.3 g/dL (6.4-8.2)
[2017-04-23 13:26] LABS: CKMB MASS < 0.5 ng/mL (0.0-3.6); CREATINE KINASE 29 U/L (39-308)
[2017-04-23 13:29] LABS: BILIRUBIN,URINE NEGATIVE (NEG); GLUCOSE,URINE >=1000 mg/dL (NEG); NITRITE,URINE NEGATIVE (NEG); PH,URINE 5.5; PROTEIN,URINE NEGATIVE (NEG-TRACE); UROBILINOGEN,URINE 0.2 mg/dL (0.2 mg/dL)
[2017-04-23 13:45] LABS: BACTERIA,URINE FEW /HPF (0-FEW); SQUAMOUS EPITHELIAL CELL,UR OCC /LPF; WBC,URINE OCC /HPF (0-4)
[2017-04-23] MEDS ORDERED: IV NORMAL SALINE 1000ML BAG 1,000 ML IV SCH ×3 (13:56→16:54)
[2017-04-23] MEDS ORDERED: INSULIN,REGULAR 150 UNIT DRIP 150 ML IV PRN (14:00)
[2017-04-23] MEDS ORDERED: ONDANSETRON PF 4 MG/2 ML VIAL. IV PRN ×2 (14:15→15:30)
[2017-04-23 14:17] LABS: HCO3 ABG 7 mmol/L (21-28); PH ABG 7.26 (7.35-7.45); PO2 ABG 111 mmHg (85-108); SAT O2 ABG 97 % (92-99)
[2017-04-23 14:23] LABS: PHOSPHORUS 4.5 mg/dL (2.6-4.7)
--- NOTE | 2017-04-23 14:34 | RAD ---
Portable chest, 04/23/2017: History: Diabetes, weakness The heart size and pulmonary vascularity are normal. The lungs are clear. There is no evidence of pleural fluid. IMPRESSION: No acute cardiopulmonary abnormality is detected.
[2017-04-23 14:41] LABS: FIO2 ABG 21; PCO2 ABG 16 mmHg (35-46)
[2017-04-23] MEDS ORDERED: IV DEXTROSE 5 %-0.45 % NACL 1,000 ML IV PRN (15:15)
[2017-04-23] MEDS ORDERED: ACETAMINOPHEN 500 MG TABLET PO PRN (15:15)
--- NOTE | 2017-04-23 15:19 | PDOC1 ---
History and Physical Date of Admission Date of Admission DATE: 04/23/17 TIME: 15:12 Identification/Chief Complaint Chief Complaint voiding a lot, vomiting Problems: Source Source: Caregiver, Chart review, Patient History of Present Illness History of Present Illness 32 y.o male speaks the language, few days hx polyuria, vomiting a lot so went to ER, BS 800s. creat 1,7, Na 121, Bicarb 11, AGAp 33, on metformin only and claims compliance, He does not know he is diabetic. 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 Past Medical History Cardiovascular: No pertinent hx Pulmonary: No pertinent hx GI: No pertinent hx Heme/Onc: Anemia NOS, Other Hepatobiliary: Other Psych: No pertinent hx Rheumatologic: No pertinent hx Past Surgical History Past Surgical History: Other, No pertinent history Family History Family History: No Significant Social History Smoke: No ALCOHOL: none Drugs: None Current Medications Current Medications Current Medications Sodium Chloride 1,000 ml @ 1,000 mls/hr 1X ONCE IV Last administered on 04/23 12:47; Start 04/23/17 at 13:00; Stop 04/23/17 at 13:59; Status DC Ondansetron HCl (Zofran) 4 mg 1X ONCE IV Last administered on 04/23/17 12:48 ; Start 04/23/17 at 13:00; Stop 04/23/17 at 13:01; Status DC Sodium Chloride 1,000 ml @ 1,000 mls/hr 1X ONCE IV Last administered on 04/23 13:50; Start 04/23/17 at 14:00; Stop 04/23/17 at 14:59; Status DC Sodium Chloride 1,000 ml @ 1,000 mls/hr Q1H IV Last administered on 13:56; Start 04/23/17 at 13:56; Stop 04/23/17 at 14:55; Status DC Insulin Human Regular 150 ml @ 0 mls/hr CONT PRN PRN IV PER PROTOCOL Last administered on 04/23/17 14:46; Start 04/23/17 at 14:00 Ondansetron HCl (Zofran) 4 mg PRN Q8HRS PRN IV NAUSEA/VOMITING; Start at 14:15; Stop 04/24/17 at 14:14 Active Scripts Active Keflex (Cephalexin) 500 Mg Capsule 1 Cap PO TID Prednisone 10 Mg Tablet 30 Mg PO DAILY Glucophage (Metformin Hcl) 500 Mg Tablet 500 Mg PO BIDWMEALS Reported Prednisone 20 Mg Tablet 40 Mg PO DAILY Folic Acid 1 Mg Tablet 1 Tab PO DAILY Allergies Allergies: Coded Allergies: No Known Drug Allergies (Unverified , 02/21/17) ROS Review of System as per hPI, emesis, abd pain, polyuria, polydipsia, no cp, soa, fevers, psych issues Physical Exam General: No acute distress HEENT: PERRLA, Other (dry mucosa) Lungs: Clear to auscultation, Normal air movement Heart: S1S2, no thrills, no rubs, no gallops, no murmurs, other (sinus tachy) Cardiovascular: S1, S2 Abdomen: Normal bowel sounds, Soft, No tenderness, No hepatosplenomegaly, No masses Male Genitals Exam: normal genitalia, normal prostate Extremities: No clubbing, No cyanosis, No edema, Normal pulses, No tenderness/ swelling Skin: No rashes, No breakdown, No significant lesion Neuro: Normal gait, Normal speech, Strength at 5/5 X4 ext, Normal tone, Sensation intact, Cranial nerves 3-12 NL, Reflexes 2+ Psych/Mental Status: Mental status NL, Mood NL Vitals Vitals Vital Signs Date Time Temp Pulse Resp B/P (MAP) Pulse Ox O2 Delivery O2 Flow Rate FiO2 04/23/17 14:18 100 18 141/83 (102) 97 Room Air 04/23/17 11:59 97.7 97.7 Labs Labs Laboratory Tests Test 04/23/17 12:17 04/23/17 13:14 04/23/17 13:57 04/23/17 14:42 White Blood Count 9.8 x10^3/uL (4.0-11.0) Red Blood Count 5.69 x10^6/uL (4.30-5.70) Hemoglobin 17.0 g/dL (13.0-17.5) Hematocrit 52.0 % (39.0-53.0) Mean Corpuscular Volume 92 fL (79-100) Mean Corpuscular Hemoglobin 30 pg (25-35) Mean Corpuscular Hemoglobin Concent 33 g/dL (31-37) Red Cell Distribution Width 16.0 % (11.5-14.5) Platelet Count 244 x10^3/uL (140-400) Neutrophils (%) (Auto) 82 % (31-73) Lymphocytes (%) (Auto) 12 % (24-48) Monocytes (%) (Auto) 5 % (0-9) Eosinophils (%) (Auto) 0 % (0-3) Basophils (%) (Auto) 0 % (0-3) Neutrophils # (Auto) 8.1 x10^3uL (1.8-7.7) Lymphocytes # (Auto) 1.2 x10^3/uL (1.0-4.8) Monocytes # (Auto) 0.5 x10^3/uL (0.0-1.1) Eosinophils # (Auto) 0.0 x10^3/uL (0.0-0.7) Basophils # (Auto) 0.0 x10^3/uL (0.0-0.2) Sodium Level 121 mmol/L (136-145) Potassium Level 4.3 mmol/L (3.5-5.1) Chloride Level 77 mmol/L (98-107) Carbon Dioxide Level 11 mmol/L (21-32) Anion Gap 33 (6-14) Blood Urea Nitrogen 33 mg/dL (8-26) Creatinine 1.7 mg/dL (0.7-1.3) Estimated GFR (Cockcroft-Gault) 47.2 Glucose Level 869 mg/dL (70-99) Calcium Level 9.5 mg/dL (8.5-10.1) Phosphorus Level 4.5 mg/dL (2.6-4.7) Magnesium Level 2.0 mg/dL (1.8-2.4) Total Bilirubin 1.4 mg/dL (0.2-1.0) Direct Bilirubin 0.3 mg/dL (0.0-0.2) Aspartate Amino Transf (AST/SGOT) 14 U/L (15-37) Alanine Aminotransferase (ALT/SGPT) 36 U/L (16-63) Alkaline Phosphatase 133 U/L (46-116) Creatine Kinase 29 U/L (39-308) Creatine Kinase MB (Mass) < 0.5 ng/mL (0.0-3.6) Creatine Kinase MB Relative Index % (0-4) Total Protein 7.3 g/dL (6.4-8.2) Albumin 4.7 g/dL (3.4-5.0) Urine Collection Type Unknown Urine Color Yellow Urine Clarity Clear Urine pH 5.5 Urine Specific [place] >=1.030 Urine Protein Negative mg/dL (NEG-TRACE) Urine Glucose (UA) >=1000 mg/dL (NEG) Urine Ketones (Stick) >=80 mg/dL (NEG) Urine Blood Small (NEG) Urine Nitrite Negative (NEG) Urine Bilirubin Negative (NEG) Urine Urobilinogen Dipstick 0.2 mg/dL (0.2 mg/dL) Urine Leukocyte Esterase Negative (NEG) Urine RBC 1-2 /HPF (0-2) Urine WBC Occ /HPF (0-4) Urine Squamous Epithelial Cells Occ /LPF Urine Bacteria Few /HPF (0-FEW) Urine Mucus Slight /LPF O2 Saturation 97 % (92-99) Arterial Blood pH 7.26 (7.35-7.45) Arterial Blood pCO2 at Patient Temp 16 mmHg (35-46) Arterial Blood pO2 at Patient Temp 111 mmHg (85-108) Arterial Blood HCO3 7 mmol/L (21-28) Arterial Blood Base Excess -17 mmol/L (-3-3) FiO2 21 Glucose (Fingerstick) 579 mg/dL (70-99) Laboratory Tests Test 04/23/17 12:17 04/23/17 13:14 04/23/17 13:57 04/23/17 14:42 White Blood Count 9.8 x10^3/uL (4.0-11.0) Red Blood Count 5.69 x10^6/uL (4.30-5.70) Hemoglobin 17.0 g/dL (13.0-17.5) Hematocrit 52.0 % (39.0-53.0) Mean Corpuscular Volume 92 fL (79-100) Mean Corpuscular Hemoglobin 30 pg (25-35) Mean Corpuscular Hemoglobin Concent 33 g/dL (31-37) Red Cell Distribution Width 16.0 % (11.5-14.5) Platelet Count 244 x10^3/uL (140-400) Neutrophils (%) (Auto) 82 % (31-73) Lymphocytes (%) (Auto) 12 % (24-48) Monocytes (%) (Auto) 5 % (0-9) Eosinophils (%) (Auto) 0 % (0-3) Basophils (%) (Auto) 0 % (0-3) Neutrophils # (Auto) 8.1 x10^3uL (1.8-7.7) Lymphocytes # (Auto) 1.2 x10^3/uL (1.0-4.8) Monocytes # (Auto) 0.5 x10^3/uL (0.0-1.1) Eosinophils # (Auto) 0.0 x10^3/uL (0.0-0.7) Basophils # (Auto) 0.0 x10^3/uL (0.0-0.2) Sodium Level 121 mmol/L (136-145) Potassium Level 4.3 mmol/L (3.5-5.1) Chloride Level 77 mmol/L (98-107) Carbon Dioxide Level 11 mmol/L (21-32) Anion Gap 33 (6-14) Blood Urea Nitrogen 33 mg/dL (8-26) Creatinine 1.7 mg/dL (0.7-1.3) Estimated GFR (Cockcroft-Gault) 47.2 Glucose Level 869 mg/dL (70-99) Calcium Level 9.5 mg/dL (8.5-10.1) Phosphorus Level 4.5 mg/dL (2.6-4.7) Magnesium Level 2.0 mg/dL (1.8-2.4) Total Bilirubin 1.4 mg/dL (0.2-1.0) Direct Bilirubin 0.3 mg/dL (0.0-0.2) Aspartate Amino Transf (AST/SGOT) 14 U/L (15-37) Alanine Aminotransferase (ALT/SGPT) 36 U/L (16-63) Alkaline Phosphatase 133 U/L (46-116) Creatine Kinase 29 U/L (39-308) Creatine Kinase MB (Mass) < 0.5 ng/mL (0.0-3.6) Creatine Kinase MB Relative Index % (0-4) Total Protein 7.3 g/dL (6.4-8.2) Albumin 4.7 g/dL (3.4-5.0) Urine Collection Type Unknown Urine Color Yellow Urine Clarity Clear Urine pH 5.5 Urine Specific [place] >=1.030 Urine Protein Negative mg/dL (NEG-TRACE) Urine Glucose (UA) >=1000 mg/dL (NEG) Urine Ketones (Stick) >=80 mg/dL (NEG) Urine Blood Small (NEG) Urine Nitrite Negative (NEG) Urine Bilirubin Negative (NEG) Urine Urobilinogen Dipstick 0.2 mg/dL (0.2 mg/dL) Urine Leukocyte Esterase Negative (NEG) Urine RBC 1-2 /HPF (0-2) Urine WBC Occ /HPF (0-4) Urine Squamous Epithelial Cells Occ /LPF Urine Bacteria Few /HPF (0-FEW) Urine Mucus Slight /LPF O2 Saturation 97 % (92-99) Arterial Blood pH 7.26 (7.35-7.45) Arterial Blood pCO2 at Patient Temp 16 mmHg (35-46) Arterial Blood pO2 at Patient Temp 111 mmHg (85-108) Arterial Blood HCO3 7 mmol/L (21-28) Arterial Blood Base Excess -17 mmol/L (-3-3) FiO2 21 Glucose (Fingerstick) 579 mg/dL (70-99) VTE Prophylaxis Ordered VTE Prophylaxis Devices: Yes VTE Pharmacological Prophylaxi: Yes Assessment/Plan Assessment/Plan 1. DKA 2. Hemolytic autoimmune anemia hx 3. GAp metabolic acidosis with SANDRA 4. PSeudohyponatremia 5. mild PCM PLAn: Admit ICU, DKA protocol BMP q4 till gap closes Cont folate and pred 5 PO qD Check [id number] IVF hydrate aggressive Seen in ER CC 32 CHACORTA CHAPIN MD Apr 23, 2017 15:19
[2017-04-23] MEDS ORDERED: IV DEXTROSE 5 %-0.45 % NACL 1,000 ML IV SCH (16:54)
--- NOTE | 2017-04-23 17:31 | PDOC2 ---
CONSULT Date of Consult Date of Consult DATE: 04/23/17 TIME: 17:25 Past Medical History Cardiovascular: No pertinent hx Pulmonary: No pertinent hx GI: No pertinent hx Heme/Onc: Anemia NOS, Other Hepatobiliary: Other Psych: No pertinent hx Rheumatologic: No pertinent hx Past Surgical History Past Surgical History: Other, No pertinent history Family History Family History: No Significant Social History No ALCOHOL: none Drugs: None Current Medications Current Medications Current Medications Sodium Chloride 1,000 ml @ 1,000 mls/hr 1X ONCE IV Last administered on 04/23 12:47; Start 04/23/17 at 13:00; Stop 04/23/17 at 13:59; Status DC Ondansetron HCl (Zofran) 4 mg 1X ONCE IV Last administered on 04/23/17 12:48 ; Start 04/23/17 at 13:00; Stop 04/23/17 at 13:01; Status DC Sodium Chloride 1,000 ml @ 1,000 mls/hr 1X ONCE IV Last administered on 04/23 13:50; Start 04/23/17 at 14:00; Stop 04/23/17 at 14:59; Status DC Sodium Chloride 1,000 ml @ 1,000 mls/hr Q1H IV Last administered on 13:56; Start 04/23/17 at 13:56; Stop 04/23/17 at 14:55; Status DC Insulin Human Regular 150 ml @ 0 mls/hr CONT PRN PRN IV PER PROTOCOL Last administered on 04/23/17 14:46; Start 04/23/17 at 14:00 Ondansetron HCl (Zofran) 4 mg PRN Q8HRS PRN IV NAUSEA/VOMITING; Start at 14:15; Stop 04/23/17 at 15:17; Status DC Ondansetron HCl (Zofran) 4 mg PRN Q6HRS PRN IV NAUSEA/VOMITING; Start at 15:30; Stop 04/24/17 at 15:29 Acetaminophen (Tylenol) 500 mg PRN Q6HRS PRN PO MILD PAIN / TEMP; Start at 15:15 Sodium Chloride 1,000 ml @ 150 mls/hr Q6H40M IV ; Start 04/23/17 at 15:15; Status Cancel Dextrose/Sodium Chloride 1,000 ml @ 125 mls/hr Q8H PRN IV see below; Start at 15:15; Status Cancel Folic Acid (Folic Acid) 1 mg DAILY PO ; Start 04/24/17 at 09:00 Prednisone (Prednisone) 5 mg DAILY PO ; Start 04/24/17 at 09:00 Sodium Chloride 1,000 ml @ 250 mls/hr Q4H IV ; Start 04/23/17 at 16:54 Dextrose/Sodium Chloride 1,000 ml @ 250 mls/hr Q4H IV ; Start 04/23/17 at 16: 54 Active Scripts Active Keflex (Cephalexin) 500 Mg Capsule 1 Cap PO TID Prednisone 10 Mg Tablet 30 Mg PO DAILY Glucophage (Metformin Hcl) 500 Mg Tablet 500 Mg PO BIDWMEALS Reported Prednisone 20 Mg Tablet 40 Mg PO DAILY Folic Acid 1 Mg Tablet 1 Tab PO DAILY Allergies Allergies: Coded Allergies: No Known Drug Allergies (Unverified , 02/21/17) Vitals VITALS Vital Signs Date Time Temp Pulse Resp B/P (MAP) Pulse Ox O2 Delivery O2 Flow Rate FiO2 04/23/17 16:07 78 18 140/73 (95) 98 Room Air 04/23/17 11:59 97.7 97.7 Labs Labs Laboratory Tests Test 04/23/17 12:17 04/23/17 13:14 04/23/17 13:57 04/23/17 14:42 White Blood Count 9.8 x10^3/uL (4.0-11.0) Red Blood Count 5.69 x10^6/uL (4.30-5.70) Hemoglobin 17.0 g/dL (13.0-17.5) Hematocrit 52.0 % (39.0-53.0) Mean Corpuscular Volume 92 fL (79-100) Mean Corpuscular Hemoglobin 30 pg (25-35) Mean Corpuscular Hemoglobin Concent 33 g/dL (31-37) Red Cell Distribution Width 16.0 % (11.5-14.5) Platelet Count 244 x10^3/uL (140-400) Neutrophils (%) (Auto) 82 % (31-73) Lymphocytes (%) (Auto) 12 % (24-48) Monocytes (%) (Auto) 5 % (0-9) Eosinophils (%) (Auto) 0 % (0-3) Basophils (%) (Auto) 0 % (0-3) Neutrophils # (Auto) 8.1 x10^3uL (1.8-7.7) Lymphocytes # (Auto) 1.2 x10^3/uL (1.0-4.8) Monocytes # (Auto) 0.5 x10^3/uL (0.0-1.1) Eosinophils # (Auto) 0.0 x10^3/uL (0.0-0.7) Basophils # (Auto) 0.0 x10^3/uL (0.0-0.2) Sodium Level 121 mmol/L (136-145) Potassium Level 4.3 mmol/L (3.5-5.1) Chloride Level 77 mmol/L (98-107) Carbon Dioxide Level 11 mmol/L (21-32) Anion Gap 33 (6-14) Blood Urea Nitrogen 33 mg/dL (8-26) Creatinine 1.7 mg/dL (0.7-1.3) Estimated GFR (Cockcroft-Gault) 47.2 Glucose Level 869 mg/dL (70-99) Calcium Level 9.5 mg/dL (8.5-10.1) Phosphorus Level 4.5 mg/dL (2.6-4.7) Magnesium Level 2.0 mg/dL (1.8-2.4) Total Bilirubin 1.4 mg/dL (0.2-1.0) Direct Bilirubin 0.3 mg/dL (0.0-0.2) Aspartate Amino Transf (AST/SGOT) 14 U/L (15-37) Alanine Aminotransferase (ALT/SGPT) 36 U/L (16-63) Alkaline Phosphatase 133 U/L (46-116) Creatine Kinase 29 U/L (39-308) Creatine Kinase MB (Mass) < 0.5 ng/mL (0.0-3.6) Creatine Kinase MB Relative Index % (0-4) Total Protein 7.3 g/dL (6.4-8.2) Albumin 4.7 g/dL (3.4-5.0) Urine Collection Type Unknown Urine Color Yellow Urine Clarity Clear Urine pH 5.5 Urine Specific [place] >=1.030 Urine Protein Negative mg/dL (NEG-TRACE) Urine Glucose (UA) >=1000 mg/dL (NEG) Urine Ketones (Stick) >=80 mg/dL (NEG) Urine Blood Small (NEG) Urine Nitrite Negative (NEG) Urine Bilirubin Negative (NEG) Urine Urobilinogen Dipstick 0.2 mg/dL (0.2 mg/dL) Urine Leukocyte Esterase Negative (NEG) Urine RBC 1-2 /HPF (0-2) Urine WBC Occ /HPF (0-4) Urine Squamous Epithelial Cells Occ /LPF Urine Bacteria Few /HPF (0-FEW) Urine Mucus Slight /LPF O2 Saturation 97 % (92-99) Arterial Blood pH 7.26 (7.35-7.45) Arterial Blood pCO2 at Patient Temp 16 mmHg (35-46) Arterial Blood pO2 at Patient Temp 111 mmHg (85-108) Arterial Blood HCO3 7 mmol/L (21-28) Arterial Blood Base Excess -17 mmol/L (-3-3) FiO2 21 Glucose (Fingerstick) 579 mg/dL (70-99) Test 04/23/17 15:45 04/23/17 16:05 04/23/17 16:37 Glucose (Fingerstick) 396 mg/dL (70-99) 345 mg/dL (70-99) Lactic Acid Level 1.6 mmol/L (0.4-2.0) Laboratory Tests Test 04/23/17 12:17 04/23/17 13:14 04/23/17 13:57 04/23/17 14:42 White Blood Count 9.8 x10^3/uL (4.0-11.0) Red Blood Count 5.69 x10^6/uL (4.30-5.70) Hemoglobin 17.0 g/dL (13.0-17.5) Hematocrit 52.0 % (39.0-53.0) Mean Corpuscular Volume 92 fL (79-100) Mean Corpuscular Hemoglobin 30 pg (25-35) Mean Corpuscular Hemoglobin Concent 33 g/dL (31-37) Red Cell Distribution Width 16.0 % (11.5-14.5) Platelet Count 244 x10^3/uL (140-400) Neutrophils (%) (Auto) 82 % (31-73) Lymphocytes (%) (Auto) 12 % (24-48) Monocytes (%) (Auto) 5 % (0-9) Eosinophils (%) (Auto) 0 % (0-3) Basophils (%) (Auto) 0 % (0-3) Neutrophils # (Auto) 8.1 x10^3uL (1.8-7.7) Lymphocytes # (Auto) 1.2 x10^3/uL (1.0-4.8) Monocytes # (Auto) 0.5 x10^3/uL (0.0-1.1) Eosinophils # (Auto) 0.0 x10^3/uL (0.0-0.7) Basophils # (Auto) 0.0 x10^3/uL (0.0-0.2) Sodium Level 121 mmol/L (136-145) Potassium Level 4.3 mmol/L (3.5-5.1) Chloride Level 77 mmol/L (98-107) Carbon Dioxide Level 11 mmol/L (21-32) Anion Gap 33 (6-14) Blood Urea Nitrogen 33 mg/dL (8-26) Creatinine 1.7 mg/dL (0.7-1.3) Estimated GFR (Cockcroft-Gault) 47.2 Glucose Level 869 mg/dL (70-99) Calcium Level 9.5 mg/dL (8.5-10.1) Phosphorus Level 4.5 mg/dL (2.6-4.7) Magnesium Level 2.0 mg/dL (1.8-2.4) Total Bilirubin 1.4 mg/dL (0.2-1.0) Direct Bilirubin 0.3 mg/dL (0.0-0.2) Aspartate Amino Transf (AST/SGOT) 14 U/L (15-37) Alanine Aminotransferase (ALT/SGPT) 36 U/L (16-63) Alkaline Phosphatase 133 U/L (46-116) Creatine Kinase 29 U/L (39-308) Creatine Kinase MB (Mass) < 0.5 ng/mL (0.0-3.6) Creatine Kinase MB Relative Index % (0-4) Total Protein 7.3 g/dL (6.4-8.2) Albumin 4.7 g/dL (3.4-5.0) Urine Collection Type Unknown Urine Color Yellow Urine Clarity Clear Urine pH 5.5 Urine Specific [place] >=1.030 Urine Protein Negative mg/dL (NEG-TRACE) Urine Glucose (UA) >=1000 mg/dL (NEG) Urine Ketones (Stick) >=80 mg/dL (NEG) Urine Blood Small (NEG) Urine Nitrite Negative (NEG) Urine Bilirubin Negative (NEG) Urine Urobilinogen Dipstick 0.2 mg/dL (0.2 mg/dL) Urine Leukocyte Esterase Negative (NEG) Urine RBC 1-2 /HPF (0-2) Urine WBC Occ /HPF (0-4) Urine Squamous Epithelial Cells Occ /LPF Urine Bacteria Few /HPF (0-FEW) Urine Mucus Slight /LPF O2 Saturation 97 % (92-99) Arterial Blood pH 7.26 (7.35-7.45) Arterial Blood pCO2 at Patient Temp 16 mmHg (35-46) Arterial Blood pO2 at Patient Temp 111 mmHg (85-108) Arterial Blood HCO3 7 mmol/L (21-28) Arterial Blood Base Excess -17 mmol/L (-3-3) FiO2 21 Glucose (Fingerstick) 579 mg/dL (70-99) Test 04/23/17 15:45 04/23/17 16:05 04/23/17 16:37 Glucose (Fingerstick) 396 mg/dL (70-99) 345 mg/dL (70-99) Lactic Acid Level 1.6 mmol/L (0.4-2.0) Assessment/Plan Assessment/Plan DATE OF CONSULTATION: 04/23/2017 HEMATOLOGY ONCOLOGY CONSULTATION REPORT CONSULTATION REQUESTED BY: Dr. 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 HISTORY OF PRESENT ILLNESS: The patient is a 31-year-old gentleman who reports having felt lightheaded on 02/08/2017. He also noticed decreased appetite. On February 09, he started having nausea and vomiting. He reports that he was unable to keep any food down and whenever he tries to eat something, he tends to throw up. He denies any abdominal pain or chest pain. No fevers, chills or night sweats. He has also noticed that his urine has been dark since 02/06/2017 and he thought he was dehydrated and he was trying to drink more water. He was diagnosed with jaundice when he presented to the Emergency Room on 02/12/2017. He denies any prior history of jaundice. No history of liver or spleen problems. He has noticed increasing fatigue. He underwent ultrasound of the liver on 02/12/2017, which revealed gallstones. No evidence of biliary ductal dilatation. Hepatic echotexture was within normal limits. He was noted to have a hemoglobin of 4.4 on 02/12/2017 with an MCV of 100. After transfusion, his hemoglobin was 5.6. In addition, on 02/13/2017, his WBC was decreased to 3.9 and platelet count of 125. His reticulocyte count was elevated at 3.8. His total bilirubin was 9.3 with a direct bilirubin of only 0.8. Flow cytometry to evaluate for PNH 02/13/17 came back as negative. On 02/13/17 Reticulocyte count is 3.8, haptoglobin <10, and LDH 930, but Brittani test is negative. ~ s/p bone marrow biopsy 02/14/17 to evaluate for any primary bone marrow failure. ~Results are neg CT C/A/P on 02/13/17: Splenomegaly. This in conjunction with bilateral axillary adenopathy, periaortic and pelvic adenopathy with some associated mild mediastinal adenopathy suggests possible lymphoma. s/p axillary LN bx 02/15/17. Neg for lymphoma. He received blood transfusion at [facility] and he was discharged on 02/15/2017 and his hemoglobin was 7.0. Follow-up hemoglobin on 02/18/2017 reveals that his hemoglobin has got worse at 4.8 indicating ongoing hemolysis. Hence I admitted him to [facility] in view of severe anemia and started him on prednisone 100 mg p.o. daily 02/18/17. Hb improved to 12.7 on 02/3117. I will decreased prednisone to 40 mg a day from 03/26/2017. He was admitted for rt axillary abscess on 03/28/17 which has resolved. He was admitted on 04/23/17 with hx polyuria, vomiting, so went to ER, BS 800s. creat 1,7, Na 121, Bicarb 11, AGAp 33, on metformin only. He was admitted for DKA. PAST MEDICAL HISTORY: He denies any medical problems. PAST SURGICAL HISTORY: None. SOCIAL HISTORY: He drinks alcohol occasionally, but denies any heavy alcohol use. No smoking. FAMILY HISTORY: Positive for diabetes. REVIEW OF SYSTEMS: A 14-point review of system was performed. Pertinent positives are mentioned in the history of present illness. Rest of the system review is negative. PHYSICAL EXAMINATION: GENERAL APPEARANCE: The patient is a 31-year-old gentleman who is in no acute cardiorespiratory distress. VITAL SIGNS: reviewed. HEAD: Atraumatic, normocephalic. EYES: He has no evidence of icterus. NECK: Supple. CHEST: Bilaterally symmetrical. No crepitations or rhonchi heard. HEART: S1, S2 normal. ABDOMEN: Soft, nontender. No hepatosplenomegaly. CENTRAL NERVOUS SYSTEM: No focal neurological deficits. LYMPHATICS: No lymphadenopathy. SKIN: No rashes. He has no evidence of icterus. PSYCHOLOGIC: Mood and affect are appropriate. MUSCULOSKELETAL: No joint effusions. LABORATORY DATA: Hb 17.0 on 04/23/17 IMPRESSION AND PLAN: 1. 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 Pt presented with severe anemia with a hemoglobin of 4.4 on 02/12/2017. ~In addition, he has evidence of leukopenia with a WBC of 3.9 and platelet count 125 on 02/13/2017. His reticulocyte count is elevated at 3.8 along with significant elevation of total bilirubin of 9.3 with direct bilirubin being only 0.8 suggestive of a hemolytic process. ~In addition, the patient reports having noticed dark urine since 02/06/2017. ~The nurse also noted that the urine was dark brown/tea-colored on the morning of 02/13/2017. ~The presence of pancytopenia and dark urine is concerning for paroxysmal nocturnal hemoglobinuria but ~Flow cytometry to evaluate for PNH 02/13/17 came back as negative. On 02/13/17 Reticulocyte count is 3.8, haptoglobin <10, and LDH 930, but Brittani test is negative. s/p bone marrow biopsy 02/14/17 is negative for any primary bone marrow disorders. CT C/A/P on 02/13/17: Splenomegaly. This in conjunction with bilateral axillary adenopathy, periaortic and pelvic adenopathy with some associated mild mediastinal adenopathy suggests possible lymphoma. s/p axillary LN bx 02/15/17 and excisional bx 02/21/17, neg. He received blood transfusion at [facility] and he was discharged on 02/15/2017 and his hemoglobin was 7.0. Follow-up hemoglobin on 02/18/2017 reveals that his hemoglobin has got worse at 4.8 indicating ongoing hemolysis. Hence I admitted him to [facility] in view of severe anemia and started him on prednisone 100 mg p.o. daily 02/18/17. Hb improved to 6.3 on 02/22/17 Hb improved to 8.1 and LDH 589 on 02/25/17 Hb improved to 9.8 on 03/01/17. ~I will decrease prednisone to 80 mg a day from 03/02/2017. ~Vegetable Thinner was used to help explain to the patient. Hb improved to 11.7 on 03/08/17. ~I decreased prednisone to 60 mg a day from . ~However the patient did not reduce the dose. Hb improved to 12.7 on 03/18/17. ~I decreased~prednisone to 60 mg a day from . Hb improved to 12.7 on 03/26/17. ~I decreased prednisone to 40 mg a day from . Hb improved to 13.1 on 03/28/17. ~I decreased prednisone to 30 mg a day from 03/28 in view of abscess and high blood sugars.. It was then tapered further and is now at 10 mg daily. Since the Hb is 17 on 04.23.17, I will taper to 5 mg daily. Monitor cbc I d/w DR Henriquez and RN 2. Lymphadenopathy - s/p excisional bx rt axillary LN 02/21/17, neg. I will plan for a follow-up CAT scan in April 2017. 3. DM2, poor control since prednisone started, Management per DR Henriquez. STEVEN GIL MD Apr 23, 2017 17:31
[2017-04-23 17:33] LABS: CALCIUM 7.5 mg/dL (8.5-10.1); CREATININE 1.2 mg/dL (0.7-1.3); GFR 70.6; MAGNESIUM 1.8 mg/dL (1.8-2.4); PHOSPHORUS 1.9 mg/dL (2.6-4.7)
[2017-04-23 17:40] LABS: POTASSIUM 2.7 mmol/L (3.5-5.1)
[2017-04-23] MEDS ORDERED: POTASSIUM CHLORIDE 10 MEQ TABLET.ER. PO ONE (17:45)
[2017-04-23] MEDS ORDERED: POTASSIUM CHLORIDE 20 MEQ TABLET.ER. PO ONE (19:00)
[2017-04-23] MEDS ORDERED: IV DEXTROSE 5% - 0.9 % NACL 1,000 ML IV SCH (20:00)
[2017-04-23] MEDS: POTASSIUM PHOSPHATE DIBASIC 13.6 MMOL in IV NORMAL SALINE 100ML 100 ML IV SCH ×2 (20:15→22:16)
[2017-04-23 22:20] LABS: CALCIUM 7.5 mg/dL (8.5-10.1); CREATININE 1.2 mg/dL (0.7-1.3); GFR 70.6; POTASSIUM 3.3 mmol/L (3.5-5.1)
[2017-04-23] MEDS ORDERED: DEXTROSE 50% 25 GM / 50ML DISP.SYRIN. IV PRN (23:15)
[2017-04-23] MEDS ORDERED: INSULIN ASPART 300 UNITS/3 ML INSULN.PEN SQ ONE (23:45)
[2017-04-24] MEDS: POTASSIUM PHOSPHATE DIBASIC 13.6 MMOL in IV NORMAL SALINE 100ML 100 ML IV SCH (00:01)
[2017-04-24 04:00] VITALS: BP 131/81
[2017-04-24 05:26] LABS: BASO % 0 % (0-3); EOS % 1 % (0-3); HEMATOCRIT 35.9 % (39.0-53.0); HEMOGLOBIN 12.3 g/dL (13.0-17.5); LYMPH # 1.9 x10^3/uL (1.0-4.8); LYMPH % 37 % (24-48); MEAN CORPUSCULAR HEMOGLOBIN 31 pg (25-35); MEAN CORPUSCULAR HGB CONC 34 g/dL (31-37); MEAN CORPUSCULAR VOLUME 89 fL (79-100); MONO % 10 % (0-9); NEUT % 53 % (31-73); PLATELET COUNT 130 x10^3/uL (140-400); RED BLOOD COUNT 4.03 x10^6/uL (4.30-5.70); RED CELL DISTRIBUTION WIDTH 15.8 % (11.5-14.5); WHITE BLOOD COUNT 5.2 x10^3/uL (4.0-11.0)
[2017-04-24 05:43] LABS: CALCIUM 7.6 mg/dL (8.5-10.1); CREATININE 1.2 mg/dL (0.7-1.3); GFR 70.6; PHOSPHORUS 2.2 mg/dL (2.6-4.7); POTASSIUM 3.8 mmol/L (3.5-5.1)
[2017-04-24 08:00] VITALS: BP 124/60
[2017-04-24] MEDS: FOLIC ACID 1 MG TABLET. PO SCH (08:16)
[2017-04-24] MEDS: predniSONE 5 MG TABLET PO SCH (08:16)
[2017-04-24] MEDS: INSULIN ASPART 300 UNITS/3 ML INSULN.PEN SQ SCH ×4 (08:17→21:06)
[2017-04-24] MEDS ORDERED: predniSONE 5 MG TABLET ONE (09:00)
--- NOTE | 2017-04-24 09:31 | PDOC ---
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 ROS - no n/v Objective Objective Vital Signs Date Time Temp Pulse Resp B/P (MAP) Pulse Ox O2 Delivery O2 Flow Rate FiO2 04/24/17 04:00 98.4 78 16 131/81 (98) 97 Room Air 98.4 Intake and Output 04/24/17 07:00 Intake Total 8083.5999 ml Output Total 2000 ml Balance 6083.5999 ml Intake Oral 2020 ml IV Total 6063.5999 ml Output Urine Total 2000 ml Physical Exam Heart: Normal S1, Normal S2 General: Alert, Oriented X3 Lungs: Clear to auscultation Neuro: Normal speech Psych/Mental Status: Mental status NL Assessment Assessment IMPRESSION AND PLAN: 1. 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 Since the Hb is 17 on 04.23.17, I will taper to 5 mg daily. Hb worse at 12.3 on 04/24/17, but retic and LDH normal, will monitor. 2. Lymphadenopathy - s/p excisional bx rt axillary LN 02/21/17, neg. I will plan for a follow-up CAT scan in April 2017. 3. DM2/DKA, poor control since prednisone started, Management per DR Henriquez. Comment Review of Relevant I have reviewed the following items sharron (where applicable) has been applied. Labs Laboratory Tests Test 04/23/17 12:17 04/23/17 13:14 04/23/17 13:57 04/23/17 14:42 White Blood Count 9.8 x10^3/uL (4.0-11.0) Red Blood Count 5.69 x10^6/uL (4.30-5.70) Hemoglobin 17.0 g/dL (13.0-17.5) Hematocrit 52.0 % (39.0-53.0) Mean Corpuscular Volume 92 fL (79-100) Mean Corpuscular Hemoglobin 30 pg (25-35) Mean Corpuscular Hemoglobin Concent 33 g/dL (31-37) Red Cell Distribution Width 16.0 % (11.5-14.5) Platelet Count 244 x10^3/uL (140-400) Neutrophils (%) (Auto) 82 % (31-73) Lymphocytes (%) (Auto) 12 % (24-48) Monocytes (%) (Auto) 5 % (0-9) Eosinophils (%) (Auto) 0 % (0-3) Basophils (%) (Auto) 0 % (0-3) Neutrophils # (Auto) 8.1 x10^3uL (1.8-7.7) Lymphocytes # (Auto) 1.2 x10^3/uL (1.0-4.8) Monocytes # (Auto) 0.5 x10^3/uL (0.0-1.1) Eosinophils # (Auto) 0.0 x10^3/uL (0.0-0.7) Basophils # (Auto) 0.0 x10^3/uL (0.0-0.2) Sodium Level 121 mmol/L (136-145) Potassium Level 4.3 mmol/L (3.5-5.1) Chloride Level 77 mmol/L (98-107) Carbon Dioxide Level 11 mmol/L (21-32) Anion Gap 33 (6-14) Blood Urea Nitrogen 33 mg/dL (8-26) Creatinine 1.7 mg/dL (0.7-1.3) Estimated GFR (Cockcroft-Gault) 47.2 Glucose Level 869 mg/dL (70-99) Hemoglobin A1c 10.3 % (4.8-5.6) Calcium Level 9.5 mg/dL (8.5-10.1) Phosphorus Level 4.5 mg/dL (2.6-4.7) Magnesium Level 2.0 mg/dL (1.8-2.4) Total Bilirubin 1.4 mg/dL (0.2-1.0) Direct Bilirubin 0.3 mg/dL (0.0-0.2) Aspartate Amino Transf (AST/SGOT) 14 U/L (15-37) Alanine Aminotransferase (ALT/SGPT) 36 U/L (16-63) Alkaline Phosphatase 133 U/L (46-116) Creatine Kinase 29 U/L (39-308) Creatine Kinase MB (Mass) < 0.5 ng/mL (0.0-3.6) Creatine Kinase MB Relative Index % (0-4) Total Protein 7.3 g/dL (6.4-8.2) Albumin 4.7 g/dL (3.4-5.0) Urine Collection Type Unknown Urine Color Yellow Urine Clarity Clear Urine pH 5.5 Urine Specific [place] >=1.030 Urine Protein Negative mg/dL (NEG-TRACE) Urine Glucose (UA) >=1000 mg/dL (NEG) Urine Ketones (Stick) >=80 mg/dL (NEG) Urine Blood Small (NEG) Urine Nitrite Negative (NEG) Urine Bilirubin Negative (NEG) Urine Urobilinogen Dipstick 0.2 mg/dL (0.2 mg/dL) Urine Leukocyte Esterase Negative (NEG) Urine RBC 1-2 /HPF (0-2) Urine WBC Occ /HPF (0-4) Urine Squamous Epithelial Cells Occ /LPF Urine Bacteria Few /HPF (0-FEW) Urine Mucus Slight /LPF O2 Saturation 97 % (92-99) Arterial Blood pH 7.26 (7.35-7.45) Arterial Blood pCO2 at Patient Temp 16 mmHg (35-46) Arterial Blood pO2 at Patient Temp 111 mmHg (85-108) Arterial Blood HCO3 7 mmol/L (21-28) Arterial Blood Base Excess -17 mmol/L (-3-3) FiO2 21 Glucose (Fingerstick) 579 mg/dL (70-99) Test 04/23/17 15:45 04/23/17 16:05 04/23/17 16:37 04/23/17 17:10 Glucose (Fingerstick) 396 mg/dL (70-99) 345 mg/dL (70-99) Lactic Acid Level 1.6 mmol/L (0.4-2.0) Sodium Level 133 mmol/L (136-145) Potassium Level 2.7 mmol/L (3.5-5.1) Chloride Level 98 mmol/L (98-107) Carbon Dioxide Level 11 mmol/L (21-32) Anion Gap 24 (6-14) Blood Urea Nitrogen 25 mg/dL (8-26) Creatinine 1.2 mg/dL (0.7-1.3) Estimated GFR (Cockcroft-Gault) 70.6 Glucose Level 295 mg/dL (70-99) Calcium Level 7.5 mg/dL (8.5-10.1) Phosphorus Level 1.9 mg/dL (2.6-4.7) Magnesium Level 1.8 mg/dL (1.8-2.4) Test 04/23/17 18:01 04/23/17 19:04 04/23/17 20:19 04/23/17 21:40 Glucose (Fingerstick) 259 mg/dL (70-99) 234 mg/dL (70-99) 279 mg/dL (70-99) Sodium Level 136 mmol/L (136-145) Potassium Level 3.3 mmol/L (3.5-5.1) Chloride Level 103 mmol/L (98-107) Carbon Dioxide Level 21 mmol/L (21-32) Anion Gap 12 (6-14) Blood Urea Nitrogen 23 mg/dL (8-26) Creatinine 1.2 mg/dL (0.7-1.3) Estimated GFR (Cockcroft-Gault) 70.6 Glucose Level 260 mg/dL (70-99) Calcium Level 7.5 mg/dL (8.5-10.1) Magnesium Level 2.0 mg/dL (1.8-2.4) Test 04/23/17 21:44 04/23/17 22:56 04/24/17 04:55 04/24/17 08:14 Glucose (Fingerstick) 236 mg/dL (70-99) 194 mg/dL (70-99) 257 mg/dL (70-99) White Blood Count 5.2 x10^3/uL (4.0-11.0) Red Blood Count 4.03 x10^6/uL (4.30-5.70) Hemoglobin 12.3 g/dL (13.0-17.5) Hematocrit 35.9 % (39.0-53.0) Mean Corpuscular Volume 89 fL (79-100) Mean Corpuscular Hemoglobin 31 pg (25-35) Mean Corpuscular Hemoglobin Concent 34 g/dL (31-37) Red Cell Distribution Width 15.8 % (11.5-14.5) Platelet Count 130 x10^3/uL (140-400) Neutrophils (%) (Auto) 53 % (31-73) Lymphocytes (%) (Auto) 37 % (24-48) Monocytes (%) (Auto) 10 % (0-9) Eosinophils (%) (Auto) 1 % (0-3) Basophils (%) (Auto) 0 % (0-3) Neutrophils # (Auto) 2.8 x10^3uL (1.8-7.7) Lymphocytes # (Auto) 1.9 x10^3/uL (1.0-4.8) Monocytes # (Auto) 0.5 x10^3/uL (0.0-1.1) Eosinophils # (Auto) 0.0 x10^3/uL (0.0-0.7) Basophils # (Auto) 0.0 x10^3/uL (0.0-0.2) Reticulocyte Count (auto) 2.4 % (0.5-2.5) Sodium Level 138 mmol/L (136-145) Potassium Level 3.8 mmol/L (3.5-5.1) Chloride Level 107 mmol/L (98-107) Carbon Dioxide Level 18 mmol/L (21-32) Anion Gap 13 (6-14) Blood Urea Nitrogen 19 mg/dL (8-26) Creatinine 1.2 mg/dL (0.7-1.3) Estimated GFR (Cockcroft-Gault) 70.6 Glucose Level 202 mg/dL (70-99) Calcium Level 7.6 mg/dL (8.5-10.1) Phosphorus Level 2.2 mg/dL (2.6-4.7) Lactate Dehydrogenase 172 U/L (85-227) Laboratory Tests Test 04/23/17 12:17 04/23/17 13:14 04/23/17 13:57 04/23/17 14:42 White Blood Count 9.8 x10^3/uL (4.0-11.0) Red Blood Count 5.69 x10^6/uL (4.30-5.70) Hemoglobin 17.0 g/dL (13.0-17.5) Hematocrit 52.0 % (39.0-53.0) Mean Corpuscular Volume 92 fL (79-100) Mean Corpuscular Hemoglobin 30 pg (25-35) Mean Corpuscular Hemoglobin Concent 33 g/dL (31-37) Red Cell Distribution Width 16.0 % (11.5-14.5) Platelet Count 244 x10^3/uL (140-400) Neutrophils (%) (Auto) 82 % (31-73) Lymphocytes (%) (Auto) 12 % (24-48) Monocytes (%) (Auto) 5 % (0-9) Eosinophils (%) (Auto) 0 % (0-3) Basophils (%) (Auto) 0 % (0-3) Neutrophils # (Auto) 8.1 x10^3uL (1.8-7.7) Lymphocytes # (Auto) 1.2 x10^3/uL (1.0-4.8) Monocytes # (Auto) 0.5 x10^3/uL (0.0-1.1) Eosinophils # (Auto) 0.0 x10^3/uL (0.0-0.7) Basophils # (Auto) 0.0 x10^3/uL (0.0-0.2) Sodium Level 121 mmol/L (136-145) Potassium Level 4.3 mmol/L (3.5-5.1) Chloride Level 77 mmol/L (98-107) Carbon Dioxide Level 11 mmol/L (21-32) Anion Gap 33 (6-14) Blood Urea Nitrogen 33 mg/dL (8-26) Creatinine 1.7 mg/dL (0.7-1.3) Estimated GFR (Cockcroft-Gault) 47.2 Glucose Level 869 mg/dL (70-99) Hemoglobin A1c 10.3 % (4.8-5.6) Calcium Level 9.5 mg/dL (8.5-10.1) Phosphorus Level 4.5 mg/dL (2.6-4.7) Magnesium Level 2.0 mg/dL (1.8-2.4) Total Bilirubin 1.4 mg/dL (0.2-1.0) Direct Bilirubin 0.3 mg/dL (0.0-0.2) Aspartate Amino Transf (AST/SGOT) 14 U/L (15-37) Alanine Aminotransferase (ALT/SGPT) 36 U/L (16-63) Alkaline Phosphatase 133 U/L (46-116) Creatine Kinase 29 U/L (39-308) Creatine Kinase MB (Mass) < 0.5 ng/mL (0.0-3.6) Creatine Kinase MB Relative Index % (0-4) Total Protein 7.3 g/dL (6.4-8.2) Albumin 4.7 g/dL (3.4-5.0) Urine Collection Type Unknown Urine Color Yellow Urine Clarity Clear Urine pH 5.5 Urine Specific [place] >=1.030 Urine Protein Negative mg/dL (NEG-TRACE) Urine Glucose (UA) >=1000 mg/dL (NEG) Urine Ketones (Stick) >=80 mg/dL (NEG) Urine Blood Small (NEG) Urine Nitrite Negative (NEG) Urine Bilirubin Negative (NEG) Urine Urobilinogen Dipstick 0.2 mg/dL (0.2 mg/dL) Urine Leukocyte Esterase Negative (NEG) Urine RBC 1-2 /HPF (0-2) Urine WBC Occ /HPF (0-4) Urine Squamous Epithelial Cells Occ /LPF Urine Bacteria Few /HPF (0-FEW) Urine Mucus Slight /LPF O2 Saturation 97 % (92-99) Arterial Blood pH 7.26 (7.35-7.45) Arterial Blood pCO2 at Patient Temp 16 mmHg (35-46) Arterial Blood pO2 at Patient Temp 111 mmHg (85-108) Arterial Blood HCO3 7 mmol/L (21-28) Arterial Blood Base Excess -17 mmol/L (-3-3) FiO2 21 Glucose (Fingerstick) 579 mg/dL (70-99) Test 04/23/17 15:45 04/23/17 16:05 04/23/17 16:37 04/23/17 17:10 Glucose (Fingerstick) 396 mg/dL (70-99) 345 mg/dL (70-99) Lactic Acid Level 1.6 mmol/L (0.4-2.0) Sodium Level 133 mmol/L (136-145) Potassium Level 2.7 mmol/L (3.5-5.1) Chloride Level 98 mmol/L (98-107) Carbon Dioxide Level 11 mmol/L (21-32) Anion Gap 24 (6-14) Blood Urea Nitrogen 25 mg/dL (8-26) Creatinine 1.2 mg/dL (0.7-1.3) Estimated GFR (Cockcroft-Gault) 70.6 Glucose Level 295 mg/dL (70-99) Calcium Level 7.5 mg/dL (8.5-10.1) Phosphorus Level 1.9 mg/dL (2.6-4.7) Magnesium Level 1.8 mg/dL (1.8-2.4) Test 04/23/17 18:01 04/23/17 19:04 04/23/17 20:19 04/23/17 21:40 Glucose (Fingerstick) 259 mg/dL (70-99) 234 mg/dL (70-99) 279 mg/dL (70-99) Sodium Level 136 mmol/L (136-145) Potassium Level 3.3 mmol/L (3.5-5.1) Chloride Level 103 mmol/L (98-107) Carbon Dioxide Level 21 mmol/L (21-32) Anion Gap 12 (6-14) Blood Urea Nitrogen 23 mg/dL (8-26) Creatinine 1.2 mg/dL (0.7-1.3) Estimated GFR (Cockcroft-Gault) 70.6 Glucose Level 260 mg/dL (70-99) Calcium Level 7.5 mg/dL (8.5-10.1) Magnesium Level 2.0 mg/dL (1.8-2.4) Test 04/23/17 21:44 04/23/17 22:56 04/24/17 04:55 04/24/17 08:14 Glucose (Fingerstick) 236 mg/dL (70-99) 194 mg/dL (70-99) 257 mg/dL (70-99) White Blood Count 5.2 x10^3/uL (4.0-11.0) Red Blood Count 4.03 x10^6/uL (4.30-5.70) Hemoglobin 12.3 g/dL (13.0-17.5) Hematocrit 35.9 % (39.0-53.0) Mean Corpuscular Volume 89 fL (79-100) Mean Corpuscular Hemoglobin 31 pg (25-35) Mean Corpuscular Hemoglobin Concent 34 g/dL (31-37) Red Cell Distribution Width 15.8 % (11.5-14.5) Platelet Count 130 x10^3/uL (140-400) Neutrophils (%) (Auto) 53 % (31-73) Lymphocytes (%) (Auto) 37 % (24-48) Monocytes (%) (Auto) 10 % (0-9) Eosinophils (%) (Auto) 1 % (0-3) Basophils (%) (Auto) 0 % (0-3) Neutrophils # (Auto) 2.8 x10^3uL (1.8-7.7) Lymphocytes # (Auto) 1.9 x10^3/uL (1.0-4.8) Monocytes # (Auto) 0.5 x10^3/uL (0.0-1.1) Eosinophils # (Auto) 0.0 x10^3/uL (0.0-0.7) Basophils # (Auto) 0.0 x10^3/uL (0.0-0.2) Reticulocyte Count (auto) 2.4 % (0.5-2.5) Sodium Level 138 mmol/L (136-145) Potassium Level 3.8 mmol/L (3.5-5.1) Chloride Level 107 mmol/L (98-107) Carbon Dioxide Level 18 mmol/L (21-32) Anion Gap 13 (6-14) Blood Urea Nitrogen 19 mg/dL (8-26) Creatinine 1.2 mg/dL (0.7-1.3) Estimated GFR (Cockcroft-Gault) 70.6 Glucose Level 202 mg/dL (70-99) Calcium Level 7.6 mg/dL (8.5-10.1) Phosphorus Level 2.2 mg/dL (2.6-4.7) Lactate Dehydrogenase 172 U/L (85-227) Medications Current Medications Sodium Chloride 1,000 ml @ 1,000 mls/hr 1X ONCE IV Last administered on 04/23 12:47; Start 04/23/17 at 13:00; Stop 04/23/17 at 13:59; Status DC Ondansetron HCl (Zofran) 4 mg 1X ONCE IV Last administered on 04/23/17 12:48 ; Start 04/23/17 at 13:00; Stop 04/23/17 at 13:01; Status DC Sodium Chloride 1,000 ml @ 1,000 mls/hr 1X ONCE IV Last administered on 04/23 13:50; Start 04/23/17 at 14:00; Stop 04/23/17 at 14:59; Status DC Sodium Chloride 1,000 ml @ 1,000 mls/hr Q1H IV Last administered on 13:56; Start 04/23/17 at 13:56; Stop 04/23/17 at 14:55; Status DC Insulin Human Regular 150 ml @ 0 mls/hr CONT PRN PRN IV PER PROTOCOL Last administered on 04/23/17 14:46; Start 04/23/17 at 14:00; Stop 04/23/17 at 23 :16; Status DC Ondansetron HCl (Zofran) 4 mg PRN Q8HRS PRN IV NAUSEA/VOMITING; Start at 14:15; Stop 04/23/17 at 15:17; Status DC Ondansetron HCl (Zofran) 4 mg PRN Q6HRS PRN IV NAUSEA/VOMITING; Start at 15:30; Stop 04/24/17 at 15:29 Acetaminophen (Tylenol) 500 mg PRN Q6HRS PRN PO MILD PAIN / TEMP; Start at 15:15 Sodium Chloride 1,000 ml @ 150 mls/hr Q6H40M IV ; Start 04/23/17 at 15:15; Status Cancel Dextrose/Sodium Chloride 1,000 ml @ 125 mls/hr Q8H PRN IV see below; Start at 15:15; Status Cancel Folic Acid (Folic Acid) 1 mg DAILY PO Last administered on 04/24/17 08:16; Start 04/24/17 at 09:00 Prednisone (Prednisone) 5 mg DAILY PO Last administered on 04/24/17 08:16; Start 04/24/17 at 09:00 Sodium Chloride 1,000 ml @ 250 mls/hr Q4H IV ; Start 04/23/17 at 16:54; Stop 04/23/17 at 23:16; Status DC Dextrose/Sodium Chloride 1,000 ml @ 250 mls/hr Q4H IV ; Start 04/23/17 at 16: 54; Stop 04/23/17 at 23:16; Status DC Potassium Chloride (Klor-Con) 20 meq 1X ONCE PO Last administered on 20:15; Start 04/23/17 at 19:00; Stop 04/23/17 at 19:01; Status DC Potassium Chloride (Klor-Con) 40 meq 1X ONCE PO Last administered on 18:55; Start 04/23/17 at 17:45; Stop 04/23/17 at 17:58; Status DC Dextrose/Sodium Chloride 1,000 ml @ 250 mls/hr Q4H IV Last administered on 19:11; Start 04/23/17 at 20:00; Stop 04/23/17 at 23:16; Status DC Potassium Phosphate 13.6 mmol/Sodium Chloride 104.5333 ml @ 52.267 m... Q2H IV Last administered on 04/24/17 00:01; Start 04/23/17 at 20:30; Stop at 02:29; Status DC Insulin Aspart (NovoLOG) 0-9 UNITS QIDACHS SQ Last administered on 04/24/17 08:17; Start 04/24/17 at 07:30 Dextrose (Dextrose 50%-Water Syringe) 12.5 gm PRN Q15MIN PRN IV SEE COMMENTS; Start 04/23/17 at 23:15 Sodium Chloride 1,000 ml @ 125 mls/hr 1X ONCE IV Last administered on 23:29; Start 04/23/17 at 23:45; Stop 04/24/17 at 07:44; Status DC Insulin Aspart (NovoLOG) 4 units 1X ONCE SQ Last administered on 04/23/17 23 :40; Start 04/23/17 at 23:45; Stop 04/23/17 at 23:46; Status DC Active Scripts Active Prednisone 10 Mg Tablet 30 Mg PO DAILY Glucophage (Metformin Hcl) 500 Mg Tablet 500 Mg PO BIDWMEALS Reported Folic Acid 1 Mg Tablet 1 Tab PO DAILY Vitals/I & O Vital Sign - Last 24 Hours 04/23/17 04/23/17 04/23/17 04/23/17 11:59 12:00 13:00 14:15 Temp 97.7 97.7 Pulse 107 100 90 Resp 16 18 18 B/P (MAP) 163/93 (116) 143/96 (112) 143/84 (103) Pulse Ox 97 98 97 97 O2 Delivery Room Air Room Air Room Air Room Air 04/23/17 04/23/17 04/23/17 04/23/17 14:18 15:00 16:07 16:30 Temp 97.9 97.9 Pulse 100 94 78 106 Resp 18 18 18 18 B/P (MAP) 141/83 (102) 147/83 (104) 140/73 (95) 123/79 (94) Pulse Ox 97 99 98 O2 Delivery Room Air Room Air Room Air Room Air 04/23/17 04/23/17 04/23/17 04/23/17 16:30 17:00 18:00 19:00 Temp 97.9 97.9 Pulse 106 78 78 84 Resp 18 16 20 16 B/P (MAP) 123/79 (94) 141/77 (98) 140/71 (94) 124/64 (84) Pulse Ox 99 98 O2 Delivery Room Air Room Air Room Air Room Air 04/23/17 04/23/17 04/23/17 04/23/17 20:00 20:00 21:00 22:00 Temp 98.6 98.6 Pulse 84 82 84 Resp 20 16 18 B/P (MAP) 120/63 (82) 115/59 (77) 126/64 (84) Pulse Ox 98 98 97 O2 Delivery Room Air Room Air Room Air Room Air 04/23/17 04/23/17 04/23/17 04/24/17 23:00 23:40 23:40 04:00 Temp 98.4 98.4 98.4 98.4 Pulse 78 83 78 Resp 16 16 16 B/P (MAP) 132/62 (85) 128/68 (88) 131/81 (98) Pulse Ox 96 97 97 O2 Delivery Room Air Room Air Room Air Room Air Intake and Output 04/23/17 04/23/17 04/24/17 15:00 23:00 07:00 Intake Total 3000 ml 1634.5333 ml 3449.0666 ml Output Total 1000 ml 1000 ml Balance 3000 ml 634.5333 ml 2449.0666 ml STEVEN GIL MD Apr 24, 2017 09:31
--- NOTE | 2017-04-24 09:57 | PDOC ---
PROGRESS NOTES Chief Complaint Chief Complaint DKA ASSESSMENT AND PLAN: 1. DKA: resolved. 2. DM2: relatively new dx. HgbA1c 10.3. started on metformin; continue here. ISS 3. SANDRA: vasomotor etiology. resolved. 4. AIHA: Brittani neg. maintained on prednisone (taper). appreciate Dr Richards's help with management. significant drop in Hgb in 2 days prob dilutional. 5. LAD: s/p excisional bx rt axillary LN 02/21/17, neg. F/U CT in Apr 2017 on O/P basis 6. Dispo: transfer to med floor History of Present Illness History of Present Illness no F/C, no PRO, no pain Vitals Vitals Vital Signs Date Time Temp Pulse Resp B/P (MAP) Pulse Ox O2 Delivery O2 Flow Rate FiO2 04/24/17 04:00 98.4 78 16 131/81 (98) 97 Room Air 98.4 Physical Exam General: Alert, Oriented X3, Cooperative, No acute distress Heart: Regular rate Lungs: Clear Abdomen: Normal bowel sounds, Soft, No tenderness Extremities: No edema Skin: No rashes Labs LABS Laboratory Tests Test 04/23/17 12:17 04/23/17 13:14 04/23/17 13:57 04/23/17 14:42 White Blood Count 9.8 x10^3/uL (4.0-11.0) Red Blood Count 5.69 x10^6/uL (4.30-5.70) Hemoglobin 17.0 g/dL (13.0-17.5) Hematocrit 52.0 % (39.0-53.0) Mean Corpuscular Volume 92 fL (79-100) Mean Corpuscular Hemoglobin 30 pg (25-35) Mean Corpuscular Hemoglobin Concent 33 g/dL (31-37) Red Cell Distribution Width 16.0 % (11.5-14.5) Platelet Count 244 x10^3/uL (140-400) Neutrophils (%) (Auto) 82 % (31-73) Lymphocytes (%) (Auto) 12 % (24-48) Monocytes (%) (Auto) 5 % (0-9) Eosinophils (%) (Auto) 0 % (0-3) Basophils (%) (Auto) 0 % (0-3) Neutrophils # (Auto) 8.1 x10^3uL (1.8-7.7) Lymphocytes # (Auto) 1.2 x10^3/uL (1.0-4.8) Monocytes # (Auto) 0.5 x10^3/uL (0.0-1.1) Eosinophils # (Auto) 0.0 x10^3/uL (0.0-0.7) Basophils # (Auto) 0.0 x10^3/uL (0.0-0.2) Sodium Level 121 mmol/L (136-145) Potassium Level 4.3 mmol/L (3.5-5.1) Chloride Level 77 mmol/L (98-107) Carbon Dioxide Level 11 mmol/L (21-32) Anion Gap 33 (6-14) Blood Urea Nitrogen 33 mg/dL (8-26) Creatinine 1.7 mg/dL (0.7-1.3) Estimated GFR (Cockcroft-Gault) 47.2 Glucose Level 869 mg/dL (70-99) Hemoglobin A1c 10.3 % (4.8-5.6) Calcium Level 9.5 mg/dL (8.5-10.1) Phosphorus Level 4.5 mg/dL (2.6-4.7) Magnesium Level 2.0 mg/dL (1.8-2.4) Total Bilirubin 1.4 mg/dL (0.2-1.0) Direct Bilirubin 0.3 mg/dL (0.0-0.2) Aspartate Amino Transf (AST/SGOT) 14 U/L (15-37) Alanine Aminotransferase (ALT/SGPT) 36 U/L (16-63) Alkaline Phosphatase 133 U/L (46-116) Creatine Kinase 29 U/L (39-308) Creatine Kinase MB (Mass) < 0.5 ng/mL (0.0-3.6) Creatine Kinase MB Relative Index % (0-4) Total Protein 7.3 g/dL (6.4-8.2) Albumin 4.7 g/dL (3.4-5.0) Urine Collection Type Unknown Urine Color Yellow Urine Clarity Clear Urine pH 5.5 Urine Specific [place] >=1.030 Urine Protein Negative mg/dL (NEG-TRACE) Urine Glucose (UA) >=1000 mg/dL (NEG) Urine Ketones (Stick) >=80 mg/dL (NEG) Urine Blood Small (NEG) Urine Nitrite Negative (NEG) Urine Bilirubin Negative (NEG) Urine Urobilinogen Dipstick 0.2 mg/dL (0.2 mg/dL) Urine Leukocyte Esterase Negative (NEG) Urine RBC 1-2 /HPF (0-2) Urine WBC Occ /HPF (0-4) Urine Squamous Epithelial Cells Occ /LPF Urine Bacteria Few /HPF (0-FEW) Urine Mucus Slight /LPF O2 Saturation 97 % (92-99) Arterial Blood pH 7.26 (7.35-7.45) Arterial Blood pCO2 at Patient Temp 16 mmHg (35-46) Arterial Blood pO2 at Patient Temp 111 mmHg (85-108) Arterial Blood HCO3 7 mmol/L (21-28) Arterial Blood Base Excess -17 mmol/L (-3-3) FiO2 21 Glucose (Fingerstick) 579 mg/dL (70-99) Test 04/23/17 15:45 04/23/17 16:05 04/23/17 16:37 04/23/17 17:10 Glucose (Fingerstick) 396 mg/dL (70-99) 345 mg/dL (70-99) Lactic Acid Level 1.6 mmol/L (0.4-2.0) Sodium Level 133 mmol/L (136-145) Potassium Level 2.7 mmol/L (3.5-5.1) Chloride Level 98 mmol/L (98-107) Carbon Dioxide Level 11 mmol/L (21-32) Anion Gap 24 (6-14) Blood Urea Nitrogen 25 mg/dL (8-26) Creatinine 1.2 mg/dL (0.7-1.3) Estimated GFR (Cockcroft-Gault) 70.6 Glucose Level 295 mg/dL (70-99) Calcium Level 7.5 mg/dL (8.5-10.1) Phosphorus Level 1.9 mg/dL (2.6-4.7) Magnesium Level 1.8 mg/dL (1.8-2.4) Test 04/23/17 18:01 04/23/17 19:04 04/23/17 20:19 04/23/17 21:40 Glucose (Fingerstick) 259 mg/dL (70-99) 234 mg/dL (70-99) 279 mg/dL (70-99) Sodium Level 136 mmol/L (136-145) Potassium Level 3.3 mmol/L (3.5-5.1) Chloride Level 103 mmol/L (98-107) Carbon Dioxide Level 21 mmol/L (21-32) Anion Gap 12 (6-14) Blood Urea Nitrogen 23 mg/dL (8-26) Creatinine 1.2 mg/dL (0.7-1.3) Estimated GFR (Cockcroft-Gault) 70.6 Glucose Level 260 mg/dL (70-99) Calcium Level 7.5 mg/dL (8.5-10.1) Magnesium Level 2.0 mg/dL (1.8-2.4) Test 04/23/17 21:44 04/23/17 22:56 04/24/17 04:55 04/24/17 08:14 Glucose (Fingerstick) 236 mg/dL (70-99) 194 mg/dL (70-99) 257 mg/dL (70-99) White Blood Count 5.2 x10^3/uL (4.0-11.0) Red Blood Count 4.03 x10^6/uL (4.30-5.70) Hemoglobin 12.3 g/dL (13.0-17.5) Hematocrit 35.9 % (39.0-53.0) Mean Corpuscular Volume 89 fL (79-100) Mean Corpuscular Hemoglobin 31 pg (25-35) Mean Corpuscular Hemoglobin Concent 34 g/dL (31-37) Red Cell Distribution Width 15.8 % (11.5-14.5) Platelet Count 130 x10^3/uL (140-400) Neutrophils (%) (Auto) 53 % (31-73) Lymphocytes (%) (Auto) 37 % (24-48) Monocytes (%) (Auto) 10 % (0-9) Eosinophils (%) (Auto) 1 % (0-3) Basophils (%) (Auto) 0 % (0-3) Neutrophils # (Auto) 2.8 x10^3uL (1.8-7.7) Lymphocytes # (Auto) 1.9 x10^3/uL (1.0-4.8) Monocytes # (Auto) 0.5 x10^3/uL (0.0-1.1) Eosinophils # (Auto) 0.0 x10^3/uL (0.0-0.7) Basophils # (Auto) 0.0 x10^3/uL (0.0-0.2) Reticulocyte Count (auto) 2.4 % (0.5-2.5) Sodium Level 138 mmol/L (136-145) Potassium Level 3.8 mmol/L (3.5-5.1) Chloride Level 107 mmol/L (98-107) Carbon Dioxide Level 18 mmol/L (21-32) Anion Gap 13 (6-14) Blood Urea Nitrogen 19 mg/dL (8-26) Creatinine 1.2 mg/dL (0.7-1.3) Estimated GFR (Cockcroft-Gault) 70.6 Glucose Level 202 mg/dL (70-99) Calcium Level 7.6 mg/dL (8.5-10.1) Phosphorus Level 2.2 mg/dL (2.6-4.7) Lactate Dehydrogenase 172 U/L (85-227) RIDDHI GARCIA MD Apr 24, 2017 09:57
[2017-04-24] MEDS ORDERED: DOPamine 400MG/250ML PREMIX 400 MG/250 ML BAG IV ONE (10:00)
[2017-04-24] MEDS: metFORMIN 500 MG TABLET PO SCH ×2 (11:41→17:36)
[2017-04-24 12:00] VITALS: BP 124/69
[2017-04-24 16:00] VITALS: BP 119/69
[2017-04-24 20:18] VITALS: BP 124/67
[2017-04-24 23:32] VITALS: BP 137/73
[2017-04-25 03:45] VITALS: BP 127/73
[2017-04-25 06:25] LABS: ALBUMIN 2.9 g/dL (3.4-5.0); ALBUMIN/GLOBULIN RATIO 1.5 (1.0-1.7); CALCIUM 7.8 mg/dL (8.5-10.1); CREATININE 0.9 mg/dL (0.7-1.3); GFR 98.4; POTASSIUM 3.4 mmol/L (3.5-5.1); TOTAL BILIRUBIN 0.6 mg/dL (0.2-1.0); TOTAL PROTEIN 4.9 g/dL (6.4-8.2)
[2017-04-25 06:39] LABS: BASO % 1 % (0-3); EOS % 1 % (0-3); HEMATOCRIT 35.6 % (39.0-53.0); HEMOGLOBIN 12.2 g/dL (13.0-17.5); LYMPH # 1.4 x10^3/uL (1.0-4.8); LYMPH % 41 % (24-48); MEAN CORPUSCULAR HEMOGLOBIN 30 pg (25-35); MEAN CORPUSCULAR HGB CONC 34 g/dL (31-37); MEAN CORPUSCULAR VOLUME 88 fL (79-100); MONO % 9 % (0-9); NEUT % 49 % (31-73); PLATELET COUNT 96 x10^3/uL (140-400); RED BLOOD COUNT 4.03 x10^6/uL (4.30-5.70); RED CELL DISTRIBUTION WIDTH 15.2 % (11.5-14.5); WHITE BLOOD COUNT 3.4 x10^3/uL (4.0-11.0)
[2017-04-25 07:00] VITALS: BP 129/72
[2017-04-25] MEDS: predniSONE 5 MG TABLET PO SCH (07:55)
[2017-04-25] MEDS: FOLIC ACID 1 MG TABLET. PO SCH (07:55)
[2017-04-25] MEDS: metFORMIN 500 MG TABLET PO SCH ×2 (07:55→17:12)
[2017-04-25] MEDS: INSULIN ASPART 300 UNITS/3 ML INSULN.PEN SQ SCH ×4 (08:01→21:16)
[2017-04-25] MEDS ORDERED: predniSONE 5 MG TABLET ONE (09:00)
[2017-04-25 11:00] VITALS: BP 128/64
[2017-04-25] MEDS ORDERED: POTASSIUM CHLORIDE 20 MEQ TABLET.ER. PO ONE (12:45)
--- NOTE | 2017-04-25 12:50 | PDOC ---
PROGRESS NOTES Chief Complaint Chief Complaint 1. DKA: resolved. 2. DM2: relatively new dx. HgbA1c 10.3. had been started on metformin on last admit with good results, prednisone decreased, add glipizide; continue here. ISS 3. SANDRA: vasomotor nephro resolved. 4. AIHA: Brittani neg. maintained on prednisone (taper). Dr Richards's with management hgb stable 5. LAD: s/p excisional bx rt axillary LN 02/21/17, neg. F/U CT in Apr 2017 on O/P basis 6. Dispo: plan tomorrow History of Present Illness History of Present Illness no F/C, no PRO, no pain blood sugar 226 Vitals Vitals Vital Signs Date Time Temp Pulse Resp B/P (MAP) Pulse Ox O2 Delivery O2 Flow Rate FiO2 04/25/17 11:00 97.9 69 18 128/64 (85) 97 Room Air 97.9 Physical Exam General: Alert, Oriented X3, Cooperative, No acute distress Heart: Regular rate Lungs: Clear Abdomen: Normal bowel sounds, Soft, No tenderness Extremities: No edema Skin: No rashes Labs LABS Laboratory Tests Test 04/24/17 17:38 04/24/17 20:56 04/25/17 05:10 04/25/17 07:23 Glucose (Fingerstick) 359 mg/dL (70-99) 300 mg/dL (70-99) 226 mg/dL (70-99) White Blood Count 3.4 x10^3/uL (4.0-11.0) Red Blood Count 4.03 x10^6/uL (4.30-5.70) Hemoglobin 12.2 g/dL (13.0-17.5) Hematocrit 35.6 % (39.0-53.0) Mean Corpuscular Volume 88 fL (79-100) Mean Corpuscular Hemoglobin 30 pg (25-35) Mean Corpuscular Hemoglobin Concent 34 g/dL (31-37) Red Cell Distribution Width 15.2 % (11.5-14.5) Platelet Count 96 x10^3/uL (140-400) Neutrophils (%) (Auto) 49 % (31-73) Lymphocytes (%) (Auto) 41 % (24-48) Monocytes (%) (Auto) 9 % (0-9) Eosinophils (%) (Auto) 1 % (0-3) Basophils (%) (Auto) 1 % (0-3) Neutrophils # (Auto) 1.7 x10^3uL (1.8-7.7) Lymphocytes # (Auto) 1.4 x10^3/uL (1.0-4.8) Monocytes # (Auto) 0.3 x10^3/uL (0.0-1.1) Eosinophils # (Auto) 0.0 x10^3/uL (0.0-0.7) Basophils # (Auto) 0.0 x10^3/uL (0.0-0.2) Reticulocyte Count (auto) 1.6 % (0.5-2.5) Sodium Level 137 mmol/L (136-145) Potassium Level 3.4 mmol/L (3.5-5.1) Chloride Level 103 mmol/L (98-107) Carbon Dioxide Level 22 mmol/L (21-32) Anion Gap 12 (6-14) Blood Urea Nitrogen 10 mg/dL (8-26) Creatinine 0.9 mg/dL (0.7-1.3) Estimated GFR (Cockcroft-Gault) 98.4 BUN/Creatinine Ratio 11 (6-20) Glucose Level 245 mg/dL (70-99) Calcium Level 7.8 mg/dL (8.5-10.1) Total Bilirubin 0.6 mg/dL (0.2-1.0) Aspartate Amino Transf (AST/SGOT) 14 U/L (15-37) Alanine Aminotransferase (ALT/SGPT) 28 U/L (16-63) Alkaline Phosphatase 72 U/L (46-116) Lactate Dehydrogenase 248 U/L (85-227) Total Protein 4.9 g/dL (6.4-8.2) Albumin 2.9 g/dL (3.4-5.0) Albumin/Globulin Ratio 1.5 (1.0-1.7) Test 04/25/17 11:36 Glucose (Fingerstick) 242 mg/dL (70-99) Review of Systems Review of Systems no n.vd Comment Review of Relevant I have reviewed the following items sharron (where applicable) has been applied. Labs Laboratory Tests Test 04/23/17 13:14 04/23/17 13:57 04/23/17 14:42 04/23/17 15:45 Urine Collection Type Unknown Urine Color Yellow Urine Clarity Clear Urine pH 5.5 Urine Specific Chadwick >=1.030 Urine Protein Negative mg/dL (NEG-TRACE) Urine Glucose (UA) >=1000 mg/dL (NEG) Urine Ketones (Stick) >=80 mg/dL (NEG) Urine Blood Small (NEG) Urine Nitrite Negative (NEG) Urine Bilirubin Negative (NEG) Urine Urobilinogen Dipstick 0.2 mg/dL (0.2 mg/dL) Urine Leukocyte Esterase Negative (NEG) Urine RBC 1-2 /HPF (0-2) Urine WBC Occ /HPF (0-4) Urine Squamous Epithelial Cells Occ /LPF Urine Bacteria Few /HPF (0-FEW) Urine Mucus Slight /LPF O2 Saturation 97 % (92-99) Arterial Blood pH 7.26 (7.35-7.45) Arterial Blood pCO2 at Patient Temp 16 mmHg (35-46) Arterial Blood pO2 at Patient Temp 111 mmHg (85-108) Arterial Blood HCO3 7 mmol/L (21-28) Arterial Blood Base Excess -17 mmol/L (-3-3) FiO2 21 Glucose (Fingerstick) 579 mg/dL (70-99) 396 mg/dL (70-99) Test 04/23/17 16:05 04/23/17 16:37 04/23/17 16:40 04/23/17 17:10 Lactic Acid Level 1.6 mmol/L (0.4-2.0) Glucose (Fingerstick) 345 mg/dL (70-99) Nasal Screen MRSA (PCR) Negative (Negative) Sodium Level 133 mmol/L (136-145) Potassium Level 2.7 mmol/L (3.5-5.1) Chloride Level 98 mmol/L (98-107) Carbon Dioxide Level 11 mmol/L (21-32) Anion Gap 24 (6-14) Blood Urea Nitrogen 25 mg/dL (8-26) Creatinine 1.2 mg/dL (0.7-1.3) Estimated GFR (Cockcroft-Gault) 70.6 Glucose Level 295 mg/dL (70-99) Calcium Level 7.5 mg/dL (8.5-10.1) Phosphorus Level 1.9 mg/dL (2.6-4.7) Magnesium Level 1.8 mg/dL (1.8-2.4) Test 04/23/17 18:01 04/23/17 19:04 04/23/17 20:19 04/23/17 21:40 Glucose (Fingerstick) 259 mg/dL (70-99) 234 mg/dL (70-99) 279 mg/dL (70-99) Sodium Level 136 mmol/L (136-145) Potassium Level 3.3 mmol/L (3.5-5.1) Chloride Level 103 mmol/L (98-107) Carbon Dioxide Level 21 mmol/L (21-32) Anion Gap 12 (6-14) Blood Urea Nitrogen 23 mg/dL (8-26) Creatinine 1.2 mg/dL (0.7-1.3) Estimated GFR (Cockcroft-Gault) 70.6 Glucose Level 260 mg/dL (70-99) Calcium Level 7.5 mg/dL (8.5-10.1) Magnesium Level 2.0 mg/dL (1.8-2.4) Test 04/23/17 21:44 04/23/17 22:56 04/24/17 04:55 04/24/17 08:14 Glucose (Fingerstick) 236 mg/dL (70-99) 194 mg/dL (70-99) 257 mg/dL (70-99) White Blood Count 5.2 x10^3/uL (4.0-11.0) Red Blood Count 4.03 x10^6/uL (4.30-5.70) Hemoglobin 12.3 g/dL (13.0-17.5) Hematocrit 35.9 % (39.0-53.0) Mean Corpuscular Volume 89 fL (79-100) Mean Corpuscular Hemoglobin 31 pg (25-35) Mean Corpuscular Hemoglobin Concent 34 g/dL (31-37) Red Cell Distribution Width 15.8 % (11.5-14.5) Platelet Count 130 x10^3/uL (140-400) Neutrophils (%) (Auto) 53 % (31-73) Lymphocytes (%) (Auto) 37 % (24-48) Monocytes (%) (Auto) 10 % (0-9) Eosinophils (%) (Auto) 1 % (0-3) Basophils (%) (Auto) 0 % (0-3) Neutrophils # (Auto) 2.8 x10^3uL (1.8-7.7) Lymphocytes # (Auto) 1.9 x10^3/uL (1.0-4.8) Monocytes # (Auto) 0.5 x10^3/uL (0.0-1.1) Eosinophils # (Auto) 0.0 x10^3/uL (0.0-0.7) Basophils # (Auto) 0.0 x10^3/uL (0.0-0.2) Reticulocyte Count (auto) 2.4 % (0.5-2.5) Sodium Level 138 mmol/L (136-145) Potassium Level 3.8 mmol/L (3.5-5.1) Chloride Level 107 mmol/L (98-107) Carbon Dioxide Level 18 mmol/L (21-32) Anion Gap 13 (6-14) Blood Urea Nitrogen 19 mg/dL (8-26) Creatinine 1.2 mg/dL (0.7-1.3) Estimated GFR (Cockcroft-Gault) 70.6 Glucose Level 202 mg/dL (70-99) Calcium Level 7.6 mg/dL (8.5-10.1) Phosphorus Level 2.2 mg/dL (2.6-4.7) Lactate Dehydrogenase 172 U/L (85-227) Test 04/24/17 11:42 04/24/17 17:38 04/24/17 20:56 04/25/17 05:10 Glucose (Fingerstick) 252 mg/dL (70-99) 359 mg/dL (70-99) 300 mg/dL (70-99) White Blood Count 3.4 x10^3/uL (4.0-11.0) Red Blood Count 4.03 x10^6/uL (4.30-5.70) Hemoglobin 12.2 g/dL (13.0-17.5) Hematocrit 35.6 % (39.0-53.0) Mean Corpuscular Volume 88 fL (79-100) Mean Corpuscular Hemoglobin 30 pg (25-35) Mean Corpuscular Hemoglobin Concent 34 g/dL (31-37) Red Cell Distribution Width 15.2 % (11.5-14.5) Platelet Count 96 x10^3/uL (140-400) Neutrophils (%) (Auto) 49 % (31-73) Lymphocytes (%) (Auto) 41 % (24-48) Monocytes (%) (Auto) 9 % (0-9) Eosinophils (%) (Auto) 1 % (0-3) Basophils (%) (Auto) 1 % (0-3) Neutrophils # (Auto) 1.7 x10^3uL (1.8-7.7) Lymphocytes # (Auto) 1.4 x10^3/uL (1.0-4.8) Monocytes # (Auto) 0.3 x10^3/uL (0.0-1.1) Eosinophils # (Auto) 0.0 x10^3/uL (0.0-0.7) Basophils # (Auto) 0.0 x10^3/uL (0.0-0.2) Reticulocyte Count (auto) 1.6 % (0.5-2.5) Sodium Level 137 mmol/L (136-145) Potassium Level 3.4 mmol/L (3.5-5.1) Chloride Level 103 mmol/L (98-107) Carbon Dioxide Level 22 mmol/L (21-32) Anion Gap 12 (6-14) Blood Urea Nitrogen 10 mg/dL (8-26) Creatinine 0.9 mg/dL (0.7-1.3) Estimated GFR (Cockcroft-Gault) 98.4 BUN/Creatinine Ratio 11 (6-20) Glucose Level 245 mg/dL (70-99) Calcium Level 7.8 mg/dL (8.5-10.1) Total Bilirubin 0.6 mg/dL (0.2-1.0) Aspartate Amino Transf (AST/SGOT) 14 U/L (15-37) Alanine Aminotransferase (ALT/SGPT) 28 U/L (16-63) Alkaline Phosphatase 72 U/L (46-116) Lactate Dehydrogenase 248 U/L (85-227) Total Protein 4.9 g/dL (6.4-8.2) Albumin 2.9 g/dL (3.4-5.0) Albumin/Globulin Ratio 1.5 (1.0-1.7) Test 04/25/17 07:23 04/25/17 11:36 Glucose (Fingerstick) 226 mg/dL (70-99) 242 mg/dL (70-99) Laboratory Tests Test 04/24/17 17:38 04/24/17 20:56 04/25/17 05:10 04/25/17 07:23 Glucose (Fingerstick) 359 mg/dL (70-99) 300 mg/dL (70-99) 226 mg/dL (70-99) White Blood Count 3.4 x10^3/uL (4.0-11.0) Red Blood Count 4.03 x10^6/uL (4.30-5.70) Hemoglobin 12.2 g/dL (13.0-17.5) Hematocrit 35.6 % (39.0-53.0) Mean Corpuscular Volume 88 fL (79-100) Mean Corpuscular Hemoglobin 30 pg (25-35) Mean Corpuscular Hemoglobin Concent 34 g/dL (31-37) Red Cell Distribution Width 15.2 % (11.5-14.5) Platelet Count 96 x10^3/uL (140-400) Neutrophils (%) (Auto) 49 % (31-73) Lymphocytes (%) (Auto) 41 % (24-48) Monocytes (%) (Auto) 9 % (0-9) Eosinophils (%) (Auto) 1 % (0-3) Basophils (%) (Auto) 1 % (0-3) Neutrophils # (Auto) 1.7 x10^3uL (1.8-7.7) Lymphocytes # (Auto) 1.4 x10^3/uL (1.0-4.8) Monocytes # (Auto) 0.3 x10^3/uL (0.0-1.1) Eosinophils # (Auto) 0.0 x10^3/uL (0.0-0.7) Basophils # (Auto) 0.0 x10^3/uL (0.0-0.2) Reticulocyte Count (auto) 1.6 % (0.5-2.5) Sodium Level 137 mmol/L (136-145) Potassium Level 3.4 mmol/L (3.5-5.1) Chloride Level 103 mmol/L (98-107) Carbon Dioxide Level 22 mmol/L (21-32) Anion Gap 12 (6-14) Blood Urea Nitrogen 10 mg/dL (8-26) Creatinine 0.9 mg/dL (0.7-1.3) Estimated GFR (Cockcroft-Gault) 98.4 BUN/Creatinine Ratio 11 (6-20) Glucose Level 245 mg/dL (70-99) Calcium Level 7.8 mg/dL (8.5-10.1) Total Bilirubin 0.6 mg/dL (0.2-1.0) Aspartate Amino Transf (AST/SGOT) 14 U/L (15-37) Alanine Aminotransferase (ALT/SGPT) 28 U/L (16-63) Alkaline Phosphatase 72 U/L (46-116) Lactate Dehydrogenase 248 U/L (85-227) Total Protein 4.9 g/dL (6.4-8.2) Albumin 2.9 g/dL (3.4-5.0) Albumin/Globulin Ratio 1.5 (1.0-1.7) Test 04/25/17 11:36 Glucose (Fingerstick) 242 mg/dL (70-99) Medications Current Medications Sodium Chloride 1,000 ml @ 1,000 mls/hr 1X ONCE IV Last administered on 04/23 12:47; Start 04/23/17 at 13:00; Stop 04/23/17 at 13:59; Status DC Ondansetron HCl (Zofran) 4 mg 1X ONCE IV Last administered on 04/23/17 12:48 ; Start 04/23/17 at 13:00; Stop 04/23/17 at 13:01; Status DC Sodium Chloride 1,000 ml @ 1,000 mls/hr 1X ONCE IV Last administered on 04/23 13:50; Start 04/23/17 at 14:00; Stop 04/23/17 at 14:59; Status DC Sodium Chloride 1,000 ml @ 1,000 mls/hr Q1H IV Last administered on 13:56; Start 04/23/17 at 13:56; Stop 04/23/17 at 14:55; Status DC Insulin Human Regular 150 ml @ 0 mls/hr CONT PRN PRN IV PER PROTOCOL Last administered on 04/23/17 14:46; Start 04/23/17 at 14:00; Stop 04/23/17 at 23 :16; Status DC Ondansetron HCl (Zofran) 4 mg PRN Q8HRS PRN IV NAUSEA/VOMITING; Start at 14:15; Stop 04/23/17 at 15:17; Status DC Ondansetron HCl (Zofran) 4 mg PRN Q6HRS PRN IV NAUSEA/VOMITING; Start at 15:30; Stop 04/24/17 at 15:29; Status DC Acetaminophen (Tylenol) 500 mg PRN Q6HRS PRN PO MILD PAIN / TEMP; Start at 15:15 Sodium Chloride 1,000 ml @ 150 mls/hr Q6H40M IV ; Start 04/23/17 at 15:15; Status Cancel Dextrose/Sodium Chloride 1,000 ml @ 125 mls/hr Q8H PRN IV see below; Start at 15:15; Status Cancel Folic Acid (Folic Acid) 1 mg DAILY PO Last administered on 04/25/17 07:55; Start 04/24/17 at 09:00 Prednisone (Prednisone) 5 mg DAILY PO Last administered on 04/25/17 07:55; Start 04/24/17 at 09:00 Sodium Chloride 1,000 ml @ 250 mls/hr Q4H IV ; Start 04/23/17 at 16:54; Stop 04/23/17 at 23:16; Status DC Dextrose/Sodium Chloride 1,000 ml @ 250 mls/hr Q4H IV ; Start 04/23/17 at 16: 54; Stop 04/23/17 at 23:16; Status DC Potassium Chloride (Klor-Con) 20 meq 1X ONCE PO Last administered on 20:15; Start 04/23/17 at 19:00; Stop 04/23/17 at 19:01; Status DC Potassium Chloride (Klor-Con) 40 meq 1X ONCE PO Last administered on 18:55; Start 04/23/17 at 17:45; Stop 04/23/17 at 17:58; Status DC Dextrose/Sodium Chloride 1,000 ml @ 250 mls/hr Q4H IV Last administered on 19:11; Start 04/23/17 at 20:00; Stop 04/23/17 at 23:16; Status DC Potassium Phosphate 13.6 mmol/Sodium Chloride 104.5333 ml @ 52.267 m... Q2H IV Last administered on 04/24/17 00:01; Start 04/23/17 at 20:30; Stop at 02:29; Status DC Insulin Aspart (NovoLOG) 0-9 UNITS QIDACHS SQ Last administered on 04/25/17 11:42; Start 04/24/17 at 07:30 Dextrose (Dextrose 50%-Water Syringe) 12.5 gm PRN Q15MIN PRN IV SEE COMMENTS; Start 04/23/17 at 23:15 Sodium Chloride 1,000 ml @ 125 mls/hr 1X ONCE IV Last administered on 23:29; Start 04/23/17 at 23:45; Stop 04/24/17 at 07:44; Status DC Insulin Aspart (NovoLOG) 4 units 1X ONCE SQ Last administered on 04/23/17 23 :40; Start 04/23/17 at 23:45; Stop 04/23/17 at 23:46; Status DC Metformin HCl (Glucophage) 500 mg BIDWMEALS PO Last administered on 04/25/17 07:55; Start 04/24/17 at 11:00 Dopamine HCl/ Dextrose 250 ml @ As Directed STK-MED ONCE IV ; Start 04/24/17 at 09:55; Stop 04/24/17 at 09:56; Status DC Active Scripts Active Prednisone 10 Mg Tablet 30 Mg PO DAILY Glucophage (Metformin Hcl) 500 Mg Tablet 500 Mg PO BIDWMEALS Reported Folic Acid 1 Mg Tablet 1 Tab PO DAILY Vitals/I & O Vital Sign - Last 24 Hours 04/24/17 04/24/17 04/24/17 04/25/17 16:00 20:18 23:32 03:45 Temp 98.6 96.6 97.7 97.9 98.6 96.6 97.7 97.9 Pulse 78 84 77 87 Resp 15 19 18 19 B/P (MAP) 119/69 (86) 124/67 (86) 137/73 (94) 127/73 (91) Pulse Ox 97 98 99 100 O2 Delivery Room Air Room Air Room Air Room Air 04/25/17 04/25/17 04/25/17 07:00 08:00 11:00 Temp 97.9 97.9 97.9 97.9 Pulse 70 69 Resp 18 18 B/P (MAP) 129/72 (91) 128/64 (85) Pulse Ox 97 97 O2 Delivery Room Air Room Air Room Air Intake and Output 04/24/17 04/24/17 04/25/17 15:00 23:00 07:00 Intake Total 2630 ml 100 ml Output Total 500 ml Balance 2130 ml 100 ml SALOMON CAAL MD Apr 25, 2017 12:50
[2017-04-25 14:45] VITALS: BP 130/68
[2017-04-25] MEDS: glipiZIDE 5 MG TABLET PO SCH (17:12)
--- NOTE | 2017-04-25 17:53 | PDOC ---
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 ROS - no n/v Objective Objective Vital Signs Date Time Temp Pulse Resp B/P (MAP) Pulse Ox O2 Delivery O2 Flow Rate FiO2 04/25/17 14:45 97.9 70 18 130/68 (88) 97 Room Air 97.9 Intake and Output 04/25/17 07:00 Intake Total 2730 ml Output Total 500 ml Balance 2230 ml Intake Oral 1600 ml IV Total 1130 ml Output Urine Total 500 ml Physical Exam Heart: Normal S1, Normal S2 General: No acute distress Lungs: Clear to auscultation Neuro: Normal speech Psych/Mental Status: Mental status NL Assessment Assessment IMPRESSION AND PLAN: 1. 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 Since the Hb is 17 on 04.23.17, I will taper to 5 mg daily. Hb worse at 12.3 on 04/24/17, but retic and LDH normal, will monitor. Hb now 12.2, retic 1.6, monitor 2. Lymphadenopathy - s/p excisional bx rt axillary LN 02/21/17, neg. I will plan for a follow-up CAT scan in April 2017. 3. DM2/DKA, poor control since prednisone started, Management per DR Henriquez. Comment Review of Relevant I have reviewed the following items sharron (where applicable) has been applied. Labs Laboratory Tests Test 04/23/17 18:01 04/23/17 19:04 04/23/17 20:19 04/23/17 21:40 Glucose (Fingerstick) 259 mg/dL (70-99) 234 mg/dL (70-99) 279 mg/dL (70-99) Sodium Level 136 mmol/L (136-145) Potassium Level 3.3 mmol/L (3.5-5.1) Chloride Level 103 mmol/L (98-107) Carbon Dioxide Level 21 mmol/L (21-32) Anion Gap 12 (6-14) Blood Urea Nitrogen 23 mg/dL (8-26) Creatinine 1.2 mg/dL (0.7-1.3) Estimated GFR (Cockcroft-Gault) 70.6 Glucose Level 260 mg/dL (70-99) Calcium Level 7.5 mg/dL (8.5-10.1) Magnesium Level 2.0 mg/dL (1.8-2.4) Test 04/23/17 21:44 04/23/17 22:56 04/24/17 04:55 04/24/17 08:14 Glucose (Fingerstick) 236 mg/dL (70-99) 194 mg/dL (70-99) 257 mg/dL (70-99) White Blood Count 5.2 x10^3/uL (4.0-11.0) Red Blood Count 4.03 x10^6/uL (4.30-5.70) Hemoglobin 12.3 g/dL (13.0-17.5) Hematocrit 35.9 % (39.0-53.0) Mean Corpuscular Volume 89 fL (79-100) Mean Corpuscular Hemoglobin 31 pg (25-35) Mean Corpuscular Hemoglobin Concent 34 g/dL (31-37) Red Cell Distribution Width 15.8 % (11.5-14.5) Platelet Count 130 x10^3/uL (140-400) Neutrophils (%) (Auto) 53 % (31-73) Lymphocytes (%) (Auto) 37 % (24-48) Monocytes (%) (Auto) 10 % (0-9) Eosinophils (%) (Auto) 1 % (0-3) Basophils (%) (Auto) 0 % (0-3) Neutrophils # (Auto) 2.8 x10^3uL (1.8-7.7) Lymphocytes # (Auto) 1.9 x10^3/uL (1.0-4.8) Monocytes # (Auto) 0.5 x10^3/uL (0.0-1.1) Eosinophils # (Auto) 0.0 x10^3/uL (0.0-0.7) Basophils # (Auto) 0.0 x10^3/uL (0.0-0.2) Reticulocyte Count (auto) 2.4 % (0.5-2.5) Sodium Level 138 mmol/L (136-145) Potassium Level 3.8 mmol/L (3.5-5.1) Chloride Level 107 mmol/L (98-107) Carbon Dioxide Level 18 mmol/L (21-32) Anion Gap 13 (6-14) Blood Urea Nitrogen 19 mg/dL (8-26) Creatinine 1.2 mg/dL (0.7-1.3) Estimated GFR (Cockcroft-Gault) 70.6 Glucose Level 202 mg/dL (70-99) Calcium Level 7.6 mg/dL (8.5-10.1) Phosphorus Level 2.2 mg/dL (2.6-4.7) Lactate Dehydrogenase 172 U/L (85-227) Test 04/24/17 11:42 04/24/17 17:38 04/24/17 20:56 04/25/17 05:10 Glucose (Fingerstick) 252 mg/dL (70-99) 359 mg/dL (70-99) 300 mg/dL (70-99) White Blood Count 3.4 x10^3/uL (4.0-11.0) Red Blood Count 4.03 x10^6/uL (4.30-5.70) Hemoglobin 12.2 g/dL (13.0-17.5) Hematocrit 35.6 % (39.0-53.0) Mean Corpuscular Volume 88 fL (79-100) Mean Corpuscular Hemoglobin 30 pg (25-35) Mean Corpuscular Hemoglobin Concent 34 g/dL (31-37) Red Cell Distribution Width 15.2 % (11.5-14.5) Platelet Count 96 x10^3/uL (140-400) Neutrophils (%) (Auto) 49 % (31-73) Lymphocytes (%) (Auto) 41 % (24-48) Monocytes (%) (Auto) 9 % (0-9) Eosinophils (%) (Auto) 1 % (0-3) Basophils (%) (Auto) 1 % (0-3) Neutrophils # (Auto) 1.7 x10^3uL (1.8-7.7) Lymphocytes # (Auto) 1.4 x10^3/uL (1.0-4.8) Monocytes # (Auto) 0.3 x10^3/uL (0.0-1.1) Eosinophils # (Auto) 0.0 x10^3/uL (0.0-0.7) Basophils # (Auto) 0.0 x10^3/uL (0.0-0.2) Reticulocyte Count (auto) 1.6 % (0.5-2.5) Sodium Level 137 mmol/L (136-145) Potassium Level 3.4 mmol/L (3.5-5.1) Chloride Level 103 mmol/L (98-107) Carbon Dioxide Level 22 mmol/L (21-32) Anion Gap 12 (6-14) Blood Urea Nitrogen 10 mg/dL (8-26) Creatinine 0.9 mg/dL (0.7-1.3) Estimated GFR (Cockcroft-Gault) 98.4 BUN/Creatinine Ratio 11 (6-20) Glucose Level 245 mg/dL (70-99) Calcium Level 7.8 mg/dL (8.5-10.1) Total Bilirubin 0.6 mg/dL (0.2-1.0) Aspartate Amino Transf (AST/SGOT) 14 U/L (15-37) Alanine Aminotransferase (ALT/SGPT) 28 U/L (16-63) Alkaline Phosphatase 72 U/L (46-116) Lactate Dehydrogenase 248 U/L (85-227) Total Protein 4.9 g/dL (6.4-8.2) Albumin 2.9 g/dL (3.4-5.0) Albumin/Globulin Ratio 1.5 (1.0-1.7) Test 04/25/17 07:23 04/25/17 11:36 04/25/17 16:32 Glucose (Fingerstick) 226 mg/dL (70-99) 242 mg/dL (70-99) 350 mg/dL (70-99) Laboratory Tests Test 04/24/17 20:56 04/25/17 05:10 04/25/17 07:23 04/25/17 11:36 Glucose (Fingerstick) 300 mg/dL (70-99) 226 mg/dL (70-99) 242 mg/dL (70-99) White Blood Count 3.4 x10^3/uL (4.0-11.0) Red Blood Count 4.03 x10^6/uL (4.30-5.70) Hemoglobin 12.2 g/dL (13.0-17.5) Hematocrit 35.6 % (39.0-53.0) Mean Corpuscular Volume 88 fL (79-100) Mean Corpuscular Hemoglobin 30 pg (25-35) Mean Corpuscular Hemoglobin Concent 34 g/dL (31-37) Red Cell Distribution Width 15.2 % (11.5-14.5) Platelet Count 96 x10^3/uL (140-400) Neutrophils (%) (Auto) 49 % (31-73) Lymphocytes (%) (Auto) 41 % (24-48) Monocytes (%) (Auto) 9 % (0-9) Eosinophils (%) (Auto) 1 % (0-3) Basophils (%) (Auto) 1 % (0-3) Neutrophils # (Auto) 1.7 x10^3uL (1.8-7.7) Lymphocytes # (Auto) 1.4 x10^3/uL (1.0-4.8) Monocytes # (Auto) 0.3 x10^3/uL (0.0-1.1) Eosinophils # (Auto) 0.0 x10^3/uL (0.0-0.7) Basophils # (Auto) 0.0 x10^3/uL (0.0-0.2) Reticulocyte Count (auto) 1.6 % (0.5-2.5) Sodium Level 137 mmol/L (136-145) Potassium Level 3.4 mmol/L (3.5-5.1) Chloride Level 103 mmol/L (98-107) Carbon Dioxide Level 22 mmol/L (21-32) Anion Gap 12 (6-14) Blood Urea Nitrogen 10 mg/dL (8-26) Creatinine 0.9 mg/dL (0.7-1.3) Estimated GFR (Cockcroft-Gault) 98.4 BUN/Creatinine Ratio 11 (6-20) Glucose Level 245 mg/dL (70-99) Calcium Level 7.8 mg/dL (8.5-10.1) Total Bilirubin 0.6 mg/dL (0.2-1.0) Aspartate Amino Transf (AST/SGOT) 14 U/L (15-37) Alanine Aminotransferase (ALT/SGPT) 28 U/L (16-63) Alkaline Phosphatase 72 U/L (46-116) Lactate Dehydrogenase 248 U/L (85-227) Total Protein 4.9 g/dL (6.4-8.2) Albumin 2.9 g/dL (3.4-5.0) Albumin/Globulin Ratio 1.5 (1.0-1.7) Test 04/25/17 16:32 Glucose (Fingerstick) 350 mg/dL (70-99) Medications Current Medications Sodium Chloride 1,000 ml @ 1,000 mls/hr 1X ONCE IV Last administered on 04/23 12:47; Start 04/23/17 at 13:00; Stop 04/23/17 at 13:59; Status DC Ondansetron HCl (Zofran) 4 mg 1X ONCE IV Last administered on 04/23/17 12:48 ; Start 04/23/17 at 13:00; Stop 04/23/17 at 13:01; Status DC Sodium Chloride 1,000 ml @ 1,000 mls/hr 1X ONCE IV Last administered on 04/23 13:50; Start 04/23/17 at 14:00; Stop 04/23/17 at 14:59; Status DC Sodium Chloride 1,000 ml @ 1,000 mls/hr Q1H IV Last administered on 13:56; Start 04/23/17 at 13:56; Stop 04/23/17 at 14:55; Status DC Insulin Human Regular 150 ml @ 0 mls/hr CONT PRN PRN IV PER PROTOCOL Last administered on 04/23/17 14:46; Start 04/23/17 at 14:00; Stop 04/23/17 at 23 :16; Status DC Ondansetron HCl (Zofran) 4 mg PRN Q8HRS PRN IV NAUSEA/VOMITING; Start at 14:15; Stop 04/23/17 at 15:17; Status DC Ondansetron HCl (Zofran) 4 mg PRN Q6HRS PRN IV NAUSEA/VOMITING; Start at 15:30; Stop 04/24/17 at 15:29; Status DC Acetaminophen (Tylenol) 500 mg PRN Q6HRS PRN PO MILD PAIN / TEMP; Start at 15:15 Sodium Chloride 1,000 ml @ 150 mls/hr Q6H40M IV ; Start 04/23/17 at 15:15; Status Cancel Dextrose/Sodium Chloride 1,000 ml @ 125 mls/hr Q8H PRN IV see below; Start at 15:15; Status Cancel Folic Acid (Folic Acid) 1 mg DAILY PO Last administered on 04/25/17 07:55; Start 04/24/17 at 09:00 Prednisone (Prednisone) 5 mg DAILY PO Last administered on 04/25/17 07:55; Start 04/24/17 at 09:00 Sodium Chloride 1,000 ml @ 250 mls/hr Q4H IV ; Start 04/23/17 at 16:54; Stop 04/23/17 at 23:16; Status DC Dextrose/Sodium Chloride 1,000 ml @ 250 mls/hr Q4H IV ; Start 04/23/17 at 16: 54; Stop 04/23/17 at 23:16; Status DC Potassium Chloride (Klor-Con) 20 meq 1X ONCE PO Last administered on 20:15; Start 04/23/17 at 19:00; Stop 04/23/17 at 19:01; Status DC Potassium Chloride (Klor-Con) 40 meq 1X ONCE PO Last administered on 18:55; Start 04/23/17 at 17:45; Stop 04/23/17 at 17:58; Status DC Dextrose/Sodium Chloride 1,000 ml @ 250 mls/hr Q4H IV Last administered on 19:11; Start 04/23/17 at 20:00; Stop 04/23/17 at 23:16; Status DC Potassium Phosphate 13.6 mmol/Sodium Chloride 104.5333 ml @ 52.267 m... Q2H IV Last administered on 04/24/17 00:01; Start 04/23/17 at 20:30; Stop at 02:29; Status DC Insulin Aspart (NovoLOG) 0-9 UNITS QIDACHS SQ Last administered on 04/25/17 17:16; Start 04/24/17 at 07:30 Dextrose (Dextrose 50%-Water Syringe) 12.5 gm PRN Q15MIN PRN IV SEE COMMENTS; Start 04/23/17 at 23:15 Sodium Chloride 1,000 ml @ 125 mls/hr 1X ONCE IV Last administered on 23:29; Start 04/23/17 at 23:45; Stop 04/24/17 at 07:44; Status DC Insulin Aspart (NovoLOG) 4 units 1X ONCE SQ Last administered on 04/23/17 23 :40; Start 04/23/17 at 23:45; Stop 04/23/17 at 23:46; Status DC Metformin HCl (Glucophage) 500 mg BIDWMEALS PO Last administered on 04/25/17 17:12; Start 04/24/17 at 11:00 Dopamine HCl/ Dextrose 250 ml @ As Directed STK-MED ONCE IV ; Start 04/24/17 at 09:55; Stop 04/24/17 at 09:56; Status DC Glipizide (Glucotrol) 2.5 mg BIDBFRMEAL PO Last administered on 04/25/17 17: 12; Start 04/25/17 at 16:30 Potassium Chloride (Klor-Con) 40 meq 1X ONCE PO Last administered on 13:04; Start 04/25/17 at 12:45; Stop 04/25/17 at 12:46; Status DC Dopamine HCl/ Dextrose 400 mg STK-MED ONCE IV ; Start 04/24/17 at 10:00; Stop 04/25/17 at 13:14; Status DC Active Scripts Active Prednisone 10 Mg Tablet 30 Mg PO DAILY Glucophage (Metformin Hcl) 500 Mg Tablet 500 Mg PO BIDWMEALS Reported Folic Acid 1 Mg Tablet 1 Tab PO DAILY Vitals/I & O Vital Sign - Last 24 Hours 04/24/17 04/24/17 04/25/17 04/25/17 20:18 23:32 03:45 07:00 Temp 96.6 97.7 97.9 97.9 96.6 97.7 97.9 97.9 Pulse 84 77 87 70 Resp 19 18 19 18 B/P (MAP) 124/67 (86) 137/73 (94) 127/73 (91) 129/72 (91) Pulse Ox 98 99 100 97 O2 Delivery Room Air Room Air Room Air Room Air 04/25/17 04/25/17 04/25/17 08:00 11:00 14:45 Temp 97.9 97.9 97.9 97.9 Pulse 69 70 Resp 18 18 B/P (MAP) 128/64 (85) 130/68 (88) Pulse Ox 97 97 O2 Delivery Room Air Room Air Room Air Intake and Output 04/24/17 04/24/17 04/25/17 15:00 23:00 07:00 Intake Total 2630 ml 100 ml Output Total 500 ml Balance 2130 ml 100 ml STEVEN GIL MD Apr 25, 2017 17:53
[2017-04-25 19:00] VITALS: BP 124/77
[2017-04-25] MEDS ORDERED: INSULIN ASPART 300 UNITS/3 ML INSULN.PEN SQ ONE (21:15)
[2017-04-25 23:00] VITALS: BP 110/63
[2017-04-26 03:00] VITALS: BP 119/76
[2017-04-26 06:57] LABS: BASO % 0 % (0-3); EOS % 2 % (0-3); HEMATOCRIT 39.7 % (39.0-53.0); HEMOGLOBIN 13.5 g/dL (13.0-17.5); LYMPH # 1.2 x10^3/uL (1.0-4.8); LYMPH % 41 % (24-48); MEAN CORPUSCULAR HEMOGLOBIN 30 pg (25-35); MEAN CORPUSCULAR HGB CONC 34 g/dL (31-37); MEAN CORPUSCULAR VOLUME 87 fL (79-100); MONO % 10 % (0-9); NEUT % 47 % (31-73); PLATELET COUNT 99 x10^3/uL (140-400); RED BLOOD COUNT 4.55 x10^6/uL (4.30-5.70); RED CELL DISTRIBUTION WIDTH 15.3 % (11.5-14.5)
[2017-04-26 07:00] VITALS: BP 122/77
[2017-04-26 07:13] LABS: ALBUMIN 3.5 g/dL (3.4-5.0); ALBUMIN/GLOBULIN RATIO 1.3 (1.0-1.7); CALCIUM 9.1 mg/dL (8.5-10.1); CREATININE 0.8 mg/dL (0.7-1.3); GFR 112.8; POTASSIUM 3.1 mmol/L (3.5-5.1); TOTAL BILIRUBIN 0.7 mg/dL (0.2-1.0); TOTAL PROTEIN 6.1 g/dL (6.4-8.2)
[2017-04-26] MEDS: metFORMIN 500 MG TABLET PO SCH (07:46)
[2017-04-26] MEDS: glipiZIDE 5 MG TABLET PO SCH (07:46)
[2017-04-26] MEDS: FOLIC ACID 1 MG TABLET. PO SCH (07:46)
[2017-04-26] MEDS: predniSONE 5 MG TABLET PO SCH (07:47)
[2017-04-26] MEDS: INSULIN ASPART 300 UNITS/3 ML INSULN.PEN SQ SCH (07:52)
[2017-04-26] MEDS ORDERED: predniSONE 5 MG TABLET ONE (09:00)
--- NOTE | 2017-04-26 09:01 | PDOC ---
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 Since the Hb is 17 on 04.23.17, I will taper to 5 mg daily. Hb worse at 12.3 on 04/24/17, but retic and LDH normal, will monitor. Hb worse at 12.2 on 04/25/17, retic 1.6, monitor Now better at 13.5. f/u with me next week I d/w Dr Phelps 2. Lymphadenopathy - s/p excisional bx rt axillary LN 02/21/17, neg. I will plan for a follow-up CAT scan in April 2017. 3. DM2/DKA, poor control since prednisone started, Management per DR Henriquez. Comment Review of Relevant I have reviewed the following items sharron (where applicable) has been applied. Labs Laboratory Tests Test 04/24/17 11:42 04/24/17 17:38 04/24/17 20:56 04/25/17 05:10 Glucose (Fingerstick) 252 mg/dL (70-99) 359 mg/dL (70-99) 300 mg/dL (70-99) White Blood Count 3.4 x10^3/uL (4.0-11.0) Red Blood Count 4.03 x10^6/uL (4.30-5.70) Hemoglobin 12.2 g/dL (13.0-17.5) Hematocrit 35.6 % (39.0-53.0) Mean Corpuscular Volume 88 fL (79-100) Mean Corpuscular Hemoglobin 30 pg (25-35) Mean Corpuscular Hemoglobin Concent 34 g/dL (31-37) Red Cell Distribution Width 15.2 % (11.5-14.5) Platelet Count 96 x10^3/uL (140-400) Neutrophils (%) (Auto) 49 % (31-73) Lymphocytes (%) (Auto) 41 % (24-48) Monocytes (%) (Auto) 9 % (0-9) Eosinophils (%) (Auto) 1 % (0-3) Basophils (%) (Auto) 1 % (0-3) Neutrophils # (Auto) 1.7 x10^3uL (1.8-7.7) Lymphocytes # (Auto) 1.4 x10^3/uL (1.0-4.8) Monocytes # (Auto) 0.3 x10^3/uL (0.0-1.1) Eosinophils # (Auto) 0.0 x10^3/uL (0.0-0.7) Basophils # (Auto) 0.0 x10^3/uL (0.0-0.2) Reticulocyte Count (auto) 1.6 % (0.5-2.5) Sodium Level 137 mmol/L (136-145) Potassium Level 3.4 mmol/L (3.5-5.1) Chloride Level 103 mmol/L (98-107) Carbon Dioxide Level 22 mmol/L (21-32) Anion Gap 12 (6-14) Blood Urea Nitrogen 10 mg/dL (8-26) Creatinine 0.9 mg/dL (0.7-1.3) Estimated GFR (Cockcroft-Gault) 98.4 BUN/Creatinine Ratio 11 (6-20) Glucose Level 245 mg/dL (70-99) Calcium Level 7.8 mg/dL (8.5-10.1) Total Bilirubin 0.6 mg/dL (0.2-1.0) Aspartate Amino Transf (AST/SGOT) 14 U/L (15-37) Alanine Aminotransferase (ALT/SGPT) 28 U/L (16-63) Alkaline Phosphatase 72 U/L (46-116) Lactate Dehydrogenase 248 U/L (85-227) Total Protein 4.9 g/dL (6.4-8.2) Albumin 2.9 g/dL (3.4-5.0) Albumin/Globulin Ratio 1.5 (1.0-1.7) Test 04/25/17 07:23 04/25/17 11:36 04/25/17 16:32 04/25/17 21:03 Glucose (Fingerstick) 226 mg/dL (70-99) 242 mg/dL (70-99) 350 mg/dL (70-99) 404 mg/dL (70-99) Test 04/25/17 22:24 04/26/17 06:00 04/26/17 07:08 Glucose (Fingerstick) 273 mg/dL (70-99) 218 mg/dL (70-99) White Blood Count 3.0 x10^3/uL (4.0-11.0) Red Blood Count 4.55 x10^6/uL (4.30-5.70) Hemoglobin 13.5 g/dL (13.0-17.5) Hematocrit 39.7 % (39.0-53.0) Mean Corpuscular Volume 87 fL (79-100) Mean Corpuscular Hemoglobin 30 pg (25-35) Mean Corpuscular Hemoglobin Concent 34 g/dL (31-37) Red Cell Distribution Width 15.3 % (11.5-14.5) Platelet Count 99 x10^3/uL (140-400) Neutrophils (%) (Auto) 47 % (31-73) Lymphocytes (%) (Auto) 41 % (24-48) Monocytes (%) (Auto) 10 % (0-9) Eosinophils (%) (Auto) 2 % (0-3) Basophils (%) (Auto) 0 % (0-3) Neutrophils # (Auto) 1.4 x10^3uL (1.8-7.7) Lymphocytes # (Auto) 1.2 x10^3/uL (1.0-4.8) Monocytes # (Auto) 0.3 x10^3/uL (0.0-1.1) Eosinophils # (Auto) 0.0 x10^3/uL (0.0-0.7) Basophils # (Auto) 0.0 x10^3/uL (0.0-0.2) Sodium Level 138 mmol/L (136-145) Potassium Level 3.1 mmol/L (3.5-5.1) Chloride Level 102 mmol/L (98-107) Carbon Dioxide Level 23 mmol/L (21-32) Anion Gap 13 (6-14) Blood Urea Nitrogen 13 mg/dL (8-26) Creatinine 0.8 mg/dL (0.7-1.3) Estimated GFR (Cockcroft-Gault) 112.8 BUN/Creatinine Ratio 16 (6-20) Glucose Level 210 mg/dL (70-99) Calcium Level 9.1 mg/dL (8.5-10.1) Total Bilirubin 0.7 mg/dL (0.2-1.0) Aspartate Amino Transf (AST/SGOT) 13 U/L (15-37) Alanine Aminotransferase (ALT/SGPT) 35 U/L (16-63) Alkaline Phosphatase 91 U/L (46-116) Total Protein 6.1 g/dL (6.4-8.2) Albumin 3.5 g/dL (3.4-5.0) Albumin/Globulin Ratio 1.3 (1.0-1.7) Laboratory Tests Test 04/25/17 11:36 04/25/17 16:32 04/25/17 21:03 04/25/17 22:24 Glucose (Fingerstick) 242 mg/dL (70-99) 350 mg/dL (70-99) 404 mg/dL (70-99) 273 mg/dL (70-99) Test 04/26/17 06:00 04/26/17 07:08 White Blood Count 3.0 x10^3/uL (4.0-11.0) Red Blood Count 4.55 x10^6/uL (4.30-5.70) Hemoglobin 13.5 g/dL (13.0-17.5) Hematocrit 39.7 % (39.0-53.0) Mean Corpuscular Volume 87 fL (79-100) Mean Corpuscular Hemoglobin 30 pg (25-35) Mean Corpuscular Hemoglobin Concent 34 g/dL (31-37) Red Cell Distribution Width 15.3 % (11.5-14.5) Platelet Count 99 x10^3/uL (140-400) Neutrophils (%) (Auto) 47 % (31-73) Lymphocytes (%) (Auto) 41 % (24-48) Monocytes (%) (Auto) 10 % (0-9) Eosinophils (%) (Auto) 2 % (0-3) Basophils (%) (Auto) 0 % (0-3) Neutrophils # (Auto) 1.4 x10^3uL (1.8-7.7) Lymphocytes # (Auto) 1.2 x10^3/uL (1.0-4.8) Monocytes # (Auto) 0.3 x10^3/uL (0.0-1.1) Eosinophils # (Auto) 0.0 x10^3/uL (0.0-0.7) Basophils # (Auto) 0.0 x10^3/uL (0.0-0.2) Sodium Level 138 mmol/L (136-145) Potassium Level 3.1 mmol/L (3.5-5.1) Chloride Level 102 mmol/L (98-107) Carbon Dioxide Level 23 mmol/L (21-32) Anion Gap 13 (6-14) Blood Urea Nitrogen 13 mg/dL (8-26) Creatinine 0.8 mg/dL (0.7-1.3) Estimated GFR (Cockcroft-Gault) 112.8 BUN/Creatinine Ratio 16 (6-20) Glucose Level 210 mg/dL (70-99) Calcium Level 9.1 mg/dL (8.5-10.1) Total Bilirubin 0.7 mg/dL (0.2-1.0) Aspartate Amino Transf (AST/SGOT) 13 U/L (15-37) Alanine Aminotransferase (ALT/SGPT) 35 U/L (16-63) Alkaline Phosphatase 91 U/L (46-116) Total Protein 6.1 g/dL (6.4-8.2) Albumin 3.5 g/dL (3.4-5.0) Albumin/Globulin Ratio 1.3 (1.0-1.7) Glucose (Fingerstick) 218 mg/dL (70-99) Medications Current Medications Sodium Chloride 1,000 ml @ 1,000 mls/hr 1X ONCE IV Last administered on 04/23 12:47; Start 04/23/17 at 13:00; Stop 04/23/17 at 13:59; Status DC Ondansetron HCl (Zofran) 4 mg 1X ONCE IV Last administered on 04/23/17 12:48 ; Start 04/23/17 at 13:00; Stop 04/23/17 at 13:01; Status DC Sodium Chloride 1,000 ml @ 1,000 mls/hr 1X ONCE IV Last administered on 04/23 13:50; Start 04/23/17 at 14:00; Stop 04/23/17 at 14:59; Status DC Sodium Chloride 1,000 ml @ 1,000 mls/hr Q1H IV Last administered on 13:56; Start 04/23/17 at 13:56; Stop 04/23/17 at 14:55; Status DC Insulin Human Regular 150 ml @ 0 mls/hr CONT PRN PRN IV PER PROTOCOL Last administered on 04/23/17 14:46; Start 04/23/17 at 14:00; Stop 04/23/17 at 23 :16; Status DC Ondansetron HCl (Zofran) 4 mg PRN Q8HRS PRN IV NAUSEA/VOMITING; Start at 14:15; Stop 04/23/17 at 15:17; Status DC Ondansetron HCl (Zofran) 4 mg PRN Q6HRS PRN IV NAUSEA/VOMITING; Start at 15:30; Stop 04/24/17 at 15:29; Status DC Acetaminophen (Tylenol) 500 mg PRN Q6HRS PRN PO MILD PAIN / TEMP; Start at 15:15 Sodium Chloride 1,000 ml @ 150 mls/hr Q6H40M IV ; Start 04/23/17 at 15:15; Status Cancel Dextrose/Sodium Chloride 1,000 ml @ 125 mls/hr Q8H PRN IV see below; Start at 15:15; Status Cancel Folic Acid (Folic Acid) 1 mg DAILY PO Last administered on 04/26/17 07:46; Start 04/24/17 at 09:00 Prednisone (Prednisone) 5 mg DAILY PO Last administered on 04/26/17 07:47; Start 04/24/17 at 09:00 Sodium Chloride 1,000 ml @ 250 mls/hr Q4H IV ; Start 04/23/17 at 16:54; Stop 04/23/17 at 23:16; Status DC Dextrose/Sodium Chloride 1,000 ml @ 250 mls/hr Q4H IV ; Start 04/23/17 at 16: 54; Stop 04/23/17 at 23:16; Status DC Potassium Chloride (Klor-Con) 20 meq 1X ONCE PO Last administered on 20:15; Start 04/23/17 at 19:00; Stop 04/23/17 at 19:01; Status DC Potassium Chloride (Klor-Con) 40 meq 1X ONCE PO Last administered on 18:55; Start 04/23/17 at 17:45; Stop 04/23/17 at 17:58; Status DC Dextrose/Sodium Chloride 1,000 ml @ 250 mls/hr Q4H IV Last administered on 19:11; Start 04/23/17 at 20:00; Stop 04/23/17 at 23:16; Status DC Potassium Phosphate 13.6 mmol/Sodium Chloride 104.5333 ml @ 52.267 m... Q2H IV Last administered on 04/24/17 00:01; Start 04/23/17 at 20:30; Stop at 02:29; Status DC Insulin Aspart (NovoLOG) 0-9 UNITS QIDACHS SQ Last administered on 04/26/17 07 :52; Start 04/24/17 at 07:30 Dextrose (Dextrose 50%-Water Syringe) 12.5 gm PRN Q15MIN PRN IV SEE COMMENTS; Start 04/23/17 at 23:15 Sodium Chloride 1,000 ml @ 125 mls/hr 1X ONCE IV Last administered on 23:29; Start 04/23/17 at 23:45; Stop 04/24/17 at 07:44; Status DC Insulin Aspart (NovoLOG) 4 units 1X ONCE SQ Last administered on 04/23/17 23 :40; Start 04/23/17 at 23:45; Stop 04/23/17 at 23:46; Status DC Metformin HCl (Glucophage) 500 mg BIDWMEALS PO Last administered on 04/26/17 07:46; Start 04/24/17 at 11:00 Dopamine HCl/ Dextrose 250 ml @ As Directed STK-MED ONCE IV ; Start 04/24/17 at 09:55; Stop 04/24/17 at 09:56; Status DC Glipizide (Glucotrol) 2.5 mg BIDBFRMEAL PO Last administered on 04/26/17 07:46 ; Start 04/25/17 at 16:30 Potassium Chloride (Klor-Con) 40 meq 1X ONCE PO Last administered on 13:04; Start 04/25/17 at 12:45; Stop 04/25/17 at 12:46; Status DC Dopamine HCl/ Dextrose 400 mg STK-MED ONCE IV ; Start 04/24/17 at 10:00; Stop 04/25/17 at 13:14; Status DC Insulin Aspart (NovoLOG) 15 units 1X ONCE SQ Last administered on 04/25/17 21:15; Start 04/25/17 at 21:15; Stop 04/25/17 at 21:16; Status DC Active Scripts Active Prednisone 10 Mg Tablet 30 Mg PO DAILY Glucophage (Metformin Hcl) 500 Mg Tablet 500 Mg PO BIDWMEALS Reported Folic Acid 1 Mg Tablet 1 Tab PO DAILY Vitals/I & O Vital Sign - Last 24 Hours 04/25/17 04/25/17 04/25/17 04/25/17 11:00 14:45 19:00 23:00 Temp 97.9 97.9 98.2 98.1 97.9 97.9 98.2 98.1 Pulse 69 70 84 84 Resp 18 18 20 20 B/P (MAP) 128/64 (85) 130/68 (88) 124/77 (93) 110/63 (79) Pulse Ox 97 97 97 97 O2 Delivery Room Air Room Air Room Air Room Air 04/26/17 04/26/17 03:00 07:00 Temp 98.3 97.9 98.3 97.9 Pulse 94 82 Resp 20 18 B/P (MAP) 119/76 (90) 122/77 (92) Pulse Ox 97 98 O2 Delivery Room Air Room Air Intake and Output 04/25/17 04/25/17 04/26/17 14:59 22:59 06:59 Intake Total 3300 ml 0 ml 400 ml Balance 3300 ml 0 ml 400 ml STEVEN GIL MD Apr 26, 2017 09:01
[2017-04-26] MEDS ORDERED: POTASSIUM CHLORIDE 20 MEQ TABLET.ER. PO SCH (10:00)
[2017-04-26] MEDS ORDERED: GLIP2.5T4 PO (10:01)
[2017-04-26] MEDS ORDERED: PRED5TAB PO (10:01)
[2017-04-26] MEDS ORDERED: METF850T2 PO (10:01)
== END 2017-04-26 10:45 | disposition home or self-care (01) | DRG 682 ==
LOC: ER 11:14 → 1 WEST ICU 14:50 → 5 SOUTH 04-24 20:18
PROVIDERS: ADMIT Internal Medicine; ATTEND Internal Medicine
DX: N17.0 Acute kidney failure with tubular necrosis (principal); E11.10 Type 2 diabetes mellitus with ketoacidosis without coma; D61.818 Other pancytopenia; E87.2 Acidosis; D59.1 Other autoimmune hemolytic anemias; E44.1 Mild protein-calorie malnutrition; Z83.3 Family history of diabetes mellitus; D72.819 Decreased white blood cell count, unspecified; R59.1 Generalized enlarged lymph nodes
CPT/HCPCS: 36415; 36600; 71010; 80048; 80053; 80076; 81001; 82553; 82805; 82962; 83036; 83605; 83615; 83735; 84100; 85025; 85045; 87641; 96361; 96365; 96366; 96375; J1265; J1815; J2405; J7030; J7042; J7512; 99291-25

== ENCOUNTER → 2017-07-12 | Outpatient (CLI) | payer OTHER ==
[2017-07-12] MEDS: IOHEXOL 240 MG/ML 50ML VIAL. PO ×2 (09:49)
[2017-07-12] MEDS: IOHEXOL 300 MG/ML 100ML VIAL. IV ×2 (09:50)
== END | disposition home or self-care (01) ==
LOC: CT 07:50
DX: D58.9 Hereditary hemolytic anemia, unspecified (principal); R59.1 Generalized enlarged lymph nodes; R91.8 Other nonspecific abnormal finding of lung field; R16.1 Splenomegaly, not elsewhere classified
CPT/HCPCS: 71260; 74177; Q9966; Q9967